=== PATIENT | male | born 1985 | race Caucasian/White ===

== ENCOUNTER 2016-05-27 13:12 | Emergency (ER) | payer SELFPAY ==
[2016-05-27] MEDS ORDERED: LORAZEPAM INJ 2 MG/1 ML VIAL ONE (13:20)
--- NOTE | 2016-05-27 13:28 | ER Document Report ---
ED Seizure - General Time seen by provider: 13:20 Mode of Arrival: Medic Information source: Emergency Med Personnel, [facility] Records - [facility] Patient complains to provider of: History of seizures <MATIGILBERTO STRONG - Last Filed: 05/27/16 13:37> <CHRISSY RICH - Last Filed: 05/28/16 17:29> - General Stated Complaint: POSSIBLE SEIZURE Notes: Patient is a 30 year old male presenting to the emergency department for seizures. Patient had a seizure at home so EMS was summoned. Patient told EMS that he quit drinking EtOH 4 days ago. Patient has a history of alcoholic hepatitis. Patient was alert on scene with EMS and then patient started seizing during registration while at the ED. Patient was seizing and placed in the left lateral decubitus position. Patient has a history of heavy EtOH use and prescription drug abuse. Patient states after his seizure in the ED that he is trying to be a recovering addict so he stopped drinking. (GILBERTO EDGAR) This 30-year-old male patient comes emergency room for alcohol withdrawal. He reports having a seizure this morning. He stopped drinking 3-4 days ago. He has been alcoholic for quite some time. Shortly after he arrived and while he was still on the EMS gurney, the patient began having a generalized seizure. He was given IM Ativan, as his IV had been pulled out during the seizure. He later woke up and was completely alert and oriented, states he stopped drinking 3-4 days ago because he is a "recovering alcoholic". He is complaining of abdominal pain, he has had pancreatitis in the past. His lipase is normal today, he does take sucralfate as well as medications. His abdomen has active bowel sounds, he does guard somewhat. His white blood cell count is unremarkable, particularly since it was drawn after a generalized seizure. (CHRISSY RICH) - Related Data Allergies/Adverse Reactions: No Known Allergies Allergy (Verified 09/03/14 01:38) Past Medical History - General Information source: Patient - Social History Smoking Status: Current Every Day Smoker Frequency of alcohol use: Heavy Drug Abuse: Prescription drugs Family History: CAD, COPD - Past Medical History Cardiac Medical History: Reports: Hx Hypertension Neurological Medical History: Reports: Hx Seizures - first one at 14 years of age, no medications GI Medical History: Reports: Hx Gastroesophageal Reflux Disease Psychiatric Medical History: Reports: Hx Depression Infectious Medical History: Reports: Hx Hepatitis - alcoholic hepatitis Past Surgical History: Reports: Hx Genitourinary Surgery - vasectomy, Hx Nose Surgery - bilateral: maxillary antrostomy, sphenoidotomy, ethmoidectomy - Immunizations Hx Diphtheria, Pertussis, Tetanus Vaccination: Yes <GILBERTO EDGAR - Last Filed: 05/27/16 13:37> Review of Systems - Review of Systems Constitutional: No symptoms reported EENT: No symptoms reported Cardiovascular: No symptoms reported Respiratory: No symptoms reported Gastrointestinal: No symptoms reported Genitourinary: No symptoms reported Male Genitourinary: No symptoms reported Musculoskeletal: No symptoms reported Skin: No symptoms reported Hematologic/Lymphatic: No symptoms reported Neurological/Psychological: See HPI, Seizure -: Yes All other systems reviewed and negative <GILBERTO EDGAR - Last Filed: 05/27/16 13:37> Physical Exam - Vital signs Interpretation: Tachycardic - during seizure - General In distress: Mild - HEENT Head: Normocephalic, Atraumatic Eyes: Normal Pupils: PERRL Mucous membranes: Moist - Respiratory Respiratory status: No respiratory distress Chest status: Nontender Breath sounds: Rhonchi Chest palpation: Normal - Cardiovascular Rhythm: Regular, Tachycardia - only during the seizure Heart sounds: Normal auscultation Murmur: No - Abdominal Inspection: Normal Distension: No distension Bowel sounds: Normal Tenderness: Nontender Organomegaly: No organomegaly - Back Back: Normal, Nontender - Extremities General upper extremity: Normal inspection, Normal ROM, Normal strength General lower extremity: Normal inspection, Normal ROM, Normal strength - Neurological Neuro grossly intact: Yes Cognition: Normal Orientation: AAOx4 Elva Coma Scale Eye Opening: Spontaneous [place]va Coma Scale Verbal: Oriented [place] Coma Scale Motor: Obeys Commands [place] Coma Scale Total: 15 Speech: Normal - Psychological Associated symptoms: Normal affect, Normal mood - Skin Skin Temperature: Warm Skin Moisture: Dry <GILBERTO EDGAR - Last Filed: 05/27/16 13:37> <CHRISSY RICH - Last Filed: 05/28/16 17:29> - Vital signs Vitals: Temp Pulse BP Pulse Ox 99.7 F 135 H 153/87 H 98 05/27/16 13:30 05/27/16 13:30 05/27/16 13:30 05/27/16 13:30 - General Notes: Patient was seizing with EMS at bedside, patient was in the left lateral decubitus position, his teeth were clenching, he was snoring, and salivating, and convulsing. After getting ativan, patient was alert and oriented and able to give information. (GILBERTO EDGAR) Course <GILBERTO EDGAR - Last Filed: 05/27/16 13:37> - Laboratory Result Diagrams: 05/27/16 13:48 05/27/16 13:48 <CHRISSY RICH - Last Filed: 05/28/16 17:29> - Re-evaluation Re-evalutation: 05/27/16 17:50 The patient does give a history of seizures when he was 14 years old. It is unclear if he perhaps has a seizure disorder in addition to his alcohol withdrawal seizures. We will cover him with Dilantin just in case, in addition to benzodiazepines. 05/27/16 18:40 At this time the patient is resting comfortably after the additional half milligram of Ativan. Abdomen has very active bowel sounds. Is soft. It is resonant to percuss. The patient does state that he has been having diarrhea recently. The abdomen remains a little tender, but he seems much more comfortable on exam now than earlier. His pulse is now down to 110, he has had about 2 L of IV fluids. I reviewed the discharge instructions and plans with the patient and a family member. (CHRISSY RICH) - Vital Signs Vital signs: Temp Pulse Resp BP Pulse Ox 99.7 F 114 H 14 135/88 H 96 05/27/16 13:30 05/27/16 16:22 05/27/16 19:18 05/27/16 19:18 05/27/16 19:18 - Laboratory Laboratory results interpreted by me: 05/27/16 05/27/16 13:48 13:48 RBC 3.54 L Hgb 10.4 L Hct 31.3 L RDW 27.3 H Seg Neutrophils % 84.8 H Lymphocytes % 10.4 L Absolute Neutrophils 8.8 H Sodium 134.0 L Potassium 3.2 L Chloride 92 L Carbon Dioxide 12 L Anion Gap 30 H BUN 5 L Glucose 133 H Magnesium 1.0 L* AST 195 H ALT 85 H Alkaline Phosphatase 135 H Creatine Kinase 186 H Critical Care Note - Critical Care Note Total time excluding time spent on procedures (mins): 40 <CHRISSY RICH - Last Filed: 05/28/16 17:29> Discharge <GILBERTO EDGAR - Last Filed: 05/27/16 13:37> <CHRISSY RICH - Last Filed: 05/28/16 17:29> - Discharge Clinical Impression: Hypomagnesemia, Hypokalemia, Alcoholism /alcohol abuse Seizure due to alcohol withdrawal Qualifiers: Complication of substance-induced condition: uncomplicated Qualified Code(s): F10.230 - Alcohol dependence with withdrawal, uncomplicated Condition: Stable Disposition: HOME, SELF-CARE Additional Instructions: Alcohol Withdrawal: Your symptoms are caused by alcohol withdrawal. After a period of frequent drinking, the brain and body are changed by the alcohol. When you quit or reduce your drinking, the nervous system becomes unstable. Withdrawal symptoms can start a few hours after your last drink, but sometimes don't begin until a couple of days later. Symptoms can include shakiness, sweating, insomnia, nausea , vomiting, fearfulness, hallucinations, and seizures. In addition to the acute effects of alcohol withdrawal, we often have to deal with the medical effects of alcoholism. These problems often include dehydration, stomach irritation, intestinal bleeding, low blood sugar, liver disease, and pancreas inflammation. Treatment for alcohol withdrawal includes mild sedatives, vitamins, and fluids. You need to be with someone who can help if symptoms become severe. Many patients can withdraw at home. Admission to the hospital or a detox facility may be necessary if withdrawal symptoms are severe and uncontrollable. Abstaining from alcohol is the only effective long-term treatment. If you start drinking again, you will not be able to control yourself after the first drink. Treatment programs are available. In addition, many alcoholics benefit from Alcoholics Anonymous or other support groups available through your counselor or mandaen senior business process analyst. AL-ANON and ALA-TEEN are support groups for friends and family members of an alcoholic. Go to the emergency room if you develop persistent vomiting, severe abdominal pain, fever, shortness of breath, hallucinations, uncontrollable tremors, or seizures. TAKE THE MEDICATION PRESCRIBED. INCREASE POTASSIUM IN YOUR DIET. EAT WELL BALANCED MEALS. DRINK PLENTY OF FLUIDS. DO NOT DRINK ALCOHOL. FOLLOW UP WITH A [facility] TOMORROW. RETURN TO THE EMERGENCY ROOM IF ANY NEW OR WORSENING SYMPTOMS. Prescriptions: Phenytoin Sodium Extended [Dilantin 100 mg Capsule.er] 300 mg PO QHS #100 capsule Chlordiazepoxide HCl [Librium 25 mg Capsule] 1 cap PO QID PRN #30 capsule PRN Reason: Magnesium Oxide [Mag-Ox 400 mg Tablet] 400 mg PO DAILY #10 tablet Referrals: [facility] [Provider Group] - Follow up tomorrow [facility] [Provider Group] - Follow up tomorrow Scribe Attestation: 05/27/16 17:59 I personally performed the services described in the documentation, reviewed and edited the documentation which was dictated to the scribe in my presence, and it accurately records my words and actions. (CHRISSY RICH) Scribe Documentation - Scribe Written by Marin:: Gilberto Edgar 05/27/16 13:42 acting as scribe for :: Ramon <GILBERTO EDGAR - Last Filed: 05/27/16 13:37>
[2016-05-27] MEDS ORDERED: PHENYTOIN SODIUM INJ/PF 250 MG/5 ML SDV IV ONE (13:34)
[2016-05-27] MEDS ORDERED: LORAZEPAM INJ 2 MG/1 ML VIAL IM ONE (14:04)
[2016-05-27 14:06] LABS: ABSOLUTE LYMPHOCYTES (AUTO) 1.1 10^3/uL (0.5-4.7); ABSOLUTE MONOCYTES (AUTO) 0.5 10^3/uL (0.1-1.4); ABSOLUTE NEUT (AUTO) 8.8 10^3/uL (1.7-8.2); BASOPHILS % (AUTO) 0.5 % (0-2); HEMATOCRIT 31.3 % (37.9-51.0); HEMOGLOBIN 10.4 g/dL (13.5-17.0); HGB HCT DIFFERENCE -0.1; LYMPHOCYTES % (AUTO) 10.4 % (13-45); MEAN CORPUSCULAR HEMOGLOBIN 29.3 pg (27.0-33.4); MEAN CORPUSCULAR HGB CONC 33.2 g/dL (32.0-36.0); MEAN CORPUSCULAR VOLUME 88 fl (80-97); MONOCYTES % (AUTO) 4.3 % (3-13); RED BLOOD COUNT 3.54 10^6/uL (4.35-5.55); RED CELL DISTRIBUTION WIDTH 27.3 % (11.5-14.0); SEGMENTED NEUTROPHILS % (AUTO) 84.8 % (42-78); WHITE BLOOD COUNT 10.4 10^3/uL (4.0-10.5)
[2016-05-27 14:24] LABS: ALANINE AMINOTRANSFERASE 85 U/L (21-72); ALBUMIN 4.2 g/dL (3.5-5.0); ALKALINE PHOSPHATASE 135 U/L (38-126); BILIRUBIN,TOTAL 0.9 mg/dL (0.2-1.3); BLOOD UREA NITROGEN 5 mg/dL (7-20); CALCIUM 8.6 mg/dL (8.4-10.2); CARBON DIOXIDE 12 mmol/L (22-30); CHLORIDE 92 mmol/L (98-107); CREATINE KINASE 186 U/L (55-170); CREATININE RESULT 0.75 mg/dL (0.52-1.25); GLUCOSE 133 mg/dL (75-110); POTASSIUM 3.2 mmol/L (3.6-5.0); TOTAL PROTEIN 6.5 g/dL (6.3-8.2)
[2016-05-27 14:27] LABS: ANISOCYTOSIS 3+; HYPOCHROMASIA 1+
[2016-05-27 14:29] LABS: ASPARTATE AMINO TRANSFERASE 195 U/L (17-59)
[2016-05-27 14:33] LABS: ALCOHOL < 10 mg/dL (NONE DETECTED)
[2016-05-27 14:35] LABS: CREATINE KINASE MB 0.78 ng/mL (<4.55)
[2016-05-27 14:36] LABS: TROPONIN I < 0.012 ng/mL
[2016-05-27 14:43] LABS: ANION GAP 30 (5-19)
[2016-05-27] MEDS ORDERED: NORMAL SALINE 1000 ML 1,000 ML IV ONE (15:11)
[2016-05-27] MEDS ORDERED: POTASSIUM CHLORIDE 10 MEQ TABLET.SA PO ONE (15:11)
[2016-05-27] MEDS ORDERED: MAGNESIUM SULFATE INJ 8 MEQ/2 ML IV ONE (15:11)
[2016-05-27] MEDS ORDERED: THIAMINE HCL INJ 200 MG/2 ML VIAL IV ONE (15:32)
[2016-05-27] MEDS ORDERED: RINGERS SOLUTION,LACTATED 1,000 ML IV ONE (15:32)
[2016-05-27] MEDS ORDERED: LORAZEPAM INJ 2 MG/1 ML VIAL IV ONE ×2 (16:14→17:57)
[2016-05-27 16:37] LABS: APPEARANCE,URINE CLEAR; BILIRUBIN,URINE NEGATIVE (NEGATIVE); GLUCOSE, URINE NEGATIVE (NEGATIVE); KETONES,URINE NEGATIVE (NEGATIVE); LEUKOCYTE ESTERASE,URINE NEGATIVE (NEGATIVE); NITRITE,URINE NEGATIVE (NEGATIVE); PROTEIN,URINE NEGATIVE (NEGATIVE); URINE SPECIFIC GRAVITY 1.003; UROBILINOGEN,URINE NEGATIVE mg/dL (<2.0)
[2016-05-27 16:54] LABS: URINE BARBITURATES SCREEN NEGATIVE; URINE METHADONE SCREEN NEGATIVE; URINE OPIATES LOW NEGATIVE; URINE PHENCYCLIDINE SCREEN NEGATIVE
[2016-05-27] MEDS ORDERED: MAGNESIUM SULFATE/D5W 100 ML IV ONE (17:21)
[2016-05-28 04:28] VITALS: BP 135/88
== END 2016-05-27 19:20 | disposition home or self-care (01) ==
LOC: ER 13:12
DX: F10.230 Alcohol dependence with withdrawal, uncomplicated (principal); E83.42 Hypomagnesemia; E87.6 Hypokalemia; R00.0 Tachycardia, unspecified; R10.9 Unspecified abdominal pain; R19.7 Diarrhea, unspecified; I10 Essential (primary) hypertension; F17.200 Nicotine dependence, unspecified, uncomplicated; Z87.19 Personal history of other diseases of the digestive system; Z79.899 Other long term (current) drug therapy
CPT/HCPCS: 96376; 99285; 96375; 96361; 96365; 96367; 36415; 82553; 80307 ×2; 82550; 83690; 83735; 85025; 80053; 81001; 84484; 71010; J2060; J1165; J3475; J3411; J7030; J7120

== ENCOUNTER 2016-06-19 04:26 | Emergency (ER) | payer SELFPAY ==
[2016-06-19] MEDS ORDERED: DIAZEPAM INJ 10 MG/2 ML DISP.SYRIN ONE ×2 (04:31→04:34)
[2016-06-19] MEDS ORDERED: LORAZEPAM INJ 2 MG/1 ML VIAL ONE ×2 (04:40→04:50)
[2016-06-19] MEDS ORDERED: ETOMIDATE INJ/PF 20 MG/10 ML SDV IV ONE (05:02)
[2016-06-19] MEDS ORDERED: PROPOFOL 100 ML IV ONE (05:04)
[2016-06-19] MEDS ORDERED: FOLIC ACID INJ 5 MG/1 ML 10 ML VIAL IV ONE (05:31)
[2016-06-19] MEDS ORDERED: NORMAL SALINE 1000 ML 1,000 ML with POTASSIUM CHLORIDE 20 MEQ, MAGNESIUM SULFATE 8 MEQ,... IV PRN ×5 (05:32)
[2016-06-19] MEDS ORDERED: LEVETIRACETAM 1000 MG/NACL-ISO 100 ML IV ONE (05:34)
[2016-06-19] MEDS ORDERED: PROPOFOL INJ 200 MG/20 ML VIAL IV ONE ×2 (05:34→05:35)
[2016-06-19] MEDS ORDERED: SUCCINYLCHOLINE CHLORIDE INJ 200 MG/10 ML VIAL IV ONE (05:35)
--- NOTE | 2016-06-19 05:36 | ER Document Report ---
ED General - General TRAVEL OUTSIDE OF THE [place] IN LAST 30 DAYS: No <RO MCCORD - Last Filed: 06/19/16 08:53> <CHRISSY RICH - Last Filed: 06/19/16 09:36> - General Chief Complaint: Seizure Stated Complaint: SEIZURE Notes: Patient is 31 old male who presents actively having a seizure. Has history of chronic alcoholism and also has a history of seizure disorder. His mother is at bedside and says that the patient stopped drinking alcohol approximately day and half ago. He had to receive seizures at home. Upon pulling into the ER parking lot he started having a seizure and has not stopped since. He is on phenytoin Mother says he's been taking it appropriately. Mother says due to the alcohol he does fall frequently. She is unsure if he's had any recent head injuries. (RO MCCORD) - Related Data Allergies/Adverse Reactions: No Known Allergies Allergy (Verified 09/03/14 01:38) Past Medical History - Social History Smoking Status: Unknown if Ever Smoked Frequency of alcohol use: Heavy Drug Abuse: Other - unknown Family History: CAD, COPD - Past Medical History Cardiac Medical History: Reports: Hx Hypertension Denies: Hx Heart Attack Pulmonary Medical History: Denies: Hx Asthma, Hx Tuberculosis Neurological Medical History: Reports: Hx Seizures - hx of 2/ last seizure was at least 10 yrs ago/no meds. Denies: Hx Cerebrovascular Accident Renal/ Medical History: Denies: Hx Peritoneal Dialysis GI Medical History: Reports: Hx Gastroesophageal Reflux Disease, Hx Hepatitis - alcoholic hepatitis. Denies: Hx Hiatal Hernia, Hx Ulcer Psychiatric Medical History: Reports: Hx Depression Infectious Medical History: Reports: Hx Hepatitis - alcoholic hepatitis Past Surgical History: Reports: Hx Genitourinary Surgery - vasectomy, Hx Nose Surgery - bilateral: maxillary antrostomy, sphenoidotomy, ethmoidectomy. Denies : Hx Open Heart Surgery, Hx Pacemaker - Immunizations Hx Diphtheria, Pertussis, Tetanus Vaccination: Yes <RO MCCORD - Last Filed: 06/19/16 08:53> Review of Systems - Review of Systems -: Yes ROS unobtainable due to patient's medical condition - Patient is actively seizing. <RO MCCORD - Last Filed: 06/19/16 08:53> Physical Exam <RO MCCORD - Last Filed: 06/19/16 08:53> <CHRISSY RICH - Last Filed: 06/19/16 09:36> - Vital signs Vitals: Resp BP Pulse Ox 38 H 146/127 H 94 06/19/16 04:30 06/19/16 04:30 06/19/16 04:30 - Notes Notes: General Appearance: Well nourished, actively seizing Vitals: reviewed, See vital signs table. Head: no swelling or tenderness to the head Eyes: PERRL, EOMI, Conjuctiva clear Mouth: No decreasd moisture Throat: No tonsillar inflammation, No airway obstruction, No lymphadenopathy Neck: Supple, no neck tenderness, No thyromegaly Lungs: No wheezing, No rales, No rhonci, No accessory muscle use, good air exchange bilaterally. Heart: Tachycardic rate, Regular rythm, No murmur, no rub Abdomen: Normal BS, soft, No rigidity, No abdominal tenderness, No guarding, no rebound, no abdominal masses, no organomegaly Extremities: strength 5/5 in all extremities, good pulses in all extremities, no swelling or tenderness in the extremities, no edema. Skin: warm, dry, appropriate color, no rash Neuro: Patient is actively seizing. He is having some tonic-clonic movements of the upper extremities. He has continuous facial twitching. (RO MCCORD) Course - Laboratory Result Diagrams: 06/19/16 07:47 06/19/16 07:47 <RO MCCORD - Last Filed: 06/19/16 08:53> - Laboratory Result Diagrams: 06/19/16 07:47 06/19/16 07:47 <CHRISSY RICH - Last Filed: 06/19/16 09:36> - Re-evaluation Re-evalutation: 06/19/16 06:25 Patient's seizure initially stopped with propofol. After parallax wore off patient started having facial twitching again. This was not as severe as it was before the propofol; however, appears is having recurrent seizure activity. I've given Keppra. Patient's facial twitching is now very mild and intermittent and not constant. We will increase propofol as well as see if this helps fully prevent any further seizure activity. 06/19/16 07:45 Patient unfortunately does not appear to be have any further facial twitching or seizure-like activity at this time. He is sedated on the ventilator. He is on propofol. He has received the Keppra. His initial blood draw was hemolyzed. They did redraw the blood. His results are very off. Some of these may be true but to have concerns that is possible some of them may not be correct. I immediately have performed a some steak and obtained repeat blood draw. I have called the lab and they're in a running immediately to make sure these results are indeed correct. 06/19/16 08:33 (RO MCCORD) - Vital Signs Vital signs: Temp Pulse Resp BP Pulse Ox 14 107/60 100 06/19/16 05:21 06/19/16 05:21 06/19/16 05:25 - Laboratory Laboratory results interpreted by me: 06/19/16 06/19/16 06/19/16 06:32 06:32 06:32 WBC 12.3 H RBC 2.57 L Hgb 7.3 L Hct 21.6 L RDW 28.8 H Plt Count 125 L Seg Neuts % (Manual) 86 H Band Neutrophils % 2 L Lymphocytes % (Manual) 2 L Abs Neuts (Manual) 10.8 H Abs Lymphs (Manual) 0.2 L Abs Monocytes (Manual) Carbonic Acid ABG pH ABG pCO2 ABG HCO3 ABG Total CO2 Sodium 119.3 L* Potassium 2.2 L* Chloride 59 L Carbon Dioxide 41 H* BUN 24 H Glucose 112 H Calcium 4.7 L* Magnesium 1.0 L* Phenytoin < 3.0 L Crossmatch 06/19/16 06/19/16 06/19/16 06:35 07:47 07:47 WBC 12.6 H RBC 2.56 L Hgb 7.3 L Hct 21.7 L RDW 28.9 H Plt Count 122 L Seg Neuts % (Manual) Band Neutrophils % 2 L Lymphocytes % (Manual) 9 L Abs Neuts (Manual) 10.0 H Abs Lymphs (Manual) Abs Monocytes (Manual) 1.5 H Carbonic Acid 1.48 H ABG pH 7.58 H ABG pCO2 49.2 H ABG HCO3 44.8 H ABG Total CO2 46.3 H Sodium 118.9 L* Potassium 2.2 L* Chloride 59 L Carbon Dioxide 45 H* BUN 24 H Glucose 114 H Calcium 4.8 L* Magnesium 0.9 L* Phenytoin Crossmatch 06/19/16 07:47 WBC RBC Hgb Hct RDW Plt Count Seg Neuts % (Manual) Band Neutrophils % Lymphocytes % (Manual) Abs Neuts (Manual) Abs Lymphs (Manual) Abs Monocytes (Manual) Carbonic Acid ABG pH ABG pCO2 ABG HCO3 ABG Total CO2 Sodium Potassium Chloride Carbon Dioxide BUN Glucose Calcium Magnesium Phenytoin Crossmatch See Detail - EKG Interpretation by Me Additional EKG results interpreted by me: 06/19/16 08:35 EKG is reviewed and interpreted by me. EKG shows sinus tachycardia with rate [address] segment elevation or depression. No ischemic T wave inversions. WV interval, QRS duration, QTC intervals are within normal range. Old EKG for comparison is from 01/20/2016. (RO MCCORD) - Transfer of Care Notes: 06/19/16 08:20 I do not have continues EEG capability at this facility and therefore I cannot determine whether or not the patient has subclinical status while on the ventilator. I have called spent with Dr. Betancourt, driver wheelchair at [facility], who agrees to accept the patient but says that they currently do not have a bed and may not have a bed for 24 hours. They have placed him on a waiting list. I did call speak with Dr. Andersen, driver wheelchair at [facility], who agrees to accept the patient. They're currently looking to see if they have a bed available for him. His repeat CBC did come back with hemoglobin 7.3. I will transfuse him blood. Exact source of his anemia is unclear at this time. I have started replacing magnesium as well as potassium as well as calcium. 06/19/16 08:33 06/19/16 08:53 Patient's mother is Lyndon Contreras and her phone is [phone]. (RO MCCORD) Procedures - Intubation Orotracheal Airway evaluation: Normal anatomy Mallampati Classification: Class 2 Intubation method: Orotracheal Blade type: Quinten Blade size: 4 Equipment used: Glidescope ETT size: 7.5 ETT secured at: Teeth ETT secured at (cm): 24 Breath Sounds after Intubation: Equal End tidal CO2 confirmed: Yes Intubation Complications: No complications <RO MCCORD - Last Filed: 06/19/16 08:53> <CHRISSY RICH - Last Filed: 06/19/16 09:36> - Intubation Orotracheal Notes: 06/19/16 06:00 I initially attempted the first look without paralyzing the patient. Propofol did stop seizure upon station. Patient did have a gag reflex upon inserting the laryngoscope. I therefore removed the laryngoscope immediately. There was no vomiting or aspiration. Patient was then given succinylcholine. Upon second look after succinylcholine patient had no gag reflex and was easily intubated without complication. (RO MCCORD) Critical Care Note - Critical Care Note Total time excluding time spent on procedures (mins): 65 <RO MCCORD - Last Filed: 06/19/16 08:53> <CHRISSY RICH - Last Filed: 06/19/16 09:36> - Critical Care Note Comments: Total critical care time spent on this patient's proximately 65 minutes due to frequent evaluations to look for further signs recurrent seizure activity and management patient's airway and sedation. This time this not including time spent on procedures. (RO MCCORD) Discharge <RO MCCORD - Last Filed: 06/19/16 08:53> <CHRISSY RICH - Last Filed: 06/19/16 09:36> - Discharge Clinical Impression: Alcohol abuse, Seizures, Hypomagnesemia, Hypokalemia, Hypocalcemia Anemia Qualifiers: Anemia type: unspecified type Qualified Code(s): D64.9 - Anemia, unspecified Alcohol withdrawal Qualifiers: Complication of substance-induced condition: with delirium Qualified Code(s): F10.231 - Alcohol dependence with withdrawal delirium Gastrointestinal hemorrhage Qualifiers: GI bleed type/associated pathology: unspecified gastrointestinal hemorrhage type Qualified Code(s): K92.2 - Gastrointestinal hemorrhage, unspecified Condition: Stable Disposition: [facility]
[2016-06-19] MEDS ORDERED: POTASSI CL 20 MEQ/50 ML RIDER 40 MEQ/100 ML RTUPB IV ONE (05:38)
[2016-06-19] MEDS ORDERED: FOLIC ACID 1 MG in NORMAL SALINE 50 ML IV ONE (05:45)
[2016-06-19] MEDS: PROPOFOL 100 ML IV PRN ×2 (05:49→08:34)
[2016-06-19 06:49] LABS: ARTERIAL BLOOD BASE EXCESS 20.5 mmol/L; ARTERIAL BLOOD O2 SATURATION 97.3 % (94-98)
[2016-06-19 06:50] LABS: HEMATOCRIT 21.6 % (37.9-51.0); HGB HCT DIFFERENCE 0.3; MEAN CORPUSCULAR HEMOGLOBIN 28.5 pg (27.0-33.4); MEAN CORPUSCULAR HGB CONC 33.9 g/dL (32.0-36.0); RED BLOOD COUNT 2.57 10^6/uL (4.35-5.55); RED CELL DISTRIBUTION WIDTH 28.8 % (11.5-14.0); WHITE BLOOD COUNT 12.3 10^3/uL (4.0-10.5)
[2016-06-19 07:04] LABS: BLOOD UREA NITROGEN 24 mg/dL (7-20); CHLORIDE 59 mmol/L (98-107); GLUCOSE 112 mg/dL (75-110)
[2016-06-19 07:05] LABS: ALCOHOL < 10 mg/dL (NONE DETECTED)
[2016-06-19 07:20] LABS: ANION GAP 19 (5-19)
[2016-06-19 07:24] LABS: CALCIUM 4.7 mg/dL (8.4-10.2); CARBON DIOXIDE 41 mmol/L (22-30); POTASSIUM 2.2 mmol/L (3.6-5.0); SODIUM 119.3 mmol/L (137-145)
[2016-06-19 07:26] LABS: HEMOGLOBIN 7.3 g/dL (13.5-17.0)
[2016-06-19 07:28] LABS: MEAN CORPUSCULAR VOLUME 84 fl (80-97)
[2016-06-19] MEDS ORDERED: ACETAMINOPHEN 325 MG TABLET PO ONE (07:33)
[2016-06-19 07:46] LABS: BAND NEUTROPHILS % (MANUAL) 2 % (3-5); BASOPHILS % (MANUAL) 0 % (0-2); EOSINOPHILS % (MANUAL) 0 % (0-6); LYMPHOCYTES % (MANUAL) 2 % (13-45); NUCLEATED RED BLOOD CELLS 2 /100 WBC (0); TOTAL CELLS COUNTED 100
[2016-06-19 07:47] LABS: ANISOCYTOSIS 3+; HYPOCHROMASIA 2+; POLYCHROMASIA 1+; STOMATOCYTES 2+; TOXIC GRANULATION SLIGHT
[2016-06-19] MEDS: MAGNESIUM SULFATE/D5W 100 ML IV SCH ×2 (07:54→09:07)
[2016-06-19 07:55] LABS: HEMATOCRIT 21.7 % (37.9-51.0); HGB HCT DIFFERENCE 0.2; MEAN CORPUSCULAR HEMOGLOBIN 28.6 pg (27.0-33.4); MEAN CORPUSCULAR HGB CONC 33.7 g/dL (32.0-36.0); MEAN CORPUSCULAR VOLUME 85 fl (80-97); RED BLOOD COUNT 2.56 10^6/uL (4.35-5.55); RED CELL DISTRIBUTION WIDTH 28.9 % (11.5-14.0); WHITE BLOOD COUNT 12.6 10^3/uL (4.0-10.5)
[2016-06-19 08:02] LABS: HEMOGLOBIN 7.3 g/dL (13.5-17.0)
[2016-06-19 08:04] LABS: PROTHROMBIN TIME 13.1 SEC (11.4-15.4)
[2016-06-19] MEDS ORDERED: CALCIUM GLUCONATE 1000 MG/10 ML INJ IV ONE (08:04)
[2016-06-19 08:06] LABS: BLOOD UREA NITROGEN 24 mg/dL (7-20); CHLORIDE 59 mmol/L (98-107); GLUCOSE 114 mg/dL (75-110)
[2016-06-19 08:15] LABS: ANISOCYTOSIS 3+; BAND NEUTROPHILS % (MANUAL) 2 % (3-5); BASOPHILS % (MANUAL) 0 % (0-2); EOSINOPHILS % (MANUAL) 0 % (0-6); HYPOCHROMASIA 2+; LYMPHOCYTES % (MANUAL) 9 % (13-45); PLATELET CLUMPS PRESENT; TOTAL CELLS COUNTED 100; TOXIC GRANULATION SLIGHT
[2016-06-19 08:16] LABS: POLYCHROMASIA SLIGHT; STOMATOCYTES 1+
[2016-06-19] MEDS ORDERED: NORMAL SALINE 250 ML IV PRN (08:19)
[2016-06-19 08:22] LABS: ANION GAP 15 (5-19)
[2016-06-19 08:25] LABS: CALCIUM 4.8 mg/dL (8.4-10.2); CARBON DIOXIDE 45 mmol/L (22-30); MAGNESIUM 0.9 mg/dL (1.6-2.3); POTASSIUM 2.2 mmol/L (3.6-5.0); SODIUM 118.9 mmol/L (137-145)
[2016-06-19] MEDS ORDERED: POTASSI CL 20 MEQ/50 ML RIDER 50 ML IV SCH (08:30)
--- NOTE | 2016-06-19 09:39 | ER Document Report ---
Doctor's Note Notes: 06/19/16 09:38 The patient remains on a ventilator, vital signs are stable. Paramedical will be landing in the next few minutes. Blood should be arriving from the lab to start transfusing prior to the patient departing.
[2016-06-19 12:05] VITALS: BP 131/65
--- NOTE | 2016-06-19 13:18 | EKG REPORT ---
SEVERITY:- ABNORMAL ECG - SINUS TACHYCARDIA ABNORMAL T, CONSIDER ISCHEMIA, DIFFUSE LEADS : Confirmed by: Blake Faulkner MD 19-Jun-2016 13:17:59
[2016-06-19] MEDS ORDERED: SUCCINYLCHOLINE CHLORIDE INJ 200 MG/10 ML VIAL ONE (14:42)
== END 2016-06-19 09:57 | disposition short-term general hospital (02) ==
LOC: ER 04:26
PROC: 0BH17EZ Insertion of Endotracheal Airway into Trachea, Via Natural or Artificial Opening (ICD-10-PCS; principal; 2016-06-19)
DX: G40.909 Epilepsy, unspecified, not intractable, without status epilepticus (principal); D64.9 Anemia, unspecified; F10.231 Alcohol dependence with withdrawal delirium; K92.2 Gastrointestinal hemorrhage, unspecified; R00.0 Tachycardia, unspecified; E83.42 Hypomagnesemia; E87.6 Hypokalemia; E83.51 Hypocalcemia; I10 Essential (primary) hypertension; R29.6 Repeated falls
CPT/HCPCS: 93005; 99291; 96375; 96365; 96366; 96368; 86900; 86901; 36415; 36430; 86850; 80307; 82803; 83735; 80185; 85025; 85610; 82272; 80048; 86920; 71010; 70450; 72125; 93010; 31500; L0120; P9016; J0610; J3360; J3490 ×2; J2704 ×2; J3475 ×2; J2060; J3480 ×2; J0330; J3411; J7030; J1953

== ENCOUNTER 2016-08-31 13:03 | Emergency (ER) | payer SELFPAY ==
[2016-08-31] MEDS ORDERED: LORAZEPAM INJ 2 MG/1 ML VIAL IV ONE (13:26)
[2016-08-31] MEDS ORDERED: NORMAL SALINE 1000 ML 1,000 ML IV ONE (13:26)
[2016-08-31] MEDS ORDERED: THIAMINE HCL 100 MG, FOLIC ACID 1 MG in NORMAL SALINE 50 ML IV ONE (13:26)
--- NOTE | 2016-08-31 13:29 | ER Document Report ---
ED Medical Screen (RME) - General Chief Complaint: Alcohol Withdrawl Stated Complaint: POSSIBLE SEIZURE Time Seen by Provider: 08/31/16 13:21 Mode of Arrival: Wheelchair Information source: Patient TRAVEL OUTSIDE OF THE [place] IN LAST 30 DAYS: No - HPI Patient complains to provider of: seizure Onset: This morning - pt states has been drinking alcohol up until 3 days ago and his "left side seized up on me." States had similar episode several months ago - Related Data Allergies/Adverse Reactions: No Known Allergies Allergy (Verified 08/31/16 13:13) Past Medical History - Social History Chew tobacco use (# tins/day): No Drug Abuse: None - Past Medical History Cardiac Medical History: Reports: Hx Hypertension Denies: Hx Heart Attack Pulmonary Medical History: Denies: Hx Asthma, Hx Tuberculosis Neurological Medical History: Reports: Hx Seizures - hx of 2/ last seizure was at least 10 yrs ago/no meds. Denies: Hx Cerebrovascular Accident Renal/ Medical History: Denies: Hx Peritoneal Dialysis GI Medical History: Reports: Hx Gastroesophageal Reflux Disease, Hx Hepatitis - alcoholic hepatitis. Denies: Hx Hiatal Hernia, Hx Ulcer Psychiatric Medical History: Reports: Hx Depression Infectious Medical History: Reports: Hx Hepatitis - alcoholic hepatitis Past Surgical History: Reports: Hx Genitourinary Surgery - vasectomy, Hx Nose Surgery - bilateral: maxillary antrostomy, sphenoidotomy, ethmoidectomy. Denies : Hx Open Heart Surgery, Hx Pacemaker - Immunizations Hx Diphtheria, Pertussis, Tetanus Vaccination: Yes Physical Exam - Vital signs Vitals: Temp Pulse Resp BP Pulse Ox 99.5 F 104 H 20 160/119 H 100 08/31/16 13:13 08/31/16 13:13 08/31/16 13:13 08/31/16 13:13 08/31/16 13:13 Course - Vital Signs Vital signs: Temp Pulse Resp BP Pulse Ox 99.5 F 104 H 20 160/119 H 100 08/31/16 13:13 08/31/16 13:13 08/31/16 13:13 08/31/16 13:13 08/31/16 13:13
[2016-08-31 14:39] LABS: ABSOLUTE BASOPHILS # (AUTO) 0.1 10^3/uL (0.0-0.2); ABSOLUTE EOSINOPHILS # (AUTO) 0.1 10^3/uL (0.0-0.6); ABSOLUTE LYMPHOCYTES (AUTO) 1.5 10^3/uL (0.5-4.7); ABSOLUTE MONOCYTES (AUTO) 0.5 10^3/uL (0.1-1.4); ABSOLUTE NEUT (AUTO) 3.1 10^3/uL (1.7-8.2); BASOPHILS % (AUTO) 1.3 % (0-2); EOSINOPHILS % (AUTO) 1.2 % (0-6); HEMATOCRIT 32.6 % (37.9-51.0); HEMOGLOBIN 10.3 g/dL (13.5-17.0); HGB HCT DIFFERENCE -1.7; LYMPHOCYTES % (AUTO) 27.7 % (13-45); MEAN CORPUSCULAR HEMOGLOBIN 24.3 pg (27.0-33.4); MEAN CORPUSCULAR HGB CONC 31.6 g/dL (32.0-36.0); MEAN CORPUSCULAR VOLUME 77 fl (80-97); MONOCYTES % (AUTO) 10.4 % (3-13); RED BLOOD COUNT 4.25 10^6/uL (4.35-5.55); RED CELL DISTRIBUTION WIDTH 22.6 % (11.5-14.0); SEGMENTED NEUTROPHILS % (AUTO) 59.4 % (42-78); WHITE BLOOD COUNT 5.3 10^3/uL (4.0-10.5)
[2016-08-31 14:59] LABS: ALANINE AMINOTRANSFERASE 97 U/L (21-72); ALBUMIN 4.2 g/dL (3.5-5.0); ALCOHOL < 10 mg/dL (NONE DETECTED); ALKALINE PHOSPHATASE 105 U/L (38-126); ANION GAP 14 (5-19); ASPARTATE AMINO TRANSFERASE 273 U/L (17-59); BILIRUBIN,DIRECT 0.4 mg/dL (0.0-0.4); BILIRUBIN,TOTAL 1.1 mg/dL (0.2-1.3); BLOOD UREA NITROGEN 7 mg/dL (7-20); CARBON DIOXIDE 25 mmol/L (22-30); CHLORIDE 97 mmol/L (98-107); CREATININE RESULT 0.57 mg/dL (0.52-1.25); GLUCOSE 99 mg/dL (75-110); POTASSIUM 3.6 mmol/L (3.6-5.0); SODIUM 135.5 mmol/L (137-145); TOTAL PROTEIN 7.1 g/dL (6.3-8.2)
--- NOTE | 2016-08-31 15:42 | RADIOLOGY REPORT (SQ) ---
EXAM DESCRIPTION: CT HEAD WITHOUT COMPLETED DATE/TIME: 08/31/2016 3:29 pm REASON FOR STUDY: seizure COMPARISON: 06/19/2016. TECHNIQUE: Axial images acquired through the brain without intravenous contrast. Images reviewed wi th bone, brain and subdural windows. Images stored on PACS. All CT scanners at this facility use dose modulation, iterative reconstruction, and/or weight based d osing when appropriate to reduce radiation dose to as low as reasonably achievable (ALARA). [facility]: Dose Right [facility]: CareDose [facility]: Dose Right [facility]: Teradose 4D [facility]: Enforcer eCoaching RADIATION DOSE: 64.61 mGy. LIMITATIONS: None. FINDINGS: VENTRICLES: Normal size and contour. CEREBRUM: No masses. No hemorrhage. No midline shift. Normal wilkinson/white matter differentiation. N o evidence for acute infarction. CEREBELLUM: No masses. No hemorrhage. No alteration of density. No evidence for acute infarction. EXTRAAXIAL SPACES: No fluid collections. No masses. ORBITS AND GLOBE: No intra- or extraconal masses. Normal contour of globe without masses. CALVARIUM: No fracture. PARANASAL SINUSES: No fluid levels. Mild mucosal thickening in the maxillary sinuses. SOFT TISSUES: No mass or hematoma. OTHER: No other significant finding. IMPRESSION: NORMAL BRAIN CT WITHOUT CONTRAST. TECHNICAL DOCUMENTATION: JOB ID: [id number] Quality ID # [id number]: Final reports with documentation of one or more dose reduction techniques (e.g., Au tomated exposure control, adjustment of the mA and/or kV according to patient size, use of iterative reconstruction technique) 2010 [employer]- All Rights Reserved
[2016-08-31 16:11] LABS: APPEARANCE,URINE SLIGHTLY-CLOUDY; BILIRUBIN,URINE SMALL (NEGATIVE); GLUCOSE, URINE NEGATIVE (NEGATIVE); KETONES,URINE 20 mg/dL (NEGATIVE); LEUKOCYTE ESTERASE,URINE NEGATIVE (NEGATIVE); NITRITE,URINE NEGATIVE (NEGATIVE); PROTEIN,URINE 100 mg/dL (NEGATIVE); URINE SPECIFIC GRAVITY 1.023
--- NOTE | 2016-08-31 16:16 | ER Document Report ---
ED General - General Chief Complaint: Alcohol Withdrawl Stated Complaint: POSSIBLE SEIZURE Time Seen by Provider: 08/31/16 13:21 Mode of Arrival: Wheelchair Information source: Patient Notes: 31-year-old chronic alcoholic presents with complaints of jitteriness. Patient denies any seizure activity Patient notes he has tried to quit multiple times in the past. Patient denies any nausea vomiting notes tingling sensations in his extremities TRAVEL OUTSIDE OF THE [place] IN LAST 30 DAYS: No - HPI Onset: This morning Onset/Duration: Sudden Quality of pain: No pain Severity: Mild Pain Level: Denies Associated symptoms: Other Exacerbated by: Denies Relieved by: Denies Similar symptoms previously: Yes Recently seen / treated by doctor: Yes - Related Data Allergies/Adverse Reactions: No Known Allergies Allergy (Verified 08/31/16 13:13) Past Medical History - General Information source: Patient - Social History Smoking Status: Current Every Day Smoker Cigarette use (# per day): Yes Chew tobacco use (# tins/day): No Smoking Education Provided: No Frequency of alcohol use: Heavy Drug Abuse: None Family History: CAD, COPD Patient has suicidal ideation: No Patient has homicidal ideation: No - Past Medical History Cardiac Medical History: Reports: Hx Hypertension Denies: Hx Heart Attack Pulmonary Medical History: Denies: Hx Asthma, Hx Tuberculosis Neurological Medical History: Reports: Hx Seizures - hx of 4/ last seizure was at least 10 yrs ago/no meds. Denies: Hx Cerebrovascular Accident Renal/ Medical History: Denies: Hx Peritoneal Dialysis GI Medical History: Reports: Hx Gastroesophageal Reflux Disease, Hx Hepatitis - alcoholic hepatitis. Denies: Hx Hiatal Hernia, Hx Ulcer Psychiatric Medical History: Reports: Hx Depression Infectious Medical History: Reports: Hx Hepatitis - alcoholic hepatitis Past Surgical History: Reports: Hx Genitourinary Surgery - vasectomy, Hx Nose Surgery - bilateral: maxillary antrostomy, sphenoidotomy, ethmoidectomy. Denies : Hx Open Heart Surgery, Hx Pacemaker - Immunizations Hx Diphtheria, Pertussis, Tetanus Vaccination: Yes Review of Systems - Review of Systems Notes: REVIEW OF SYSTEMS: CONSTITUTIONAL : Denies fever, chills, or sweats. Denies recent illness. EENT: Denies eye, ear, throat, or mouth pain or symptoms. Denies nasal or sinus congestion or discharge. Denies throat, tongue, or mouth swelling or difficulty swallowing. CARDIOVASCULAR: Denies chest pain. Denies palpitations or racing or irregular heart beat. Denies ankle edema. RESPIRATORY: Denies cough, cold, or chest congestion. Denies shortness of breath, difficulty breathing, or wheezing. GASTROINTESTINAL: Denies abdominal pain or distention. Denies nausea, vomiting , or diarrhea. Denies blood in vomitus, stools, or per rectum. Denies black, tarry stools. Denies constipation. GENITOURINARY: Denies difficulty urinating, painful urination, burning, frequency, blood in urine, or discharge. MUSCULOSKELETAL: Denies back or neck pain or stiffness. Denies joint pain or swelling. SKIN: Denies rash, lesions or sores. HEMATOLOGIC : Denies easy bruising or bleeding. LYMPHATIC: Denies swollen, enlarged glands. NEUROLOGICAL: Admits to dizziness and jitteriness and tingling sensations in the extremities PSYCHIATRIC: Denies anxiety or stress. Denies depression, suicidal ideation, or homicidal ideation. ALL OTHER SYSTEMS REVIEWED AND NEGATIVE. Dictation was performed using [employer] voice recognition software PHYSICAL EXAMINATION: GENERAL: Well-appearing, well-nourished and in no acute distress. HEAD: Atraumatic, normocephalic. EYES: Pupils equal round and reactive to light, extraocular movements intact, sclera anicteric, conjunctiva are normal. ENT: Nares patent, oropharynx clear without exudates. Moist mucous membranes. NECK: Normal range of motion, supple without lymphadenopathy LUNGS: Breath sounds clear to auscultation bilaterally and equal. No wheezes rales or rhonchi. HEART: Regular rate and rhythm without murmurs patient intermittently is tachycardic however at rest his heart rate is 90 ABDOMEN: Soft, nontender, nondistended abdomen. No guarding, no rebound. No masses appreciated. Musculoskeletal: Normal range of motion, no pitting or edema. No cyanosis. NEUROLOGICAL: Cranial nerves grossly intact. Normal speech, normal gait. Normal sensory, motor exams PSYCH: Normal mood, normal affect. SKIN: Warm, Dry, normal turgor, no rashes or lesions noted. Physical Exam - Vital signs Vitals: Temp Pulse Resp BP Pulse Ox 99.5 F 104 H 20 160/119 H 100 08/31/16 13:13 08/31/16 13:13 08/31/16 13:13 08/31/16 13:13 08/31/16 13:13 Course - Re-evaluation Re-evalutation: 08/31/16 18:44 he wishes to be discharged home, I will discharge with mom's reassurance that she will watch him, he is to see [facility] in the morning 09/01/16 00:24 31-year-old male alcoholic who has stopped drinking over the past 3 days presents with jitteriness shaking sensation. Patient has had seizures in the past, my concern was for seizure but he has not seized tonight. Patient was given Ativan and notes symptoms improved significantly. I watched the patient in the emergency department for approximately 5 and half hours and he did quite well, given that he has no other concerns at his request at the discharge patient home with understand that they must take the benzo and he must be watched overnight very closely as this can be life-threatening After performing a Medical Screening Examination, I estimate there is LOW risk for ACUTE CORONARY SYNDROME, RESPIRATORY FAILURE, SEPSIS OR MENINGITIS, thus I consider the discharge disposition reasonable. I have reevaluated this patient multiple times and no significant life threatening changes are noted. The patient and I have discussed the diagnosis and risks, and we agree with discharging home with close follow-up. We also discussed returning to the Emergency Department immediately if new or worsening symptoms occur. We have discussed the symptoms which are most concerning (e.g., changing or worsening pain, trouble swallowing or breathing, neck stiffness, fever) that necessitate immediate return. 09/01/16 00:27 - Vital Signs Vital signs: Temp Pulse Resp BP Pulse Ox 99.5 F 104 H 15 152/103 H 99 08/31/16 13:13 08/31/16 13:13 08/31/16 18:57 08/31/16 18:57 08/31/16 18:57 - Laboratory Result Diagrams: 08/31/16 14:26 08/31/16 14:26 Laboratory results interpreted by me: 08/31/16 08/31/16 08/31/16 14:26 14:26 15:45 RBC 4.25 L Hgb 10.3 L Hct 32.6 L MCV 77 L MCH 24.3 L MCHC 31.6 L RDW 22.6 H Sodium 135.5 L Chloride 97 L AST 273 H ALT 97 H Urine Protein 100 H Urine Ketones 20 H Urine Bilirubin SMALL H Urine Urobilinogen 2.0 H Discharge - Discharge Clinical Impression: Anxiety Alcohol withdrawal Qualifiers: Complication of substance-induced condition: uncomplicated Qualified Code(s): F10.230 - Alcohol dependence with withdrawal, uncomplicated Condition: Stable Disposition: HOME, SELF-CARE Instructions: Alcohol Withdrawl ([facility]) Additional Instructions: You must return immediately if there is any other concerns You must see [facility] per your previous appt tomorrow Prescriptions: Lisinopril 5 mg PO DAILY #14 tablet Lorazepam [Ativan 1 mg Tablet] 1 mg PO Q4 PRN #14 tab PRN Reason:
[2016-08-31 16:25] LABS: URINE BARBITURATES SCREEN NEGATIVE; URINE METHADONE SCREEN NEGATIVE; URINE OPIATES LOW NEGATIVE; URINE PHENCYCLIDINE SCREEN NEGATIVE
[2016-08-31] MEDS ORDERED: KETOROLAC TROMETHAMINE INJ/PF 30 MG/1 ML SDV IV ONE (17:10)
[2016-08-31 19:07] VITALS: BP 152/103
== END 2016-08-31 19:07 | disposition home or self-care (01) ==
LOC: ER 13:03
DX: F41.9 Anxiety disorder, unspecified (principal); F10.230 Alcohol dependence with withdrawal, uncomplicated; F17.210 Nicotine dependence, cigarettes, uncomplicated; I10 Essential (primary) hypertension; K21.9 Gastro-esophageal reflux disease without esophagitis; Z98.52 Vasectomy status
CPT/HCPCS: 99285; 96361; 96374; 96375; 36415; 80307 ×2; 85025; 80053; 81001; 70450; J3490; J1885; J2060; J3411; J7030

== ENCOUNTER 2016-10-12 14:23 | Emergency (ER) | payer SELFPAY ==
[2016-10-12] MEDS ORDERED: ASPIRIN 81 MG TABLET, CHEWABLE PO ONE (14:44)
--- NOTE | 2016-10-12 14:48 | ER Document Report ---
ED Medical Screen (RME) - General Chief Complaint: Chest Pain Stated Complaint: CHEST PAIN,DIZZY,WEAK Time Seen by Provider: 10/12/16 14:37 Mode of Arrival: Ambulatory Information source: Patient TRAVEL OUTSIDE OF THE [place] IN LAST 30 DAYS: No - HPI Onset: Other - SEVERAL DAYS Onset/Duration: Waxing and waning Quality of pain: Sharp Severity: Moderate Associated Symptoms: Chest pain, Hurts to breath Exacerbated by: Other - MOWING GRASS @ WORK Relieved by: Denies Similar symptoms previously: No Recently seen / treated by doctor: No - Related Data Smoking: Greater than 1 pack/day Frequency of alcohol use: None Drug Abuse: None Allergies/Adverse Reactions: No Known Allergies Allergy (Verified 10/12/16 14:36) Past Medical History - Social History Cigarette use (# per day): Yes - QUIT x 2 d Chew tobacco use (# tins/day): No Frequency of alcohol use: None Drug Abuse: None Lives with: Family - Past Medical History Cardiac Medical History: Reports: Hx Hypertension Denies: Hx Heart Attack Pulmonary Medical History: Denies: Hx Asthma, Hx Tuberculosis Neurological Medical History: Reports: Hx Seizures - 6-7 weeks ago. Denies: Hx Cerebrovascular Accident Renal/ Medical History: Denies: Hx Peritoneal Dialysis GI Medical History: Reports: Hx Gastroesophageal Reflux Disease, Hx Hepatitis - alcoholic hepatitis. Denies: Hx Hiatal Hernia, Hx Ulcer Psychiatric Medical History: Reports: Hx Depression Infectious Medical History: Reports: Hx Hepatitis - alcoholic hepatitis Past Surgical History: Reports: Hx Genitourinary Surgery - vasectomy, Hx Nose Surgery - bilateral: maxillary antrostomy, sphenoidotomy, ethmoidectomy. Denies : Hx Open Heart Surgery, Hx Pacemaker - Immunizations Hx Diphtheria, Pertussis, Tetanus Vaccination: Yes Review of Systems - Review of Systems Constitutional: No symptoms reported EENT: No symptoms reported Cardiovascular: See HPI Respiratory: See HPI Gastrointestinal: See HPI Physical Exam - Vital signs Vitals: Temp Pulse Resp BP Pulse Ox 98.2 F 133 H 20 149/93 H 95 10/12/16 14:36 10/12/16 14:36 10/12/16 14:36 10/12/16 14:36 10/12/16 14:36 Interpretation: Hypertensive, Tachycardic. No: Hypoxic, Tachypneic - General General appearance: Alert, Anxious In distress: None Course - Vital Signs Vital signs: Temp Pulse Resp BP Pulse Ox 98.2 F 133 H 20 149/93 H 95 10/12/16 14:36 10/12/16 14:36 10/12/16 14:36 10/12/16 14:36 10/12/16 14:36 - EKG Interpretation by Me EKG shows normal: Sinus rhythm, [place], Intervals, QRS Complexes, ST-T Waves Rate: Tachycardia P Waves: Other - NO DC DEPRESSION
--- NOTE | 2016-10-12 14:58 | ER Document Report ---
ED Cardiac - General Chief Complaint: Chest Pain Stated Complaint: CHEST PAIN,DIZZY,WEAK Time Seen by Provider: 10/12/16 14:37 Mode of Arrival: Ambulatory Information source: Patient Notes: 31 yo ex etoh, smoker, no drugs, male c/o retrosternal midline intermittent chest pain for 3 days that radiates to the left chest, constant for 1 day, associated with shortness of breath, nausea. Both hands are tingling with slight headache. hx seizures- divalproex, recovering etoh (none in few months), pancreatitis, vasectomy. TRAVEL OUTSIDE OF THE [place] IN LAST 30 DAYS: No - Related Data Allergies/Adverse Reactions: No Known Allergies Allergy (Verified 10/12/16 14:36) Past Medical History - General Information source: Patient - Social History Smoking Status: Current Every Day Smoker Cigarette use (# per day): Yes - QUIT x 2 d Chew tobacco use (# tins/day): No Frequency of alcohol use: None - for several months Drug Abuse: None Lives with: Family Family History: CAD, COPD - Past Medical History Cardiac Medical History: Reports: Hx Hypertension Neurological Medical History: Reports: Hx Seizures - 6-7 weeks ago Renal/ Medical History: Denies: Hx Peritoneal Dialysis GI Medical History: Reports: Hx Gastroesophageal Reflux Disease, Hx Hepatitis - alcoholic hepatitis, Other - pancreatitis Psychiatric Medical History: Reports: Hx Depression Infectious Medical History: Reports: Hx Hepatitis - alcoholic hepatitis Past Surgical History: Reports: Hx Genitourinary Surgery - vasectomy, Hx Nose Surgery - bilateral: maxillary antrostomy, sphenoidotomy, ethmoidectomy - Immunizations Hx Diphtheria, Pertussis, Tetanus Vaccination: Yes Review of Systems - Review of Systems Constitutional: No symptoms reported EENT: No symptoms reported Cardiovascular: See HPI Respiratory: No symptoms reported Gastrointestinal: See HPI Genitourinary: No symptoms reported Male Genitourinary: No symptoms reported Musculoskeletal: No symptoms reported Skin: No symptoms reported Hematologic/Lymphatic: No symptoms reported Neurological/Psychological: No symptoms reported Physical Exam - Vital signs Vitals: Temp Pulse Resp BP Pulse Ox 98.2 F 133 H 20 149/93 H 95 10/12/16 14:36 10/12/16 14:36 10/12/16 14:36 10/12/16 14:36 10/12/16 14:36 Interpretation: Tachycardic - General General appearance: Appears well, Alert, Anxious In distress: None - HEENT Head: Normocephalic, Atraumatic Eyes: Normal Conjunctiva: Normal Pupils: PERRL Mouth/Lips: Normal Mucous membranes: Dry Neck: Supple. No: Lymphadenopathy, Thyromegally - Respiratory Respiratory status: No respiratory distress Chest status: Nontender Breath sounds: Normal Chest palpation: Normal - Cardiovascular Rhythm: Regular Heart sounds: Normal auscultation Murmur: No - Abdominal Inspection: Normal Distension: No distension Bowel sounds: Normal Tenderness: Tender - epigastrum causes the chest pain to be worse Organomegaly: No organomegaly. No: Hepatomegaly, Splenomegaly - Back Back: Normal, Nontender. No: CVA tenderness - Extremities General upper extremity: Normal inspection, Nontender, Normal color, Normal ROM , Normal temperature General lower extremity: Normal inspection, Nontender, Normal color, Normal ROM , Normal temperature, Normal weight bearing. No: Maia's sign - Neurological Neuro grossly intact: Yes Cognition: Normal Orientation: AAOx4 Elva Coma Scale Eye Opening: Spontaneous Elva Coma Scale Verbal: Oriented Elva Coma Scale Motor: Obeys Commands Joy Coma Scale Total: 15 Speech: Normal Motor strength normal: LUE, RUE, LLE, RLE Sensory: Normal - Psychological Associated symptoms: Normal affect, Normal mood - Skin Skin Temperature: Warm Skin Moisture: Dry Skin Color: Normal Skin irregularity: negative: Rash Course - Re-evaluation Re-evalutation: 10/12/16 15:49 EtOH is 257. Lipase 276. CO2 17, 2nd liter NS ordered. 10/12/16 16:00 pt now states that he last drank alcohol 4 days ago. 10/12/16 16:44 GI cocktail resolved the midline pain, but then recurred milder. pulse 96. feels better, chest xray negative. 1st set of cardiac enzymes negative, TSH normal, esr 8, valproic level less than 10. 10/12/16 17:50 Positive opiates on drug screen because of the morphine I gave him 10/12/16 17:56 pt states chest pain is returning (never completely went away). ekg and troponin ordered, hr 107, then up to 120's when discussing the pain. tender epigastrum again. 10/12/16 18:[address] Cain he agrees to give another GI cocktail to see if that helps again, get the second troponin and EKG if they are negative he can be disposed home with a responsible adult because he will still be intoxicated. 10/12/16 18:21 female sober adult will take him home and stay with him, he lives with her. She was aware of his drinking since September 30. Dr. hernandez rec. magnesium sulfate 400m po and rx, and to restart the depakote (he has more at home) 1 gram po now, and librium 50mg every 6 hours as rx. 10/12/16 18:23 GI cocktail reduced the epigastric pain to 4/5, moreso when he stands, but pulse goes up to 140 when standing. Discussed this again with dr. hernandez who rec another liter of NS, ativan 0.5mg IV, add d dimer. 10/12/16 18:[address], no change from 1st one today 10/12/16 19:13 d dimer is elevated, CTA ordered. Care transferred to Rosa Isela YATES, at the bedside. pt burping. pulse was 96 when we walked into the room. 2nd troponin is negative. 10/12/16 19:14 10/12/16 19:14 - Vital Signs Vital signs: Temp Pulse Resp BP Pulse Ox 98.2 F 133 H 10 L 152/96 H 100 10/12/16 14:36 10/12/16 14:36 10/12/16 18:01 10/12/16 18:01 10/12/16 18:01 - Laboratory Result Diagrams: 10/12/16 14:50 10/12/16 14:50 Laboratory results interpreted by me: 10/12/16 10/12/16 10/12/16 14:50 14:50 14:50 WBC 11.7 H Hgb 12.0 L MCV 74 L MCH 23.3 L MCHC 31.4 L RDW 21.2 H Sodium 135.1 L Chloride 96 L Carbon Dioxide 17 L Anion Gap 22 H Glucose 124 H Creatine Kinase 45 L Urine Protein Urine Glucose (UA) Urine Ketones Valproic Acid < 10.0 L 10/12/16 17:00 WBC Hgb MCV MCH MCHC RDW Sodium Chloride Carbon Dioxide Anion Gap Glucose Creatine Kinase Urine Protein 30 H Urine Glucose (UA) 50 H Urine Ketones 20 H Valproic Acid - EKG Interpretation by Me EKG shows normal: Sinus rhythm Rate: Tachycardia - 116 Rhythm: NSR When compared to previous EKG there are: Previous EKG unavailable Discharge - Discharge Clinical Impression: Epigastric abdominal pain, Chronic alcoholism Chest pain Qualifiers: Chest pain type: unspecified Qualified Code(s): R07.9 - Chest pain, unspecified Alcohol intoxication Qualifiers: Complication of substance-induced condition: uncomplicated Qualified Code(s): F10.920 - Alcohol use, unspecified with intoxication, uncomplicated Condition: Stable Disposition: HOME, SELF-CARE Instructions: Antacid Therapy ([facility]), Prilosec (Acid Pump Inhibitor) ([facility]), Evaluation of Upper Abdominal Pain ([facility]), Chest Pain of Unclear Cause ([facility]), Acute Alcohol Intoxication ([facility]), Chronic Alcoholism ([facility]), Gastritis ([facility]) Additional Instructions: nexium daily magnesium daily no etoh librium every 6 hours for a few days take your depakote to prevent seizures to er if worse referral to detox [facility] for rehab Prescriptions: Chlordiazepoxide HCl [Librium 25 mg Capsule] 1 - 2 cap PO Q6HP PRN #30 capsule PRN Reason: Esomeprazole Mag Trihydrate [Nexium] 40 mg PO DAILY #30 capsule. Magnesium Oxide [Mag-Ox 400 mg Tablet] 400 mg PO DAILY #10 tablet
[2016-10-12 15:09] LABS: ABSOLUTE BASOPHILS # (AUTO) 0.1 10^3/uL (0.0-0.2); ABSOLUTE LYMPHOCYTES (AUTO) 3.8 10^3/uL (0.5-4.7); ABSOLUTE MONOCYTES (AUTO) 0.5 10^3/uL (0.1-1.4); ABSOLUTE NEUT (AUTO) 7.4 10^3/uL (1.7-8.2); BASOPHILS % (AUTO) 0.5 % (0-2); EOSINOPHILS % (AUTO) 0.2 % (0-6); HEMATOCRIT 38.2 % (37.9-51.0); HGB HCT DIFFERENCE -2.2; LYMPHOCYTES % (AUTO) 32.3 % (13-45); MEAN CORPUSCULAR HEMOGLOBIN 23.3 pg (27.0-33.4); MEAN CORPUSCULAR HGB CONC 31.4 g/dL (32.0-36.0); MEAN CORPUSCULAR VOLUME 74 fl (80-97); MONOCYTES % (AUTO) 3.9 % (3-13); RED BLOOD COUNT 5.15 10^6/uL (4.35-5.55); RED CELL DISTRIBUTION WIDTH 21.2 % (11.5-14.0); SEGMENTED NEUTROPHILS % (AUTO) 63.1 % (42-78); WHITE BLOOD COUNT 11.7 10^3/uL (4.0-10.5)
[2016-10-12] MEDS ORDERED: NORMAL SALINE 1000 ML 1,000 ML IV ONE ×3 (15:21→18:39)
[2016-10-12] MEDS ORDERED: MORPHINE SULFATE 10 MG/ML INJ IV ONE ×2 (15:21→18:01)
[2016-10-12] MEDS ORDERED: ONDANSETRON HCL INJ/PF 4 MG/2 ML SDV IV ONE (15:21)
--- NOTE | 2016-10-12 15:21 | RADIOLOGY REPORT (SQ) ---
EXAM DESCRIPTION: CHEST SINGLE VIEW COMPLETED DATE/TIME: 10/12/2016 3:12 pm REASON FOR STUDY: CHEST PAIN COMPARISON: 01/21/2016. EXAM PARAMETERS: NUMBER OF VIEWS: One view. TECHNIQUE: Single frontal radiographic view of the chest acquired. RADIATION DOSE: NA LIMITATIONS: None. FINDINGS: LUNGS AND PLEURA: No opacities, masses or pneumothorax. No pleural effusion. MEDIASTINUM AND HILAR STRUCTURES: No masses. Contour normal. HEART AND VASCULAR STRUCTURES: Heart normal in size. Normal vasculature. BONES: No acute findings. HARDWARE: None in the chest. OTHER: No other significant finding. IMPRESSION: NO ACUTE RADIOGRAPHIC FINDING IN THE CHEST. TECHNICAL DOCUMENTATION: JOB ID: [id number]
[2016-10-12 15:31] LABS: ALANINE AMINOTRANSFERASE 31 U/L (21-72); ALBUMIN 4.3 g/dL (3.5-5.0); ALKALINE PHOSPHATASE 91 U/L (38-126); ASPARTATE AMINO TRANSFERASE 39 U/L (17-59); BILIRUBIN,DIRECT 0.3 mg/dL (0.0-0.4); BILIRUBIN,TOTAL 0.7 mg/dL (0.2-1.3); BLOOD UREA NITROGEN 18 mg/dL (7-20); CALCIUM 8.7 mg/dL (8.4-10.2); CREATINE KINASE 45 U/L (55-170); CREATININE RESULT 0.75 mg/dL (0.52-1.25); GLUCOSE 124 mg/dL (75-110); POTASSIUM 4.3 mmol/L (3.6-5.0); TOTAL PROTEIN 7.5 g/dL (6.3-8.2)
[2016-10-12 15:40] LABS: CARBON DIOXIDE 17 mmol/L (22-30); CHLORIDE 96 mmol/L (98-107); SODIUM 135.1 mmol/L (137-145)
[2016-10-12 15:43] LABS: ANION GAP 22 (5-19); CREATINE KINASE MB 0.26 ng/mL (<4.55)
[2016-10-12 15:44] LABS: TROPONIN I < 0.012 ng/mL
[2016-10-12 15:45] LABS: ERYTHROCYTE SEDIMENTATION RATE 8 mm/hr (0-15)
[2016-10-12] MEDS ORDERED: LIDOCAINE 2% VISCOUS SOLN 20 ML UDCUP PO ONE ×2 (15:55→18:04)
[2016-10-12] MEDS ORDERED: LANSOPRAZOLE 30 MG TAB.RAP.DR PO ONE (15:55)
[2016-10-12] MEDS ORDERED: FAMOTIDINE INJ/PF 20 MG/2 ML SDV IV ONE (15:55)
[2016-10-12] MEDS ORDERED: MAG HYDROX/AL HYDROX/SIMETH SUSP 30 ML UDCUP PO ONE ×2 (15:55→18:04)
[2016-10-12 17:20] LABS: APPEARANCE,URINE CLEAR; BILIRUBIN,URINE NEGATIVE (NEGATIVE); GLUCOSE, URINE 50 mg/dL (NEGATIVE); KETONES,URINE 20 mg/dL (NEGATIVE); LEUKOCYTE ESTERASE,URINE NEGATIVE (NEGATIVE); NITRITE,URINE NEGATIVE (NEGATIVE); PROTEIN,URINE 30 mg/dL (NEGATIVE); URINE SPECIFIC GRAVITY 1.028; UROBILINOGEN,URINE NEGATIVE mg/dL (<2.0)
[2016-10-12 17:31] LABS: URINE BARBITURATES SCREEN NEGATIVE; URINE METHADONE SCREEN NEGATIVE; URINE OPIATES LOW UNCONFIRMED POSITIVE; URINE PHENCYCLIDINE SCREEN NEGATIVE
[2016-10-12] MEDS ORDERED: MAGNESIUM OXIDE 400 MG TABLET PO ONE (18:19)
[2016-10-12] MEDS ORDERED: DIVALPROEX SODIUM 500 MG TAB.SR.24H PO ONE (18:20)
[2016-10-12] MEDS ORDERED: LORAZEPAM INJ 2 MG/1 ML VIAL IV ONE (18:42)
--- NOTE | 2016-10-12 20:27 | RADIOLOGY REPORT (SQ) ---
EXAM DESCRIPTION: CTA CHEST COMPLETED DATE/TIME: 10/12/2016 8:11 pm REASON FOR STUDY: chest pain, elevated D dimer COMPARISON: Recent radiographs. TECHNIQUE: CT scan of the chest performed using helical scanning technique with dynamic intravenous contrast injection. Images reviewed with lung, soft tissue and bone windows. Reconstructed coronal and sagittal MPR images reviewed. Additional 3 dimensional post-processing performed to develop Maximal Intensity Projection images (IA P). All images stored on PACS. All CT scanners at this facility use dose modulation, iterative reconstruction, and/or weight based d osing when appropriate to reduce radiation dose to as low as reasonably achievable (ALARA). [facility]: Dose Right [facility]: CareDose [facility]: Dose Right [facility]: Teradose 4D [facility]: YeHive CONTRAST TYPE AND DOSE: contrast/concentration: Isovue 370.00 mg/ml; Total Contrast Delivered: 73.0 ml; Total Saline Delivered: 110.1 ml 73 cc Isovue 370- low osmolar. RENAL FUNCTION: None required. The patient is less than 50 years old. RADIATION DOSE: Up-to-date CT equipment and radiation dose reduction techniques were employed. CTDIv ol: 13.2 - 15.8 mGy. DLP: 579 mGy-cm. . LIMITATIONS: None. FINDINGS: LUNGS AND PLEURA: No masses, infiltrates, pneumothorax. No pleural effusions, calcificati ons. AORTA AND GREAT VESSELS: No aneurysm or dissection. HEART: No pericardial effusion. PULMONARY ARTERIES: No emboli visualized in the main pulmonary arteries or the segmental branches. HILAR AND MEDIASTINAL STRUCTURES: No enlarged nodes. No mass. Slightly thick-walled appearance of t he distal esophagus. HARDWARE: None in the chest. UPPER ABDOMEN: No significant findings. Limited exam. THYROID AND OTHER SOFT TISSUES: No masses. No adenopathy. BONES: No acute or significant finding. 3D MIPS: Confirm above findings. OTHER: No other significant finding. IMPRESSION: 1. No pulmonary embolus or aortic disease. Lungs clear. 2. Slight wall thickening thr ough the distal esophagus, nonspecific. Potentially related to esophagitis. TECHNICAL DOCUMENTATION: JOB ID: [id number] Quality ID # [id number]: Final reports with documentation of one or more dose reduction techniques (e.g., Au tomated exposure control, adjustment of the mA and/or kV according to patient size, use of iterative reconstruction technique) 2010 [employer]- All Rights Reserved
[2016-10-12] MEDS ORDERED: SUCRALFATE 1 GM TABLET PO ONE (20:49)
--- NOTE | 2016-10-12 22:03 | EKG REPORT ---
SEVERITY:- ABNORMAL ECG - SINUS TACHYCARDIA NONSPECIFIC ST-T CHANGES- INFERIOR LEADS : Confirmed by: Blake Faulkner MD 12-Oct-2016 22:02:36
--- NOTE | 2016-10-12 22:03 | EKG REPORT ---
SEVERITY:- BORDERLINE ECG - SINUS TACHYCARDIA BORDERLINE T WAVE ABNORMALITIES : Confirmed by: Blake Faulkner MD 12-Oct-2016 22:01:35
[2016-10-12 22:31] VITALS: BP 153/94
== END 2016-10-12 22:35 | disposition home or self-care (01) ==
LOC: ER 14:23
DX: R07.9 Chest pain, unspecified (principal); R10.13 Epigastric pain; F10.20 Alcohol dependence, uncomplicated; F10.920 Alcohol use, unspecified with intoxication, uncomplicated; R42 Dizziness and giddiness; R53.1 Weakness; F17.210 Nicotine dependence, cigarettes, uncomplicated
CPT/HCPCS: 93005; 99285; 96374; 96375; 36415; 82553; 80307 ×2; 82550; 83690; 84443; 85025; 85652; 80053; 81001; 84484; 80164; 85379; 71010; 71275; 93010; J3490; J2270; J2060; J2405; J7030; S0028

== ENCOUNTER 2016-10-17 17:06 | Emergency (ER) | payer SELFPAY ==
--- NOTE | 2016-10-17 17:41 | ER Document Report ---
ED Medical Screen (RME) - General Chief Complaint: Psych Problem Stated Complaint: IVC Time Seen by Provider: 10/17/16 17:31 TRAVEL OUTSIDE OF THE [place] IN LAST 30 DAYS: No - Related Data Allergies/Adverse Reactions: No Known Allergies Allergy (Verified 10/17/16 17:11) Past Medical History - Past Medical History Cardiac Medical History: Reports: Hx Hypertension Denies: Hx Heart Attack Pulmonary Medical History: Denies: Hx Asthma, Hx Tuberculosis Neurological Medical History: Reports: Hx Seizures - 6-7 weeks ago. Denies: Hx Cerebrovascular Accident Renal/ Medical History: Denies: Hx Peritoneal Dialysis GI Medical History: Reports: Hx Gastroesophageal Reflux Disease, Hx Hepatitis - alcoholic hepatitis. Denies: Hx Hiatal Hernia, Hx Ulcer Psychiatric Medical History: Reports: Hx Depression Infectious Medical History: Reports: Hx Hepatitis - alcoholic hepatitis Past Surgical History: Reports: Hx Genitourinary Surgery - vasectomy, Hx Nose Surgery - bilateral: maxillary antrostomy, sphenoidotomy, ethmoidectomy. Denies : Hx Open Heart Surgery, Hx Pacemaker - Immunizations Hx Diphtheria, Pertussis, Tetanus Vaccination: Yes Physical Exam - Vital signs Vitals: Temp Pulse Resp BP Pulse Ox 98.1 F 122 H 16 148/97 H 96 10/17/16 17:10 10/17/16 17:10 10/17/16 17:10 10/17/16 17:10 10/17/16 17:10 Course - Vital Signs Vital signs: Temp Pulse Resp BP Pulse Ox 98.1 F 122 H 16 148/97 H 96 10/17/16 17:10 10/17/16 17:10 10/17/16 17:10 10/17/16 17:10 10/17/16 17:10
--- NOTE | 2016-10-17 17:41 | ER Document Report ---
ED Psych Disorder / Suicide - General Mode of Arrival: Ambulatory - with deputy county clerk Information source: Patient, Law Enforcement - deputy county clerk TRAVEL OUTSIDE OF THE [place] IN LAST 30 DAYS: No - HPI Onset: Other - Refer to HPI notes <GILBERTO EDGAR - Last Filed: 10/17/16 18:14> <VERENA CUELLAR - Last Filed: 10/17/16 21:02> - General Chief Complaint: Psych Problem Stated Complaint: IVC Time Seen by Provider: 10/17/16 17:31 Notes: Patient is a 31 year old male presenting to the emergency department with IVC paperwork for EtOH abuse. Patient's mother filled the IVC paperwork and states the patient is a danger to himself and he has been drinking lots of EtOH lately and has not been taking his medications. Patient states he is taking his depakote for seizures and his lisinopril for his hypertension. Patient also complains of some chest pains that have been waxing and waning for the last week. Patient denies any history of pancreatitis or kidney disease. The deputy county clerk states he talked to the mother who fears that the patient is going to hurt himself and has been drinking too much EtOH. certified detention deputy states he and another deputy got called to the patient's house and there was no answer at the door. Patient was found in the back bedroom "passed out" and there were 2 large empty bottles of vodka and some pill bottles as well in the room. (GILBERTO EDGAR) - Related Data Allergies/Adverse Reactions: No Known Allergies Allergy (Verified 10/17/16 17:11) Past Medical History - General Information source: Patient - Social History Smoking Status: Current Every Day Smoker Chew tobacco use (# tins/day): No Frequency of alcohol use: Heavy Family History: CAD, COPD Patient has suicidal ideation: No Patient has homicidal ideation: No - Past Medical History Cardiac Medical History: Reports: Hx Hypertension Neurological Medical History: Reports: Hx Seizures - 6-7 weeks ago GI Medical History: Reports: Hx Gastroesophageal Reflux Disease, Hx Hepatitis - alcoholic hepatitis Psychiatric Medical History: Reports: Hx Depression Infectious Medical History: Reports: Hx Hepatitis - alcoholic hepatitis Past Surgical History: Reports: Hx Genitourinary Surgery - vasectomy, Hx Nose Surgery - bilateral: maxillary antrostomy, sphenoidotomy, ethmoidectomy - Immunizations Hx Diphtheria, Pertussis, Tetanus Vaccination: Yes <GILBERTO EDGAR - Last Filed: 10/17/16 18:14> Review of Systems - Review of Systems Constitutional: No symptoms reported EENT: No symptoms reported Cardiovascular: See HPI, Chest pain Respiratory: No symptoms reported Gastrointestinal: No symptoms reported Genitourinary: No symptoms reported Male Genitourinary: No symptoms reported Musculoskeletal: No symptoms reported Skin: No symptoms reported Hematologic/Lymphatic: No symptoms reported Neurological/Psychological: See HPI -: Yes All other systems reviewed and negative <GILBERTO EDGAR - Last Filed: 10/17/16 18:14> Physical Exam <GILBERTO EDGAR - Last Filed: 10/17/16 18:14> <VERENA CUELLAR - Last Filed: 10/17/16 21:02> - Vital signs Vitals: Temp Pulse Resp BP Pulse Ox 98.1 F 122 H 16 148/97 H 96 10/17/16 17:10 10/17/16 17:10 10/17/16 17:10 10/17/16 17:10 10/17/16 17:10 - Notes Notes: GENERAL: Alert, interacts well, patient is unsteady in chair. No acute distress. HEAD: Normocephalic, atraumatic. EYES: Pupils equal, round, and reactive to light. Extraocular movements intact. ENT: Oral mucosa moist, tongue midline. NECK: Full range of motion. Supple. Trachea midline. LUNGS: Clear to auscultation bilaterally, no wheezes, rales, or rhonchi. No respiratory distress. HEART: Mild tachycardia. Regular rhythm. No murmurs, gallops, or rubs. ABDOMEN: Soft, non-tender. Non-distended. Bowel sounds present in all 4 quadrants. EXTREMITIES: Moves all 4 extremities spontaneously. No edema. No cyanosis. NEUROLOGICAL: Alert and oriented x3. Normal speech. PSYCH: Normal affect, normal mood. SKIN: Warm, dry, normal turgor. No rashes or lesions noted. (GILBERTO EDGAR) Course - Laboratory Result Diagrams: 10/17/16 18:00 10/17/16 18:00 <GILBERTO EDGAR - Last Filed: 10/17/16 18:14> - Laboratory Result Diagrams: 10/17/16 18:00 10/17/16 18:00 <VERENA CUELLAR - Last Filed: 10/17/16 21:02> - Re-evaluation Re-evalutation: 10/17/16 20:59 CBC shows anemia with hemoglobin 9.4, CMP grossly unremarkable, cardiac enzymes negative, lipase normal, urinalysis unremarkable, drug screen negative, salicylates and acetaminophen undetectable, serum alcohol is 405. Depakote level is pending. Patient cannot be medically cleared until his alcohol level is significantly lower. Patient has had Ativan 1 mg every 2 hours as needed ordered in case he begins to show signs of withdrawal. Patient is involuntarily committed, mental health that has been consulted to see him in the morning when he is more sober. 10/17/16 21:01 Suspect the chest pain is coming from alcoholic gastritis and esophagitis. ( VERENA CUELLAR) - Vital Signs Vital signs: Temp Pulse Resp BP Pulse Ox 98.1 F 122 H 16 148/97 H 96 10/17/16 17:10 10/17/16 17:10 10/17/16 17:10 10/17/16 17:10 10/17/16 17:10 - Laboratory Laboratory results interpreted by me: 10/17/16 10/17/16 18:00 18:00 RBC 3.83 L Hgb 9.4 L Hct 29.1 L MCV 76 L MCH 24.7 L RDW 21.6 H Seg Neutrophils % 37.0 L Lymphocytes % 51.6 H Sodium 145.8 H Calcium 8.2 L AST 79 H Creatine Kinase 49 L Salicylates < 1.0 L Acetaminophen < 10 L Serum Alcohol 405 H* - EKG Interpretation by Me Additional EKG results interpreted by me: 10/17/16 21:01 EKG shows sinus rhythm rate 99, normal axis, Prolonged QT interval, no ST segment elevations or depressions, no T-wave inversions per my interpretation. (VERENA CUELLAR) Discharge <GILBERTO EDGAR - Last Filed: 10/17/16 18:14> <VERENA CUELLAR - Last Filed: 10/17/16 21:02> - Discharge Clinical Impression: Noncompliance with medication regimen, Suicidal ideation Alcohol intoxication Qualifiers: Complication of substance-induced condition: uncomplicated Qualified Code(s): F10.920 - Alcohol use, unspecified with intoxication, uncomplicated Chest pain Qualifiers: Chest pain type: unspecified Qualified Code(s): R07.9 - Chest pain, unspecified Condition: Stable Disposition: PSYCH HOSP/UNIT Scribe Documentation - Scribe Written by Scribe:: Marin Aguirre 10/17/16 18:37 acting as scribe for :: Serena <GILBERTO EDGAR - Last Filed: 10/17/16 18:14>
[2016-10-17 18:20] LABS: ABSOLUTE BASOPHILS # (AUTO) 0.1 10^3/uL (0.0-0.2); ABSOLUTE EOSINOPHILS # (AUTO) 0.3 10^3/uL (0.0-0.6); ABSOLUTE LYMPHOCYTES (AUTO) 2.4 10^3/uL (0.5-4.7); ABSOLUTE MONOCYTES (AUTO) 0.2 10^3/uL (0.1-1.4); ABSOLUTE NEUT (AUTO) 1.7 10^3/uL (1.7-8.2); BASOPHILS % (AUTO) 1.4 % (0-2); EOSINOPHILS % (AUTO) 5.7 % (0-6); HEMATOCRIT 29.1 % (37.9-51.0); HEMOGLOBIN 9.4 g/dL (13.5-17.0); HGB HCT DIFFERENCE -0.9; LYMPHOCYTES % (AUTO) 51.6 % (13-45); MEAN CORPUSCULAR HEMOGLOBIN 24.7 pg (27.0-33.4); MEAN CORPUSCULAR HGB CONC 32.4 g/dL (32.0-36.0); MEAN CORPUSCULAR VOLUME 76 fl (80-97); MONOCYTES % (AUTO) 4.3 % (3-13); RED BLOOD COUNT 3.83 10^6/uL (4.35-5.55); RED CELL DISTRIBUTION WIDTH 21.6 % (11.5-14.0); WHITE BLOOD COUNT 4.7 10^3/uL (4.0-10.5)
[2016-10-17 18:30] LABS: ALANINE AMINOTRANSFERASE 57 U/L (21-72); ALBUMIN 3.8 g/dL (3.5-5.0); ALKALINE PHOSPHATASE 93 U/L (38-126); ANION GAP 15 (5-19); ASPARTATE AMINO TRANSFERASE 79 U/L (17-59); BILIRUBIN,DIRECT 0.2 mg/dL (0.0-0.4); BILIRUBIN,TOTAL 0.2 mg/dL (0.2-1.3); BLOOD UREA NITROGEN 11 mg/dL (7-20); CALCIUM 8.2 mg/dL (8.4-10.2); CARBON DIOXIDE 26 mmol/L (22-30); CHLORIDE 105 mmol/L (98-107); CREATINE KINASE 49 U/L (55-170); CREATININE RESULT 0.67 mg/dL (0.52-1.25); GLUCOSE 99 mg/dL (75-110); LIPASE 205.7 U/L (23-300); POTASSIUM 4.5 mmol/L (3.6-5.0); SODIUM 145.8 mmol/L (137-145); TOTAL PROTEIN 6.7 g/dL (6.3-8.2)
[2016-10-17 18:40] LABS: ALCOHOL 405 mg/dL (NONE DETECTED)
[2016-10-17 18:44] LABS: CREATINE KINASE MB < 0.22 ng/mL (<4.55); TROPONIN I < 0.012 ng/mL
[2016-10-17 20:12] LABS: APPEARANCE,URINE CLEAR; BILIRUBIN,URINE NEGATIVE (NEGATIVE); GLUCOSE, URINE NEGATIVE (NEGATIVE); KETONES,URINE NEGATIVE (NEGATIVE); LEUKOCYTE ESTERASE,URINE NEGATIVE (NEGATIVE); NITRITE,URINE NEGATIVE (NEGATIVE); PROTEIN,URINE NEGATIVE (NEGATIVE); URINE SPECIFIC GRAVITY 1.013; UROBILINOGEN,URINE NEGATIVE mg/dL (<2.0)
[2016-10-17 20:32] LABS: URINE BARBITURATES SCREEN NEGATIVE; URINE METHADONE SCREEN NEGATIVE; URINE OPIATES LOW NEGATIVE; URINE PHENCYCLIDINE SCREEN NEGATIVE
[2016-10-17] MEDS ORDERED: MAG HYDROX/AL HYDROX/SIMETH SUSP 30 ML UDCUP PO ONE (20:43)
[2016-10-17] MEDS ORDERED: METOCLOPRAMIDE HCL ORAL SOLN 10 MG/10 ML UDCUP PO ONE (20:43)
[2016-10-17] MEDS ORDERED: LIDOCAINE 2% VISCOUS SOLN 20 ML UDCUP PO ONE (20:43)
[2016-10-17] MEDS ORDERED: LORAZEPAM 1 MG TABLET PO PRN (20:43)
[2016-10-17] MEDS ORDERED: DIVALPROEX SODIUM 500 MG TAB.SR.24H PO ONE (20:58)
[2016-10-18] MEDS ORDERED: MAG HYDROX/AL HYDROX/SIMETH SUSP 30 ML UDCUP PO ONE ×2 (03:02→07:48)
[2016-10-18] MEDS ORDERED: LIDOCAINE 2% VISCOUS SOLN 20 ML UDCUP PO ONE ×2 (03:02→07:48)
[2016-10-18] MEDS ORDERED: METOCLOPRAMIDE HCL ORAL SOLN 10 MG/10 ML UDCUP PO ONE (07:48)
[2016-10-18] MEDS ORDERED: DIAZEPAM 5 MG TABLET PO ONE (10:45)
--- NOTE | 2016-10-18 10:52 | ER Document Report ---
Doctor's Note Notes: 10/18/16 10:46 Medical rounds: Chart reviewed and patient interviewed at length. Vital signs are satisfactory and remain stable. Laboratory values are significant for a moderate microcytic anemia, which is probably due to poor nutrition. Patient complains of chest discomfort which seems to resolve and recur unpredictably. Initial EKG showed atrial abnormality and prolonged QT. No ischemic changes were noted. We will repeat EKG. Patient also complains of tremor. He says the lorazepam given earlier has helped, but he is still symptomatic. We will begin him on diazepam 2 mg 3 times daily. Patient was counseled at length regarding the dangers of continued alcohol abuse. He states he is motivated to enter a detox program and follow through with treatment. If his withdrawal tremors can be controlled, he is stable for discharge with follow-up tomorrow as outpatient.
[2016-10-18 12:50] VITALS: BP 143/87
--- NOTE | 2016-10-19 13:51 | EKG REPORT ---
SEVERITY:- BORDERLINE ECG - SINUS TACHYCARDIA BORDERLINE PROLONGED QT INTERVAL : Confirmed by: Zuly Salazar MD 19-Oct-2016 13:51:00
--- NOTE | 2016-10-19 13:51 | EKG REPORT ---
SEVERITY:- BORDERLINE ECG - SINUS RHYTHM PROBABLE LEFT ATRIAL ABNORMALITY BORDERLINE PROLONGED QT INTERVAL : Confirmed by: Zuly Salazar MD 19-Oct-2016 13:51:06
== END 2016-10-18 12:50 | disposition home or self-care (01) ==
LOC: ER 17:06
DX: R07.9 Chest pain, unspecified (principal); R45.851 Suicidal ideations; F10.920 Alcohol use, unspecified with intoxication, uncomplicated; Z91.14 Patient's other noncompliance with medication regimen; Y90.9 Presence of alcohol in blood, level not specified; F17.200 Nicotine dependence, unspecified, uncomplicated; I10 Essential (primary) hypertension; R56.9 Unspecified convulsions
CPT/HCPCS: 93005 ×2; 99284; 36415; 82553; 80307 ×4; 82550; 83690; 85025; 80053; 81001; 84484; 80164; 93010 ×2; J3490 ×2

== ENCOUNTER → 2016-11-06 | Outpatient (CLI) | payer SELFPAY ==
[2016-11-06 16:28] LABS: ABSOLUTE BASOPHILS # (AUTO) 0.1 10^3/uL (0.0-0.2); ABSOLUTE EOSINOPHILS # (AUTO) 0.2 10^3/uL (0.0-0.6); ABSOLUTE LYMPHOCYTES (AUTO) 1.5 10^3/uL (0.5-4.7); ABSOLUTE MONOCYTES (AUTO) 0.4 10^3/uL (0.1-1.4); ABSOLUTE NEUT (AUTO) 5.1 10^3/uL (1.7-8.2); BASOPHILS % (AUTO) 0.9 % (0-2); EOSINOPHILS % (AUTO) 2.6 % (0-6); LYMPHOCYTES % (AUTO) 20.5 % (13-45); MEAN CORPUSCULAR HEMOGLOBIN 26.6 pg (27.0-33.4); MONOCYTES % (AUTO) 6.2 % (3-13); RED CELL DISTRIBUTION WIDTH 26.8 % (11.5-14.0); SEGMENTED NEUTROPHILS % (AUTO) 69.8 % (42-78); WHITE BLOOD COUNT 7.2 10^3/uL (4.0-10.5)
[2016-11-06 16:28] LABS: APPEARANCE,URINE CLEAR; BILIRUBIN,URINE NEGATIVE (NEGATIVE); GLUCOSE, URINE NEGATIVE (NEGATIVE); KETONES,URINE NEGATIVE (NEGATIVE); LEUKOCYTE ESTERASE,URINE NEGATIVE (NEGATIVE); NITRITE,URINE NEGATIVE (NEGATIVE); PROTEIN,URINE NEGATIVE (NEGATIVE); URINE SPECIFIC GRAVITY 1.004; UROBILINOGEN,URINE NEGATIVE mg/dL (<2.0)
[2016-11-06 16:43] LABS: MEAN CORPUSCULAR VOLUME 83 fl (80-97)
[2016-11-06 16:44] LABS: POLYCHROMASIA SLIGHT
[2016-11-06 16:45] LABS: ANISOCYTOSIS 3+; HYPOCHROMASIA 1+; OVALOCYTES SLIGHT; POIKILOCYTOSIS SLIGHT; STOMATOCYTES SLIGHT; TARGET CELLS SLIGHT
[2016-11-06 18:58] LABS: ALANINE AMINOTRANSFERASE 34 U/L (21-72); ALBUMIN 4.3 g/dL (3.5-5.0); ALKALINE PHOSPHATASE 91 U/L (38-126); ANION GAP 17 (5-19); ASPARTATE AMINO TRANSFERASE 80 U/L (17-59); BILIRUBIN,DIRECT 0.4 mg/dL (0.0-0.4); BILIRUBIN,TOTAL 0.7 mg/dL (0.2-1.3); BLOOD UREA NITROGEN 6 mg/dL (7-20); CALCIUM 9.1 mg/dL (8.4-10.2); CARBON DIOXIDE 26 mmol/L (22-30); CHLORIDE 93 mmol/L (98-107); CHOLESTEROL 179.22 mg/dL (0-200); CREATININE RESULT 0.66 mg/dL (0.52-1.25); Direct HDL 97 mg/dL (>40); GLUCOSE 100 mg/dL (75-110); POTASSIUM 3.4 mmol/L (3.6-5.0); SODIUM 136.1 mmol/L (137-145); TOTAL PROTEIN 7.4 g/dL (6.3-8.2); TRIGLYCERIDES 122 mg/dL (<150)
[2016-11-06 19:08] LABS: DIRECT LDL 49 mg/dL (<100)
[2016-11-06 19:38] LABS: ADD HIVPANEL? NO; HIV (1 AND 2) ANTIBODY NEGATIVE (NEGATIVE)
[2016-11-08 11:38] LABS: HEPATITIS C VIRUS AB <0.1 s/co ratio (0.0-0.9)
== END ==
LOC: OD 14:20
PROVIDERS: ATTEND Emergency Medicine
DX: I10 Essential (primary) hypertension (principal); E16.2 Hypoglycemia, unspecified; F10.20 Alcohol dependence, uncomplicated; N30.90 Cystitis, unspecified without hematuria; Z79.899 Other long term (current) drug therapy; Z20.6 Contact with and (suspected) exposure to human immunodeficiency virus [HIV]
CPT/HCPCS: 36415; 80053; 80061; 81001; 83036; 85025; 86701; 86803; 86804; 87340

== ENCOUNTER 2016-12-28 23:35 | Inpatient (IN) | payer SELFPAY ==
[2016-12-28] MEDS ORDERED: ASPIRIN 81 MG TABLET, CHEWABLE PO ONE (23:37)
--- NOTE | 2016-12-28 23:59 | EKG REPORT ---
SEVERITY:- ABNORMAL ECG - SINUS TACHYCARDIA PROBABLE LEFT ATRIAL ABNORMALITY PROLONGED QT INTERVAL : Confirmed by: Lawson Finley 28-Dec-2016 23:58:34
[2016-12-29] MEDS ORDERED: ONDANSETRON HCL INJ/PF 4 MG/2 ML SDV ONE
--- NOTE | 2016-12-29 00:03 | ER Document Report ---
ED General - General Chief Complaint: Chest Pain > 30 Stated Complaint: CHEST PAIN,SHORTNESS OF BREATH Time Seen by Provider: 12/29/16 00:01 Notes: Patient is a 31-year-old male who presents with complaints of upper abdominal pain. He said it raise from the lower chest upper abdomen down to lower abdomen. A lot of vomiting. Some diarrhea. No blood in the stool or emesis. He does admit to drinking alcohol. He says he drinks some alcohol. He says some he does not drink quite every day but does drink frequently. He denies having withdrawal whenever he goes away from drinking alcohol. He denies any fevers or infections. He does have history of pancreatitis in 2013. He says this pain feels somewhat similar but is not the same. TRAVEL OUTSIDE OF THE [place] IN LAST 30 DAYS: No - Related Data Allergies/Adverse Reactions: No Known Allergies Allergy (Verified 12/28/16 23:38) Home Medications: Current Home Medications Divalproex Sodium [Divalproex Sodium ER] 500 mg PO QPM 12/29/16 [History] Past Medical History - Social History Smoking Status: Unknown if Ever Smoked Frequency of alcohol use: Heavy Drug Abuse: None Family History: CAD, COPD Patient has suicidal ideation: No Patient has homicidal ideation: No - Past Medical History Cardiac Medical History: Reports: Hx Hypertension Denies: Hx Heart Attack Pulmonary Medical History: Denies: Hx Asthma, Hx Tuberculosis Neurological Medical History: Reports: Hx Seizures - 6-7 weeks ago. Denies: Hx Cerebrovascular Accident Renal/ Medical History: Denies: Hx Peritoneal Dialysis GI Medical History: Reports: Hx Gastroesophageal Reflux Disease, Hx Hepatitis - alcoholic hepatitis. Denies: Hx Hiatal Hernia, Hx Ulcer Psychiatric Medical History: Reports: Hx Depression Infectious Medical History: Reports: Hx Hepatitis - alcoholic hepatitis Past Surgical History: Reports: Hx Genitourinary Surgery - vasectomy, Hx Nose Surgery - bilateral: maxillary antrostomy, sphenoidotomy, ethmoidectomy. Denies : Hx Open Heart Surgery, Hx Pacemaker - Immunizations Hx Diphtheria, Pertussis, Tetanus Vaccination: Yes Review of Systems - Review of Systems Notes: My Normal Review Basic REVIEW OF SYSTEMS: CONSTITUTIONAL : Denies fever, chills, or sweats. Denies recent illness. EENT: Denies eye, ear, throat, or mouth pain or symptoms. Denies nasal or sinus congestion. CARDIOVASCULAR: Lower chest pain RESPIRATORY: Denies cough, cold, or chest congestion. Denies shortness of breath, difficulty breathing, or wheezing. GASTROINTESTINAL: Upper abdominal pain. Vomiting MUSCULOSKELETAL: Denies neck or back pain or joint pain or swelling. SKIN: Denies rash or skin lesions. NEUROLOGICAL: Denies altered mental status or loss of consciousness. Denies headache. Denies weakness or paralysis or loss of use of either side. Denies problems with gait or speech. Denies sensory or motor loss. ALL OTHER SYSTEMS REVIEWED AND NEGATIVE. Physical Exam - Vital signs Vitals: Temp Pulse Resp BP Pulse Ox 97.4 F 125 H 22 H 81/60 L 100 12/28/16 23:38 12/28/16 23:38 12/28/16 23:38 12/28/16 23:38 12/28/16 23:38 - Notes Notes: General Appearance: Well nourished, alert, cooperative, no acute distress, moderate obvious discomfort. Vitals: reviewed, See vital signs table. Head: no swelling or tenderness to the head Eyes: PERRL, EOMI, Conjuctiva clear Mouth: No decreasd moisture Lungs: No wheezing, No rales, No rhonci, No accessory muscle use, good air exchange bilaterally. Heart: Normal rate, Regular rythm, No murmur, no rub Abdomen: Normal BS, soft, No rigidity, moderate epigastric abdominal tenderness to palpation. Mild lower abdominal tenderness to palpation., No guarding, no rebound, Extremities: strength 5/5 in all extremities, good pulses in all extremities, no swelling or tenderness in the extremities, no edema. Skin: warm, dry, appropriate color, no rash Neuro: speech clear, oriented x 3, normal affect, responds appropriately to questions. Course - Re-evaluation Re-evalutation: 12/29/16 05:37 Patient has what appears to be alcoholic pancreatitis. He did start to complain there is having a little bit of withdrawal type symptoms. I have given Ativan twice. His vomiting has been difficult to control. It he will respond to medication for a brief period time but then eventually started vomiting again usually an hour or 2 after receiving denies medication. I did obtain a CT scan to have a leukocytosis of 22,000. CT scan does show acute pancreatitis. Also shows air-fluid level in the stomach which she said could represent gastric outlet obstruction. I think this is again related to all his vomiting. No evidence of necrotic pseudocyst on CT scan. I did discuss the case with the hospitalist, Dr. Johnson, who agrees to admit the patient. Dictation of this chart was performed using voice recognition software; therefore, there may be some unintended grammatical errors. - Vital Signs Vital signs: Temp Pulse Resp BP Pulse Ox 97.9 F 128 H 20 147/99 H 97 12/29/16 00:15 12/29/16 03:34 12/29/16 04:00 12/29/16 03:34 12/29/16 03:34 - Laboratory Result Diagrams: 12/28/16 23:59 12/28/16 23:59 Laboratory results interpreted by me: 12/28/16 12/28/16 12/28/16 23:59 23:59 23:59 WBC 22.4 H Hgb 11.7 L Hct 37.6 L MCV 69 L MCH 21.4 L MCHC 31.1 L RDW 21.2 H Seg Neuts % (Manual) 87 H Band Neutrophils % 1 L Lymphocytes % (Manual) 8 L Monocytes % (Manual) 2 L Abs Neuts (Manual) 19.7 H Abs Basophils (Manual) 0.4 H Chloride 91 L Carbon Dioxide 14 L Anion Gap 40 H Creatinine 1.75 H Est GFR ( Amer) 55 L Est GFR (Non-Af Amer) 45 L Glucose 120 H Calcium 10.5 H Direct Bilirubin 0.5 H Total Protein 9.2 H Albumin 5.8 H Lipase 2248.0 H Urine Protein Urine Ketones Urine Blood 12/29/16 01:43 WBC Hgb Hct MCV MCH MCHC RDW Seg Neuts % (Manual) Band Neutrophils % Lymphocytes % (Manual) Monocytes % (Manual) Abs Neuts (Manual) Abs Basophils (Manual) Chloride Carbon Dioxide Anion Gap Creatinine Est GFR ( Amer) Est GFR (Non-Af Amer) Glucose Calcium Direct Bilirubin Total Protein Albumin Lipase Urine Protein >=500 H Urine Ketones 20 H Urine Blood SMALL H - EKG Interpretation by Me Additional EKG results interpreted by me: 12/29/16 00:03 EKG is reviewed and interpreted by me. EKG shows sinus tachycardia with a rate of [address] segment elevation or depression. No ischemic T-wave inversions. NM interval, QRS duration are within normal range. QTc interval is prolonged. Old EKG for comparison is from October 18, 2016. Discharge - Discharge Clinical Impression: Pancreatitis Qualifiers: Chronicity: acute Pancreatitis type: alcohol induced Acute pancreatitis complication: unspecified Qualified Code(s): K85.20 - Alcohol induced acute pancreatitis without necrosis or infection Condition: Stable Disposition: ADMITTED INPATIENT Admitting Provider: Hospitalist Unit Admitted: [facility]
[2016-12-29] MEDS ORDERED: NORMAL SALINE 1000 ML 1,000 ML IV PRN ×2 (00:07→21:31)
[2016-12-29] MEDS ORDERED: ONDANSETRON HCL INJ/PF 4 MG/2 ML SDV IV ONE ×2 (00:07→02:36)
[2016-12-29 00:10] LABS: HEMATOCRIT 37.6 % (37.9-51.0); HEMOGLOBIN 11.7 g/dL (13.5-17.0); HGB HCT DIFFERENCE -2.5; MEAN CORPUSCULAR HEMOGLOBIN 21.4 pg (27.0-33.4); MEAN CORPUSCULAR HGB CONC 31.1 g/dL (32.0-36.0); MEAN CORPUSCULAR VOLUME 69 fl (80-97); RED BLOOD COUNT 5.45 10^6/uL (4.35-5.55); RED CELL DISTRIBUTION WIDTH 21.2 % (11.5-14.0); WHITE BLOOD COUNT 22.4 10^3/uL (4.0-10.5)
[2016-12-29 00:27] LABS: ANISOCYTOSIS 3+; BAND NEUTROPHILS % (MANUAL) 1 % (3-5); BASOPHILS % (MANUAL) 2 % (0-2); EOSINOPHILS % (MANUAL) 0 % (0-6); LYMPHOCYTES % (MANUAL) 8 % (13-45); MICROCYTOSIS 2+; TOTAL CELLS COUNTED 100
[2016-12-29 00:29] LABS: OVALOCYTES SLIGHT; PLATELET CLUMPS PRESENT; POIKILOCYTOSIS SLIGHT; TARGET CELLS SLIGHT
[2016-12-29 00:30] LABS: TEAR DROP CELLS SLIGHT
[2016-12-29 00:31] LABS: HYPOCHROMASIA 1+; STOMATOCYTES SLIGHT
[2016-12-29 00:36] LABS: ALANINE AMINOTRANSFERASE 35 U/L (21-72); ALBUMIN 5.8 g/dL (3.5-5.0); ALKALINE PHOSPHATASE 107 U/L (38-126); ASPARTATE AMINO TRANSFERASE 41 U/L (17-59); BILIRUBIN,DIRECT 0.5 mg/dL (0.0-0.4); BILIRUBIN,TOTAL 0.9 mg/dL (0.2-1.3); BLOOD UREA NITROGEN 20 mg/dL (7-20); CALCIUM 10.5 mg/dL (8.4-10.2); CHLORIDE 91 mmol/L (98-107); CREATINE KINASE 97 U/L (55-170); CREATININE RESULT 1.75 mg/dL (0.52-1.25); GLUCOSE 120 mg/dL (75-110); POTASSIUM 4.2 mmol/L (3.6-5.0); SODIUM 144.5 mmol/L (137-145); TOTAL PROTEIN 9.2 g/dL (6.3-8.2)
[2016-12-29 00:44] LABS: CARBON DIOXIDE 14 mmol/L (22-30)
[2016-12-29 00:46] LABS: CREATINE KINASE MB 0.99 ng/mL (<4.55)
[2016-12-29 00:48] LABS: ANION GAP 40 (5-19); TROPONIN I < 0.012 ng/mL
[2016-12-29] MEDS ORDERED: PROMETHAZINE HCL INJ 25 MG/1 ML VIAL IM ONE (01:32)
[2016-12-29] MEDS ORDERED: HYDROMORPHONE HCL INJ/PF 2 MG/ML AMPULE IV ONE ×2 (01:46→03:46)
--- NOTE | 2016-12-29 01:57 | RADIOLOGY REPORT (SQ) ---
EXAM DESCRIPTION: CHEST SINGLE VIEW COMPLETED DATE/TIME: 12/29/2016 1:48 am REASON FOR STUDY: CP COMPARISON: Chest x-ray and CT angiogram chest 10/12/2016. EXAM PARAMETERS: NUMBER OF VIEWS: One view. TECHNIQUE: Single frontal radiographic view of the chest acquired. RADIATION DOSE: NA LIMITATIONS: None. FINDINGS: LUNGS AND PLEURA: No consolidation, pneumothorax or pleural effusion. MEDIASTINUM AND HILAR STRUCTURES: No masses. Contour normal. HEART AND VASCULAR STRUCTURES: Heart normal in size. Normal vasculature. BONES: No acute findings. HARDWARE: None in the chest. IMPRESSION: No acute radiographic finding in the chest. TECHNICAL DOCUMENTATION: JOB ID: [id number]
[2016-12-29] MEDS ORDERED: METOCLOPRAMIDE HCL INJ/PF 10 MG/2 ML SDV IV ONE (02:36)
[2016-12-29 03:17] LABS: APPEARANCE,URINE SLIGHTLY-CLOUDY; BILIRUBIN,URINE NEGATIVE (NEGATIVE); GLUCOSE, URINE NEGATIVE (NEGATIVE); KETONES,URINE 20 mg/dL (NEGATIVE); LEUKOCYTE ESTERASE,URINE NEGATIVE (NEGATIVE); NITRITE,URINE NEGATIVE (NEGATIVE); PROTEIN,URINE >=500 mg/dL (NEGATIVE); URINE SPECIFIC GRAVITY 1.024; UROBILINOGEN,URINE NEGATIVE mg/dL (<2.0)
[2016-12-29] MEDS ORDERED: LORAZEPAM INJ 2 MG/1 ML VIAL IV ONE ×3 (03:29→05:37)
--- NOTE | 2016-12-29 03:37 | RADIOLOGY REPORT (SQ) ---
EXAM DESCRIPTION: CT ABD/PELVIS NO ORAL OR IV COMPLETED DATE/TIME: 12/29/2016 3:20 am REASON FOR STUDY: pancreatitis, leukocytosis COMPARISON: CT abdomen and pelvis 10/05/2013, 01/21/2016. TECHNIQUE: CT scan of the abdomen and pelvis performed without intravenous or oral contrast. Images reviewed with lung, soft tissue, and bone windows. Reconstructed coronal and sagittal MPR images revi ewed. All images stored on PACS. All CT scanners at this facility use dose modulation, iterative reconstruction, and/or weight based d osing when appropriate to reduce radiation dose to as low as reasonably achievable (ALARA). [facility]: Dose Right [facility]: CareDose [facility]: Dose Right [facility]: Teradose 4D [facility]: [employer] RADIATION DOSE: Up-to-date CT equipment and radiation dose reduction techniques were employed. CTDIv ol: 8.3 mGy. DLP: 470 mGy-cm.mGy. LIMITATIONS: None. FINDINGS: LOWER CHEST: No consolidation or pleural effusion. Small hiatal hernia with fluid at the distal esophagus. NON-CONTRASTED LIVER, SPLEEN, ADRENALS: Evaluation limited by lack of IV contrast. No identified sign ificant masses. PANCREAS: Diffuse peripancreatic inflammatory changes, peripancreatic edema and small amount of free fluid, most consistent with acute pancreatitis. GALLBLADDER: Present. RIGHT KIDNEY AND URETER: Assessment for masses limited by lack of IV contrast. No significant calci fications. No hydronephrosis or hydroureter. LEFT KIDNEY AND URETER: Assessment for masses limited by lack of IV contrast. No significant calcif ications. No hydronephrosis or hydroureter. AORTA AND RETROPERITONEUM: No abdominal aortic aneurysm. No retroperitoneal masses or adenopathy. BOWEL AND PERITONEAL CAVITY: Distended stomach with an air-fluid level. No dilated bowel loops or i nflammatory changes. No free air. APPENDIX: Normal. PELVIS, BLADDER, AND ABDOMINAL WALL:The urinary bladder is distended. No pelvic mass or free fluid. Small fat containing paraumbilical hernia. BONES: No acute findings. IMPRESSION: Acute pancreatitis. Distended stomach with an air-fluid level, please correlate for gastric outlet obstruction. Small hiatal hernia with fluid at the distal esophagus, suggestive of gastroesophageal reflux. COMMENT: Quality ID # [id number]: Final reports with documentation of one or more dose reduction techniques (e.g., Automated exposure control, adjustment of the mA and/or kV according to patient size, use of iterative reconstruction technique) TECHNICAL DOCUMENTATION: JOB ID: [id number] 2010 [employer]- All Rights Reserved
[2016-12-29 03:38] LABS: BACTERIA,URINE 1+ /HPF
[2016-12-29] MEDS ORDERED: MAGNESIUM HYDROXIDE SUSP 30 ML UDCUP PO PRN (05:37)
[2016-12-29] MEDS ORDERED: LORAZEPAM INJ 2 MG/1 ML VIAL ONE (05:49)
[2016-12-29] MEDS: HEPARIN SOD (PORCINE) 5,000 UNIT/ML 1 ML SYRINGE SUBCUT SCH ×3 (06:00→21:38)
[2016-12-29] MEDS ORDERED: FOLIC ACID INJ 5 MG/1 ML 10 ML VIAL ONE (06:01)
[2016-12-29] MEDS ORDERED: THIAMINE HCL INJ 200 MG/2 ML VIAL ONE (06:01)
--- NOTE | 2016-12-29 06:32 | PDOC H&P ---
History of Present Illness Admission Date/PCP: 12/29/16 05:37 Patient complains of: Epigastric pain with nausea and vomiting History of Present Illness: JAIME NUNEZ is a 31 year old male with a past medical history of alcohol dependence, alcoholic pancreatitis, alcohol withdrawal DTs, seizure and tobacco dependence. Patient been in his usual state of health until approximately 12 hours prior to presentation patient admittedly binging on alcohol subsequently developing epigastric pain nausea and vomiting. He recognized the symptoms from previous episode prompting evaluation emergency room where he was found to have biochemical and radiological evidence of pancreatitis. He receives symptomatic management, IV fluids and referred to the hospitalist for admission. Past Medical History Cardiac Medical History: Reports: Hypertension Denies: Myocardial Infarction Pulmonary Medical History: Denies: Asthma, Tuberculosis Neurological Medical History: Reports: Seizures - 6-7 weeks ago GI Medical History: Reports: Gastroesophageal Reflux Disease, Hepatitis - alcoholic hepatitis Denies: Hiatal Hernia Psychiatric Medical History: Reports: Alcohol Dependency, Depression, Tobacco Dependency Hematology: Denies: Anemia, Sickle Cell Disease Past Surgical History Past Surgical History: Denies: Pacemaker Social History Information Source: Patient, [facility] Records Smoking Status: Current Every Day Smoker Hx Recreational Drug Use: No Hx Prescription Drug Abuse: No - Advance Directive Resuscitation Status: Full Code Family History Family History: CAD, COPD Parental Family History Reviewed: Yes Children Family History Reviewed: Yes Sibling(s) Family History Reviewed.: Yes Medication/Allergy Home Medications: Divalproex Sodium [Divalproex Sodium ER] 500 mg PO QPM 12/29/16 Allergies/Adverse Reactions: No Known Allergies Allergy (Verified 12/28/16 23:38) Review of Systems Constitutional: ABSENT: chills, fever(s), headache(s), weight gain, weight loss Eyes: ABSENT: visual disturbances Ears: ABSENT: hearing changes Cardiovascular: ABSENT: chest pain, dyspnea on exertion, edema, orthropnea, palpitations Respiratory: ABSENT: cough, hemoptysis Gastrointestinal: ABSENT: abdominal pain, constipation, diarrhea, hematemesis, hematochezia, nausea, vomiting Genitourinary: ABSENT: dysuria, hematuria Musculoskeletal: ABSENT: joint swelling Integumentary: ABSENT: rash, wounds Neurological: ABSENT: abnormal gait, abnormal speech, confusion, dizziness, focal weakness, syncope Psychiatric: ABSENT: anxiety, depression, homidical ideation, suicidal ideation Endocrine: ABSENT: cold intolerance, heat intolerance, polydipsia, polyuria Hematologic/Lymphatic: ABSENT: easy bleeding, easy bruising Physical Exam Vital Signs: Temp Pulse Resp BP Pulse Ox 97.9 F 128 H 20 147/99 H 97 12/29/16 00:15 12/29/16 03:34 12/29/16 04:00 12/29/16 03:34 12/29/16 03:34 General appearance: PRESENT: cooperative, mild distress Head exam: PRESENT: atraumatic Eye exam: PRESENT: conjunctiva pink, EOMI, PERRLA. ABSENT: scleral icterus Ear exam: PRESENT: normal external ear exam Mouth exam: PRESENT: moist, tongue midline Neck exam: ABSENT: carotid bruit, JVD, lymphadenopathy, thyromegaly Respiratory exam: PRESENT: clear to auscultation hannah, tachypnea. ABSENT: rales , rhonchi, wheezes Cardiovascular exam: PRESENT: RRR, +S1, +S2, tachycardia Pulses: PRESENT: normal dorsalis pedis pul Vascular exam: PRESENT: normal capillary refill GI/Abdominal exam: PRESENT: hyperactive bowel sounds, soft, tenderness. ABSENT : ascites, distended, firm, guarding, rebound, rigid Rectal exam: PRESENT: deferred Extremities exam: PRESENT: full ROM. ABSENT: calf tenderness, clubbing, pedal edema Neurological exam: PRESENT: alert, awake, oriented to person, oriented to place , oriented to time, oriented to situation, CN II-XII grossly intact. ABSENT: motor sensory deficit Psychiatric exam: PRESENT: agitated. ABSENT: homicidal ideation, suicidal ideation Skin exam: PRESENT: dry, intact, warm. ABSENT: cyanosis, rash Results Impressions: Chest X-Ray 12/28/16 23:37 IMPRESSION: No acute radiographic finding in the chest. Abdomen/Pelvis CT 12/29/16 01:32 IMPRESSION: Acute pancreatitis. Distended stomach with an air-fluid level, please correlate for gastric outlet obstruction. Small hiatal hernia with fluid at the distal esophagus, suggestive of gastroesophageal reflux. Assessment & Plan - Diagnosis (1) Acute alcoholic pancreatitis Is this a current diagnosis for this admission?: Yes Plan: Telemetry floor admission, bowel rest, IV fluids and symptomatic management and avoidance of alcohol. (2) Alcohol withdrawal delirium Is this a current diagnosis for this admission?: Yes Plan: Thiamine and folate, IV Ativan scheduled and as needed as he has received 6 mg of Ativan within the last hour yet hypomanic with delirium. (3) Tobacco dependency Is this a current diagnosis for this admission?: Yes Plan: Consider nicotine patch replacement (4) Abdominal pain Is this a current diagnosis for this admission?: Yes Plan: Symptomatic management, avoidance of alcohol. - Time Time Spent: 30 to 50 Minutes - Inpatient Certification Medical Necessity: Need Close Monitoring Due to Risk of Patient Decompensation
[2016-12-29] MEDS: NORMAL SALINE 1000 ML 1,000 ML IV SCH ×3 (06:58→14:04)
[2016-12-29 07:45] LABS: URINE BARBITURATES SCREEN NEGATIVE; URINE METHADONE SCREEN NEGATIVE; URINE OPIATES LOW NEGATIVE; URINE PHENCYCLIDINE SCREEN NEGATIVE
[2016-12-29] MEDS: HYDROMORPHONE HCL INJ/PF 2 MG/ML AMPULE IV PRN ×3 (09:47→20:04)
[2016-12-29] MEDS: THIAMINE HCL 100 MG, FOLIC ACID 1 MG in NORMAL SALINE 250 ML IV SCH (09:47)
--- NOTE | 2016-12-29 15:19 | PDOC PROGRESS REPORT ---
Subjective Progress Note for:: 12/29/16 Subjective:: Complains of upper abdominal pain. Physical Exam Vital Signs: Temp Pulse Resp BP Pulse Ox 97.5 F 103 H 14 162/100 H 100 12/29/16 12:00 12/29/16 08:44 12/29/16 11:56 12/29/16 11:56 12/29/16 12:00 Intake & Output 12/28/16 12/29/16 12/30/16 06:59 06:59 06:59 Output Total 350 Balance -350 Weight 81.3 kg General appearance: PRESENT: no acute distress Eye exam: PRESENT: conjunctiva pink. ABSENT: scleral icterus Ear exam: PRESENT: normal external ear exam Mouth exam: PRESENT: moist, tongue midline Neck exam: ABSENT: JVD Respiratory exam: PRESENT: clear to auscultation hannah. ABSENT: rales, rhonchi, wheezes Cardiovascular exam: PRESENT: RRR. ABSENT: diastolic murmur, rubs, systolic murmur GI/Abdominal exam: PRESENT: normal bowel sounds, soft, tenderness - Epigastric tenderness.. ABSENT: distended, guarding, mass, organolmegaly, rebound Rectal exam: PRESENT: deferred Extremities exam: ABSENT: calf tenderness, clubbing, pedal edema Neurological exam: PRESENT: alert, awake, oriented to person, oriented to place , oriented to time, oriented to situation, CN II-XII grossly intact. ABSENT: motor sensory deficit Psychiatric exam: PRESENT: appropriate affect Skin exam: PRESENT: dry, intact, warm. ABSENT: cyanosis, rash Results Impressions: Chest X-Ray 12/28/16 23:37 IMPRESSION: No acute radiographic finding in the chest. Abdomen/Pelvis CT 12/29/16 01:32 IMPRESSION: Acute pancreatitis. Distended stomach with an air-fluid level, please correlate for gastric outlet obstruction. Small hiatal hernia with fluid at the distal esophagus, suggestive of gastroesophageal reflux. Assessment & Plan - Diagnosis (1) Acute alcoholic pancreatitis Is this a current diagnosis for this admission?: Yes Plan: The patient is made n.p.o. We will continue with IV fluids and IV Dilaudid. He has been counseled to quit drinking alcohol. (2) Alcohol withdrawal delirium Is this a current diagnosis for this admission?: Yes Plan: Patient is getting Ativan as needed. He currently is alert and oriented 3. (3) Tobacco dependency Is this a current diagnosis for this admission?: Yes Plan: He is encouraged to quit - Time Time Spent with patient: 25-34 minutes - Inpatient Certification Medical Necessity: Need For IV Fluids, Need for Pain Control
[2016-12-29] MEDS: LORAZEPAM INJ 2 MG/1 ML VIAL IV PRN (16:43)
[2016-12-29] MEDS: DIVALPROEX SODIUM 500 MG TAB.SR.24H PO SCH (17:23)
[2016-12-29] MEDS ORDERED: METOPROLOL TARTRATE PF/INJ 5 MG/5 ML SDV IV ONE (21:45)
[2016-12-30] MEDS: HYDROMORPHONE HCL INJ/PF 2 MG/ML AMPULE IV PRN ×5 (00:14→22:45)
[2016-12-30] MEDS: LORAZEPAM INJ 2 MG/1 ML VIAL IV PRN ×2 (01:00→20:29)
[2016-12-30] MEDS ORDERED: METOPROLOL TARTRATE PF/INJ 5 MG/5 ML SDV IV ONE (03:30)
[2016-12-30 04:30] LABS: ABSOLUTE LYMPHOCYTES (AUTO) 1.4 10^3/uL (0.5-4.7); ABSOLUTE MONOCYTES (AUTO) 0.6 10^3/uL (0.1-1.4); ABSOLUTE NEUT (AUTO) 15.3 10^3/uL (1.7-8.2); BASOPHILS % (AUTO) 0.2 % (0-2); EOSINOPHILS % (AUTO) 0.1 % (0-6); HEMOGLOBIN 9.7 g/dL (13.5-17.0); HGB HCT DIFFERENCE -1.9; LYMPHOCYTES % (AUTO) 7.9 % (13-45); MEAN CORPUSCULAR HEMOGLOBIN 21.1 pg (27.0-33.4); MEAN CORPUSCULAR HGB CONC 31.2 g/dL (32.0-36.0); MEAN CORPUSCULAR VOLUME 68 fl (80-97); MONOCYTES % (AUTO) 3.6 % (3-13); RED BLOOD COUNT 4.57 10^6/uL (4.35-5.55); RED CELL DISTRIBUTION WIDTH 20.3 % (11.5-14.0); SEGMENTED NEUTROPHILS % (AUTO) 88.2 % (42-78); WHITE BLOOD COUNT 17.4 10^3/uL (4.0-10.5)
[2016-12-30 04:45] LABS: ALANINE AMINOTRANSFERASE 25 U/L (21-72); ALBUMIN 3.6 g/dL (3.5-5.0); ALKALINE PHOSPHATASE 72 U/L (38-126); ANION GAP 8 (5-19); ASPARTATE AMINO TRANSFERASE 43 U/L (17-59); BILIRUBIN,DIRECT 0.3 mg/dL (0.0-0.4); BILIRUBIN,TOTAL 0.7 mg/dL (0.2-1.3); BLOOD UREA NITROGEN 14 mg/dL (7-20); CALCIUM 8.6 mg/dL (8.4-10.2); CARBON DIOXIDE 29 mmol/L (22-30); CHLORIDE 97 mmol/L (98-107); CREATININE RESULT 0.66 mg/dL (0.52-1.25); GLUCOSE 111 mg/dL (75-110); MAGNESIUM 2.2 mg/dL (1.6-2.3); POTASSIUM 3.9 mmol/L (3.6-5.0); SODIUM 133.7 mmol/L (137-145); TOTAL PROTEIN 6.1 g/dL (6.3-8.2)
[2016-12-30] MEDS: HEPARIN SOD (PORCINE) 5,000 UNIT/ML 1 ML SYRINGE SUBCUT SCH ×3 (05:17→22:40)
[2016-12-30] MEDS: NORMAL SALINE 1000 ML 1,000 ML IV PRN ×3 (09:00→20:29)
[2016-12-30] MEDS: IPRATROPIUM/ALBUTEROL 0.5-2.5 MG/3 ML AMPUL NEB PRN (09:14)
[2016-12-30] MEDS: THIAMINE HCL 100 MG, FOLIC ACID 1 MG in NORMAL SALINE 250 ML IV SCH (09:39)
[2016-12-30] MEDS: METOPROLOL SUCCINATE 50 MG TAB.SR.24H PO SCH (09:39)
--- NOTE | 2016-12-30 11:53 | PDOC PROGRESS REPORT ---
Subjective Progress Note for:: 12/30/16 Subjective:: Complains of upper abdominal pain. Physical Exam Vital Signs: Temp Pulse Resp BP Pulse Ox 98.9 F 114 H 8 L 150/105 H 96 12/30/16 07:59 12/30/16 09:17 12/30/16 09:17 12/30/16 05:13 12/30/16 09:17 Intake & Output 12/29/16 12/30/16 12/31/16 06:59 06:59 06:59 Intake Total 3573 Output Total 800 Balance 2773 Weight 83.9 kg General appearance: PRESENT: no acute distress Eye exam: PRESENT: conjunctiva pink. ABSENT: scleral icterus Ear exam: PRESENT: normal external ear exam Mouth exam: PRESENT: moist, tongue midline Neck exam: ABSENT: JVD Respiratory exam: PRESENT: clear to auscultation hannah. ABSENT: rales, rhonchi, wheezes Cardiovascular exam: PRESENT: RRR. ABSENT: diastolic murmur, rubs, systolic murmur GI/Abdominal exam: PRESENT: normal bowel sounds, soft, tenderness - Left upper quadrant tenderness. ABSENT: distended, guarding, mass, organolmegaly, rebound Rectal exam: PRESENT: deferred Extremities exam: ABSENT: calf tenderness, clubbing, pedal edema Neurological exam: PRESENT: alert, awake, oriented to person, oriented to place , oriented to time, oriented to situation, CN II-XII grossly intact. ABSENT: motor sensory deficit Psychiatric exam: PRESENT: appropriate affect Skin exam: PRESENT: dry, intact, warm. ABSENT: cyanosis, rash Results Laboratory Results: 12/30/16 04:06 12/30/16 04:06 12/30/16 12/30/16 04:06 04:06 WBC 17.4 H RBC 4.57 Hgb 9.7 L Hct 31.0 L MCV 68 L MCH 21.1 L MCHC 31.2 L RDW 20.3 H Plt Count 232 Seg Neutrophils % 88.2 H Lymphocytes % 7.9 L Monocytes % 3.6 Eosinophils % 0.1 Basophils % 0.2 Absolute Neutrophils 15.3 H Absolute Lymphocytes 1.4 Absolute Monocytes 0.6 Absolute Eosinophils 0.0 Absolute Basophils 0.0 Sodium 133.7 L Potassium 3.9 Chloride 97 L Carbon Dioxide 29 Anion Gap 8 BUN 14 Creatinine 0.66 Est GFR ( Amer) > 60 Est GFR (Non-Af Amer) > 60 Glucose 111 H Calcium 8.6 Magnesium 2.2 Total Bilirubin 0.7 AST 43 ALT 25 Alkaline Phosphatase 72 Total Protein 6.1 L Albumin 3.6 Impressions: Chest X-Ray 12/28/16 23:37 IMPRESSION: No acute radiographic finding in the chest. Abdomen/Pelvis CT 12/29/16 01:32 IMPRESSION: Acute pancreatitis. Distended stomach with an air-fluid level, please correlate for gastric outlet obstruction. Small hiatal hernia with fluid at the distal esophagus, suggestive of gastroesophageal reflux. Assessment & Plan - Diagnosis (1) Acute alcoholic pancreatitis Is this a current diagnosis for this admission?: Yes Plan: We will continue with IV fluids and IV Dilaudid. He has been counseled to quit drinking alcohol. (2) Alcohol withdrawal delirium Is this a current diagnosis for this admission?: Yes Plan: Patient is getting Ativan as needed. He currently is alert and oriented 3. (3) Tobacco dependency Is this a current diagnosis for this admission?: Yes Plan: He is encouraged to quit (4) Tachycardia Is this a current diagnosis for this admission?: Yes Plan: will start toprol - Time Time Spent with patient: 25-34 minutes - Inpatient Certification Medical Necessity: Need For IV Fluids, Need for Pain Control
[2016-12-30] MEDS: DIVALPROEX SODIUM 500 MG TAB.SR.24H PO SCH (17:25)
[2016-12-31] MEDS: HYDROMORPHONE HCL INJ/PF 2 MG/ML AMPULE IV PRN ×5 (02:48→21:52)
[2016-12-31] MEDS: NORMAL SALINE 1000 ML 1,000 ML IV PRN ×3 (02:49→18:54)
[2016-12-31 04:23] LABS: ABSOLUTE EOSINOPHILS # (AUTO) 0.1 10^3/uL (0.0-0.6); ABSOLUTE LYMPHOCYTES (AUTO) 1.5 10^3/uL (0.5-4.7); ABSOLUTE MONOCYTES (AUTO) 0.7 10^3/uL (0.1-1.4); ABSOLUTE NEUT (AUTO) 7.7 10^3/uL (1.7-8.2); BASOPHILS % (AUTO) 0.4 % (0-2); EOSINOPHILS % (AUTO) 0.9 % (0-6); HEMATOCRIT 24.2 % (37.9-51.0); HGB HCT DIFFERENCE -0.5; LYMPHOCYTES % (AUTO) 15.2 % (13-45); MEAN CORPUSCULAR HEMOGLOBIN 22.1 pg (27.0-33.4); MEAN CORPUSCULAR HGB CONC 32.4 g/dL (32.0-36.0); MEAN CORPUSCULAR VOLUME 68 fl (80-97); MONOCYTES % (AUTO) 7.2 % (3-13); RED BLOOD COUNT 3.55 10^6/uL (4.35-5.55); RED CELL DISTRIBUTION WIDTH 21.3 % (11.5-14.0); SEGMENTED NEUTROPHILS % (AUTO) 76.3 % (42-78); WHITE BLOOD COUNT 10.1 10^3/uL (4.0-10.5)
[2016-12-31 04:28] LABS: ANION GAP 9 (5-19); BLOOD UREA NITROGEN 8 mg/dL (7-20); CALCIUM 8.3 mg/dL (8.4-10.2); CARBON DIOXIDE 26 mmol/L (22-30); CHLORIDE 103 mmol/L (98-107); CREATININE RESULT 0.55 mg/dL (0.52-1.25); GLUCOSE 90 mg/dL (75-110); HEMOGLOBIN 7.9 g/dL (13.5-17.0); LIPASE 1601.9 U/L (23-300); POTASSIUM 3.6 mmol/L (3.6-5.0); SODIUM 137.5 mmol/L (137-145)
[2016-12-31] MEDS: HEPARIN SOD (PORCINE) 5,000 UNIT/ML 1 ML SYRINGE SUBCUT SCH ×3 (06:03→21:47)
[2016-12-31] MEDS: IPRATROPIUM/ALBUTEROL 0.5-2.5 MG/3 ML AMPUL NEB PRN (09:04)
[2016-12-31] MEDS: METOPROLOL SUCCINATE 50 MG TAB.SR.24H PO SCH (09:18)
[2016-12-31] MEDS: THIAMINE HCL 100 MG, FOLIC ACID 1 MG in NORMAL SALINE 250 ML IV SCH (09:20)
--- NOTE | 2016-12-31 10:54 | PDOC PROGRESS REPORT ---
Subjective Progress Note for:: 12/31/16 Subjective:: Complains of upper abdominal pain. Physical Exam Vital Signs: Temp Pulse Resp BP Pulse Ox 98.8 F 97 11 L 129/90 H 100 12/30/16 23:23 12/31/16 09:04 12/31/16 09:04 12/31/16 05:13 12/31/16 09:04 Intake & Output 12/30/16 12/31/16 01/01/17 06:59 06:59 06:59 Intake Total 3573 3188 Output Total 800 1700 Balance 2773 1488 Weight 83.9 kg 86.1 kg General appearance: PRESENT: no acute distress Eye exam: PRESENT: conjunctiva pink. ABSENT: scleral icterus Ear exam: PRESENT: normal external ear exam Mouth exam: PRESENT: moist, tongue midline Neck exam: ABSENT: JVD Respiratory exam: PRESENT: clear to auscultation hannah. ABSENT: rales, rhonchi, wheezes Cardiovascular exam: PRESENT: RRR. ABSENT: diastolic murmur, rubs, systolic murmur GI/Abdominal exam: PRESENT: normal bowel sounds, soft, tenderness - Left upper quadrant abdominal pain.. ABSENT: distended, guarding, mass, organolmegaly, rebound Extremities exam: ABSENT: calf tenderness, clubbing, pedal edema Neurological exam: PRESENT: alert, awake, oriented to person, oriented to place , oriented to time, oriented to situation, CN II-XII grossly intact. ABSENT: motor sensory deficit Psychiatric exam: ABSENT: appropriate affect Skin exam: PRESENT: dry, intact, warm. ABSENT: cyanosis, rash Results Laboratory Results: 12/31/16 04:04 12/31/16 04:04 12/31/16 12/31/16 12/31/16 04:04 04:04 05:13 WBC 10.1 RBC 3.55 L Hgb 7.9 L Hct 24.2 L MCV 68 L MCH 22.1 L MCHC 32.4 RDW 21.3 H Plt Count 157 Seg Neutrophils % 76.3 Lymphocytes % 15.2 Monocytes % 7.2 Eosinophils % 0.9 Basophils % 0.4 Absolute Neutrophils 7.7 Absolute Lymphocytes 1.5 Absolute Monocytes 0.7 Absolute Eosinophils 0.1 Absolute Basophils 0.0 Sodium 137.5 Potassium 3.6 Chloride 103 Carbon Dioxide 26 Anion Gap 9 BUN 8 Creatinine 0.55 Est GFR ( Amer) > 60 Est GFR (Non-Af Amer) > 60 Glucose 90 Calcium 8.3 L Magnesium 2.0 Lipase 1601.9 H Blood Type O POSITIVE Antibody Screen NEGATIVE Impressions: Chest X-Ray 12/28/16 23:37 IMPRESSION: No acute radiographic finding in the chest. Abdomen/Pelvis CT 12/29/16 01:32 IMPRESSION: Acute pancreatitis. Distended stomach with an air-fluid level, please correlate for gastric outlet obstruction. Small hiatal hernia with fluid at the distal esophagus, suggestive of gastroesophageal reflux. Assessment & Plan - Diagnosis (1) Acute alcoholic pancreatitis Is this a current diagnosis for this admission?: Yes Plan: We will continue with IV fluids and IV Dilaudid. He has been counseled to quit drinking alcohol. (2) Alcohol withdrawal delirium Is this a current diagnosis for this admission?: Yes Plan: Patient is getting Ativan as needed. He currently is alert and oriented 3. (3) Tobacco dependency Is this a current diagnosis for this admission?: Yes Plan: He is encouraged to quit (4) Tachycardia Is this a current diagnosis for this admission?: Yes Plan: will continue Toprol - Time Time Spent with patient: 25-34 minutes - Inpatient Certification Medical Necessity: Need For IV Fluids, Need for Pain Control
[2016-12-31] MEDS: DIVALPROEX SODIUM 500 MG TAB.SR.24H PO SCH (17:55)
[2017-01-01] MEDS: NORMAL SALINE 1000 ML 1,000 ML IV PRN (01:53)
[2017-01-01] MEDS: HYDROMORPHONE HCL INJ/PF 2 MG/ML AMPULE IV PRN ×5 (01:56→23:08)
[2017-01-01 04:10] LABS: ANION GAP 7 (5-19); BLOOD UREA NITROGEN 3 mg/dL (7-20); CALCIUM 8.5 mg/dL (8.4-10.2); CARBON DIOXIDE 29 mmol/L (22-30); CHLORIDE 103 mmol/L (98-107); CREATININE RESULT 0.51 mg/dL (0.52-1.25); GLUCOSE 105 mg/dL (75-110); LIPASE 1372.4 U/L (23-300); MAGNESIUM 1.8 mg/dL (1.6-2.3); POTASSIUM 3.4 mmol/L (3.6-5.0); SODIUM 138.7 mmol/L (137-145)
[2017-01-01 04:11] LABS: ABSOLUTE EOSINOPHILS # (AUTO) 0.3 10^3/uL (0.0-0.6); ABSOLUTE LYMPHOCYTES (AUTO) 1.2 10^3/uL (0.5-4.7); ABSOLUTE MONOCYTES (AUTO) 0.6 10^3/uL (0.1-1.4); BASOPHILS % (AUTO) 0.3 % (0-2); EOSINOPHILS % (AUTO) 3.4 % (0-6); HEMATOCRIT 22.5 % (37.9-51.0); HGB HCT DIFFERENCE -0.6; LYMPHOCYTES % (AUTO) 12.9 % (13-45); MEAN CORPUSCULAR HEMOGLOBIN 22.3 pg (27.0-33.4); MEAN CORPUSCULAR HGB CONC 32.5 g/dL (32.0-36.0); MEAN CORPUSCULAR VOLUME 69 fl (80-97); MONOCYTES % (AUTO) 6.4 % (3-13); RED BLOOD COUNT 3.28 10^6/uL (4.35-5.55); RED CELL DISTRIBUTION WIDTH 21.1 % (11.5-14.0); WHITE BLOOD COUNT 9.1 10^3/uL (4.0-10.5)
[2017-01-01 04:14] LABS: HEMOGLOBIN 7.3 g/dL (13.5-17.0)
[2017-01-01] MEDS: POTASSI CL 20 MEQ/50 ML RIDER 20 MEQ/50 ML RTUPB IV SCH ×5 (04:44→15:00)
[2017-01-01] MEDS: HEPARIN SOD (PORCINE) 5,000 UNIT/ML 1 ML SYRINGE SUBCUT SCH ×3 (06:01→21:41)
[2017-01-01] MEDS ORDERED: FUROSEMIDE INJ/PF 20 MG/2 ML SDV IV PRN (08:15)
[2017-01-01] MEDS ORDERED: NORMAL SALINE 250 ML IV PRN (08:15)
[2017-01-01] MEDS: IPRATROPIUM/ALBUTEROL 0.5-2.5 MG/3 ML AMPUL NEB PRN (09:06)
[2017-01-01] MEDS: PANTOPRAZOLE SODIUM 40 MG VIAL IV SCH (11:14)
[2017-01-01] MEDS: MAGNESIUM SULFATE/D5W 1 GM/100 ML RTUPB IV SCH ×2 (11:15→15:32)
[2017-01-01] MEDS: THIAMINE HCL 100 MG, FOLIC ACID 1 MG in NORMAL SALINE 250 ML IV SCH (11:15)
[2017-01-01] MEDS: METOPROLOL SUCCINATE 50 MG TAB.SR.24H PO SCH (13:09)
[2017-01-01] MEDS: LORAZEPAM INJ 2 MG/1 ML VIAL IV SCH ×2 (13:42→21:43)
[2017-01-01] MEDS: IPRATROPIUM/ALBUTEROL 0.5-2.5 MG/3 ML AMPUL NEB SCH ×2 (14:13→20:10)
[2017-01-01] MEDS ORDERED: MAGNESIUM SULFATE/D5W 1 GM/100 ML RTUPB IV ONE (15:34)
--- NOTE | 2017-01-01 17:53 | PDOC PROGRESS REPORT ---
Subjective Progress Note for:: 01/01/17 Subjective:: Patient continues to have abdominal pain. His hemoglobin has trended down. Patient denies chest pain, shortness of breath, nausea, vomiting, fevers, chills , diarrhea, constipation, headache, new onset weakness. Physical Exam Vital Signs: Temp Pulse Resp BP Pulse Ox 36.9 F L 82 16 153/96 H 100 01/01/17 17:05 01/01/17 17:05 01/01/17 17:05 01/01/17 17:05 01/01/17 17:05 Intake & Output 12/31/16 01/01/17 01/02/17 06:59 06:59 06:59 Intake Total 3188 4064 300 Output Total 1700 4660 2900 Balance 1488 596 -2600 Weight 86.1 kg 86.3 kg Exam: General: Awake alert and oriented x3, no acute respiratory distress HEENT: AT/NC, PERRL, mydriasis, EOMI, oropharynx is moist, pink, no scleral icterus, no conjunctival injection Neck: No JVD, trachea midline Chest: Bilateral end expiratory wheezing CV: Regular rate and rhythm, normal S1 and S2, no murmur, rub, or gallop Abdomen: Soft, tender to palpation midepigastric, nondistended, active bowel sounds; no rebound, rigidity, or guarding Extremities: No cyanosis, clubbing or edema Neuro: Cranial nerves II through XII are grossly intact without focal deficits; awake alert and oriented x3, mildly tremulous Psych: Normal mood and affect Results Laboratory Results: 01/01/17 03:46 01/01/17 03:46 12/31/16 01/01/17 01/01/17 05:13 03:46 03:46 WBC 9.1 RBC 3.28 L Hgb 7.3 L Hct 22.5 L MCV 69 L MCH 22.3 L MCHC 32.5 RDW 21.1 H Plt Count 149 L Seg Neutrophils % 77.0 Lymphocytes % 12.9 L Monocytes % 6.4 Eosinophils % 3.4 Basophils % 0.3 Absolute Neutrophils 7.0 Absolute Lymphocytes 1.2 Absolute Monocytes 0.6 Absolute Eosinophils 0.3 Absolute Basophils 0.0 Sodium 138.7 Potassium 3.4 L Chloride 103 Carbon Dioxide 29 Anion Gap 7 BUN 3 L Creatinine 0.51 L Est GFR ( Amer) > 60 Est GFR (Non-Af Amer) > 60 Glucose 105 Calcium 8.5 Magnesium 1.8 Lipase 1372.4 H Blood Type O POSITIVE Antibody Screen NEGATIVE Impressions: Chest X-Ray 12/28/16 23:37 IMPRESSION: No acute radiographic finding in the chest. Abdomen/Pelvis CT 12/29/16 01:32 IMPRESSION: Acute pancreatitis. Distended stomach with an air-fluid level, please correlate for gastric outlet obstruction. Small hiatal hernia with fluid at the distal esophagus, suggestive of gastroesophageal reflux. Assessment & Plan - Diagnosis (1) Acute alcoholic pancreatitis Qualifiers: Acute pancreatitis complication: unspecified Qualified Code(s): K85.20 - Alcohol induced acute pancreatitis without necrosis or infection Is this a current diagnosis for this admission?: Yes Plan: Patient with severe pancreatitis N.p.o., IV fluids, pain management Secondary to alcohol abuse (2) Anemia Qualifiers: Anemia type: unspecified type Qualified Code(s): D64.9 - Anemia, unspecified Is this a current diagnosis for this admission?: Yes Plan: Check iron studies and occult blood, check LDH, PT/inr, PTT, fibrinogen Transfuse 2 units packed red blood cells Continue to monitor and transfuse if hemoglobin block drops below 8 Likely dilutional, but concerns for acute blood loss. (3) Alcohol withdrawal delirium Is this a current diagnosis for this admission?: Yes Plan: Scheduled Ativan and as needed Ativan Thiamine, folic acid, multivitamin (4) Tobacco dependency Is this a current diagnosis for this admission?: Yes Plan: Nicotine patch as needed (5) Seizure disorder Is this a current diagnosis for this admission?: Yes Plan: Patient reports seizure disorder as a teenager and subsequently after stopping drinking for several months. Suspect underlying seizure disorder continue Depakote. - Time Time Spent with patient: 35 or more minutes Medications reviewed and adjusted accordingly: Yes
[2017-01-01] MEDS: DIVALPROEX SODIUM 500 MG TAB.SR.24H PO SCH (17:56)
[2017-01-01 21:10] LABS: ABSOLUTE EOSINOPHILS # (AUTO) 0.2 10^3/uL (0.0-0.6); ABSOLUTE LYMPHOCYTES (AUTO) 1.4 10^3/uL (0.5-4.7); ABSOLUTE MONOCYTES (AUTO) 0.7 10^3/uL (0.1-1.4); ABSOLUTE NEUT (AUTO) 6.4 10^3/uL (1.7-8.2); BASOPHILS % (AUTO) 0.4 % (0-2); EOSINOPHILS % (AUTO) 2.1 % (0-6); HEMOGLOBIN 9.3 g/dL (13.5-17.0); HGB HCT DIFFERENCE -0.1; LYMPHOCYTES % (AUTO) 15.7 % (13-45); MEAN CORPUSCULAR HEMOGLOBIN 23.4 pg (27.0-33.4); MEAN CORPUSCULAR HGB CONC 33.1 g/dL (32.0-36.0); MEAN CORPUSCULAR VOLUME 71 fl (80-97); MONOCYTES % (AUTO) 8.2 % (3-13); RED BLOOD COUNT 3.97 10^6/uL (4.35-5.55); RED CELL DISTRIBUTION WIDTH 24.8 % (11.5-14.0); SEGMENTED NEUTROPHILS % (AUTO) 73.6 % (42-78); WHITE BLOOD COUNT 8.7 10^3/uL (4.0-10.5)
[2017-01-01 21:37] LABS: ANISOCYTOSIS 3+; MICROCYTOSIS 2+
[2017-01-01 21:40] LABS: TARGET CELLS SLIGHT; TEAR DROP CELLS SLIGHT
[2017-01-01 21:41] LABS: OVALOCYTES SLIGHT; POIKILOCYTOSIS 1+; POLYCHROMASIA SLIGHT
[2017-01-02] MEDS: HYDROMORPHONE HCL INJ/PF 2 MG/ML AMPULE IV PRN ×5 (02:53→22:41)
[2017-01-02 05:20] LABS: FIBRINOGEN 629 mg/dL (209-497); PROTHROMBIN TIME 13.6 SEC (11.4-15.4)
[2017-01-02 05:21] LABS: PARTIAL THROMBOPLASTIN TIME 34.4 SEC (23.5-35.8)
[2017-01-02 05:25] LABS: ABSOLUTE BASOPHILS # (AUTO) 0.1 10^3/uL (0.0-0.2); ABSOLUTE EOSINOPHILS # (AUTO) 0.2 10^3/uL (0.0-0.6); ABSOLUTE LYMPHOCYTES (AUTO) 1.1 10^3/uL (0.5-4.7); ABSOLUTE MONOCYTES (AUTO) 0.8 10^3/uL (0.1-1.4); ABSOLUTE NEUT (AUTO) 6.6 10^3/uL (1.7-8.2); BASOPHILS % (AUTO) 0.6 % (0-2); EOSINOPHILS % (AUTO) 2.6 % (0-6); HEMATOCRIT 28.5 % (37.9-51.0); HEMOGLOBIN 9.3 g/dL (13.5-17.0); HGB HCT DIFFERENCE -0.6; LYMPHOCYTES % (AUTO) 12.6 % (13-45); MEAN CORPUSCULAR HEMOGLOBIN 23.2 pg (27.0-33.4); MEAN CORPUSCULAR HGB CONC 32.7 g/dL (32.0-36.0); MEAN CORPUSCULAR VOLUME 71 fl (80-97); RED BLOOD COUNT 4.02 10^6/uL (4.35-5.55); RED CELL DISTRIBUTION WIDTH 25.2 % (11.5-14.0); SEGMENTED NEUTROPHILS % (AUTO) 75.2 % (42-78); WHITE BLOOD COUNT 8.8 10^3/uL (4.0-10.5)
[2017-01-02 05:41] LABS: ALANINE AMINOTRANSFERASE 27 U/L (21-72); ALBUMIN 3.3 g/dL (3.5-5.0); ALKALINE PHOSPHATASE 62 U/L (38-126); ANION GAP 13 (5-19); ASPARTATE AMINO TRANSFERASE 21 U/L (17-59); BILIRUBIN,DIRECT 0.3 mg/dL (0.0-0.4); BILIRUBIN,TOTAL 0.5 mg/dL (0.2-1.3); BLOOD UREA NITROGEN 6 mg/dL (7-20); CALCIUM 9.2 mg/dL (8.4-10.2); CARBON DIOXIDE 25 mmol/L (22-30); CHLORIDE 101 mmol/L (98-107); CREATININE RESULT 0.52 mg/dL (0.52-1.25); GLUCOSE 90 mg/dL (75-110); LDH 438 U/L (313-618); LIPASE 1579.6 U/L (23-300); MAGNESIUM 1.9 mg/dL (1.6-2.3); POTASSIUM 3.6 mmol/L (3.6-5.0); SODIUM 139.2 mmol/L (137-145); TOTAL PROTEIN 5.9 g/dL (6.3-8.2)
[2017-01-02 05:56] LABS: ANISOCYTOSIS 3+; POLYCHROMASIA SLIGHT
[2017-01-02 05:57] LABS: OVALOCYTES SLIGHT; POIKILOCYTOSIS SLIGHT; TARGET CELLS SLIGHT
[2017-01-02] MEDS: LORAZEPAM INJ 2 MG/1 ML VIAL IV SCH ×3 (06:30→22:40)
[2017-01-02] MEDS: HEPARIN SOD (PORCINE) 5,000 UNIT/ML 1 ML SYRINGE SUBCUT SCH ×3 (06:30→22:40)
[2017-01-02] MEDS: IPRATROPIUM/ALBUTEROL 0.5-2.5 MG/3 ML AMPUL NEB SCH ×3 (08:19→20:18)
[2017-01-02] MEDS: METOPROLOL SUCCINATE 50 MG TAB.SR.24H PO SCH (09:21)
[2017-01-02] MEDS: PANTOPRAZOLE SODIUM 40 MG VIAL IV SCH (09:27)
[2017-01-02] MEDS: THIAMINE HCL 100 MG, FOLIC ACID 1 MG in NORMAL SALINE 250 ML IV SCH (09:27)
[2017-01-02] MEDS ORDERED: ENALAPRILAT DIHYDRATE INJ/PF 1.25 MG/1 ML SDV IV ONE (13:00)
[2017-01-02] MEDS ORDERED: MAGNESIUM SULFATE/D5W 1 GM/100 ML RTUPB IV ONE (13:00)
[2017-01-02] MEDS: NORMAL SALINE 1000 ML 1,000 ML IV PRN ×2 (13:19→22:41)
[2017-01-02] MEDS: POTASSI CL 20 MEQ/50 ML RIDER 20 MEQ/50 ML RTUPB IV SCH ×2 (14:48→16:39)
--- NOTE | 2017-01-02 15:53 | PDOC PROGRESS REPORT ---
Subjective Progress Note for:: 01/02/17 Subjective:: Patient complains of a right breast swelling. He reports this is been going on for several months. Patient reports that his abdominal pain and nausea are well controlled. He reported he had a bowel movement yesterday. Patient denies chest pain, shortness of breath, vomiting, fevers, chills, diarrhea, constipation, headache, new onset weakness. Physical Exam Vital Signs: Temp Pulse Resp BP Pulse Ox 98.6 F 87 19 156/99 H 97 01/02/17 01:27 01/02/17 03:15 01/02/17 01:49 01/02/17 01:49 01/02/17 01:49 Intake & Output 01/01/17 01/02/17 01/03/17 06:59 06:59 06:59 Intake Total 4063 2927 Output Total 4660 7696 Balance -596 -1788 Weight 86.3 kg Exam: General: Awake alert and oriented x3, no acute respiratory distress HEENT: AT/NC, PERRL, mydriasis, EOMI, oropharynx is moist, pink, no scleral icterus, no conjunctival injection Neck: No JVD, trachea midline Chest: Mild right breast swelling, nontender Pulmonary: CTAB CV: Regular rate and rhythm, normal S1 and S2, no murmur, rub, or gallop Abdomen: Soft, tender to palpation midepigastric, nondistended, active bowel sounds; no rebound, rigidity, or guarding Extremities: No cyanosis, clubbing or edema Neuro: Cranial nerves II through XII are grossly intact without focal deficits; awake alert and oriented x3, mildly tremulous Psych: Normal mood and affect Results Laboratory Results: 01/02/17 04:40 01/02/17 04:40 12/31/16 01/01/17 01/02/17 05:13 20:49 04:40 WBC 8.7 8.8 RBC 3.97 L 4.02 L Hgb 9.3 L 9.3 L Hct 28.0 L 28.5 L MCV 71 L 71 L MCH 23.4 L 23.2 L MCHC 33.1 32.7 RDW 24.8 H 25.2 H Plt Count 161 158 Seg Neutrophils % 73.6 75.2 Lymphocytes % 15.7 12.6 L Monocytes % 8.2 9.0 Eosinophils % 2.1 2.6 Basophils % 0.4 0.6 Absolute Neutrophils 6.4 6.6 Absolute Lymphocytes 1.4 1.1 Absolute Monocytes 0.7 0.8 Absolute Eosinophils 0.2 0.2 Absolute Basophils 0.0 0.1 Sodium Potassium Chloride Carbon Dioxide Anion Gap BUN Creatinine Est GFR ( Amer) Est GFR (Non-Af Amer) Glucose Calcium Magnesium Total Bilirubin AST ALT Alkaline Phosphatase Total Protein Albumin Lipase Blood Type O POSITIVE Antibody Screen NEGATIVE 01/02/17 04:40 WBC RBC Hgb Hct MCV MCH MCHC RDW Plt Count Seg Neutrophils % Lymphocytes % Monocytes % Eosinophils % Basophils % Absolute Neutrophils Absolute Lymphocytes Absolute Monocytes Absolute Eosinophils Absolute Basophils Sodium 139.2 Potassium 3.6 Chloride 101 Carbon Dioxide 25 Anion Gap 13 BUN 6 L Creatinine 0.52 Est GFR ( Amer) > 60 Est GFR (Non-Af Amer) > 60 Glucose 90 Calcium 9.2 Magnesium 1.9 Total Bilirubin 0.5 AST 21 ALT 27 Alkaline Phosphatase 62 Total Protein 5.9 L Albumin 3.3 L Lipase 1579.6 H Blood Type Antibody Screen Impressions: Chest X-Ray 12/28/16 23:37 IMPRESSION: No acute radiographic finding in the chest. Abdomen/Pelvis CT 12/29/16 01:32 IMPRESSION: Acute pancreatitis. Distended stomach with an air-fluid level, please correlate for gastric outlet obstruction. Small hiatal hernia with fluid at the distal esophagus, suggestive of gastroesophageal reflux. Assessment & Plan - Diagnosis (1) Acute alcoholic pancreatitis Qualifiers: Acute pancreatitis complication: unspecified Qualified Code(s): K85.20 - Alcohol induced acute pancreatitis without necrosis or infection Is this a current diagnosis for this admission?: Yes Plan: Patient with severe pancreatitis N.p.o., IV fluids, pain management Secondary to alcohol abuse 01/21/2016 ultrasound reveals no gallstones 11/06/16 14:39 Triglycerides 122 (2) Anemia Qualifiers: Anemia type: unspecified type Qualified Code(s): D64.9 - Anemia, unspecified Is this a current diagnosis for this admission?: Yes Plan: Transfuse 2 units packed red blood cells on 01/01/2017 Continue to monitor and transfuse if hemoglobin block drops below 8 Likely dilutional (3) Alcohol withdrawal delirium Is this a current diagnosis for this admission?: Yes Plan: Scheduled Ativan and as needed Ativan Thiamine, folic acid, multivitamin (4) Tobacco dependency Is this a current diagnosis for this admission?: Yes Plan: Nicotine patch as needed (5) Seizure disorder Is this a current diagnosis for this admission?: Yes Plan: Patient reports seizure disorder as a teenager and subsequently after stopping drinking for several months. Suspect underlying seizure disorder continue Depakote. (6) Hypertension Qualifiers: Hypertension type: essential hypertension Qualified Code(s): I10 - Essential (primary) hypertension Is this a current diagnosis for this admission?: Yes Plan: Patient reports having previously been on lisinopril. Patient on scheduled enalapril. - Time Time Spent with patient: 25-34 minutes Medications reviewed and adjusted accordingly: Yes Anticipated discharge: Home
[2017-01-02] MEDS: LORAZEPAM INJ 2 MG/1 ML VIAL IV PRN (16:45)
[2017-01-02] MEDS: DIVALPROEX SODIUM 500 MG TAB.SR.24H PO SCH (17:26)
[2017-01-02] MEDS: ENALAPRILAT DIHYDRATE INJ/PF 1.25 MG/1 ML SDV IV SCH (17:26)
[2017-01-03] MEDS: LORAZEPAM INJ 2 MG/1 ML VIAL IV PRN ×2 (02:55→13:38)
[2017-01-03] MEDS: ENALAPRILAT DIHYDRATE INJ/PF 1.25 MG/1 ML SDV IV SCH ×2 (02:55→05:56)
[2017-01-03] MEDS: HYDROMORPHONE HCL INJ/PF 2 MG/ML AMPULE IV PRN ×2 (02:56→10:05)
[2017-01-03] MEDS: LORAZEPAM INJ 2 MG/1 ML VIAL IV SCH (05:56)
[2017-01-03] MEDS: HEPARIN SOD (PORCINE) 5,000 UNIT/ML 1 ML SYRINGE SUBCUT SCH ×3 (05:56→21:41)
[2017-01-03] MEDS: IPRATROPIUM/ALBUTEROL 0.5-2.5 MG/3 ML AMPUL NEB SCH ×3 (07:41→19:59)
[2017-01-03 08:54] LABS: ANION GAP 17 (5-19); BLOOD UREA NITROGEN 7 mg/dL (7-20); CALCIUM 9.3 mg/dL (8.4-10.2); CARBON DIOXIDE 23 mmol/L (22-30); CHLORIDE 103 mmol/L (98-107); CREATININE RESULT 0.53 mg/dL (0.52-1.25); GLUCOSE 89 mg/dL (75-110); POTASSIUM 3.6 mmol/L (3.6-5.0); SODIUM 142.5 mmol/L (137-145)
[2017-01-03] MEDS: PANTOPRAZOLE SODIUM 40 MG VIAL IV SCH (10:02)
[2017-01-03] MEDS: METOPROLOL SUCCINATE 50 MG TAB.SR.24H PO SCH (10:02)
[2017-01-03] MEDS: THIAMINE HCL 100 MG, FOLIC ACID 1 MG in NORMAL SALINE 250 ML IV SCH (10:04)
[2017-01-03] MEDS ORDERED: OXYCODONE-ACETAMINOPHEN 5-325 MG TABLET PO PRN (11:24)
[2017-01-03] MEDS ORDERED: NORMAL SALINE 1000 ML 1,000 ML IV PRN (11:24)
[2017-01-03] MEDS ORDERED: LISINOPRIL 10 MG TABLET PO SCH (12:00)
--- NOTE | 2017-01-03 16:49 | PDOC PROGRESS REPORT ---
Subjective Progress Note for:: 01/03/17 Subjective:: Reports he is feeling better. States he is hungry and thirsty. Patient denies chest pain, shortness of breath, abdominal pain, nausea, vomiting , fevers, chills, diarrhea, constipation, headache, new onset weakness. Physical Exam Vital Signs: Temp Pulse Resp BP Pulse Ox 98.4 F 83 18 151/88 H 98 01/03/17 05:42 01/03/17 05:42 01/03/17 05:42 01/03/17 05:42 01/03/17 05:42 Intake & Output 01/02/17 01/03/17 01/04/17 06:59 06:59 06:59 Intake Total 3504 1556 Output Total 4595 Balance -1091 1556 Weight 83.5 kg Exam: General: Awake alert and oriented x3, no acute respiratory distress HEENT: AT/NC, PERRL, mydriasis, EOMI, oropharynx is moist, pink, no scleral icterus, no conjunctival injection Neck: No JVD, trachea midline Chest: Mild right breast swelling, nontender Pulmonary: CTAB CV: Regular rate and rhythm, normal S1 and S2, no murmur, rub, or gallop Abdomen: Soft, NTTP, nondistended, active bowel sounds; no rebound, rigidity, or guarding Extremities: No cyanosis, clubbing or edema Neuro: Cranial nerves II through XII are grossly intact without focal deficits; awake alert and oriented x3, mildly tremulous Psych: Normal mood and affect Results Laboratory Results: 01/02/17 04:40 01/02/17 04:40 Impressions: Chest X-Ray 12/28/16 23:37 IMPRESSION: No acute radiographic finding in the chest. Abdomen/Pelvis CT 12/29/16 01:32 IMPRESSION: Acute pancreatitis. Distended stomach with an air-fluid level, please correlate for gastric outlet obstruction. Small hiatal hernia with fluid at the distal esophagus, suggestive of gastroesophageal reflux. Assessment & Plan - Diagnosis (1) Acute alcoholic pancreatitis Qualifiers: Acute pancreatitis complication: unspecified Qualified Code(s): K85.20 - Alcohol induced acute pancreatitis without necrosis or infection Is this a current diagnosis for this admission?: Yes Plan: Patient with severe pancreatitis, improving Secondary to alcohol abuse 01/21/2016 ultrasound reveals no gallstones 11/06/16 14:39 Triglycerides 122 Will attempt clear liquids and if this improves will advance as tolerated and stop IV pain medication and decrease IV fluids. If patient tolerates all of this well we will likely be able to discharge him within the next 24-48 hours (2) Anemia Qualifiers: Anemia type: unspecified type Qualified Code(s): D64.9 - Anemia, unspecified Is this a current diagnosis for this admission?: Yes (3) Alcohol withdrawal delirium Is this a current diagnosis for this admission?: Yes Plan: Decrease scheduled Ativan and continue as needed Ativan Thiamine, folic acid, multivitamin Patient reports his last drink was on Thursday of last week anticipate will be able to stop benzodiazepines tomorrow. (4) Tobacco dependency Is this a current diagnosis for this admission?: Yes Plan: Nicotine patch as needed (5) Seizure disorder Is this a current diagnosis for this admission?: Yes Plan: Patient reports seizure disorder as a teenager and subsequently after stopping drinking for several months. Suspect underlying seizure disorder continue Depakote. (6) Hypertension Qualifiers: Hypertension type: essential hypertension Qualified Code(s): I10 - Essential (primary) hypertension Is this a current diagnosis for this admission?: Yes Plan: Patient reports having previously been on lisinopril. Resume this - Time Time Spent with patient: 25-34 minutes Medications reviewed and adjusted accordingly: Yes Anticipated discharge: Home Within: within 24 hours, within 48 hours
[2017-01-03] MEDS: DIVALPROEX SODIUM 500 MG TAB.SR.24H PO SCH (18:12)
[2017-01-03] MEDS: LISINOPRIL 10 MG TABLET PO SCH (21:41)
[2017-01-03] MEDS ORDERED: LORAZEPAM INJ 2 MG/1 ML VIAL IV SCH (22:00)
[2017-01-04] MEDS: LORAZEPAM INJ 2 MG/1 ML VIAL IV PRN (03:30)
[2017-01-04] MEDS: HEPARIN SOD (PORCINE) 5,000 UNIT/ML 1 ML SYRINGE SUBCUT SCH (05:53)
[2017-01-04] MEDS ORDERED: LANSOPRAZOLE 30 MG TAB.RAP.DR PO SCH (06:00)
[2017-01-04] MEDS: IPRATROPIUM/ALBUTEROL 0.5-2.5 MG/3 ML AMPUL NEB SCH (07:54)
[2017-01-04] MEDS ORDERED: DIAZEPAM 5 MG TABLET PO ONE (09:30)
[2017-01-04] MEDS ORDERED: OXYCODONE-ACETAMINOPHEN 5-325 MG TABLET PO ONE (09:30)
[2017-01-04] MEDS: LISINOPRIL 10 MG TABLET PO SCH (09:32)
[2017-01-04] MEDS: METOPROLOL SUCCINATE 50 MG TAB.SR.24H PO SCH (09:33)
[2017-01-04] MEDS ORDERED: THIAMINE HCL 100 MG TABLET PO SCH (10:00)
[2017-01-04 10:51] VITALS: BP 162/80
--- NOTE | 2017-01-04 19:40 | PDOC DISCHARGE SUMMARY ---
General - Admit/Disc Date/PCP Admission Date/Primary Care Provider: 12/29/16 05:37 Discharge Date: 01/04/17 - Discharge Diagnosis (1) Acute alcoholic pancreatitis Is this a current diagnosis for this admission?: Yes (2) Anemia Is this a current diagnosis for this admission?: Yes (3) Alcohol withdrawal delirium Is this a current diagnosis for this admission?: Yes (4) Tobacco dependency Is this a current diagnosis for this admission?: Yes (5) Seizure disorder Is this a current diagnosis for this admission?: Yes (6) Hypertension Is this a current diagnosis for this admission?: Yes - Additional Information Resuscitation Status: Full Code Discharge Diet: Cardiac Discharge Activity: Activity As Tolerated Home Medications: Doxepin HCl 50 mg PO HSP PRN 12/29/16 Naltrexone HCl [Revia] 50 mg PO DAILY 12/29/16 Divalproex Sodium [Divalproex Sodium ER] 500 mg PO QHS #30 tab.er.24h 01/04/17 Lisinopril [Prinivil 40 mg Tablet] 40 mg PO DAILY #30 tablet 01/04/17 Metoprolol Succinate [Toprol Xl 50 mg Tab.sr] 50 mg PO DAILY #30 tab.sr.24h 11/13 Oxycodone HCl/Acetaminophen [Percocet 5-325 mg Tablet] 1 tab PO Q6HP PRN #10 tablet 01/04/17 Thiamine HCl [Thiamine 100 mg Tablet] 100 mg PO DAILY #90 tablet 01/04/17 History of Present Illness History of Present Illness: JAIME NUNEZ is a 31 year old male with a past medical history of alcohol dependence, alcoholic pancreatitis, alcohol withdrawal DTs, seizure and tobacco dependence. Patient been in his usual state of health until approximately 12 hours prior to presentation patient admittedly binging on alcohol subsequently developing epigastric pain nausea and vomiting. He recognized the symptoms from previous episode prompting evaluation emergency room where he was found to have biochemical and radiological evidence of pancreatitis. He receives symptomatic management, IV fluids and referred to the hospitalist for admission. Hospital Course Hospital Course: Patient was placed on Ativan, Dilaudid, and IV fluids. He was kept n.p.o. Patient's Ativan was slowly tapered over the next week and patient was transitioned to being able to eat by mouth. He was doing quite well with this and still continued to have bowel movements. His pain improved and he was discharged home in stable condition. Patient however has been treated in the past for hypertension and did suffer from a recurrence of this and was restarted on antihypertensives. He did well with this. Patient reports a prior seizure disorder and he was continued on Depakote. He is strongly encouraged to follow-up with his outpatient provider. He is strongly advised to avoid smoking and drinking alcohol. Patient has had several admissions for alcoholic pancreatitis. He has had normal triglycerides in the past and right upper quadrant ultrasound which did not reveal any gallstones. Patient did note some right breast swelling while he was here. He reports that this had been going on for several months. He does report a family history of breast cancer. Patient is advised to follow-up with his outpatient provider for ultrasound/mammography of this. Although likely this simply represents gynecomastia due to his underlying liver disease. Physical Exam Vital Signs: Temp Pulse Resp BP Pulse Ox 99.6 F 86 18 162/80 H 98 01/04/17 10:50 01/04/17 10:50 01/04/17 10:50 01/04/17 10:50 01/04/17 10:50 Intake & Output 01/03/17 01/04/17 01/05/17 06:59 06:59 06:59 Intake Total 3311 4470 Output Total 950 Balance 3311 3520 Weight 82.5 kg 83.2 kg Exam: General: Awake alert and oriented x3, no acute respiratory distress HEENT: AT/NC, PERRL, mydriasis, EOMI, oropharynx is moist, pink, no scleral icterus, no conjunctival injection Neck: No JVD, trachea midline Chest: Mild right breast swelling, nontender Pulmonary: CTAB CV: Regular rate and rhythm, normal S1 and S2, no murmur, rub, or gallop Abdomen: Soft, NTTP, nondistended, active bowel sounds; no rebound, rigidity, or guarding Extremities: No cyanosis, clubbing or edema Neuro: Cranial nerves II through XII are grossly intact without focal deficits; awake alert and oriented x3 Psych: Normal mood and affect Results Laboratory Results: 01/02/17 04:40 01/03/17 08:23 Impressions: Chest X-Ray 12/28/16 23:37 IMPRESSION: No acute radiographic finding in the chest. Abdomen/Pelvis CT 12/29/16 01:32 IMPRESSION: Acute pancreatitis. Distended stomach with an air-fluid level, please correlate for gastric outlet obstruction. Small hiatal hernia with fluid at the distal esophagus, suggestive of gastroesophageal reflux. Qualifiers PATEINT BEING DISCHARGED WITH ANY OF THE FOLLOWING DIAGNOSIS?: No Plan Time Spent: Less than 30 Minutes
== END 2017-01-04 11:02 | disposition home or self-care (01) | DRG 439 ==
LOC: ER 23:35 → EH 12-29 05:37 → UNDOADMIN 12-29 05:47 → ICU 12-29 08:43 → 3S 01-02 02:38
PROVIDERS: ADMIT Internal Medicine; ATTEND Internal Medicine
PROC: 30233N1 Transfusion of Nonautologous Red Blood Cells into Peripheral Vein, Percutaneous Approach (ICD-10-PCS; principal; 2017-01-01)
DX: K85.20 Alcohol induced acute pancreatitis without necrosis or infection (principal); F10.231 Alcohol dependence with withdrawal delirium; I10 Essential (primary) hypertension; D64.9 Anemia, unspecified; K21.9 Gastro-esophageal reflux disease without esophagitis; K70.10 Alcoholic hepatitis without ascites; F32.9 Major depressive disorder, single episode, unspecified; F17.200 Nicotine dependence, unspecified, uncomplicated; G40.909 Epilepsy, unspecified, not intractable, without status epilepticus; N62 Hypertrophy of breast; Z82.49 Family history of ischemic heart disease and other diseases of the circulatory system
CPT/HCPCS: 36415; 36430; 71010; 74176; 80048; 80053; 80307; 81001; 82550; 82553; 83615; 83690; 83735; 84484; 85025; 85384; 85610; 85730; 86850; 86900; 86901; 86920; 93005; 93010; 96361; 96372; 96374; 96375; 96376; 99291; J1170; J1644; J1940; J2060; J2405; J2550; J2765; J3411; J3475; J3480; J3490; J7030; J7050; J7620; P9016; S0164

== ENCOUNTER 2017-01-17 09:29 | Inpatient (IN) | payer SELFPAY ==
[2017-01-17 10:05] LABS: HEMATOCRIT 38.1 % (37.9-51.0); HEMOGLOBIN 12.2 g/dL (13.5-17.0); HGB HCT DIFFERENCE -1.5; MEAN CORPUSCULAR HEMOGLOBIN 22.3 pg (27.0-33.4); MEAN CORPUSCULAR VOLUME 70 fl (80-97); RED BLOOD COUNT 5.47 10^6/uL (4.35-5.55); RED CELL DISTRIBUTION WIDTH 27.4 % (11.5-14.0); WHITE BLOOD COUNT 21.1 10^3/uL (4.0-10.5)
[2017-01-17] MEDS ORDERED: MORPHINE SULFATE 10 MG/ML INJ IV ONE (10:12)
[2017-01-17] MEDS ORDERED: DIAZEPAM INJ 10 MG/2 ML DISP.SYRIN IV ONE (10:12)
[2017-01-17] MEDS ORDERED: ONDANSETRON HCL INJ/PF 4 MG/2 ML SDV IV ONE ×2 (10:12→12:28)
[2017-01-17] MEDS ORDERED: NORMAL SALINE 1000 ML 1,000 ML IV ONE (10:12)
[2017-01-17 10:25] LABS: BAND NEUTROPHILS % (MANUAL) 5 % (3-5); BASOPHILS % (MANUAL) 0 % (0-2); EOSINOPHILS % (MANUAL) 0 % (0-6); LYMPHOCYTES % (MANUAL) 9 % (13-45); TOTAL CELLS COUNTED 100
[2017-01-17 10:27] LABS: ANISOCYTOSIS 2+; HYPOCHROMASIA 1+; MICROCYTOSIS 2+; OVALOCYTES SLIGHT; POIKILOCYTOSIS SLIGHT; TARGET CELLS SLIGHT
[2017-01-17 10:31] LABS: ALANINE AMINOTRANSFERASE 26 U/L (21-72); ALBUMIN 5.3 g/dL (3.5-5.0); ALKALINE PHOSPHATASE 114 U/L (38-126); ASPARTATE AMINO TRANSFERASE 45 U/L (17-59); BILIRUBIN,DIRECT 0.8 mg/dL (0.0-0.4); BILIRUBIN,TOTAL 1.9 mg/dL (0.2-1.3); BLOOD UREA NITROGEN 34 mg/dL (7-20); CALCIUM 9.1 mg/dL (8.4-10.2); CHLORIDE 67 mmol/L (98-107); CREATINE KINASE 386 U/L (55-170); CREATININE RESULT 3.63 mg/dL (0.52-1.25); GLUCOSE 114 mg/dL (75-110); POTASSIUM 3.6 mmol/L (3.6-5.0); TOTAL PROTEIN 8.5 g/dL (6.3-8.2)
[2017-01-17 10:37] LABS: ALCOHOL < 10 mg/dL (NONE DETECTED)
[2017-01-17 10:42] LABS: CREATINE KINASE MB 1.65 ng/mL (<4.55); TROPONIN I 0.022 ng/mL
[2017-01-17 10:44] LABS: CARBON DIOXIDE 35 mmol/L (22-30); SODIUM 134.5 mmol/L (137-145)
[2017-01-17 10:50] LABS: ANION GAP 33 (5-19)
[2017-01-17] MEDS ORDERED: NORMAL SALINE 1000 ML 1,000 ML IV PRN ×2 (10:56→13:19)
--- NOTE | 2017-01-17 10:58 | ER Document Report ---
ED General - General Chief Complaint: ETOH Abuse Stated Complaint: POSSIBLE SEIZURES Time Seen by Provider: 01/17/17 09:39 Mode of Arrival: Ambulatory Information source: Patient Notes: 31-year-old male chronic alcoholic presents with complaints of abdominal pain. Patient has a history of pancreatitis. Patient denies any fevers or chills admits to vomiting and not feeling well. Patient notes his whole body has been cramping and he thought he was having a seizure TRAVEL OUTSIDE OF THE [place] IN LAST 30 DAYS: No - HPI Onset: Last week Onset/Duration: Persistent Quality of pain: Cramping Severity: Moderate Pain Level: 3 Associated symptoms: Nausea, Vomiting, Other Exacerbated by: Denies Relieved by: Denies Similar symptoms previously: Yes Recently seen / treated by doctor: Yes - Related Data Allergies/Adverse Reactions: No Known Allergies Allergy (Verified 12/28/16 23:38) Past Medical History - Social History Smoking Status: Never Smoker Cigarette use (# per day): No Chew tobacco use (# tins/day): No Smoking Education Provided: No Frequency of alcohol use: Heavy Family History: CAD, COPD - Past Medical History Cardiac Medical History: Reports: Hx Hypertension Denies: Hx Heart Attack Pulmonary Medical History: Denies: Hx Asthma, Hx Tuberculosis Neurological Medical History: Reports: Hx Seizures - 6-7 weeks ago. Denies: Hx Cerebrovascular Accident Renal/ Medical History: Denies: Hx Peritoneal Dialysis GI Medical History: Reports: Hx Gastroesophageal Reflux Disease, Hx Hepatitis - alcoholic hepatitis. Denies: Hx Hiatal Hernia, Hx Ulcer Psychiatric Medical History: Reports: Hx Depression Infectious Medical History: Reports: Hx Hepatitis - alcoholic hepatitis Past Surgical History: Reports: Hx Genitourinary Surgery - vasectomy, Hx Nose Surgery - bilateral: maxillary antrostomy, sphenoidotomy, ethmoidectomy. Denies : Hx Open Heart Surgery, Hx Pacemaker - Immunizations Hx Diphtheria, Pertussis, Tetanus Vaccination: Yes Review of Systems - Review of Systems Notes: REVIEW OF SYSTEMS: CONSTITUTIONAL : Denies fever, chills, or sweats. Denies recent illness. EENT: Denies eye, ear, throat, or mouth pain or symptoms. Denies nasal or sinus congestion or discharge. Denies throat, tongue, or mouth swelling or difficulty swallowing. CARDIOVASCULAR: Denies chest pain. Denies palpitations or racing or irregular heart beat. Denies ankle edema. RESPIRATORY: Denies cough, cold, or chest congestion. Denies shortness of breath, difficulty breathing, or wheezing. GASTROINTESTINAL: Admits to nausea vomiting abdominal pain GENITOURINARY: Denies difficulty urinating, painful urination, burning, frequency, blood in urine, or discharge. MUSCULOSKELETAL: Denies back or neck pain or stiffness. Denies joint pain or swelling. SKIN: Denies rash, lesions or sores. HEMATOLOGIC : Denies easy bruising or bleeding. LYMPHATIC: Denies swollen, enlarged glands. NEUROLOGICAL: Possible seizure PSYCHIATRIC: Denies anxiety or stress. Denies depression, suicidal ideation, or homicidal ideation. ALL OTHER SYSTEMS REVIEWED AND NEGATIVE. Dictation was performed using [employer] voice recognition software PHYSICAL EXAMINATION: GENERAL: No-appearing, poorly-nourished and in mild distress. HEAD: Atraumatic, normocephalic. EYES: Pupils equal round and reactive to light, extraocular movements intact, sclera anicteric, conjunctiva are normal. ENT: Nares patent, oropharynx clear without exudates. Moist mucous membranes. NECK: Normal range of motion, supple without lymphadenopathy LUNGS: Breath sounds clear to auscultation bilaterally and equal. No wheezes rales or rhonchi. HEART: Tachycardic ABDOMEN: Soft, nontender, nondistended abdomen. No guarding, no rebound. No masses appreciated. Musculoskeletal: Normal range of motion, no pitting or edema. No cyanosis. NEUROLOGICAL: Cranial nerves grossly intact. Normal speech, normal gait. Normal sensory, motor exams PSYCH: Normal mood, normal affect. SKIN: Warm, Dry, normal turgor, no rashes or lesions noted. Physical Exam - Vital signs Vitals: Pulse Ox 100 01/17/17 09:39 Course - Re-evaluation Re-evalutation: 01/17/17 11:11 Initial concern was for acute pancreatitis secondary to alcohol abuse. His white counts noted to be 21.1. His lipase is significantly elevated. He is noted to be in acute renal failure. Patient will be given IV fluids and admitted to the hospitalist service and does meet some of the Hext criteria concerning for mortality - Vital Signs Vital signs: Temp Pulse Resp BP Pulse Ox 12 124/85 99 01/17/17 11:00 01/17/17 10:01 01/17/17 11:00 - Laboratory Result Diagrams: 01/17/17 09:50 01/17/17 09:50 Laboratory results interpreted by me: 01/17/17 01/17/17 01/17/17 09:50 09:50 09:50 WBC 21.1 H Hgb 12.2 L MCV 70 L MCH 22.3 L RDW 27.4 H Seg Neuts % (Manual) 83 H Lymphocytes % (Manual) 9 L Abs Neuts (Manual) 18.6 H Sodium 134.5 L Chloride 67 L Carbon Dioxide 35 H Anion Gap 33 H BUN 34 H Creatinine 3.63 H Est GFR ( Amer) 24 L Est GFR (Non-Af Amer) 19 L Glucose 114 H Total Bilirubin 1.9 H Direct Bilirubin 0.8 H Creatine Kinase 386 H Total Protein 8.5 H Albumin 5.3 H Lipase 39389.0 H Critical Care Note - Critical Care Note Total time excluding time spent on procedures (mins): 45 Comments: minutes of critical care time spent in direct contact evaluating and reevaluating the patient, treating symptoms, reviewing labs and studies and speaking with family and consultants excluding any procedures Discharge - Discharge Clinical Impression: Pancreatitis Qualifiers: Chronicity: acute Pancreatitis type: unspecified pancreatitis type Acute pancreatitis complication: unspecified Qualified Code(s): K85.90 - Acute pancreatitis without necrosis or infection, unspecified Acute renal failure Qualifiers: Acute renal failure type: unspecified Qualified Code(s): N17.9 - Acute kidney failure, unspecified Condition: Fair Disposition: ADMITTED INPATIENT Admitting Provider: Hospitalist Unit Admitted: [facility]
--- NOTE | 2017-01-17 12:09 | RADIOLOGY REPORT (SQ) ---
EXAM DESCRIPTION: CT CHEST WITHOUT COMPLETED DATE/TIME: 01/17/2017 11:49 am REASON FOR STUDY: acute pancreatitis COMPARISON: CTA of the chest dated 10/12/2016 TECHNIQUE: CT scan performed of the chest without intravenous contrast. Images reviewed with lung, soft tissue and bone windows. Reconstructed coronal and sagittal MPR images reviewed. All images st ored on PACS. All CT scanners at this facility use dose modulation, iterative reconstruction, and/or weight based d osing when appropriate to reduce radiation dose to as low as reasonably achievable (ALARA). [facility]: Dose Right [facility]: CareDose [facility]: Dose Right [facility]: Teradose 4D [facility]: Smart Upshot RADIATION DOSE: mGy. LIMITATIONS: No technical limitations. FINDINGS: LUNGS AND PLEURA: No masses, infiltrates, pneumothorax. No pleural effusions, calcificati ons. HILAR AND MEDIASTINAL STRUCTURES: No identified masses or abnormal nodes. No obvious aneurysm. HEART AND VASCULAR STRUCTURES: No aneurysm. No pericardial effusion. UPPER ABDOMEN: See results under abdominal CT scan THYROID AND OTHER SOFT TISSUES: No masses. No adenopathy. BONES: No significant finding. HARDWARE: None in the chest. OTHER: Again there is some thickening of the taveras of the distal esophagus unchanged from the previou s study. Clinical correlation is recommended IMPRESSION: No significant interval changes compared to the previous study. No acute findings. Oth er findings as noted above TECHNICAL DOCUMENTATION: JOB ID: [id number] Quality ID # [id number]: Final reports with documentation of one or more dose reduction techniques (e.g., Au tomated exposure control, adjustment of the mA and/or kV according to patient size, use of iterative reconstruction technique) 2010 [employer]- All Rights Reserved
--- NOTE | 2017-01-17 12:29 | RADIOLOGY REPORT (SQ) ---
EXAM DESCRIPTION: CT ABD/PELVIS NO ORAL OR IV COMPLETED DATE/TIME: 01/17/2017 11:49 am REASON FOR STUDY: acute pancreatitis COMPARISON: 12/29/2016 TECHNIQUE: CT scan of the abdomen and pelvis performed without intravenous or oral contrast. Images reviewed with lung, soft tissue, and bone windows. Reconstructed coronal and sagittal MPR images revi ewed. All images stored on PACS. All CT scanners at this facility use dose modulation, iterative reconstruction, and/or weight based d osing when appropriate to reduce radiation dose to as low as reasonably achievable (ALARA). [facility]: Dose Right [facility]: CareDose [facility]: Dose Right [facility]: Teradose 4D [facility]: Smart [place] RADIATION DOSE: Up-to-date CT equipment and radiation dose reduction techniques were employed. CTDIv ol: 9.6 mGy. DLP: 719 mGy-cm.mGy. LIMITATIONS: None. FINDINGS: LOWER CHEST: See results under chest CT scan NON-CONTRASTED LIVER, SPLEEN, ADRENALS: Evaluation limited by lack of IV contrast. No identified sign ificant masses. PANCREAS: Again there is prominence of the pancreatic head and body. No discrete masses are identifi ed. There are edematous or inflammatory changes in the adjacent mesenteric fat. No discrete fluid c ollections are identified. The appearance is consistent with acute pancreatitis GALLBLADDER: No identified stones by CT criteria. No inflammatory changes to suggest cholecystitis. RIGHT KIDNEY AND URETER: No suspicious masses. Assessment limited by lack of IV contrast. No signif icant calcifications. No hydronephrosis or hydroureter. LEFT KIDNEY AND URETER: No suspicious masses. Assessment limited by lack of IV contrast. No signifi cant calcifications. No hydronephrosis or hydroureter. AORTA AND RETROPERITONEUM: No aneurysm. No retroperitoneal masses or adenopathy. BOWEL AND PERITONEAL CAVITY: Fluid distended stomach is again identified. APPENDIX: Normal. PELVIS, BLADDER, AND ABDOMINAL WALL:No abnormal masses. No free fluid. Bladder normal. BONES: No significant findings. OTHER: No other significant finding. IMPRESSION: Persistent changes of acute pancreatitis. No significant interval changes compared to t he previous study. Other findings as noted above COMMENT: Quality ID # [id number]: Final reports with documentation of one or more dose reduction techniques (e.g., Automated exposure control, adjustment of the mA and/or kV according to patient size, use of iterative reconstruction technique) TECHNICAL DOCUMENTATION: JOB ID: [id number] [place] [employer]- All Rights Reserved
[2017-01-17] MEDS ORDERED: HYDROMORPHONE HCL INJ/PF 2 MG/ML AMPULE IV ONE (12:36)
[2017-01-17] MEDS ORDERED: DEXTROSE 40% GEL 15 GM TUBE PO PRN ×2 (13:04)
[2017-01-17] MEDS ORDERED: ONDANSETRON 4 MG TAB.RAPDIS PO PRN (13:04)
[2017-01-17] MEDS ORDERED: GLUCAGON,HUMAN RECOMB 1 MG INJ SUBCUT PRN (13:04)
[2017-01-17] MEDS ORDERED: DEXTROSE 50%-WATER 25 GM/50 ML DISP.SYRIN IV PRN ×2 (13:04)
[2017-01-17] MEDS ORDERED: ACETAMINOPHEN 325 MG TABLET PO PRN (13:04)
[2017-01-17] MEDS ORDERED: DEXTROSE 5%-1/2 NORMAL SALINE 1,000 ML IV PRN (13:15)
--- NOTE | 2017-01-17 13:46 | PDOC H&P ---
History of Present Illness Admission Date/PCP: 01/17/17 11:15 Patient complains of: abd pain History of Present Illness: JAIME NUNEZ is a 31 year old male presents to the emergency room with complaint of abdominal pain. Patient states that 2 days ago he drank 1/5 of vodka. Patient states that this morning he thought that he had a seizure because he started feeling shaky and numb in his arms and fingers. Patient states that he has been having severe abdominal pain for the last 2 days. Patient states that he has vomited about 6 or 8 times with no blood seen. Patient denies any fever. Patient reports that he normally drinks a half a pain of vodka a day patient states that he was supposed to go and a detox program today but came to the hospital due to how he was feeling. Patient denies any other street drugs. Patient states that he is trying to stop drinking. Past Medical History Cardiac Medical History: Reports: Hypertension Denies: Myocardial Infarction Pulmonary Medical History: Denies: Asthma, Tuberculosis Neurological Medical History: Reports: Seizures - 6-7 weeks ago GI Medical History: Reports: Gastroesophageal Reflux Disease, Hepatitis - alcoholic hepatitis Denies: Hiatal Hernia Psychiatric Medical History: Reports: Depression Hematology: Denies: Anemia, Sickle Cell Disease Past Surgical History Past Surgical History: Denies: Pacemaker Social History Smoking Status: Never Smoker Frequency of Alcohol Use: Heavy Hx Recreational Drug Use: No Hx Prescription Drug Abuse: No - Advance Directive Resuscitation Status: Full Code Family History Family History: CAD, COPD Parental Family History Reviewed: Yes - Alcoholism in grandfather Children Family History Reviewed: Yes Sibling(s) Family History Reviewed.: Yes Medication/Allergy Home Medications: Chlordiazepoxide HCl [Librium 25 mg Capsule] 3 cap PO DAILY 01/17/17 Divalproex Sodium [Divalproex Sodium ER] 500 mg PO QHS 01/17/17 Doxepin HCl 50 mg PO HSP PRN 01/17/17 Lisinopril [Prinivil 40 mg Tablet] 40 mg PO DAILY 01/17/17 Metoprolol Succinate [Toprol Xl 50 mg Tab.sr] 50 mg PO DAILY 01/17/17 Allergies/Adverse Reactions: No Known Allergies Allergy (Verified 12/28/16 23:38) Review of Systems Constitutional: ABSENT: chills, fever(s), headache(s), weight gain, weight loss Eyes: ABSENT: visual disturbances Ears: ABSENT: hearing changes Nose, Mouth, and Throat: PRESENT: other - Lost voice Cardiovascular: ABSENT: chest pain, dyspnea on exertion, edema, orthropnea, palpitations Respiratory: ABSENT: cough, hemoptysis Gastrointestinal: PRESENT: abdominal pain, bloating, nausea, vomiting Genitourinary: ABSENT: dysuria, hematuria Musculoskeletal: ABSENT: joint swelling Integumentary: ABSENT: rash, wounds Neurological: PRESENT: convulsions. ABSENT: abnormal gait, abnormal speech, confusion, dizziness, focal weakness, syncope Psychiatric: ABSENT: anxiety, depression, homidical ideation, suicidal ideation Endocrine: ABSENT: cold intolerance, heat intolerance, polydipsia, polyuria Hematologic/Lymphatic: ABSENT: easy bleeding, easy bruising Physical Exam Vital Signs: Temp Pulse Resp BP Pulse Ox 12 124/85 99 01/17/17 11:00 01/17/17 10:01 01/17/17 11:00 General appearance: PRESENT: mild distress, well-developed, well-nourished Head exam: PRESENT: atraumatic, normocephalic Eye exam: PRESENT: conjunctiva pink, EOMI. ABSENT: scleral icterus Ear exam: PRESENT: normal external ear exam Mouth exam: PRESENT: moist, tongue midline Neck exam: ABSENT: carotid bruit, JVD, lymphadenopathy, thyromegaly Respiratory exam: PRESENT: clear to auscultation hannah. ABSENT: rales, rhonchi, wheezes Cardiovascular exam: PRESENT: RRR. ABSENT: diastolic murmur, rubs, systolic murmur Pulses: PRESENT: normal dorsalis pedis pul Vascular exam: PRESENT: normal capillary refill GI/Abdominal exam: PRESENT: other - Diffuse tenderness in all quadrants, positive for bowel sounds, positive for distention Rectal exam: PRESENT: deferred Extremities exam: PRESENT: full ROM. ABSENT: calf tenderness, clubbing, pedal edema Neurological exam: PRESENT: alert, awake, oriented to person, oriented to place , oriented to time, oriented to situation, CN II-XII grossly intact. ABSENT: motor sensory deficit Psychiatric exam: PRESENT: appropriate affect, normal mood. ABSENT: homicidal ideation, suicidal ideation Skin exam: PRESENT: dry, intact, warm. ABSENT: cyanosis, rash Results Impressions: Chest CT 01/17/17 11:17 IMPRESSION: No significant interval changes compared to the previous study. No acute findings. Other findings as noted above Abdomen/Pelvis CT 01/17/17 11:18 IMPRESSION: Persistent changes of acute pancreatitis. No significant interval changes compared to the previous study. Other findings as noted above Assessment & Plan - Diagnosis (1) Acute alcoholic pancreatitis Qualifiers: Is this a current diagnosis for this admission?: Yes Plan: Will make pt NPO. Will give IVFs. (2) Acute renal failure Qualifiers: Acute renal failure type: unspecified Qualified Code(s): N17.9 - Acute kidney failure, unspecified Is this a current diagnosis for this admission?: Yes Plan: Secondary Dehydration and Medication: Will check renal ultrasound. Will continue IVFs. (3) ETOH abuse Is this a current diagnosis for this admission?: Yes Plan: Pt currently on Librium as outpatient. Will place ETOH withdrawal protocol orders. Will give vit replacement. Tobin bag has potassium in it - will hold for now until renal function improves. (4) Dehydration Is this a current diagnosis for this admission?: Yes Plan: Secondary to ETOH Abuse: Will give IVFs for volume expansion. (5) Leukocytosis Is this a current diagnosis for this admission?: Yes Plan: Secondary to Acute ETOH Pancreatitis: No ABX required at this time. Will order for blood culture and urine culture. (6) Anemia Is this a current diagnosis for this admission?: Yes Plan: Most likely secondary to ETOH abuse and Esophageal Varices: Will check anemia work up. (7) Hyponatremia Is this a current diagnosis for this admission?: Yes Plan: Secondary to Dehydration: Will give IVFs. (8) Hyperbilirubinemia Is this a current diagnosis for this admission?: Yes Plan: Secondary ETOH Hepatitis: Will monitor. (9) Hypertension Qualifiers: Is this a current diagnosis for this admission?: Yes Plan: Will monitor. (10) Tobacco dependency Is this a current diagnosis for this admission?: Yes Plan: Supportive care. (11) Esophageal varices in alcoholic cirrhosis Is this a current diagnosis for this admission?: Yes Plan: Hx of Esophageal Varices: No evidence of Bleeding. Will place on Nadolol. (12) DVT prophylaxis Is this a current diagnosis for this admission?: Yes Plan: SCDs - Time Time Spent: 30 to 50 Minutes
[2017-01-17 14:45] LABS: AMORPHOUS SEDIMENT,URINE TRACE /HPF; APPEARANCE,URINE TURBID; BILIRUBIN,URINE SMALL (NEGATIVE); GLUCOSE, URINE NEGATIVE (NEGATIVE); KETONES,URINE TRACE mg/dL (NEGATIVE); LEUKOCYTE ESTERASE,URINE TRACE (NEGATIVE); NITRITE,URINE NEGATIVE (NEGATIVE); PROTEIN,URINE >=500 mg/dL (NEGATIVE); URINE SPECIFIC GRAVITY 1.025
[2017-01-17] MEDS: MORPHINE SULFATE 10 MG/ML INJ IV PRN ×3 (14:55→22:55)
[2017-01-17 14:58] LABS: URINE BARBITURATES SCREEN NEGATIVE; URINE METHADONE SCREEN NEGATIVE; URINE OPIATES LOW UNCONFIRMED POSITIVE; URINE PHENCYCLIDINE SCREEN NEGATIVE
[2017-01-17] MEDS: LORAZEPAM INJ 2 MG/1 ML VIAL IV PRN ×2 (15:49→19:46)
[2017-01-17] MEDS: CLONAZEPAM 1 MG TABLET PO SCH ×2 (16:22→22:53)
[2017-01-17] MEDS: NORMAL SALINE 1000 ML 1,000 ML IV PRN (16:28)
[2017-01-17] MEDS: NADOLOL 40 MG TABLET PO SCH (17:14)
[2017-01-17] MEDS: DIVALPROEX SODIUM 500 MG TAB.SR.24H PO SCH (22:54)
[2017-01-17] MEDS: PANTOPRAZOLE SODIUM 40 MG VIAL IV SCH (22:54)
[2017-01-18] MEDS: NORMAL SALINE 1000 ML 1,000 ML IV PRN ×2 (00:31→14:42)
[2017-01-18] MEDS: LORAZEPAM INJ 2 MG/1 ML VIAL IV PRN ×7 (02:21→23:58)
[2017-01-18] MEDS: MORPHINE SULFATE 10 MG/ML INJ IV PRN ×8 (02:56→23:59)
[2017-01-18 06:05] LABS: ABSOLUTE LYMPHOCYTES (AUTO) 1.2 10^3/uL (0.5-4.7); ABSOLUTE MONOCYTES (AUTO) 0.9 10^3/uL (0.1-1.4); ABSOLUTE NEUT (AUTO) 14.2 10^3/uL (1.7-8.2); BASOPHILS % (AUTO) 0.1 % (0-2); EOSINOPHILS % (AUTO) 0.2 % (0-6); HEMATOCRIT 30.3 % (37.9-51.0); HGB HCT DIFFERENCE -0.3; LYMPHOCYTES % (AUTO) 7.1 % (13-45); MEAN CORPUSCULAR HEMOGLOBIN 22.9 pg (27.0-33.4); MEAN CORPUSCULAR HGB CONC 33.1 g/dL (32.0-36.0); MEAN CORPUSCULAR VOLUME 69 fl (80-97); MONOCYTES % (AUTO) 5.8 % (3-13); RED BLOOD COUNT 4.37 10^6/uL (4.35-5.55); RED CELL DISTRIBUTION WIDTH 27.3 % (11.5-14.0); SEGMENTED NEUTROPHILS % (AUTO) 86.8 % (42-78); WHITE BLOOD COUNT 16.3 10^3/uL (4.0-10.5)
[2017-01-18 06:09] LABS: ALANINE AMINOTRANSFERASE 28 U/L (21-72); ALBUMIN 3.6 g/dL (3.5-5.0); ALKALINE PHOSPHATASE 75 U/L (38-126); AMYLASE 527 U/L (30-110); ANION GAP 16 (5-19); ASPARTATE AMINO TRANSFERASE 31 U/L (17-59); BILIRUBIN,DIRECT 0.5 mg/dL (0.0-0.4); BILIRUBIN,TOTAL 0.9 mg/dL (0.2-1.3); BLOOD UREA NITROGEN 40 mg/dL (7-20); CARBON DIOXIDE 35 mmol/L (22-30); CHLORIDE 84 mmol/L (98-107); CREATININE RESULT 2.93 mg/dL (0.52-1.25); GLUCOSE 82 mg/dL (75-110); POTASSIUM 3.2 mmol/L (3.6-5.0); SODIUM 135.1 mmol/L (137-145)
[2017-01-18 06:20] LABS: LIPASE 2622.1 U/L (23-300)
[2017-01-18] MEDS: CLONAZEPAM 1 MG TABLET PO SCH ×3 (06:47→21:58)
[2017-01-18 06:59] LABS: ANISOCYTOSIS 3+
[2017-01-18 07:01] LABS: HYPOCHROMASIA 1+; MICROCYTOSIS 2+; POIKILOCYTOSIS SLIGHT; TARGET CELLS SLIGHT
[2017-01-18 07:02] LABS: STOMATOCYTES SLIGHT
[2017-01-18] MEDS: NADOLOL 40 MG TABLET PO SCH ×2 (09:15→17:00)
[2017-01-18] MEDS ORDERED: POTASSIUM CHLORIDE 20 MEQ/15 ML UDCUP PO ONE (09:22)
[2017-01-18] MEDS ORDERED: CALCIUM GLUCONATE 1000 MG/10 ML INJ IV ONE (09:23)
[2017-01-18] MEDS ORDERED: NORMAL SALINE 1000 ML 1,000 ML IV ONE (09:28)
[2017-01-18] MEDS: THIAMINE HCL 100 MG, FOLIC ACID 1 MG in NORMAL SALINE 250 ML IV SCH (09:40)
[2017-01-18] MEDS: PANTOPRAZOLE SODIUM 40 MG VIAL IV SCH ×2 (09:40→21:58)
--- NOTE | 2017-01-18 09:48 | PDOC PROGRESS REPORT ---
Subjective Progress Note for:: 01/18/17 Subjective:: Pt states that he is having abd pain 4/5. Nursing states that pt's pain medication most likely needs to be adjusted. Physical Exam Vital Signs: Temp Pulse Resp BP Pulse Ox 99.5 F 103 H 10 L 110/69 100 01/18/17 08:00 01/18/17 08:00 01/18/17 07:00 01/18/17 06:30 01/18/17 07:00 Intake & Output 01/17/17 01/18/17 01/19/17 06:59 06:59 06:59 Intake Total 2386 Output Total 0 300 Balance 2386 -300 Weight 76.8 kg 80.2 kg General appearance: PRESENT: mild distress, well-developed, well-nourished Head exam: PRESENT: atraumatic, normocephalic Eye exam: PRESENT: conjunctiva pink, EOMI. ABSENT: scleral icterus Ear exam: PRESENT: normal external ear exam Mouth exam: PRESENT: moist, tongue midline Neck exam: ABSENT: carotid bruit, JVD, lymphadenopathy, thyromegaly Respiratory exam: PRESENT: clear to auscultation hannah. ABSENT: rales, rhonchi, wheezes Cardiovascular exam: PRESENT: RRR, tachycardia. ABSENT: diastolic murmur, rubs , systolic murmur Pulses: PRESENT: normal dorsalis pedis pul Vascular exam: PRESENT: normal capillary refill GI/Abdominal exam: PRESENT: tenderness - Diffuse abdominal tenderness in all quadrants with most of tenderness located midepigastric Rectal exam: PRESENT: deferred Extremities exam: PRESENT: full ROM. ABSENT: calf tenderness, clubbing, pedal edema Neurological exam: PRESENT: alert, awake, oriented to person, oriented to place , oriented to time, oriented to situation, CN II-XII grossly intact Psychiatric exam: PRESENT: appropriate affect, normal mood Skin exam: PRESENT: dry, intact, warm. ABSENT: cyanosis, rash Results Laboratory Results: 01/18/17 05:48 01/18/17 05:48 01/17/17 01/17/17 01/18/17 14:20 15:10 05:48 WBC 16.3 H RBC 4.37 Hgb 10.0 L D Hct 30.3 L MCV 69 L MCH 22.9 L MCHC 33.1 RDW 27.3 H Plt Count 207 Seg Neutrophils % 86.8 H Lymphocytes % 7.1 L Monocytes % 5.8 Eosinophils % 0.2 Basophils % 0.1 Absolute Neutrophils 14.2 H Absolute Lymphocytes 1.2 Absolute Monocytes 0.9 Absolute Eosinophils 0.0 Absolute Basophils 0.0 Retic Count (auto) 0.72 Absolute Retic 0.031 Sodium Potassium Chloride Carbon Dioxide Anion Gap BUN Creatinine Est GFR ( Amer) Est GFR (Non-Af Amer) Glucose Calcium Magnesium Iron TIBC % Saturation Ferritin Total Bilirubin AST ALT Alkaline Phosphatase Total Protein Albumin Amylase Lipase Vitamin B12 Folate Urine Color PENNY Urine Appearance TURBID Urine pH 5.0 Ur Specific [place] 1.025 Urine Protein >=500 H Urine Glucose (UA) NEGATIVE Urine Ketones TRACE H Urine Blood MODERATE H Urine Nitrite NEGATIVE Ur Leukocyte Esterase TRACE H Urine WBC (Auto) 10 Urine RBC (Auto) 4 Blood Type O POSITIVE Antibody Screen NEGATIVE 01/18/17 01/18/17 05:48 05:48 WBC RBC Hgb Hct MCV MCH MCHC RDW Plt Count Seg Neutrophils % Lymphocytes % Monocytes % Eosinophils % Basophils % Absolute Neutrophils Absolute Lymphocytes Absolute Monocytes Absolute Eosinophils Absolute Basophils Retic Count (auto) Absolute Retic Sodium 135.1 L Potassium 3.2 L Chloride 84 L Carbon Dioxide 35 H Anion Gap 16 BUN 40 H Creatinine 2.93 H Est GFR ( Amer) 30 L Est GFR (Non-Af Amer) 25 L Glucose 82 Calcium 7.0 L* Magnesium 1.3 L Iron 14.2 L TIBC 366 % Saturation 4 Ferritin 191.00 Total Bilirubin 0.9 AST 31 ALT 28 Alkaline Phosphatase 75 Total Protein 6.0 L Albumin 3.6 Amylase 527 H Lipase 2622.1 H Vitamin B12 471.0 Folate 10.60 Urine Color Urine Appearance Urine pH Ur Specific [place] Urine Protein Urine Glucose (UA) Urine Ketones Urine Blood Urine Nitrite Ur Leukocyte Esterase Urine WBC (Auto) Urine RBC (Auto) Blood Type Antibody Screen 01/17/17 15:10 Troponin I 0.012 Impressions: Chest CT 01/17/17 11:17 IMPRESSION: No significant interval changes compared to the previous study. No acute findings. Other findings as noted above Abdomen/Pelvis CT 01/17/17 11:18 IMPRESSION: Persistent changes of acute pancreatitis. No significant interval changes compared to the previous study. Other findings as noted above Assessment & Plan - Diagnosis (1) Acute alcoholic pancreatitis Qualifiers: Is this a current diagnosis for this admission?: Yes Plan: Will make pt NPO. Will give IVFs. Patient's calcium is low will repeat CT of abdomen most likely on Thursday to evaluate for necrotizing pancreatitis if renal function has improved more.. (2) Acute renal failure Qualifiers: Acute renal failure type: unspecified Qualified Code(s): N17.9 - Acute kidney failure, unspecified Is this a current diagnosis for this admission?: Yes Plan: Secondary Dehydration and Medication: Renal function improving. Will give additional liter bolus of IV fluids and continue maintenance fluid. Will check renal ultrasound. Will continue IVFs. (3) Hypocalcemia Is this a current diagnosis for this admission?: Yes Plan: We will give calcium replacement. (4) Hypomagnesemia Is this a current diagnosis for this admission?: Yes Plan: We will give magnesium replacement. And check mag in a.m. (5) Hypokalemia Is this a current diagnosis for this admission?: Yes Plan: We will give potassium replacement and check magnesium in a.m. (6) ETOH abuse Is this a current diagnosis for this admission?: Yes Plan: Pt currently on Librium as outpatient. ETOH withdrawal protocol orders. Will give vit replacement. Patient written for Klonopin and Ativan. (7) Dehydration Is this a current diagnosis for this admission?: Yes Plan: Secondary to ETOH Abuse: Will give IVFs for volume expansion. (8) Leukocytosis Is this a current diagnosis for this admission?: Yes Plan: Secondary to Acute ETOH Pancreatitis: No ABX required at this time. Blood and urine cultures pending. Patient's white count has trended down to 16,000. Will continue to monitor.. (9) Anemia Is this a current diagnosis for this admission?: Yes Plan: Most likely secondary to ETOH abuse and Esophageal Varices: Patient will need iron replacement once able to tolerate p.o. Patient will also need to be seen by GI at some point. Patient is not demonstrating evidence of acute GI bleed.. (10) Hyponatremia Is this a current diagnosis for this admission?: Yes Plan: Secondary to dehydration: We will continue with IV fluids. (11) Hyperbilirubinemia Is this a current diagnosis for this admission?: Yes Plan: Secondary ETOH Hepatitis: Total bili has returned to normal. Will continue to monitor. (12) Hypertension Qualifiers: Is this a current diagnosis for this admission?: Yes Plan: Will monitor. (13) Tobacco dependency Is this a current diagnosis for this admission?: Yes Plan: Supportive care. (14) Esophageal varices in alcoholic cirrhosis Is this a current diagnosis for this admission?: Yes Plan: Hx of Esophageal Varices: No evidence of Bleeding. Nadolol. Patient is demonstrating evidence consistent with iron deficiency anemia most likely from chronic bleeding. There is no evidence of acute GI bleed at this time. Patient will need to be seen by GI at some point for further evaluation. (15) DVT prophylaxis Is this a current diagnosis for this admission?: Yes Plan: SCDs - Time Time Spent with patient: 25-34 minutes
[2017-01-18] MEDS: MAGNESIUM SULFATE/D5W 1 GM/100 ML RTUPB IV SCH ×2 (09:53→10:37)
[2017-01-18] MEDS ORDERED: CHLORDIAZEPOXIDE HCL PO SCH (10:00)
[2017-01-18 12:40] LABS: ANION GAP 13 (5-19); BLOOD UREA NITROGEN 36 mg/dL (7-20); CALCIUM 7.1 mg/dL (8.4-10.2); CARBON DIOXIDE 32 mmol/L (22-30); CHLORIDE 91 mmol/L (98-107); CREATININE RESULT 2.09 mg/dL (0.52-1.25); GLUCOSE 88 mg/dL (75-110); POTASSIUM 3.9 mmol/L (3.6-5.0); SODIUM 136.4 mmol/L (137-145)
[2017-01-18] MEDS: DIVALPROEX SODIUM 500 MG TAB.SR.24H PO SCH (21:58)
--- NOTE | 2017-01-18 22:48 | RADIOLOGY REPORT (SQ) ---
EXAM DESCRIPTION: U/S RETROPERITON (RENAL/AORTA) COMPLETED DATE/TIME: 01/18/2017 10:33 pm REASON FOR STUDY: ARF COMPARISON: Abdominal CT scan dated 01/17/2017 TECHNIQUE: Dynamic and static grayscale images acquired of the kidneys and bladder and recorded on P ACS. Additional selected color Doppler and spectral images recorded. LIMITATIONS: None. FINDINGS: RIGHT KIDNEY: 11.1 cm in length. Normal echogenicity. No solid or suspicious masses. No hydronephrosis. No calcifications. LEFT KIDNEY: 12.5 cm in length. Normal echogenicity. No solid or suspicious masses. No hydrone phrosis. No calcifications. BLADDER: No masses. OTHER FINDINGS: No other significant finding. IMPRESSION: No significant renal abnormalities were identified. Findings as noted above. TECHNICAL DOCUMENTATION: JOB ID: [id number] [employer]- All Rights Reserved
[2017-01-19] MEDS: MORPHINE SULFATE 10 MG/ML INJ IV PRN ×8 (02:14→23:25)
[2017-01-19] MEDS: LORAZEPAM INJ 2 MG/1 ML VIAL IV PRN ×8 (02:14→23:25)
[2017-01-19] MEDS: CLONAZEPAM 1 MG TABLET PO SCH ×3 (05:01→21:09)
[2017-01-19] MEDS: NORMAL SALINE 1000 ML 1,000 ML IV PRN ×3 (06:39→20:33)
[2017-01-19 08:40] LABS: ABSOLUTE EOSINOPHILS # (AUTO) 0.1 10^3/uL (0.0-0.6); ABSOLUTE LYMPHOCYTES (AUTO) 0.9 10^3/uL (0.5-4.7); ABSOLUTE MONOCYTES (AUTO) 0.6 10^3/uL (0.1-1.4); ABSOLUTE NEUT (AUTO) 9.1 10^3/uL (1.7-8.2); BASOPHILS % (AUTO) 0.4 % (0-2); EOSINOPHILS % (AUTO) 1.2 % (0-6); HEMOGLOBIN 9.3 g/dL (13.5-17.0); HGB HCT DIFFERENCE -1.1; LYMPHOCYTES % (AUTO) 8.4 % (13-45); MEAN CORPUSCULAR HEMOGLOBIN 22.9 pg (27.0-33.4); MEAN CORPUSCULAR HGB CONC 32.1 g/dL (32.0-36.0); MEAN CORPUSCULAR VOLUME 71 fl (80-97); MONOCYTES % (AUTO) 5.9 % (3-13); RED BLOOD COUNT 4.07 10^6/uL (4.35-5.55); RED CELL DISTRIBUTION WIDTH 27.1 % (11.5-14.0); SEGMENTED NEUTROPHILS % (AUTO) 84.1 % (42-78); WHITE BLOOD COUNT 10.8 10^3/uL (4.0-10.5)
[2017-01-19 08:58] LABS: ALANINE AMINOTRANSFERASE 26 U/L (21-72); ALBUMIN 3.2 g/dL (3.5-5.0); ALKALINE PHOSPHATASE 134 U/L (38-126); ANION GAP 15 (5-19); ASPARTATE AMINO TRANSFERASE 57 U/L (17-59); BILIRUBIN,DIRECT 0.5 mg/dL (0.0-0.4); BILIRUBIN,TOTAL 0.9 mg/dL (0.2-1.3); BLOOD UREA NITROGEN 18 mg/dL (7-20); CALCIUM 7.8 mg/dL (8.4-10.2); CARBON DIOXIDE 29 mmol/L (22-30); CHLORIDE 96 mmol/L (98-107); CREATININE RESULT 0.91 mg/dL (0.52-1.25); GLUCOSE 76 mg/dL (75-110); POTASSIUM 3.6 mmol/L (3.6-5.0); SODIUM 139.8 mmol/L (137-145); TOTAL PROTEIN 6.2 g/dL (6.3-8.2)
[2017-01-19 09:11] LABS: POLYCHROMASIA SLIGHT
[2017-01-19 09:13] LABS: MICROCYTOSIS 1+
[2017-01-19 09:14] LABS: HYPOCHROMASIA 3+
[2017-01-19 09:15] LABS: ANISOCYTOSIS 2+
[2017-01-19] MEDS: THIAMINE HCL 100 MG, FOLIC ACID 1 MG in NORMAL SALINE 250 ML IV SCH (09:54)
[2017-01-19] MEDS: NADOLOL 40 MG TABLET PO SCH ×3 (09:55→21:09)
[2017-01-19] MEDS: PANTOPRAZOLE SODIUM 40 MG VIAL IV SCH ×2 (09:55→21:10)
--- NOTE | 2017-01-19 12:07 | PDOC PROGRESS REPORT ---
Subjective Progress Note for:: 01/19/17 Subjective:: Patient states that he is still having abdominal pain. She states that he would like to eat if possible. Nursing states that patient has done well. Physical Exam Vital Signs: Temp Pulse Resp BP Pulse Ox 98.3 F 91 17 139/75 H 100 01/19/17 08:00 01/19/17 08:00 01/19/17 11:00 01/19/17 10:05 01/19/17 11:00 Intake & Output 01/18/17 01/19/17 01/20/17 06:59 06:59 06:59 Intake Total 2386 2845 Output Total 0 2080 275 Balance 2386 765 -275 Weight 76.8 kg 80.2 kg 82.5 kg General appearance: PRESENT: no acute distress, well-developed, well-nourished Head exam: PRESENT: atraumatic, normocephalic Eye exam: PRESENT: conjunctiva pink, EOMI. ABSENT: scleral icterus Ear exam: PRESENT: normal external ear exam Mouth exam: PRESENT: moist, tongue midline Neck exam: ABSENT: carotid bruit, JVD, lymphadenopathy, thyromegaly Respiratory exam: PRESENT: clear to auscultation hannah. ABSENT: rales, rhonchi, wheezes Cardiovascular exam: PRESENT: RRR. ABSENT: diastolic murmur, rubs, systolic murmur Pulses: PRESENT: normal dorsalis pedis pul Vascular exam: PRESENT: normal capillary refill GI/Abdominal exam: PRESENT: tenderness - Positive for midepigastric tenderness. Positive for bowel sounds Rectal exam: PRESENT: deferred Extremities exam: PRESENT: full ROM. ABSENT: calf tenderness, clubbing, pedal edema Neurological exam: PRESENT: alert, awake, oriented to person, oriented to place , oriented to time, oriented to situation, CN II-XII grossly intact. ABSENT: motor sensory deficit Psychiatric exam: PRESENT: appropriate affect, normal mood. ABSENT: homicidal ideation, suicidal ideation Skin exam: PRESENT: dry, intact, warm. ABSENT: cyanosis, rash Results Laboratory Results: 01/19/17 08:22 01/19/17 08:22 01/18/17 01/19/17 01/19/17 12:00 08:22 08:22 WBC 10.8 H RBC 4.07 L Hgb 9.3 L Hct 29.0 L MCV 71 L MCH 22.9 L MCHC 32.1 RDW 27.1 H Plt Count 177 Seg Neutrophils % 84.1 H Lymphocytes % 8.4 L Monocytes % 5.9 Eosinophils % 1.2 Basophils % 0.4 Absolute Neutrophils 9.1 H Absolute Lymphocytes 0.9 Absolute Monocytes 0.6 Absolute Eosinophils 0.1 Absolute Basophils 0.0 Sodium 136.4 L 139.8 Potassium 3.9 3.6 Chloride 91 L 96 L Carbon Dioxide 32 H 29 Anion Gap 13 15 BUN 36 H 18 Creatinine 2.09 H 0.91 Est GFR ( Amer) 44 L > 60 Est GFR (Non-Af Amer) 37 L > 60 Glucose 88 76 Calcium 7.1 L 7.8 L Magnesium 2.0 Total Bilirubin 0.9 AST 57 ALT 26 Alkaline Phosphatase 134 H Total Protein 6.2 L Albumin 3.2 L 01/17/17 15:10 Troponin I 0.012 Impressions: Chest CT 01/17/17 11:17 IMPRESSION: No significant interval changes compared to the previous study. No acute findings. Other findings as noted above Abdomen/Pelvis CT 01/17/17 11:18 IMPRESSION: Persistent changes of acute pancreatitis. No significant interval changes compared to the previous study. Other findings as noted above Renal Ultrasound 01/18/17 00:00 IMPRESSION: No significant renal abnormalities were identified. Findings as noted above. Assessment & Plan - Diagnosis (1) Acute alcoholic pancreatitis Qualifiers: Is this a current diagnosis for this admission?: Yes Plan: We will continue n.p.o. status due to patient's ongoing abdominal pain. Patient also receiving pain medication as well. We will continue IV fluids. If patient's abdominal pain does not improve over the next few days would recommend reimaging patient's progress. (2) Acute renal failure Qualifiers: Acute renal failure type: unspecified Qualified Code(s): N17.9 - Acute kidney failure, unspecified Is this a current diagnosis for this admission?: Yes Plan: Secondary to dehydration: Resolved (3) Hypocalcemia Is this a current diagnosis for this admission?: Yes Plan: Resolved. Corrected calcium of 8.4 (4) Hypomagnesemia Is this a current diagnosis for this admission?: Yes Plan: Resolved. (5) Hypokalemia Is this a current diagnosis for this admission?: Yes Plan: Resolved. (6) ETOH abuse Is this a current diagnosis for this admission?: Yes Plan: Patient written for Klonopin and Ativan. Will order banana bag (7) Dehydration Is this a current diagnosis for this admission?: Yes Plan: Secondary to ETOH Abuse: Resolved. (8) Leukocytosis Is this a current diagnosis for this admission?: Yes Plan: Secondary to Acute ETOH Pancreatitis: No ABX required at this time. (9) Anemia Is this a current diagnosis for this admission?: Yes Plan: Most likely secondary to ETOH abuse and Esophageal Varices: Patient will need iron replacement once able to tolerate p.o. Patient will also need to be seen by GI at some point. Patient is not demonstrating evidence of acute GI bleed.. (10) Hyponatremia Is this a current diagnosis for this admission?: Yes Plan: Secondary to dehydration: Resolved (11) Hyperbilirubinemia Is this a current diagnosis for this admission?: Yes Plan: Secondary ETOH Hepatitis: Resolved (12) Hypertension Qualifiers: Is this a current diagnosis for this admission?: Yes Plan: Will monitor. (13) Tobacco dependency Is this a current diagnosis for this admission?: Yes Plan: Supportive care. (14) Esophageal varices in alcoholic cirrhosis Is this a current diagnosis for this admission?: Yes Plan: Hx of Esophageal Varices: No evidence of Bleeding. Nadolol will increase to TID. Patient is demonstrating evidence consistent with iron deficiency anemia most likely from chronic bleeding. There is no evidence of acute GI bleed at this time. Patient will need to be seen by GI at some point for further evaluation. (15) DVT prophylaxis Is this a current diagnosis for this admission?: Yes Plan: SCDs - Time Time Spent with patient: 25-34 minutes - Will transfer to [facility]
[2017-01-19] MEDS ORDERED: NADOLOL 40 MG TABLET PO SCH (14:00)
[2017-01-19] MEDS ORDERED: ACETAMINOPHEN 325 MG TABLET PO PRN (14:30)
[2017-01-19] MEDS ORDERED: ONDANSETRON 4 MG TAB.RAPDIS PO PRN (14:30)
[2017-01-19] MEDS: DIVALPROEX SODIUM 500 MG TAB.SR.24H PO SCH (21:09)
[2017-01-20] MEDS: LORAZEPAM INJ 2 MG/1 ML VIAL IV PRN ×8 (01:33→22:12)
[2017-01-20] MEDS: MORPHINE SULFATE 10 MG/ML INJ IV PRN ×8 (01:33→22:12)
[2017-01-20 04:22] LABS: LIPASE 1060.6 U/L (23-300)
[2017-01-20 04:54] LABS: ALANINE AMINOTRANSFERASE 25 U/L (21-72); ALKALINE PHOSPHATASE 134 U/L (38-126); ANION GAP 16 (5-19); ASPARTATE AMINO TRANSFERASE 41 U/L (17-59); BILIRUBIN,DIRECT 0.4 mg/dL (0.0-0.4); BILIRUBIN,TOTAL 0.7 mg/dL (0.2-1.3); BLOOD UREA NITROGEN 10 mg/dL (7-20); CALCIUM 8.4 mg/dL (8.4-10.2); CARBON DIOXIDE 24 mmol/L (22-30); CHLORIDE 103 mmol/L (98-107); CREATININE RESULT 0.66 mg/dL (0.52-1.25); GLUCOSE 77 mg/dL (75-110); POTASSIUM 3.6 mmol/L (3.6-5.0); TOTAL PROTEIN 5.5 g/dL (6.3-8.2)
[2017-01-20] MEDS: CLONAZEPAM 1 MG TABLET PO SCH ×3 (05:05→21:14)
[2017-01-20] MEDS: NADOLOL 40 MG TABLET PO SCH ×3 (05:05→21:14)
[2017-01-20 07:03] LABS: ABSOLUTE BASOPHILS # (AUTO) 0.1 10^3/uL (0.0-0.2); ABSOLUTE EOSINOPHILS # (AUTO) 0.2 10^3/uL (0.0-0.6); ABSOLUTE LYMPHOCYTES (AUTO) 1.3 10^3/uL (0.5-4.7); ABSOLUTE MONOCYTES (AUTO) 0.9 10^3/uL (0.1-1.4); ABSOLUTE NEUT (AUTO) 8.7 10^3/uL (1.7-8.2); BASOPHILS % (AUTO) 0.8 % (0-2); EOSINOPHILS % (AUTO) 1.5 % (0-6); HEMATOCRIT 27.2 % (37.9-51.0); HEMOGLOBIN 8.6 g/dL (13.5-17.0); HGB HCT DIFFERENCE -1.4; LYMPHOCYTES % (AUTO) 11.8 % (13-45); MEAN CORPUSCULAR HEMOGLOBIN 22.7 pg (27.0-33.4); MEAN CORPUSCULAR HGB CONC 31.7 g/dL (32.0-36.0); MEAN CORPUSCULAR VOLUME 72 fl (80-97); MONOCYTES % (AUTO) 8.2 % (3-13); RED CELL DISTRIBUTION WIDTH 27.4 % (11.5-14.0); SEGMENTED NEUTROPHILS % (AUTO) 77.7 % (42-78); WHITE BLOOD COUNT 11.1 10^3/uL (4.0-10.5)
[2017-01-20 07:42] LABS: ANISOCYTOSIS 2+; HYPOCHROMASIA 2+; MICROCYTOSIS 1+; POLYCHROMASIA SLIGHT
[2017-01-20] MEDS: PANTOPRAZOLE SODIUM 40 MG VIAL IV SCH (09:54)
[2017-01-20] MEDS: THIAMINE HCL 100 MG, FOLIC ACID 1 MG in NORMAL SALINE 250 ML IV SCH (09:54)
[2017-01-20] MEDS: NORMAL SALINE 1000 ML 1,000 ML IV PRN ×2 (13:11→20:13)
--- NOTE | 2017-01-20 13:27 | PDOC PROGRESS REPORT ---
Subjective Progress Note for:: 01/20/17 Subjective:: Patient still complains of upper abdominal pain. Physical Exam Vital Signs: Temp Pulse Resp BP Pulse Ox 99.2 F 83 14 162/98 H 96 01/20/17 12:00 01/20/17 12:00 01/20/17 12:05 01/20/17 12:05 01/20/17 12:05 Intake & Output 01/19/17 01/20/17 01/21/17 06:59 06:59 06:59 Intake Total 2845 3242 Output Total 2080 1600 600 Balance 765 1642 -600 Weight 80.2 kg 84.4 kg General appearance: PRESENT: no acute distress Eye exam: PRESENT: conjunctiva pink. ABSENT: scleral icterus Mouth exam: PRESENT: moist, tongue midline Neck exam: ABSENT: JVD Respiratory exam: PRESENT: clear to auscultation hannah. ABSENT: rales, rhonchi, wheezes Cardiovascular exam: PRESENT: RRR. ABSENT: diastolic murmur, rubs, systolic murmur GI/Abdominal exam: PRESENT: normal bowel sounds, soft, tenderness - Left upper quadrant tenderness. ABSENT: distended, guarding, mass, organolmegaly, rebound Extremities exam: ABSENT: calf tenderness, clubbing, pedal edema Neurological exam: PRESENT: alert, awake, oriented to person, oriented to place , oriented to time, oriented to situation, CN II-XII grossly intact. ABSENT: motor sensory deficit Psychiatric exam: PRESENT: appropriate affect Skin exam: PRESENT: dry, intact, warm. ABSENT: cyanosis, rash Results Laboratory Results: 01/20/17 03:55 01/20/17 03:55 01/20/17 01/20/17 01/20/17 03:55 03:55 03:55 WBC 11.1 H RBC 3.80 L Hgb 8.6 L Hct 27.2 L MCV 72 L MCH 22.7 L MCHC 31.7 L RDW 27.4 H Plt Count 178 Seg Neutrophils % 77.7 Lymphocytes % 11.8 L Monocytes % 8.2 Eosinophils % 1.5 Basophils % 0.8 Absolute Neutrophils 8.7 H Absolute Lymphocytes 1.3 Absolute Monocytes 0.9 Absolute Eosinophils 0.2 Absolute Basophils 0.1 Sodium 143.0 Potassium 3.6 Chloride 103 Carbon Dioxide 24 Anion Gap 16 BUN 10 Creatinine 0.66 Est GFR ( Amer) > 60 Est GFR (Non-Af Amer) > 60 Glucose 77 Calcium 8.4 Total Bilirubin 0.7 AST 41 ALT 25 Alkaline Phosphatase 134 H Total Protein 5.5 L Albumin 3.0 L Amylase 207 H Lipase 1060.6 H 01/17/17 14:20 Clean Catch Midstream Urine Culture - Final NO GROWTH 2 DAYS 01/17/17 15:10 Troponin I 0.012 Impressions: Chest CT 01/17/17 11:17 IMPRESSION: No significant interval changes compared to the previous study. No acute findings. Other findings as noted above Abdomen/Pelvis CT 01/17/17 11:18 IMPRESSION: Persistent changes of acute pancreatitis. No significant interval changes compared to the previous study. Other findings as noted above Renal Ultrasound 01/18/17 00:00 IMPRESSION: No significant renal abnormalities were identified. Findings as noted above. Assessment & Plan - Diagnosis (1) Acute alcoholic pancreatitis Qualifiers: Is this a current diagnosis for this admission?: Yes Plan: Patient still having significant amount of pain requiring IV narcotics. Will continue with n.p.o. and IV fluids. (2) Acute renal failure Qualifiers: Acute renal failure type: unspecified Qualified Code(s): N17.9 - Acute kidney failure, unspecified Is this a current diagnosis for this admission?: Yes Plan: Resolved with IV fluids. (3) Anemia Is this a current diagnosis for this admission?: Yes Plan: Patient's hemoglobin continues to slowly drift down. No evidence for active blood loss at this time. (4) Hypocalcemia Is this a current diagnosis for this admission?: Yes Plan: Secondary to pancreatitis. (5) Hypokalemia Is this a current diagnosis for this admission?: Yes Plan: Resolved. (6) Hypomagnesemia Is this a current diagnosis for this admission?: Yes Plan: Resolved. (7) Hyponatremia Is this a current diagnosis for this admission?: Yes Plan: Resolved. (8) Hypertension Qualifiers: Is this a current diagnosis for this admission?: Yes Plan: Blood pressures have been borderline high. - Time Time Spent with patient: 25-34 minutes - Inpatient Certification Medical Necessity: Need For IV Fluids, Need for Pain Control
[2017-01-20] MEDS: DIVALPROEX SODIUM 500 MG TAB.SR.24H PO SCH (21:14)
[2017-01-21] MEDS: MORPHINE SULFATE 10 MG/ML INJ IV PRN ×2 (01:39→05:29)
[2017-01-21] MEDS: LORAZEPAM INJ 2 MG/1 ML VIAL IV PRN ×3 (01:39→23:20)
[2017-01-21] MEDS: NORMAL SALINE 1000 ML 1,000 ML IV PRN (01:42)
[2017-01-21 04:04] LABS: ABSOLUTE EOSINOPHILS # (AUTO) 0.2 10^3/uL (0.0-0.6); ABSOLUTE LYMPHOCYTES (AUTO) 1.2 10^3/uL (0.5-4.7); ABSOLUTE MONOCYTES (AUTO) 1.3 10^3/uL (0.1-1.4); ABSOLUTE NEUT (AUTO) 7.6 10^3/uL (1.7-8.2); BASOPHILS % (AUTO) 0.4 % (0-2); EOSINOPHILS % (AUTO) 1.6 % (0-6); HEMATOCRIT 24.4 % (37.9-51.0); HGB HCT DIFFERENCE -0.4; MEAN CORPUSCULAR HEMOGLOBIN 23.3 pg (27.0-33.4); MEAN CORPUSCULAR HGB CONC 32.8 g/dL (32.0-36.0); MEAN CORPUSCULAR VOLUME 71 fl (80-97); MONOCYTES % (AUTO) 12.1 % (3-13); RED BLOOD COUNT 3.43 10^6/uL (4.35-5.55); RED CELL DISTRIBUTION WIDTH 27.5 % (11.5-14.0); SEGMENTED NEUTROPHILS % (AUTO) 73.9 % (42-78); WHITE BLOOD COUNT 10.3 10^3/uL (4.0-10.5)
[2017-01-21 04:12] LABS: AMYLASE 158 U/L (30-110); ANION GAP 13 (5-19); BLOOD UREA NITROGEN 4 mg/dL (7-20); CALCIUM 8.1 mg/dL (8.4-10.2); CARBON DIOXIDE 26 mmol/L (22-30); CHLORIDE 103 mmol/L (98-107); CREATININE RESULT 0.58 mg/dL (0.52-1.25); GLUCOSE 74 mg/dL (75-110); LIPASE 852.4 U/L (23-300); POTASSIUM 3.5 mmol/L (3.6-5.0); SODIUM 141.9 mmol/L (137-145)
[2017-01-21 04:41] LABS: ANISOCYTOSIS 3+; HYPOCHROMASIA 1+; MAGNESIUM 1.3 mg/dL (1.6-2.3); MICROCYTOSIS 1+; OVALOCYTES SLIGHT; POIKILOCYTOSIS SLIGHT; POLYCHROMASIA SLIGHT
[2017-01-21] MEDS: NADOLOL 40 MG TABLET PO SCH ×3 (05:28→21:18)
[2017-01-21] MEDS: CLONAZEPAM 1 MG TABLET PO SCH ×3 (05:28→21:18)
[2017-01-21] MEDS ORDERED: MAGNESIUM SULFATE 1 GM/D5W 100 ML IV SCH (06:30)
[2017-01-21] MEDS ORDERED: HYDRALAZINE HCL INJ/PF 20 MG/1 ML SDV IV PRN (10:20)
[2017-01-21] MEDS: POTASSIUM CHLORIDE 10 MEQ TABLET.SA PO SCH ×2 (11:08→21:18)
[2017-01-21] MEDS: THIAMINE HCL 100 MG, FOLIC ACID 1 MG in NORMAL SALINE 250 ML IV SCH (11:47)
[2017-01-21] MEDS: OXYCODONE HCL IR 5 MG TABLET PO PRN ×2 (11:48→23:20)
--- NOTE | 2017-01-21 11:48 | PDOC PROGRESS REPORT ---
Subjective Progress Note for:: 01/21/17 Subjective:: Patient still complains of upper abdominal pain. Physical Exam Vital Signs: Temp Pulse Resp BP Pulse Ox 98.6 F 67 16 171/96 H 100 01/21/17 03:50 01/21/17 10:54 01/21/17 10:54 01/21/17 10:54 01/21/17 10:54 Intake & Output 01/20/17 01/21/17 01/22/17 06:59 06:59 06:59 Intake Total 3242 3383 Output Total 1600 2620 Balance 1642 763 Weight 84.4 kg 84.4 kg General appearance: PRESENT: no acute distress Eye exam: PRESENT: conjunctiva pink. ABSENT: scleral icterus Mouth exam: PRESENT: moist, tongue midline Neck exam: ABSENT: JVD Respiratory exam: PRESENT: clear to auscultation hannah. ABSENT: rales, rhonchi, wheezes Cardiovascular exam: PRESENT: RRR. ABSENT: diastolic murmur, rubs, systolic murmur GI/Abdominal exam: PRESENT: normal bowel sounds, soft, tenderness - Mild left upper quadrant tenderness.. ABSENT: distended, guarding, mass, organolmegaly, rebound Extremities exam: ABSENT: calf tenderness, clubbing, pedal edema Neurological exam: PRESENT: alert, awake, oriented to person, oriented to place , oriented to time, oriented to situation, CN II-XII grossly intact. ABSENT: motor sensory deficit Psychiatric exam: PRESENT: appropriate affect Skin exam: PRESENT: dry, intact, warm. ABSENT: cyanosis, rash Results Laboratory Results: 01/21/17 03:31 01/21/17 03:31 01/18/17 01/21/17 01/21/17 05:48 03:31 03:31 WBC 10.3 RBC 3.43 L Hgb 8.0 L Hct 24.4 L MCV 71 L MCH 23.3 L MCHC 32.8 RDW 27.5 H Plt Count 178 Seg Neutrophils % 73.9 Lymphocytes % 12.0 L Monocytes % 12.1 Eosinophils % 1.6 Basophils % 0.4 Absolute Neutrophils 7.6 Absolute Lymphocytes 1.2 Absolute Monocytes 1.3 Absolute Eosinophils 0.2 Absolute Basophils 0.0 Sodium 141.9 Potassium 3.5 L Chloride 103 Carbon Dioxide 26 Anion Gap 13 BUN 4 L Creatinine 0.58 Est GFR ( Amer) > 60 Est GFR (Non-Af Amer) > 60 Glucose 74 L Calcium 8.1 L Magnesium 1.3 L Transferrin 257 Amylase 158 H Lipase 852.4 H 01/17/17 15:10 Troponin I 0.012 Impressions: Chest CT 01/17/17 11:17 IMPRESSION: No significant interval changes compared to the previous study. No acute findings. Other findings as noted above Abdomen/Pelvis CT 01/17/17 11:18 IMPRESSION: Persistent changes of acute pancreatitis. No significant interval changes compared to the previous study. Other findings as noted above Renal Ultrasound 01/18/17 00:00 IMPRESSION: No significant renal abnormalities were identified. Findings as noted above. Assessment & Plan - Diagnosis (1) Acute alcoholic pancreatitis Qualifiers: Is this a current diagnosis for this admission?: Yes Plan: Patient is improving. Will start on a full liquid diet and change from IV to p.o. narcotics. (2) Acute renal failure Qualifiers: Acute renal failure type: unspecified Qualified Code(s): N17.9 - Acute kidney failure, unspecified Is this a current diagnosis for this admission?: Yes Plan: Resolved with IV fluids. (3) Anemia Is this a current diagnosis for this admission?: Yes Plan: Patient's hemoglobin continues to slowly drift down. No evidence for active blood loss at this time. (4) Hypocalcemia Is this a current diagnosis for this admission?: Yes Plan: Secondary to pancreatitis. (5) Hypokalemia Is this a current diagnosis for this admission?: Yes Plan: Continue to replace and monitor. (6) Hypomagnesemia Is this a current diagnosis for this admission?: Yes Plan: Resolved. (7) Hyponatremia Is this a current diagnosis for this admission?: Yes Plan: Resolved. (8) Hypertension Qualifiers: Is this a current diagnosis for this admission?: Yes Plan: Blood pressures have been borderline high. - Time Time Spent with patient: 25-34 minutes - Inpatient Certification Medical Necessity: Need Close Monitoring Due to Risk of Patient Decompensation, Need for Pain Control - Plan Summary Plan Summary: We will try to advance his diet. If he continues to improve we can hopefully discharge home tomorrow.
[2017-01-21] MEDS ORDERED: THIAMINE HCL 100 MG, FOLIC ACID 1 MG in NORMAL SALINE 250 ML IV ONE (12:00)
[2017-01-21] MEDS ORDERED: MAGNESIUM SULFATE/D5W 1 GM/100 ML RTUPB IV ONE (12:00)
[2017-01-21] MEDS: DIVALPROEX SODIUM 500 MG TAB.SR.24H PO SCH (21:18)
[2017-01-22] MEDS: CLONAZEPAM 1 MG TABLET PO SCH (07:00)
[2017-01-22] MEDS: NADOLOL 40 MG TABLET PO SCH (07:01)
[2017-01-22 08:05] VITALS: BP 157/87
[2017-01-22] MEDS: OXYCODONE HCL IR 5 MG TABLET PO PRN (09:36)
--- NOTE | 2017-01-22 17:18 | PDOC DISCHARGE SUMMARY ---
General - Admit/Disc Date/PCP Admission Date/Primary Care Provider: 01/17/17 13:04 Discharge Date: 01/22/17 - Discharge Diagnosis (1) Acute alcoholic pancreatitis Is this a current diagnosis for this admission?: Yes (2) Acute renal failure Is this a current diagnosis for this admission?: Yes (3) Anemia Is this a current diagnosis for this admission?: Yes (4) Hypocalcemia Is this a current diagnosis for this admission?: Yes (5) Hypokalemia Is this a current diagnosis for this admission?: Yes (6) Hypomagnesemia Is this a current diagnosis for this admission?: Yes (7) Hyponatremia Is this a current diagnosis for this admission?: Yes (8) Hypertension Is this a current diagnosis for this admission?: Yes - Additional Information Resuscitation Status: Full Code Discharge Diet: Regular Discharge Activity: Activity As Tolerated Home Medications: Chlordiazepoxide HCl [Librium 25 mg Capsule] 3 cap PO DAILY 01/17/17 Divalproex Sodium [Divalproex Sodium ER] 500 mg PO QHS 01/17/17 Doxepin HCl 50 mg PO HSP PRN 01/17/17 Lisinopril [Prinivil 40 mg Tablet] 40 mg PO DAILY 01/17/17 Metoprolol Succinate [Toprol Xl 50 mg Tab.sr] 50 mg PO DAILY 01/17/17 Clonazepam [Klonopin 1 mg Tablet] 2 mg PO Q8 PRN #10 tablet 01/22/17 Oxycodone HCl [Oxy-Ir 5 mg Tablet] 10 mg PO Q4HP PRN #20 tablet 01/22/17 History of Present Illness History of Present Illness: JAIME NUNEZ is a 31 year old male with a history of alcohol abuse and pancreatitis who presents with a 2 day history of abdominal pain. The patient drinks 1/5 of vodka daily. The patient also had vomiting along with a severe abdominal pain. Patient had some complaints of feeling shaky and numb and thought he might of had a seizure although he did not lose any consciousness. Patient was admitted for treatment of pancreatitis. Hospital Course Hospital Course: 31-year-old male who presented with alcoholic pancreatitis. Patient also was noted to be in acute renal failure secondary to dehydration when he presented. Patient was given IV fluids and had a resolution of his acute renal failure. Renal ultrasound was done and showed no evidence for hydronephrosis. The patient's pancreatitis was treated in the usual manner and he was made n.p.o. and given IV fluids and narcotics. Patient had complete resolution of his pain and he was started on diet and this was advanced. He still had some pain but it was tolerable with oxycodone. The patient has a long history of alcohol abuse but did not have any delirium tremens. The patient reports that he will be leaving the hospital and going to an inpatient detox program soon. Physical Exam Vital Signs: Temp Pulse Resp BP Pulse Ox 98.3 F 73 20 157/87 H 100 01/22/17 09:17 01/22/17 09:17 01/22/17 09:17 01/22/17 09:17 01/22/17 09:17 Intake & Output 01/21/17 01/22/17 01/23/17 06:59 06:59 06:59 Intake Total 3383 2200 Output Total 2620 1000 Balance 763 1200 Weight 84.4 kg 84.4 kg General appearance: PRESENT: no acute distress Eye exam: PRESENT: conjunctiva pink. ABSENT: scleral icterus Mouth exam: PRESENT: moist, tongue midline Neck exam: ABSENT: JVD Respiratory exam: PRESENT: clear to auscultation hannah. ABSENT: rales, rhonchi, wheezes Cardiovascular exam: PRESENT: RRR. ABSENT: diastolic murmur, rubs, systolic murmur GI/Abdominal exam: PRESENT: normal bowel sounds, soft. ABSENT: distended, guarding, mass, organolmegaly, rebound, tenderness Extremities exam: ABSENT: calf tenderness, clubbing, pedal edema Neurological exam: PRESENT: alert, awake, oriented to person, oriented to place , oriented to time, oriented to situation, CN II-XII grossly intact. ABSENT: motor sensory deficit Psychiatric exam: PRESENT: appropriate affect Skin exam: PRESENT: dry, intact, warm. ABSENT: cyanosis, rash Results Laboratory Results: 01/21/17 03:31 01/21/17 03:31 01/17/17 15:10 Blood Blood Culture - Final NO GROWTH IN 5 DAYS 01/17/17 15:10 Troponin I 0.012 Impressions: Chest CT 01/17/17 11:17 IMPRESSION: No significant interval changes compared to the previous study. No acute findings. Other findings as noted above Abdomen/Pelvis CT 01/17/17 11:18 IMPRESSION: Persistent changes of acute pancreatitis. No significant interval changes compared to the previous study. Other findings as noted above Renal Ultrasound 01/18/17 00:00 IMPRESSION: No significant renal abnormalities were identified. Findings as noted above. Qualifiers PATEINT BEING DISCHARGED WITH ANY OF THE FOLLOWING DIAGNOSIS?: No Plan Discharge Plan: Patient is discharged home in stable condition. Follow with primary care doctor in 2 weeks. Time Spent: Less than 30 Minutes
== END 2017-01-22 10:15 | disposition home or self-care (01) | DRG 439 ==
LOC: ER 09:29 → UNDOADMIN 11:15 → EH 11:15 → ICU 15:30 → EH 15:30 → 5 01-21 11:12
DX: K85.20 Alcohol induced acute pancreatitis without necrosis or infection (principal); N17.9 Acute kidney failure, unspecified; E87.1 Hypo-osmolality and hyponatremia; I85.10 Secondary esophageal varices without bleeding; K70.10 Alcoholic hepatitis without ascites; K70.30 Alcoholic cirrhosis of liver without ascites; E86.0 Dehydration; F10.20 Alcohol dependence, uncomplicated; E83.51 Hypocalcemia; E83.42 Hypomagnesemia; E87.6 Hypokalemia; I10 Essential (primary) hypertension; D64.9 Anemia, unspecified; K21.9 Gastro-esophageal reflux disease without esophagitis; F32.9 Major depressive disorder, single episode, unspecified; F17.200 Nicotine dependence, unspecified, uncomplicated; Z82.49 Family history of ischemic heart disease and other diseases of the circulatory system
CPT/HCPCS: 36415; 71250; 74176; 76770; 80048; 80053; 80307; 81001; 82150; 82550; 82553; 82607; 82728; 82746; 82962; 83540; 83550; 83690; 83735; 84466; 84484; 85025; 85045; 86850; 86900; 86901; 87040; 87086; 96374; 99291; J0610; J1170; J2060; J2270; J2405; J3360; J3411; J3475; J3490; J7030; J7050; S0119; S0164

== ENCOUNTER 2017-05-29 11:59 | Emergency (ER) | payer SELFPAY ==
[2017-05-29] MEDS ORDERED: LORAZEPAM 1 MG TABLET PO ONE ×2 (13:08→20:31)
[2017-05-29] MEDS ORDERED: ONDANSETRON 4 MG TAB.RAPDIS PO ONE (13:08)
--- NOTE | 2017-05-29 13:10 | ER Document Report ---
ED Medical Screen (RME) - General Mode of Arrival: Ambulatory Information source: Patient TRAVEL OUTSIDE OF THE [place] IN LAST 30 DAYS: No <ZIYADLIANA - Last Filed: 05/29/17 13:11> - General Information source: Patient <ATUL POWER E - Last Filed: 05/29/17 14:54> - General Chief Complaint: Chest Pain Stated Complaint: CHEST PAIN Time Seen by Provider: 05/29/17 13:07 Notes: This is a 31-year-old man with a history of alcohol abuse and pancreatitis who presents to the emergency room with upper abdominal pain. Patient does admit to drinking a pint of alcohol last night. (LIANA LACKEY) - Related Data Allergies/Adverse Reactions: No Known Allergies Allergy (Verified 05/29/17 13:00) Past Medical History - Social History Chew tobacco use (# tins/day): No Frequency of alcohol use: Social Drug Abuse: None - Past Medical History Cardiac Medical History: Reports: Hx Hypertension Denies: Hx Heart Attack Pulmonary Medical History: Denies: Hx Asthma, Hx Tuberculosis Neurological Medical History: Reports: Hx Seizures - 6-7 weeks ago. Denies: Hx Cerebrovascular Accident Renal/ Medical History: Denies: Hx Peritoneal Dialysis GI Medical History: Reports: Hx Gastroesophageal Reflux Disease, Hx Hepatitis - alcoholic hepatitis. Denies: Hx Hiatal Hernia, Hx Ulcer Psychiatric Medical History: Reports: Hx Depression Infectious Medical History: Reports: Hx Hepatitis - alcoholic hepatitis Past Surgical History: Reports: Hx Genitourinary Surgery - vasectomy, Hx Nose Surgery - bilateral: maxillary antrostomy, sphenoidotomy, ethmoidectomy. Denies : Hx Open Heart Surgery, Hx Pacemaker - Immunizations Hx Diphtheria, Pertussis, Tetanus Vaccination: Yes History of Influenza Vaccine for 12/2016 - 05/2017 Season: Refused <ZIYADLIANA - Last Filed: 05/29/17 13:11> - Vital signs Vitals: Temp Pulse Resp BP Pulse Ox 98.5 F 120 H 16 142/96 H 99 05/29/17 12:11 05/29/17 12:11 05/29/17 12:11 05/29/17 12:11 05/29/17 12:11 Course - Laboratory Result Diagrams: 05/29/17 14:05 05/29/17 14:05 <ATUL POWER - Last Filed: 05/29/17 14:54> - Vital Signs Vital signs: Temp Pulse Resp BP Pulse Ox 98.5 F 120 H 16 142/96 H 99 05/29/17 12:11 05/29/17 12:11 05/29/17 12:11 05/29/17 12:11 05/29/17 12:11 - Laboratory Laboratory results interpreted by me: 05/29/17 14:05 WBC 25.2 H RBC 6.30 H MCV 78 L MCH 25.7 L RDW 19.6 H Seg Neuts % (Manual) 91 H Band Neutrophils % 1 L Lymphocytes % (Manual) 5 L Monocytes % (Manual) 2 L Abs Neuts (Manual) 23.2 H
[2017-05-29 14:22] LABS: HEMATOCRIT 49.2 % (37.9-51.0); HEMOGLOBIN 16.2 g/dL (13.5-17.0); MEAN CORPUSCULAR HEMOGLOBIN 25.7 pg (27.0-33.4); MEAN CORPUSCULAR HGB CONC 32.9 g/dL (32.0-36.0); MEAN CORPUSCULAR VOLUME 78 fl (80-97); PLATELET COUNT 306 10^3/uL (150-450); RED CELL DISTRIBUTION WIDTH 19.6 % (11.5-14.0); WHITE BLOOD COUNT 25.2 10^3/uL (4.0-10.5)
[2017-05-29] MEDS: NORMAL SALINE 1000 ML 1,000 ML IV PRN ×2 (14:35→19:46)
[2017-05-29] MEDS ORDERED: FAMOTIDINE INJ/PF 20 MG/2 ML SDV IV ONE (14:45)
--- NOTE | 2017-05-29 14:45 | EKG REPORT ---
SEVERITY:- BORDERLINE ECG - SINUS TACHYCARDIA BORDERLINE T WAVE ABNORMALITIES : Confirmed by: Blake Faulkner MD 29-May-2017 14:44:20
[2017-05-29 14:47] LABS: ALANINE AMINOTRANSFERASE 96 U/L (21-72); ALBUMIN 4.9 g/dL (3.5-5.0); ALCOHOL 255 mg/dL (NONE DETECTED); ALKALINE PHOSPHATASE 97 U/L (38-126); ASPARTATE AMINO TRANSFERASE 107 U/L (17-59); BILIRUBIN,DIRECT 0.5 mg/dL (0.0-0.4); BILIRUBIN,TOTAL 0.5 mg/dL (0.2-1.3); BLOOD UREA NITROGEN 14 mg/dL (7-20); CARBON DIOXIDE 23 mmol/L (22-30); CHLORIDE 100 mmol/L (98-107); GLUCOSE 146 mg/dL (75-110); LIPASE 120.7 U/L (23-300); POTASSIUM 4.2 mmol/L (3.6-5.0); SODIUM 145.9 mmol/L (137-145); TOTAL PROTEIN 8.7 g/dL (6.3-8.2)
[2017-05-29 14:48] LABS: ABSOLUTE LYMPHOCYTES# (MANUAL) 1.5 10^3/uL (0.5-4.7); ABSOLUTE MONOCYTES # (MANUAL) 0.5 10^3/uL (0.1-1.4); ABSOLUTE NEUTROPHILS# (MANUAL) 23.2 10^3/uL (1.7-8.2); ANISOCYTOSIS 2+; BAND NEUTROPHILS % (MANUAL) 1 % (3-5); BASOPHILS % (MANUAL) 0 % (0-2); EOSINOPHILS % (MANUAL) 0 % (0-6); LYMPHOCYTES % (MANUAL) 5 % (13-45); MONOCYTES % (MANUAL) 2 % (3-13); SEGMENTED NEUTROPHILS % (MAN) 91 % (42-78); TOTAL CELLS COUNTED 100; TOXIC GRANULATION SLIGHT; TOXIC VACUOLATION PRESENT
[2017-05-29 14:49] LABS: HYPOCHROMASIA SLIGHT; PLATELET COMMENT ADEQUATE
[2017-05-29 14:59] LABS: PROTHROMBIN TIME 12.8 SEC (11.4-15.4)
--- NOTE | 2017-05-29 15:05 | ER Document Report ---
ED General - General Chief Complaint: Chest Pain Stated Complaint: CHEST PAIN Time Seen by Provider: 05/29/17 13:07 Mode of Arrival: Ambulatory Information source: Patient Notes: 31-year-old male with a history of alcohol abuse, Pancreatitis, gastric ulcers requiring banding presents with complaint of chest pain and hemoptysis.Patient states that he awoke this morning with chest pain that he describes as pressure- like, located in the right side of his chest and constant.Patient also states that he has had 2 episodes of vomiting that had specks of blood. He denies any gross blood with emesis.He does admit to recent alcohol use with his last drink 12 hours prior to arrival.Patient has previous history of alcohol withdrawal.He denies any fever or chills.He does have associated epigastric and right upper quadrant pain. He denies any black or bloody stools. TRAVEL OUTSIDE OF THE [place] IN LAST 30 DAYS: No - HPI Onset: This morning Onset/Duration: Sudden Quality of pain: Pressure, Sharp, Stabbing Pain Level: 2 Associated symptoms: Nausea, Vomiting. denies: Diarrhea, Fever, Hoarseness Exacerbated by: Movement, Deep breathing Relieved by: Remaining still Similar symptoms previously: Yes Recently seen / treated by doctor: No - Related Data Allergies/Adverse Reactions: No Known Allergies Allergy (Verified 05/29/17 13:00) Past Medical History - General Information source: Patient - Social History Smoking Status: Current Every Day Smoker Chew tobacco use (# tins/day): No Frequency of alcohol use: Heavy Drug Abuse: None Lives with: Family Family History: CAD, COPD Patient has suicidal ideation: No Patient has homicidal ideation: No - Past Medical History Cardiac Medical History: Reports: Hx Hypertension, Other - Alcohol abuse, pancreatitis, gastric ulcers, Denies: Hx Heart Attack Pulmonary Medical History: Denies: Hx Asthma, Hx Tuberculosis Neurological Medical History: Reports: Hx Seizures - 6-7 weeks ago. Denies: Hx Cerebrovascular Accident Renal/ Medical History: Denies: Hx Peritoneal Dialysis GI Medical History: Reports: Hx Gastroesophageal Reflux Disease, Hx Hepatitis - alcoholic hepatitis. Denies: Hx Hiatal Hernia, Hx Ulcer Psychiatric Medical History: Reports: Hx Depression Infectious Medical History: Reports: Hx Hepatitis - alcoholic hepatitis Past Surgical History: Reports: Hx Genitourinary Surgery - vasectomy, Hx Nose Surgery - bilateral: maxillary antrostomy, sphenoidotomy, ethmoidectomy. Denies : Hx Open Heart Surgery, Hx Pacemaker - Immunizations Hx Diphtheria, Pertussis, Tetanus Vaccination: Yes Review of Systems - Review of Systems Constitutional: denies: Diaphoresis, Fever EENT: No symptoms reported Cardiovascular: Chest pain, Dyspnea. denies: Palpitations, Syncope Respiratory: Short of breath Gastrointestinal: Abdominal pain, Nausea, Vomiting, Blood in vomit - Blood- tinged emesis. denies: Blood streaked bowels, Black stools, Rectal bleeding Genitourinary: No symptoms reported Neurological/Psychological: denies: Confusion, Anxiety, Suicidal ideation Physical Exam - Vital signs Vitals: Temp Pulse Resp BP Pulse Ox 98.5 F 120 H 16 142/96 H 99 05/29/17 12:11 05/29/17 12:11 05/29/17 12:11 05/29/17 12:11 05/29/17 12:11 - General General appearance: Appears well, Alert - Respiratory Respiratory status: No respiratory distress Chest status: Nontender Breath sounds: Normal Chest palpation: Normal - Rectal Stool: See lab result Hemorrhoids: None - Psychological Associated symptoms: Normal affect, Normal mood. No: Aggressive, Anxious, Auditory hallucinations, Combative, Confused, Depressed, Restlessness, Tactile hallucinations, Uncooperative, Visual hallucinations Course - Re-evaluation Re-evalutation: 05/29/17 21:06 31-year-old male with history of alcoholism presents with complaint of chest pain, nausea, vomiting and blood-tinged emesis. Patient admits to drinking a pint of vodka per day. He states that his last drink was 12 hours prior to arrival. He does have a history of previous alcohol withdrawal and gastric ulcers. On arrival EKG was obtained and showed the patient to be in sinus tachycardia without any ST elevation. Vital signs reviewed. Patient is tachycardic but afebrile and not hypoxic. He does not appear toxic or dehydrated. He is in no acute distress. No blood was found in the oropharynx. Chest was negative for crepitus. During his ED course patient was administered IV fluids, thiamine, folic acid, Ativan, Zofran and Pepcid, Dilaudid. CBC was within normal limits. Stool was negative for blood. He is alert and oriented 3 throughout his ED course. There are no signs of alcohol withdrawal. ETOH level was 255. Social work was consulted and will follow with the patient who states that he has rehab set up already at [facility] in [place]. Patient remained stable throughout his ED course. On reevaluation he is still complaining of pain and repeat EKG was obtained which did not show any ST elevation. Patient was able to ambulate and tolerate p.o. prior to discharge. Patient was picked up from the hospital by his mother. Laboratory 05/29/17 05/29/17 05/29/17 14:05 14:05 14:05 WBC 25.2 H RBC 6.30 H Hgb 16.2 Hct 49.2 MCV 78 L MCH 25.7 L MCHC 32.9 RDW 19.6 H Plt Count 306 Total Counted 100 Seg Neutrophils % Not Reportable Seg Neuts % (Manual) 91 H Band Neutrophils % 1 L Lymphocytes % Not Reportable Lymphocytes % (Manual) 5 L Atypical Lymphs % 1 Monocytes % Not Reportable Monocytes % (Manual) 2 L Eosinophils % Not Reportable Eosinophils % (Manual) 0 Basophils % Not Reportable Basophils % (Manual) 0 Absolute Neutrophils Not Reportable Abs Neuts (Manual) 23.2 H Absolute Lymphocytes Not Reportable Abs Lymphs (Manual) 1.5 Absolute Monocytes Not Reportable Abs Monocytes (Manual) 0.5 Absolute Eosinophils Not Reportable Absolute Eos (Manual) 0.0 Absolute Basophils Not Reportable Abs Basophils (Manual) 0.0 Toxic Granulation SLIGHT Toxic Vacuolation PRESENT Platelet Comment ADEQUATE Hypochromasia SLIGHT Anisocytosis 2+ Microcytosis SLIGHT PT INR Sodium 145.9 H Potassium 4.2 Chloride 100 Carbon Dioxide 23 Anion Gap 23 H BUN 14 Creatinine 0.92 Est GFR ( Amer) > 60 Est GFR (Non-Af Amer) > 60 Glucose 146 H Calcium 9.0 Magnesium 2.0 Total Bilirubin 0.5 Direct Bilirubin 0.5 H Neonat Total Bilirubin Not Reportable Neonat Direct Bilirubin Not Reportable Neonat Indirect Bili Not Reportable AST 107 H ALT 96 H Alkaline Phosphatase 97 Total Protein 8.7 H Albumin 4.9 Lipase 120.7 Stool Occult Blood Serum Alcohol 255 05/29/17 05/29/17 14:05 14:45 WBC RBC Hgb Hct MCV MCH MCHC RDW Plt Count Total Counted Seg Neutrophils % Seg Neuts % (Manual) Band Neutrophils % Lymphocytes % Lymphocytes % (Manual) Atypical Lymphs % Monocytes % Monocytes % (Manual) Eosinophils % Eosinophils % (Manual) Basophils % Basophils % (Manual) Absolute Neutrophils Abs Neuts (Manual) Absolute Lymphocytes Abs Lymphs (Manual) Absolute Monocytes Abs Monocytes (Manual) Absolute Eosinophils Absolute Eos (Manual) Absolute Basophils Abs Basophils (Manual) Toxic Granulation Toxic Vacuolation Platelet Comment Hypochromasia Anisocytosis Microcytosis PT 12.8 INR 0.90 Sodium Potassium Chloride Carbon Dioxide Anion Gap BUN Creatinine Est GFR ( Amer) Est GFR (Non-Af Amer) Glucose Calcium Magnesium Total Bilirubin Direct Bilirubin Neonat Total Bilirubin Neonat Direct Bilirubin Neonat Indirect Bili AST ALT Alkaline Phosphatase Total Protein Albumin Lipase Stool Occult Blood NEGATIVE Serum Alcohol Chest X-Ray 05/29/17 15:58 IMPRESSION: NO SIGNIFICANT RADIOGRAPHIC FINDING IN THE CHEST. Alergies No Known Allergies Allergy (Verified 05/29/17 13:00) Patient Prescrptions Chlordiazepoxide HCl [Librium 25 mg Capsule] 3 cap PO DAILY 01/17/17 Divalproex Sodium [Divalproex Sodium ER] 500 mg PO QHS 01/17/17 Doxepin HCl 50 mg PO HSP PRN 01/17/17 Lisinopril [Prinivil 40 mg Tablet] 40 mg PO DAILY 01/17/17 Metoprolol Succinate [Toprol Xl 50 mg Tab.sr] 50 mg PO DAILY 01/17/17 Clonazepam [Klonopin 1 mg Tablet] 2 mg PO Q8 PRN #10 tablet 01/22/17 Oxycodone HCl [Oxy-Ir 5 mg Tablet] 10 mg PO Q4HP PRN #20 tablet 01/22/17 Omeprazole Magnesium [Prilosec Otc] 40 mg PO DAILY #60 tablet. 05/29/17 Ondansetron [Zofran Odt 4 mg Tablet] 1 - 2 tab PO Q4H PRN #15 tab.rapdis Isolation Standard Height 5 ft 11 in Weight 85.3 kg IV? Yes : No Discharge Information ED Provider: ATUL REDMOND Status: Discharge Time Seen by Provider: 05/29/17 13:07 Condition: Good Triaged At: 05/29/17 12:00 Emergency Discharge Date/Time: 05/29/17 20:55 Emergency Discharge Disposition: HOME, SELF-CARE Clinical Impression Alcoholic intoxication Alcohol abuse Emergency Discharge Comment: Discharge Intervention Last Done Vital Signs (ED) Discharge Documentation Left Without Being Seen (LWBS) Left Against Medical Advice (AMA)/Eloped Instructions: Chest Wall Pain ([facility]) Chronic Alcoholism ([facility]) Prilosec (Acid Pump Inhibitor) ([facility]) Reflux Disease (GERD) ([facility]) Stand-Alone Forms: Prescriptions: Omeprazole Magnesium [Prilosec Otc] ATUL REDMOND Ondansetron [Zofran Odt 4 mg Tablet] ATUL REDMOND Visit Report - Forms: - Referrals: Intake and Output 05/28/17 05/29/17 05/30/17 06:59 06:59 06:59 Weight 85.3 kg Radiology Reports Chest X-Ray 05/29/17 15:58 IMPRESSION: NO SIGNIFICANT RADIOGRAPHIC FINDING IN THE CHEST. Medications Discontinued Medications Generic Name Dose Route Start Last Admin Trade Name Freq PRN Reason Stop Dose Admin Famotidine 20 mg 05/29/17 14:45 05/29/17 14:54 Pepcid Inj/Pf 20 Mg/2 Ml Sdv IV 05/29/17 14:46 20 mg NOW ONE Administration Hydromorphone HCl 0.5 mg 05/29/17 16:58 05/29/17 17:07 Dilaudid Inj/Pf 2 Mg/Ml Ampule IV 05/29/17 16:59 0.5 mg NOW ONE Administration Hydromorphone HCl 1 mg 05/29/17 19:20 05/29/17 19:45 Dilaudid Inj/Pf 2 Mg/Ml Ampule IV 05/29/17 19:21 1 mg NOW ONE Administration Sodium Chloride 1,000 mls @ 0 mls/hr 05/29/17 13:09 05/29/17 19:46 Nacl 0.9% 1000 Ml Iv Soln IV 06/28/17 13:08 1,000 ml .CONTINUOUS PRN Administration Wide Open Thiamine HCl 100 mg/ Folic 251.2 mls @ 502.4 mls/hr 05/29/17 16:00 05/29/17 17:07 Acid 1 mg/ Sodium Chloride IV 05/29/17 16:29 100 mg NOW ONE Administration Lorazepam 1 mg 05/29/17 13:08 05/29/17 13:40 Ativan 1 Mg Tablet PO 05/29/17 13:09 1 mg NOW ONE Administration Lorazepam 1 mg 05/29/17 20:31 05/29/17 20:45 Ativan 1 Mg Tablet PO 05/29/17 20:32 1 mg NOW ONE Administration Ondansetron HCl 4 mg 05/29/17 13:08 05/29/17 13:40 Zofran Odt 4 Mg Tablet PO 05/29/17 13:09 4 mg NOW ONE Administration Ondansetron HCl 8 mg 05/29/17 20:38 05/29/17 20:44 Zofran Inj/Pf 4 Mg/2 Ml Sdv IV 05/29/17 20:39 8 mg NOW ONE Administration Nursing Notes 05/29/17 15:40 marketing systems analyst Note by MAURICIO CASSIDY THIS RN REFERRED TO PATIENT PER DR. REDMOND DUE TO PATIENT'S REQUEST OF WANTING TREATMENT. AT TIME OF ASSESSMENT, PATIENT LYING IN BED WITH FLUIDS RUNNING. PATIENT REPORTED TO THIS RN THAT HE HAS ARRANGEMENTS MADE TO ENTER A [facility]ED TREATMENT PROGRAM CALLED [facility] IN [place]. PATIENT ASSURES THIS RN THAT HE HAS EVERYTHING ARRANGED INCLUDING TRANSPORT. THIS RN PROVIDED PATIENT WITH CONTACT INFORMATION SHOULD HE REQUIRE ANY FURTHER ASSISTANCE. PATIENT VERBALIZED APPRECIATION. DR. REDMOND MADE AWARE. Initialized on 05/29/17 15:40 - END OF NOTE 05/29/17 13:01 ED Nursing Note by AGATHA FLEMING pt presents to ed with complaints of chest pain and vomiting up blood. pt states that the pain has started this morning. pt states that he has a hx of stomach ulcers. pt states that he has a hx of seizures. pt states that the chest pain is in the center of his chest. pt is a/o. pt noted to be vomiting. pt states that he has abd pain. Initialized on 05/29/17 13:01 - END OF NOTE 05/29/17 12:00 ED Nursing Note by DARVIN DOMINGUEZ Pt c/o chest pain that started this am, also started vomiting blood this am. Pt states hx of vomiting blood due to drinking alcohol Initialized on 05/29/17 12:00 - END OF NOTE Orders 05/29/17 EKG ER ONLY [ER] Stat EKG ER ONLY [ER] Stat 05/29/17 12:03 EKG Documentation STAT 05/29/17 13:08 Lorazepam [Ativan 1 mg Tablet] 1 mg PO NOW ONE Ondansetron [Zofran Odt 4 mg Tablet] 4 mg PO NOW ONE 05/29/17 13:09 Normal Saline 1000 ml [NaCl 0.9% 1000 ml IV Soln] 1,000 ml IV .CONTINUOUS 05/29/17 14:05 ALCOHOL [CHEM] Stat CBC WITH DIFF [HEME] Stat COMPREHENSIVE METABOLIC PANEL [CHEM] Stat LIPASE [CHEM] Stat MAGNESIUM [CHEM] Stat MANUAL DIFFERENTIAL [HEME] Stat PROTHROMBIN TIME/INR [COAG] Stat 05/29/17 14:45 OCCULT BLOOD,STOOL [MO] Stat Famotidine/Pf [Pepcid Inj/Pf 20 mg/2 ml Sdv] 20 mg IV NOW ONE 05/29/17 15:09 Consult [Social Service/Discharge Plan Consult] [CONS] Routine 05/29/17 15:58 CHEST PA/LAT [RAD] Stat 05/29/17 16:00 Thiamine HCl [Thiamine HCl Inj 200 mg/2 ml Vial] 100 mg Folic Acid [Folvite Inj 5 mg/1 ml 10 ml Vial] 1 mg Normal Saline [NaCl 0.9% 250 ml IV Soln] 250 ml IV NOW 05/29/17 16:58 Hydromorphone HCl/Pf [Dilaudid Inj/Pf 2 mg/ml Ampule] 0.5 mg IV NOW ONE 05/29/17 19:20 EKG Documentation STAT Hydromorphone HCl/Pf [Dilaudid Inj/Pf 2 mg/ml Ampule] 1 mg IV NOW ONE 05/29/17 20:31 Lorazepam [Ativan 1 mg Tablet] 1 mg PO NOW ONE 05/29/17 20:38 Ondansetron HCl/Pf [Zofran Inj/Pf 4 mg/2 ml Sdv] 8 mg IV NOW ONE Vital Signs Temp Pulse Pulse Resp BP BP Pulse Ox 05/29/17 20:45 98.7 F 120 H 20 155/100 H 100 05/29/17 12:11 98.5 F 120 H 16 142/96 H 99 Lab Result Diagrams 05/29/17 14:05 05/29/17 14:05 Assessments/Treatments Blood Drawn Start: 05/29/17 12:03 Freq: Status: Active Activity Type Activity Date Activity User E-Sign Co-Sign Detail Recorded Client Recorded Date Recorded By Document 05/29/17 14:07 KGO [id number] 05/29/17 14:07 KGO 05/29/17 14:07 Blood Drawn Blood Draw Blood drawn/ sent to lab Procedure name Venipuncture Patient tolerated procedure Good Procedure site Bandaid Notes Successful venipuncture to the right Ac. Collect Specimen: OCCULT BLOOD,STOOL Start: 05/29/17 14:45 Freq: ONCE Status: Complete Activity Type Activity Date Activity User E-Sign Co-Sign Detail Recorded Client Recorded Date Recorded By Document 05/29/17 14:45 [facility] [id number] 05/29/17 14:47 [facility] Discharge Documentation Start: 05/29/17 11:59 Freq: Status: Active Activity Type Activity Date Activity User E-Sign Co-Sign Detail Recorded Client Recorded Date Recorded By Document 05/29/17 20:55 [facility] [id number] 05/29/17 21:09 [facility] 05/29/17 20:55 Discharge Documentation Condition at discharge Improved IV removed Yes Catheter clear to visual inspection Yes Pain Level 2 Vital signs performed within 30 minutes Yes of discharge? DC Transport Method Personal Vehicle Patient Discharged Via Ambulated Good number for pt to be reached at [phone] Best time of day to call anytime Discharge instructions given to patient Verbalized understanding of discharge Yes instructions Notes escorted from ED. mom here for ride home ED Nursing Assessment Start: 05/29/17 12:03 Freq: NOW, Q12H Status: Active Activity Type Activity Date Activity User E-Sign Co-Sign Detail Recorded Client Recorded Date Recorded By Document 05/29/17 13:13 [facility] [id number] 05/29/17 13:15 RJA 05/29/17 13:13 Neurological Assessment Level of Consciousness Awake Alert Appropriate Arousable To Name Orientation Oriented to Person Oriented to Place Oriented to Time Eye Opening Spontaneous Verbal Response Oriented Motor Response Obeys Commands GCS Total Score (15 points) 15 Pupil [place] PERRLA Psychological Assessment Crisis consulted No Mood Description Calm Relaxed Speech Pattern Clear Appropriate Rational Thinking Intact Anxiety Level None, At Ease Suicidal Ideation Description None Feelings of Hopelessness No Cardiovascular Assessment Heart Tones/Sounds S1 & S2 Regular Capillary Refill Less than 3 Seconds JVD present No Telemetry No Respiratory Assessment Respiratory Pattern Normal Respiratory Effort Normal Non-Labored Respiratory Depth Normal Chest Expansion Symmetrical Oxygen Delivery Method Room Air Chest Tube Present No Tracheostomy Present No Skin Assessment Skin Color Normal Farley Skin Temperature Warm Skin Moisture Dry Skin Texture Smooth Gastrointestinal Assessment Abdomen Description Flat Soft Non-Tender Ostomy present No Hernia Present No Medical/Surgical History Hx Asthma No Hx Depression Yes Hx Gastroesophageal Reflux Disease Yes Hx Heart Attack No Hx Hiatal Hernia No Hx Hypertension Yes Hx Seizures Yes: 6-7 weeks ago Hx Tuberculosis No Hx Ulcer No Hx Genitourinary Surgery Yes: vasectomy Hx Nose Surgery Yes: bilateral: maxillary antrostomy, sphenoidotomy, ethmoidectomy Hx Open Heart Surgery No EKG Documentation Start: 05/29/17 12:03 Freq: STAT Status: Complete Activity Type Activity Date Activity User E-Sign Co-Sign Detail Recorded Client Recorded Date Recorded By Document 05/29/17 12:06 KGO [id number] 05/29/17 13:58 KGO 05/29/17 12:06 EKG EKG EKG performed MD notified EKG given to MD Shown to Provider Isatu Patient Care Start: 05/29/17 12:03 Freq: .PRN Status: Active Activity Type Activity Date Activity User E-Sign Co-Sign Detail Recorded Client Recorded Date Recorded By Document 05/29/17 19:20 ROLAN [id number] 05/29/17 20:04 ROLAN Document 05/29/17 19:40 ROLAN [id number] 05/29/17 20:03 ROLAN Document 05/29/17 19:55 ROLAN [id number] 05/29/17 20:05 ROLAN Document 05/29/17 20:00 ROLAN [id number] 05/29/17 20:01 ROLAN Edit Result 05/29/17 19:45 ROLAN (1) [id number] 05/29/17 20:02 ROLAN Edit Time 05/29/17 19:45 ROLAN 05/29/17 20:00=>05/29/17 19:45 [id number] 05/29/17 20:02 ROLAN Document 05/29/17 20:36 ROLAN [id number] 05/29/17 20:36 ROLAN Document 05/29/17 20:44 ROLAN [id number] 05/29/17 21:05 ROLAN Document 05/29/17 20:55 ROLAN [id number] 05/29/17 21:05 ROLAN Document 05/29/17 20:58 ROLAN [id number] 05/29/17 21:06 ROLAN Document 05/29/17 20:59 ROLAN [id number] 05/29/17 21:06 ROLAN (1) Notes patient intro to this nurse; patient made aware of ordered EKG; EKG performed. => patient intro to this nurse; patient made aware of repeat/ ordered EKG; EKG performed. EKG signed by TREY Cordova and and given dr. Redmond. 05/29/17 05/29/17 05/29/17 19:20 19:40 19:55 Patient Care Documenation Notes patient care RN [place] at patient asked report taken bedside for med if he got up from [employer]. with his ride Jose HANN home; patient says n0o but she should be calling him any minute now. 05/29/17 05/29/17 05/29/17 19:45 20:36 20:44 Patient Care Documenation Notes patient intro patient patient to this nurse; actively medicated as patient made vomting; will oerdered. aware of repeat make MD aware. patients mother /ordered EKG; here for ride EKG performed. home. EKG signed by TREY Cordova and and given dr. Redmond. 05/29/17 05/29/17 05/29/17 20:55 20:58 20:59 Patient Care Documenation Notes vitals assessed vitals reported patient ; dishcarge to Dr. Redmond; ambulatory from instructions no instruction ED. discussed. received. Pivot Start: 05/29/17 11:59 Freq: NOW Status: Complete Activity Type Activity Date Activity User E-Sign Co-Sign Detail Recorded Client Recorded Date Recorded By Document 05/29/17 12:00 LMI [id number] 05/29/17 12:03 LMI 05/29/17 12:00 Pivot Chief Complaint Chest Pain Priority Level 3H Pain Level 5 Comfort Measures Provided None Is This a Long Bone Pain Patient? No Stroke/TIA Suspected No TRAVEL OUTSIDE OF THE [place] IN LAST 30 No DAYS EKG/Labs/Rads To Be Performed EKG 05/29/17 12:00 ED Nursing Note by DARVIN DOMINGUEZ Pt c/o chest pain that started this am, also started vomiting blood this am. Pt states hx of vomiting blood due to drinking alcohol Initialized on 05/29/17 12:00 - END OF NOTE Procedures Start: 05/29/17 12:03 Freq: Status: Active Activity Type Activity Date Activity User E-Sign Co-Sign Detail Recorded Client Recorded Date Recorded By Document 05/29/17 14:35 [facility] [id number] 05/29/17 14:39 [facility] 05/29/17 14:35 Procedures Right Antecubital -Was IV started prior to arrival No -IV Catheter Type Saline Lock -IV Catheter Gauge (gauge) 20 -IV started using aseptic technique Yes -Redness or swelling noted at the site No -IV site patent/flushes without Yes difficulty -Dressing applied and catheter secured Yes -Number of attempts 1 Status Rounds Assessment Start: 05/29/17 12:03 Freq: Q1 Status: Active Activity Type Activity Date Activity User E-Sign Co-Sign Detail Recorded Client Recorded Date Recorded By Document 05/29/17 13:00 [facility] [id number] 05/29/17 17:54 [facility] Document 05/29/17 14:00 [facility] [id number] 05/29/17 17:54 [facility] Document 05/29/17 15:00 [facility] [id number] 05/29/17 17:55 [facility] Document 05/29/17 16:00 [facility] [id number] 05/29/17 17:55 [facility] Document 05/29/17 17:00 [facility] [id number] 05/29/17 17:55 [facility] Document 05/29/17 18:00 [facility] [id number] 05/29/17 18:21 [facility] 05/29/17 05/29/17 05/29/17 13:00 14:00 15:00 ED Status Rounds Hourly Rounding Complete Yes Yes Yes Patient Location Patient in Room Patient in Room Patient in Room Patient Activity Awake Awake Awake Patient Condition No Changes From No Changes From No Changes From Previous Previous Previous Assessment Assessment Assessment Patient Firesetter Present Yes Yes Yes 05/29/17 05/29/17 05/29/17 16:00 17:00 18:00 ED Status Rounds Hourly Rounding Complete Yes Yes Yes Patient Location Patient in Room Patient in Room Patient in Room Patient Activity Awake Awake Resting Peacefully Patient Condition No Changes From No Changes From No Changes From Previous Previous Previous Assessment Assessment Assessment Patient Firesetter Present Yes Yes No Triage- Chest Pain & Treatment Start: 05/29/17 12:03 Freq: NOW Status: Complete Activity Type Activity Date Activity User E-Sign Co-Sign Detail Recorded Client Recorded Date Recorded By Document 05/29/17 12:59 RJA [id number] 05/29/17 13:06 RJA 05/29/17 12:59 HPI- Chest Pain and Treatment Is the pain a New problem Pain level 4 Infection Control Screen CRE Precaution Screen Negative History Isolation Precautions Standard Triage Nursing Assessment Allergies Verified Yes Seeking Treatment Today For No Mental Health Issues [place] or Cultural beliefs that would No interfere with care High Risk Screen None High Risk Safety Intervention Stretcher Wheels Locked Family Members at Bedside Development Age appropriate Thoughts of by Suicide in the Last No 30 Days Homicidial Thoughts in the Last 30 Days No Smoking Status Current Every Day Smoker Chew tobacco use (# tins/day) No Drug Abuse None Frequency of alcohol use Social Peritoneal Dialysis Patient No 05/29/17 13:01 ED Nursing Note by AGATHA FLEMING pt presents to ed with complaints of chest pain and vomiting up blood. pt states that the pain has started this morning. pt states that he has a hx of stomach ulcers. pt states that he has a hx of seizures. pt states that the chest pain is in the center of his chest. pt is a/o. pt noted to be vomiting. pt states that he has abd pain. Initialized on 05/29/17 13:01 - END OF NOTE Vital Signs (ED) Start: 05/29/17 11:59 Freq: Q4H Status: Active Activity Type Activity Date Activity User E-Sign Co-Sign Detail Recorded Client Recorded Date Recorded By Document 05/29/17 20:45 ROLAN [id number] 05/29/17 21:08 ROLAN 05/29/17 20:45 Vital Signs Temperature (97.0 F-100.4 F) 98.7 F Temperature Source Oral Left Brachial -Pulse Rate (60-100) 120 -Method Automatic Cuff Respiratory Rate (12-20) 20 Pulse Oximetry (92-100) 100 Oxygen Delivery Method (includes room Room Air air) Left Upper Arm -Blood Pressure (100/60-125/85) 155/100 -Blood Pressure Mean (mm Hg) 118 -Position Sitting Vital Signs CAPTURE Start: 05/29/17 12:03 Freq: Status: Active Activity Type Activity Date Activity User E-Sign Co-Sign Detail Recorded Client Recorded Date Recorded By Document 05/29/17 12:11 ACO [email or web address] 05/29/17 12:17 ACO 05/29/17 12:11 VS4 Data Capture Temperature (97.0 F-100.4 F) 98.5 F Pulse Rate (60-100) 120 Respiratory Rate (12-20) 16 Pulse Oximetry (92-100) 99 Blood Pressure (100/60-125/85) 142/96 Blood Pressure Mean (mm Hg) 111 Height 5 ft 11 in Weight (1 kg-500 kg) 85.3 kg - Vital Signs Vital signs: Temp Pulse Resp BP Pulse Ox 98.5 F 120 H 16 142/96 H 99 05/29/17 12:11 05/29/17 12:11 05/29/17 12:11 05/29/17 12:11 05/29/17 12:11 - Laboratory Result Diagrams: 05/29/17 14:05 05/29/17 14:05 Laboratory results interpreted by me: 05/29/17 05/29/17 14:05 14:05 WBC 25.2 H RBC 6.30 H MCV 78 L MCH 25.7 L RDW 19.6 H Seg Neuts % (Manual) 91 H Band Neutrophils % 1 L Lymphocytes % (Manual) 5 L Monocytes % (Manual) 2 L Abs Neuts (Manual) 23.2 H Sodium 145.9 H Anion Gap 23 H Glucose 146 H Direct Bilirubin 0.5 H AST 107 H ALT 96 H Total Protein 8.7 H - Diagnostic Test Radiology reviewed: Image reviewed, Reports reviewed - EKG Interpretation by Wi EKG shows normal: Sinus rhythm Rate: Tachycardia Discharge - Discharge Clinical Impression: Alcohol intoxication, ETOH abuse Condition: Good Disposition: HOME, SELF-CARE Instructions: Chest Wall Pain ([facility]), Chronic Alcoholism ([facility]), Prilosec (Acid Pump Inhibitor) ([facility]), Reflux Disease (GERD) ([facility]) Prescriptions: Omeprazole Magnesium [Prilosec Otc] 40 mg PO DAILY #60 tablet. Ondansetron [Zofran Odt 4 mg Tablet] 1 - 2 tab PO Q4H PRN #15 tab.rapdis PRN Reason: For Nausea/Vomiting
[2017-05-29 15:08] LABS: ANION GAP 23 (5-19)
[2017-05-29] MEDS ORDERED: THIAMINE HCL 100 MG, FOLIC ACID 1 MG in NORMAL SALINE 250 ML IV ONE (16:00)
--- NOTE | 2017-05-29 16:29 | RADIOLOGY REPORT (SQ) ---
EXAM DESCRIPTION: CHEST PA/LAT COMPLETED DATE/TIME: 05/29/2017 4:21 pm REASON FOR STUDY: chest pain COMPARISON: December 2016 EXAM PARAMETERS: NUMBER OF VIEWS: two views TECHNIQUE: Digital Frontal and Lateral radiographic views of the chest acquired. RADIATION DOSE: NA LIMITATIONS: none FINDINGS: LUNGS AND PLEURA: No opacities, masses or pneumothorax. No pleural effusion. MEDIASTINUM AND HILAR STRUCTURES: No masses or contour abnormalities. HEART AND VASCULAR STRUCTURES: Heart normal size. No evidence for failure. BONES: No acute findings. HARDWARE: None in the chest. OTHER: No other significant finding. IMPRESSION: NO SIGNIFICANT RADIOGRAPHIC FINDING IN THE CHEST. TECHNICAL DOCUMENTATION: JOB ID: [id number] [employer]- All Rights Reserved Reading location - IP/workstation name: [facility]-[email or web address]
[2017-05-29] MEDS ORDERED: HYDROMORPHONE HCL INJ/PF 2 MG/ML AMPULE IV ONE ×2 (16:58→19:20)
[2017-05-29] MEDS ORDERED: ONDANSETRON HCL INJ/PF 4 MG/2 ML SDV IV ONE (20:38)
[2017-05-29 21:08] VITALS: BP 155/100
--- NOTE | 2017-05-29 21:53 | EKG REPORT ---
SEVERITY:- BORDERLINE ECG - SINUS RHYTHM BORDERLINE T ABNORMALITIES, ANTERIOR LEADS : Confirmed by: Blake Faulkner MD 29-May-2017 21:53:23
== END 2017-05-29 20:55 | disposition home or self-care (01) ==
LOC: ER 11:59
DX: F10.129 Alcohol abuse with intoxication, unspecified (principal); R07.9 Chest pain, unspecified; R11.2 Nausea with vomiting, unspecified
CPT/HCPCS: 93005; 96376; 99285; 96361; 96375; 96365; 36415; 80307; 83690; 83735; 85025; 85610; 82272; 80053; 71046; 93010; S0119; J3490; J1170; J3411; J2405; J7030; J7050; S0028

== ENCOUNTER 2017-05-30 05:04 | Inpatient (IN) | payer SELFPAY ==
[2017-05-30] MEDS ORDERED: ONDANSETRON HCL INJ/PF 4 MG/2 ML SDV IV ONE ×2 (06:29→07:28)
--- NOTE | 2017-05-30 06:31 | ER Document Report ---
ED General - General Chief Complaint: Chest Pain Stated Complaint: CHEST PAIN VOMIT BLOOD Time Seen by Provider: 05/30/17 06:06 Mode of Arrival: Ambulatory Information source: Patient Notes: 31-year-old male chronic alcoholic who was alcohol free up until yesterday where he drank a pint presents with complaints of nausea vomiting. Patient notes he was seen here yesterday and was discharged home, he notes he is continued to vomit and noted streaks of blood. Patient denies any black stools admits to epigastric left upper and right upper quadrant abdominal pain TRAVEL OUTSIDE OF THE [place] IN LAST 30 DAYS: No - HPI Onset: Yesterday Onset/Duration: Sudden Quality of pain: Sharp Severity: Mild Pain Level: 1 Associated symptoms: Other Exacerbated by: Denies Relieved by: Denies Similar symptoms previously: Yes Recently seen / treated by doctor: Yes - Related Data Allergies/Adverse Reactions: No Known Allergies Allergy (Verified 05/29/17 13:00) Past Medical History - Social History Smoking Status: Never Smoker Cigarette use (# per day): No Chew tobacco use (# tins/day): No Smoking Education Provided: No Frequency of alcohol use: Heavy Family History: CAD, COPD Patient has suicidal ideation: No Patient has homicidal ideation: No - Past Medical History Cardiac Medical History: Reports: Hx Hypertension Denies: Hx Heart Attack Pulmonary Medical History: Denies: Hx Asthma, Hx Tuberculosis Neurological Medical History: Reports: Hx Seizures - 6-7 weeks ago. Denies: Hx Cerebrovascular Accident Renal/ Medical History: Denies: Hx Peritoneal Dialysis GI Medical History: Reports: Hx Gastroesophageal Reflux Disease, Hx Hepatitis - alcoholic hepatitis. Denies: Hx Hiatal Hernia, Hx Ulcer Psychiatric Medical History: Reports: Hx Depression Infectious Medical History: Reports: Hx Hepatitis - alcoholic hepatitis Past Surgical History: Reports: Hx Genitourinary Surgery - vasectomy, Hx Nose Surgery - bilateral: maxillary antrostomy, sphenoidotomy, ethmoidectomy. Denies : Hx Open Heart Surgery, Hx Pacemaker - Immunizations Hx Diphtheria, Pertussis, Tetanus Vaccination: Yes Review of Systems - Review of Systems Notes: REVIEW OF SYSTEMS: CONSTITUTIONAL : Denies fever, chills, or sweats. Denies recent illness. EENT: Denies eye, ear, throat, or mouth pain or symptoms. Denies nasal or sinus congestion or discharge. Denies throat, tongue, or mouth swelling or difficulty swallowing. CARDIOVASCULAR: Denies chest pain. Denies palpitations or racing or irregular heart beat. Denies ankle edema. RESPIRATORY: Denies cough, cold, or chest congestion. Denies shortness of breath, difficulty breathing, or wheezing. GASTROINTESTINAL: Admits to abdominal pain vomiting GENITOURINARY: Denies difficulty urinating, painful urination, burning, frequency, blood in urine, or discharge. MUSCULOSKELETAL: Denies back or neck pain or stiffness. Denies joint pain or swelling. SKIN: Denies rash, lesions or sores. HEMATOLOGIC : Denies easy bruising or bleeding. LYMPHATIC: Denies swollen, enlarged glands. NEUROLOGICAL: Denies confusion or altered mental status. Denies passing out or loss of consciousness. Denies dizziness or lightheadedness. Denies headache. Denies weakness or paralysis or loss of use of either side. Denies problems with gait or speech. Denies sensory loss, numbness, or tingling. Denies seizures. PSYCHIATRIC: Denies anxiety or stress. Denies depression, suicidal ideation, or homicidal ideation. ALL OTHER SYSTEMS REVIEWED AND NEGATIVE. Dictation was performed using [employer] recognition software PHYSICAL EXAMINATION: GENERAL: Overall well-appearing no acute distress HEAD: Atraumatic, normocephalic. EYES: Pupils equal round and reactive to light, extraocular movements intact, sclera anicteric, conjunctiva are normal. ENT: Nares patent, oropharynx clear without exudates. Moist mucous membranes. NECK: Normal range of motion, supple without lymphadenopathy LUNGS: Breath sounds clear to auscultation bilaterally and equal. No wheezes rales or rhonchi. HEART: Regular rate and rhythm without murmurs ABDOMEN: Soft, mildly tender epigastric region no rebound no guarding Musculoskeletal: Normal range of motion, no pitting or edema. No cyanosis. NEUROLOGICAL: Cranial nerves grossly intact. Normal speech, normal gait. Normal sensory, motor exams PSYCH: Normal mood, normal affect. SKIN: Warm, Dry, normal turgor, no rashes or lesions noted. Physical Exam - Vital signs Vitals: Temp Pulse Resp BP Pulse Ox 98.6 F 96 16 155/87 H 100 05/30/17 05:10 05/30/17 05:10 05/30/17 05:10 05/30/17 05:10 05/30/17 05:10 Course - Re-evaluation Re-evalutation: 05/30/17 07:00 Patient was noted to have a white count 25 upon his presentation yesterday, the patient was evaluated noted to have Hemoccult negative stool, his hemoglobin was stable, patient was treated symptomatically and has follow-up as well, given his history repeat lab work has been ordered we will reevaluate 05/30/17 07:01 05/30/17 07:24 Patient's white count has improved, his hemoglobin has come down 3 units, I believe this is due to dilution with IV fluids, however repeat Hemoccult has been performed 05/30/17 07:28 Patient's lipase is elevated, and this is consistent with acute pancreatitis, his lipase was not elevated yesterday, but his presentation is consistent with pancreatitis given history of alcohol abuse 05/30/17 08:12 Patient's Hemoccult was negative again, patient will be admitted to the hospitalist service for acute pancreatitis - Vital Signs Vital signs: Temp Pulse Resp BP Pulse Ox 98.6 F 96 12 139/90 H 96 05/30/17 05:10 05/30/17 05:10 05/30/17 07:00 05/30/17 06:12 05/30/17 07:00 - Laboratory Result Diagrams: 05/30/17 06:50 05/30/17 06:50 Laboratory results interpreted by me: 05/30/17 05/30/17 06:50 06:50 WBC 17.8 H Hgb 13.1 L D MCV 78 L MCH 25.8 L RDW 19.5 H Seg Neutrophils % 83.5 H Lymphocytes % 9.0 L Absolute Neutrophils 14.8 H Lipase 652.7 H Discharge - Discharge Clinical Impression: Acute alcoholic pancreatitis Qualifiers: Acute pancreatitis complication: unspecified Qualified Code(s): K85.20 - Alcohol induced acute pancreatitis without necrosis or infection Condition: Stable Disposition: ADMITTED INPATIENT Admitting Provider: Hospitalist Unit Admitted: Telemetry
[2017-05-30 07:06] LABS: ABSOLUTE BASOPHILS # (AUTO) 0.1 10^3/uL (0.0-0.2); ABSOLUTE LYMPHOCYTES (AUTO) 1.6 10^3/uL (0.5-4.7); ABSOLUTE MONOCYTES (AUTO) 1.3 10^3/uL (0.1-1.4); ABSOLUTE NEUT (AUTO) 14.8 10^3/uL (1.7-8.2); BASOPHILS % (AUTO) 0.3 % (0-2); EOSINOPHILS % (AUTO) 0.2 % (0-6); HEMATOCRIT 39.6 % (37.9-51.0); MEAN CORPUSCULAR HEMOGLOBIN 25.8 pg (27.0-33.4); MEAN CORPUSCULAR VOLUME 78 fl (80-97); PLATELET COUNT 213 10^3/uL (150-450); RED BLOOD COUNT 5.07 10^6/uL (4.35-5.55); RED CELL DISTRIBUTION WIDTH 19.5 % (11.5-14.0); SEGMENTED NEUTROPHILS % (AUTO) 83.5 % (42-78); TOTAL CELLS COUNTED % (AUTO) 100 %; WHITE BLOOD COUNT 17.8 10^3/uL (4.0-10.5)
--- NOTE | 2017-05-30 07:10 | RADIOLOGY REPORT (SQ) ---
EXAM DESCRIPTION: CHEST PA/LAT CLINICAL HISTORY: 31 years, Male, chest pain COMPARISON: 3.2.18 NUMBER OF VIEWS: 2 FINDINGS: Normal lung volume, clear parenchyma, normal cardiac silhouette, and intact bony thorax. IMPRESSION: No acute cardiopulmonary findings.
[2017-05-30 07:12] LABS: HEMOGLOBIN 13.1 g/dL (13.5-17.0)
[2017-05-30 07:22] LABS: ALANINE AMINOTRANSFERASE 62 U/L (21-72); ALBUMIN 4.3 g/dL (3.5-5.0); ALKALINE PHOSPHATASE 91 U/L (38-126); ANION GAP 11 (5-19); ASPARTATE AMINO TRANSFERASE 52 U/L (17-59); BILIRUBIN,DIRECT 0.2 mg/dL (0.0-0.4); BILIRUBIN,TOTAL 1.2 mg/dL (0.2-1.3); BLOOD UREA NITROGEN 16 mg/dL (7-20); CALCIUM 9.1 mg/dL (8.4-10.2); CARBON DIOXIDE 27 mmol/L (22-30); CHLORIDE 99 mmol/L (98-107); CREATINE KINASE 101 U/L (55-170); GLUCOSE 103 mg/dL (75-110); LIPASE 652.7 U/L (23-300); SODIUM 137.4 mmol/L (137-145); TOTAL PROTEIN 6.7 g/dL (6.3-8.2)
[2017-05-30] MEDS: NORMAL SALINE 1000 ML 1,000 ML IV PRN ×2 (07:28→09:26)
[2017-05-30] MEDS ORDERED: HYDROMORPHONE HCL INJ/PF 2 MG/ML AMPULE IV ONE ×2 (07:28→09:19)
[2017-05-30 07:33] LABS: CREATINE KINASE MB 0.61 ng/mL (<4.55)
[2017-05-30 07:34] LABS: TROPONIN I < 0.012 ng/mL
--- NOTE | 2017-05-30 09:01 | EKG REPORT ---
SEVERITY:- NORMAL ECG - SINUS RHYTHM : Confirmed by: Blake Faulkner MD 30-May-2017 09:00:56
[2017-05-30] MEDS ORDERED: GLUCAGON,HUMAN RECOMB 1 MG INJ SUBCUT PRN (09:33)
[2017-05-30] MEDS ORDERED: IPRATROPIUM/ALBUTEROL 0.5-2.5 MG/3 ML AMPUL NEB PRN (09:33)
[2017-05-30] MEDS ORDERED: DEXTROSE 40% GEL 15 GM TUBE PO PRN ×2 (09:33)
[2017-05-30] MEDS ORDERED: ZOLPIDEM TARTRATE 5 MG TABLET PO PRN (09:33)
[2017-05-30] MEDS ORDERED: ACETAMINOPHEN 325 MG TABLET PO PRN (09:33)
[2017-05-30] MEDS ORDERED: DEXTROSE 50%-WATER 25 GM/50 ML DISP.SYRIN IV PRN ×2 (09:33)
[2017-05-30] MEDS: FAMOTIDINE INJ/PF 20 MG/2 ML SDV IV SCH ×2 (10:08→21:50)
[2017-05-30] MEDS: DEXTROSE 5%-1/2 NORMAL SALINE 1,000 ML IV PRN (10:08)
[2017-05-30] MEDS: ONDANSETRON HCL INJ/PF 4 MG/2 ML SDV IV PRN (10:17)
[2017-05-30] MEDS ORDERED: MORPHINE SULFATE 10 MG/ML INJ IV PRN (13:05)
[2017-05-30] MEDS ORDERED: (PENDING PHARMACY ID) (Doxepin Hcl [Doxepin Hcl] 50 MG) PO PRN (13:06)
[2017-05-30] MEDS ORDERED: DOXEPIN HCL 25 MG CAPSULE PO PRN (13:32)
[2017-05-30] MEDS: HYDROMORPHONE HCL INJ/PF 2 MG/ML AMPULE IV PRN ×3 (15:07→23:25)
[2017-05-30] MEDS: PROMETHAZINE HCL INJ 25 MG/1 ML VIAL IV PRN ×3 (15:07→23:25)
--- NOTE | 2017-05-30 20:18 | PDOC H&P ---
History of Present Illness Admission Date/PCP: 05/30/17 08:21 Patient complains of: He was actually seen in the ER yesterday for same he apparently just returned from a [place] based alcohol withdrawal program. Unfortunately patient just started drinking right after. He went back home yesterday and apparently also vomited some bloody vomitus. He denies any black stools although he did have some epigastric and upper quadrant pain. Patient gives prior history of ulcers although he denies being told that his had varices before. He has been drinking since he was 18 years old and he drinks about 2 pints of vodka daily. Last drink was about 24 hours ago. Today his lipase is noted to be elevated and with discontinuing abdominal pain he has been admitted for further evaluation and management. History of Present Illness: JAIME NUNEZ is a 31 year old male Past Medical History Cardiac Medical History: Reports: Hypertension Denies: Myocardial Infarction Pulmonary Medical History: Denies: Asthma, Tuberculosis Neurological Medical History: Reports: Seizures - 6-7 weeks ago GI Medical History: Reports: Gastroesophageal Reflux Disease, Hepatitis - alcoholic hepatitis Denies: Hiatal Hernia Psychiatric Medical History: Reports: Depression Hematology: Denies: Anemia, Sickle Cell Disease Past Surgical History Past Surgical History: Denies: Pacemaker Social History Smoking Status: Never Smoker Frequency of Alcohol Use: Heavy Hx Recreational Drug Use: No Drugs: None Hx Prescription Drug Abuse: No - Advance Directive Resuscitation Status: Full Code Family History Family History: CAD, COPD Parental Family History Reviewed: No - Denies Children Family History Reviewed: NA Sibling(s) Family History Reviewed.: NA Medication/Allergy Home Medications: Divalproex Sodium [Divalproex Sodium ER] 500 mg PO QHS 05/30/17 Doxepin HCl 50 mg PO HSP PRN 05/30/17 Allergies/Adverse Reactions: No Known Allergies Allergy (Verified 05/29/17 13:00) Physical Exam Vital Signs: Temp Pulse Resp BP Pulse Ox 100.0 F 87 16 149/87 H 98 05/30/17 14:34 05/30/17 14:34 05/30/17 14:34 05/30/17 14:34 05/30/17 14:34 Intake & Output 05/29/17 05/30/17 05/31/17 06:59 06:59 06:59 Weight 87.5 kg Results Laboratory Results: 05/30/17 09:40 Blood Type O POSITIVE Antibody Screen NEGATIVE Impressions: Chest X-Ray 05/30/17 05:44 IMPRESSION: No acute cardiopulmonary findings. Assessment & Plan - Time Time Spent: 30 to 50 Minutes Critical Time spent with patient: Less than 15 minutes Medications reviewed and adjusted accordingly: Yes Anticipated discharge: Home - Inpatient Certification Based on my medical assessment, after consideration of the patient's comorbidities, presenting symptoms, or acuity I expect that the services needed warrant INPATIENT care.: Yes I certify that my determination is in accordance with my understanding of Medicare's requirements for reasonable and necessary INPATIENT services [42 CFR 412.3e].: Yes Medical Necessity: Failure to Improve With Outpatient Therapy, Need For IV Fluids - Plan Summary Plan Summary: Acute pancreatitis secondary to alcohol. Patient has been advised on the need to stop drinking and he says he is committed to doing at this time. #2 Alcoholic abuse- Continue PPI. Will watch out for alcohol withdrawal symptoms 3. Leukocytosis likely inflammatory/SIRS as I see no evidence of any infection. We will continue to monitor. I will hold off on any antibiotics. His white count was actually 25,000 yesterday so it has improved
[2017-05-30] MEDS: DIVALPROEX SODIUM 500 MG TAB.SR.24H PO SCH (21:50)
[2017-05-31] MEDS: HYDROMORPHONE HCL INJ/PF 2 MG/ML AMPULE IV PRN ×5 (03:25→20:06)
[2017-05-31] MEDS: PROMETHAZINE HCL INJ 25 MG/1 ML VIAL IV PRN ×5 (03:25→20:06)
[2017-05-31 07:50] LABS: HEMATOCRIT 36.8 % (37.9-51.0); HEMOGLOBIN 12.1 g/dL (13.5-17.0); MEAN CORPUSCULAR HEMOGLOBIN 25.9 pg (27.0-33.4); MEAN CORPUSCULAR VOLUME 79 fl (80-97); PLATELET COUNT 150 10^3/uL (150-450); RED BLOOD COUNT 4.68 10^6/uL (4.35-5.55); RED CELL DISTRIBUTION WIDTH 18.8 % (11.5-14.0)
[2017-05-31 08:19] LABS: ANION GAP 10 (5-19); BLOOD UREA NITROGEN 4 mg/dL (7-20); CALCIUM 8.8 mg/dL (8.4-10.2); CARBON DIOXIDE 25 mmol/L (22-30); CHLORIDE 101 mmol/L (98-107); GLUCOSE 109 mg/dL (75-110); LIPASE 299.9 U/L (23-300); POTASSIUM 3.7 mmol/L (3.6-5.0); SODIUM 136.4 mmol/L (137-145)
[2017-05-31] MEDS: FAMOTIDINE INJ/PF 20 MG/2 ML SDV IV SCH ×2 (10:04→21:44)
--- NOTE | 2017-05-31 12:40 | PDOC PROGRESS REPORT ---
Subjective Progress Note for:: 05/31/17 Subjective:: Patient complains of abdominal pain and some burning today. He was admitted with acute pancreatitis. Patient denies any vomiting. There is no fever or cough. Patient has been kept n.p.o. and his symptoms have improved. His lipase is down to normal today and patient will be started on some clear liquid diet. Reason For Visit: ACUTE PANCREATITIS Physical Exam Vital Signs: Temp Pulse Resp BP Pulse Ox 99.1 F 80 16 136/98 H 99 05/31/17 11:34 05/31/17 11:34 05/31/17 11:34 05/31/17 11:34 05/31/17 11:34 Intake & Output 05/30/17 05/31/17 06/01/17 06:59 06:59 06:59 Intake Total 1442 Output Total 550 Balance 892 Weight 81.8 kg General appearance: PRESENT: no acute distress, well-developed, well-nourished Head exam: PRESENT: atraumatic, normocephalic Eye exam: PRESENT: conjunctiva pink, EOMI, PERRLA. ABSENT: scleral icterus Ear exam: PRESENT: normal external ear exam Mouth exam: PRESENT: moist, tongue midline Neck exam: ABSENT: carotid bruit, JVD, lymphadenopathy, thyromegaly Respiratory exam: PRESENT: clear to auscultation hannah. ABSENT: rales, rhonchi, wheezes Cardiovascular exam: PRESENT: RRR. ABSENT: diastolic murmur, rubs, systolic murmur Pulses: PRESENT: normal dorsalis pedis pul Vascular exam: PRESENT: normal capillary refill GI/Abdominal exam: PRESENT: normal bowel sounds, soft. ABSENT: distended, guarding, mass, organolmegaly, rebound, tenderness Rectal exam: PRESENT: deferred Extremities exam: PRESENT: full ROM. ABSENT: calf tenderness, clubbing, pedal edema Neurological exam: PRESENT: alert, awake, oriented to person, oriented to place , oriented to time, oriented to situation, CN II-XII grossly intact, other - Mild tremors. ABSENT: motor sensory deficit Psychiatric exam: PRESENT: appropriate affect, normal mood. ABSENT: homicidal ideation, suicidal ideation Skin exam: PRESENT: dry, intact, warm. ABSENT: cyanosis, rash Results Laboratory Results: 05/31/17 07:14 05/31/17 07:14 05/31/17 05/31/17 07:14 07:14 WBC 10.0 RBC 4.68 Hgb 12.1 L Hct 36.8 L MCV 79 L MCH 25.9 L MCHC 33.0 RDW 18.8 H Plt Count 150 Sodium 136.4 L Potassium 3.7 Chloride 101 Carbon Dioxide 25 Anion Gap 10 BUN 4 L Creatinine 0.74 Est GFR ( Amer) > 60 Est GFR (Non-Af Amer) > 60 Glucose 109 Calcium 8.8 Lipase 299.9 Impressions: Chest X-Ray 05/30/17 05:44 IMPRESSION: No acute cardiopulmonary findings. Assessment & Plan - Diagnosis (1) Acute alcoholic pancreatitis Qualifiers: Acute pancreatitis complication: unspecified Qualified Code(s): K85.20 - Alcohol induced acute pancreatitis without necrosis or infection Is this a current diagnosis for this admission?: Yes Plan: This is resolving and patient will be started on a clear liquid diet (2) Abdominal pain Qualifiers: Abdominal location: generalized Qualified Code(s): R10.84 - Generalized abdominal pain Is this a current diagnosis for this admission?: Yes Plan: Secondary to above, resolving. (3) ETOH abuse Is this a current diagnosis for this admission?: Yes Plan: Patient will be monitored for possible withdrawals as today will be 48 hours after his last drink. We will start him on benzodiazepines (4) Leukocytosis Qualifiers: Leukocytosis type: unspecified Qualified Code(s): D72.829 - Elevated white blood cell count, unspecified Is this a current diagnosis for this admission?: Yes Plan: Likely secondary to SIRS. This has resolved (5) Seizure disorder Is this a current diagnosis for this admission?: Yes Plan: Alcohol withdrawal seizures in the past will continue Depakote - Time Time Spent with patient: 15-24 minutes Medications reviewed and adjusted accordingly: Yes Anticipated discharge: Home Within: within 72 hours - Inpatient Certification Based on my medical assessment, after consideration of the patient's comorbidities, presenting symptoms, or acuity I expect that the services needed warrant INPATIENT care.: Yes Medical Necessity: Need For IV Fluids, Need for Pain Control
[2017-05-31] MEDS: LORAZEPAM 1 MG TABLET PO SCH ×2 (14:46→20:47)
[2017-05-31] MEDS: DEXTROSE 5%-1/2 NORMAL SALINE 1,000 ML IV PRN (15:55)
[2017-05-31] MEDS: SUCRALFATE SUSP 1 GM/10 ML UDCUP PO SCH ×2 (15:55→21:44)
[2017-05-31] MEDS: DIVALPROEX SODIUM 500 MG TAB.SR.24H PO SCH (21:44)
[2017-06-01] MEDS: HYDROMORPHONE HCL INJ/PF 2 MG/ML AMPULE IV PRN ×3 (00:06→22:31)
[2017-06-01] MEDS: PROMETHAZINE HCL INJ 25 MG/1 ML VIAL IV PRN ×3 (00:06→19:59)
[2017-06-01] MEDS: LORAZEPAM INJ 2 MG/1 ML VIAL IV PRN (01:07)
[2017-06-01] MEDS ORDERED: LORAZEPAM INJ 2 MG/1 ML VIAL ONE ×2 (01:37→04:03)
[2017-06-01] MEDS ORDERED: LORAZEPAM INJ 2 MG/1 ML VIAL IV ONE (01:45)
[2017-06-01] MEDS: DEXTROSE 5%-1/2 NORMAL SALINE 1,000 ML IV PRN ×3 (01:47→20:02)
[2017-06-01] MEDS: LORAZEPAM 1 MG TABLET PO SCH ×4 (02:30→21:41)
[2017-06-01] MEDS ORDERED: LORAZEPAM INJ 2 MG/1 ML VIAL IV STA (04:03)
[2017-06-01] MEDS: SUCRALFATE SUSP 1 GM/10 ML UDCUP PO SCH ×4 (07:45→21:41)
[2017-06-01] MEDS: LORAZEPAM INJ 2 MG/1 ML VIAL IV SCH ×5 (08:06→23:31)
[2017-06-01] MEDS: FAMOTIDINE INJ/PF 20 MG/2 ML SDV IV SCH ×2 (09:26→21:41)
[2017-06-01] MEDS: OXYCODONE-ACETAMINOPHEN 5-325 MG TABLET PO PRN (19:59)
[2017-06-01] MEDS: DIVALPROEX SODIUM 500 MG TAB.SR.24H PO SCH (21:41)
[2017-06-01] MEDS ORDERED: DOXEPIN HCL 25 MG CAPSULE ONE (23:31)
[2017-06-02] MEDS: PROMETHAZINE HCL INJ 25 MG/1 ML VIAL IV PRN ×3 (00:50→21:20)
[2017-06-02] MEDS: LORAZEPAM INJ 2 MG/1 ML VIAL IV PRN ×2 (00:50→05:47)
[2017-06-02] MEDS: LORAZEPAM 1 MG TABLET PO SCH ×4 (02:19→21:20)
[2017-06-02] MEDS: LORAZEPAM INJ 2 MG/1 ML VIAL IV SCH ×5 (03:01→20:23)
[2017-06-02] MEDS: HYDROMORPHONE HCL INJ/PF 2 MG/ML AMPULE IV PRN (04:30)
[2017-06-02 05:13] LABS: ABSOLUTE EOSINOPHILS # (AUTO) 0.5 10^3/uL (0.0-0.6); ABSOLUTE LYMPHOCYTES (AUTO) 2.3 10^3/uL (0.5-4.7); ABSOLUTE MONOCYTES (AUTO) 0.7 10^3/uL (0.1-1.4); ABSOLUTE NEUT (AUTO) 3.2 10^3/uL (1.7-8.2); BASOPHILS % (AUTO) 0.5 % (0-2); EOSINOPHILS % (AUTO) 7.6 % (0-6); HEMATOCRIT 36.7 % (37.9-51.0); HEMOGLOBIN 12.2 g/dL (13.5-17.0); LYMPHOCYTES % (AUTO) 33.9 % (13-45); MEAN CORPUSCULAR HEMOGLOBIN 26.2 pg (27.0-33.4); MEAN CORPUSCULAR HGB CONC 33.3 g/dL (32.0-36.0); MEAN CORPUSCULAR VOLUME 79 fl (80-97); MONOCYTES % (AUTO) 9.8 % (3-13); PLATELET COUNT 132 10^3/uL (150-450); RED BLOOD COUNT 4.67 10^6/uL (4.35-5.55); RED CELL DISTRIBUTION WIDTH 18.7 % (11.5-14.0); SEGMENTED NEUTROPHILS % (AUTO) 48.2 % (42-78); TOTAL CELLS COUNTED % (AUTO) 100 %; WHITE BLOOD COUNT 6.7 10^3/uL (4.0-10.5)
[2017-06-02 05:31] LABS: ANION GAP 13 (5-19); BLOOD UREA NITROGEN 8 mg/dL (7-20); CALCIUM 9.3 mg/dL (8.4-10.2); CARBON DIOXIDE 25 mmol/L (22-30); CHLORIDE 103 mmol/L (98-107); GLUCOSE 107 mg/dL (75-110); POTASSIUM 3.8 mmol/L (3.6-5.0); SODIUM 140.8 mmol/L (137-145)
[2017-06-02] MEDS: SUCRALFATE SUSP 1 GM/10 ML UDCUP PO SCH ×4 (09:33→21:20)
[2017-06-02] MEDS: FAMOTIDINE INJ/PF 20 MG/2 ML SDV IV SCH ×2 (09:34→21:20)
[2017-06-02] MEDS: THIAMINE HCL 100 MG TABLET PO SCH (09:34)
[2017-06-02] MEDS: FOLIC ACID 1 MG TABLET PO SCH (09:34)
[2017-06-02] MEDS: MULTIVITAMIN TABLET PO SCH (09:35)
[2017-06-02] MEDS: DEXTROSE 5%-1/2 NORMAL SALINE 1,000 ML IV PRN (09:35)
[2017-06-02] MEDS: OXYCODONE-ACETAMINOPHEN 5-325 MG TABLET PO PRN ×2 (12:17→21:20)
--- NOTE | 2017-06-02 15:23 | PDOC PROGRESS REPORT ---
Subjective Progress Note for:: 06/02/17 Subjective:: Patient is a 30-year-old man with history of EtOH abuse admitted on May 30, 2017 with acute pancreatitis. His diet has been advanced as tolerated. He continues to report abdominal pain but with improvement. He seems to be confused during my round as he could not tell me that he was in hospital but he answers questions appropriately. No report of nausea nor vomiting. Reason For Visit: ACUTE PANCREATITIS Physical Exam Vital Signs: Temp Pulse Resp BP Pulse Ox 97.9 F 88 17 140/93 H 99 06/02/17 11:21 06/02/17 11:21 06/02/17 11:21 06/02/17 11:21 06/02/17 11:21 Intake & Output 06/01/17 06/02/17 06/03/17 06:59 06:59 06:59 Intake Total 4018 3415 Output Total 950 1100 Balance 3068 2315 Weight 88 kg 90 kg General appearance: PRESENT: no acute distress Head exam: PRESENT: atraumatic, normocephalic Eye exam: PRESENT: EOMI Mouth exam: PRESENT: moist, neck supple Neck exam: PRESENT: full ROM Respiratory exam: PRESENT: clear to auscultation hannah, unlabored Cardiovascular exam: PRESENT: RRR GI/Abdominal exam: PRESENT: normal bowel sounds, soft, tenderness Rectal exam: PRESENT: deferred Extremities exam: PRESENT: full ROM Musculoskeletal exam: PRESENT: full ROM Neurological exam: PRESENT: alert, awake, oriented to person, oriented to time. ABSENT: oriented to place Psychiatric exam: PRESENT: appropriate affect Skin exam: PRESENT: dry, intact Results Laboratory Results: 06/02/17 04:43 06/02/17 04:43 06/02/17 06/02/17 04:43 04:43 WBC 6.7 RBC 4.67 Hgb 12.2 L Hct 36.7 L MCV 79 L MCH 26.2 L MCHC 33.3 RDW 18.7 H Plt Count 132 L Seg Neutrophils % 48.2 Lymphocytes % 33.9 Monocytes % 9.8 Eosinophils % 7.6 H Basophils % 0.5 Absolute Neutrophils 3.2 Absolute Lymphocytes 2.3 Absolute Monocytes 0.7 Absolute Eosinophils 0.5 Absolute Basophils 0.0 Sodium 140.8 Potassium 3.8 Chloride 103 Carbon Dioxide 25 Anion Gap 13 BUN 8 Creatinine 0.63 Est GFR ( Amer) > 60 Est GFR (Non-Af Amer) > 60 Glucose 107 Calcium 9.3 Impressions: Chest X-Ray 05/30/17 05:44 IMPRESSION: No acute cardiopulmonary findings. Assessment & Plan - Diagnosis (1) Acute alcoholic pancreatitis Qualifiers: Acute pancreatitis complication: unspecified Qualified Code(s): K85.20 - Alcohol induced acute pancreatitis without necrosis or infection Is this a current diagnosis for this admission?: Yes Plan: His diet has been advanced as tolerated. This is likely acute on chronic. Pain management (2) Abdominal pain Qualifiers: Abdominal location: generalized Qualified Code(s): R10.84 - Generalized abdominal pain Is this a current diagnosis for this admission?: Yes Plan: Seems to be improving. (3) ETOH abuse Is this a current diagnosis for this admission?: Yes Plan: On scheduled Ativan and as needed No sign of withdrawal and follow up (4) Leukocytosis Qualifiers: Leukocytosis type: unspecified Qualified Code(s): D72.829 - Elevated white blood cell count, unspecified Is this a current diagnosis for this admission?: Yes Plan: Resolved (5) Seizure disorder Is this a current diagnosis for this admission?: Yes Plan: Continue Depakote (6) DVT prophylaxis Is this a current diagnosis for this admission?: Yes Plan: SCD's
[2017-06-02] MEDS: DIVALPROEX SODIUM 500 MG TAB.SR.24H PO SCH (21:20)
[2017-06-03] MEDS: LORAZEPAM INJ 2 MG/1 ML VIAL IV SCH ×2 (00:11→03:35)
[2017-06-03] MEDS: PROMETHAZINE HCL INJ 25 MG/1 ML VIAL IV PRN (03:51)
[2017-06-03] MEDS: LORAZEPAM 1 MG TABLET PO SCH ×3 (05:26→21:30)
[2017-06-03] MEDS ORDERED: LORAZEPAM INJ 2 MG/1 ML VIAL IV PRN (07:55)
[2017-06-03] MEDS: SUCRALFATE SUSP 1 GM/10 ML UDCUP PO SCH ×4 (08:09→21:30)
[2017-06-03] MEDS: OXYCODONE-ACETAMINOPHEN 5-325 MG TABLET PO PRN ×3 (09:39→22:27)
[2017-06-03] MEDS: FAMOTIDINE INJ/PF 20 MG/2 ML SDV IV SCH ×2 (09:39→21:31)
[2017-06-03] MEDS: ONDANSETRON HCL INJ/PF 4 MG/2 ML SDV IV PRN ×2 (09:39→16:03)
[2017-06-03] MEDS: FOLIC ACID 1 MG TABLET PO SCH (09:40)
[2017-06-03] MEDS: MULTIVITAMIN TABLET PO SCH (09:40)
[2017-06-03] MEDS: THIAMINE HCL 100 MG TABLET PO SCH (09:40)
--- NOTE | 2017-06-03 16:38 | PDOC PROGRESS REPORT ---
Subjective Progress Note for:: 06/03/17 Subjective:: Patient is a 30-year-old man with history of EtOH abuse admitted on May 30, 2017 with acute pancreatitis. He has been on a regular diet. He continues to report abdominal pain this am. He seems to be more appropriate this am, but per nursing reports she was very confused ON. Called his mother early today and it went to voicemail. Reason For Visit: ACUTE PANCREATITIS Physical Exam Vital Signs: Temp Pulse Resp BP Pulse Ox 98.7 F 87 17 144/96 H 98 06/03/17 11:18 06/03/17 11:18 06/03/17 11:18 06/03/17 11:18 06/03/17 11:18 Intake & Output 06/02/17 06/03/17 06/04/17 06:59 06:59 06:59 Intake Total 3415 1305 Output Total 1100 Balance 2315 1305 Weight 90 kg 87.5 kg General appearance: PRESENT: no acute distress, cooperative Head exam: PRESENT: atraumatic, normocephalic Eye exam: PRESENT: EOMI Mouth exam: PRESENT: moist Neck exam: PRESENT: full ROM Respiratory exam: PRESENT: clear to auscultation hannah, unlabored Cardiovascular exam: PRESENT: RRR GI/Abdominal exam: PRESENT: normal bowel sounds, soft Rectal exam: PRESENT: deferred Extremities exam: PRESENT: full ROM Neurological exam: PRESENT: alert, awake, oriented to person, oriented to situation Psychiatric exam: PRESENT: anxious Skin exam: PRESENT: dry, intact Results Laboratory Results: 06/02/17 04:43 06/02/17 04:43 Impressions: Chest X-Ray 05/30/17 05:44 IMPRESSION: No acute cardiopulmonary findings. Assessment & Plan - Diagnosis (1) Acute alcoholic pancreatitis Qualifiers: Acute pancreatitis complication: unspecified Qualified Code(s): K85.20 - Alcohol induced acute pancreatitis without necrosis or infection Is this a current diagnosis for this admission?: Yes Plan: This is likely acute on chronic.Pain management (2) Abdominal pain Qualifiers: Abdominal location: generalized Qualified Code(s): R10.84 - Generalized abdominal pain Is this a current diagnosis for this admission?: Yes Plan: Seems to be improving. (3) ETOH abuse Is this a current diagnosis for this admission?: Yes Plan: On scheduled Ativan and as needed No sign of withdrawal and follow up Periods of confusion at times (4) Leukocytosis Qualifiers: Leukocytosis type: unspecified Qualified Code(s): D72.829 - Elevated white blood cell count, unspecified Is this a current diagnosis for this admission?: Yes Plan: Resolved (5) Seizure disorder Is this a current diagnosis for this admission?: Yes Plan: Continue Depakote (6) DVT prophylaxis Is this a current diagnosis for this admission?: Yes Plan: SCD's - Time Time Spent with patient: 15-24 minutes Within: within 24 hours
[2017-06-03] MEDS: DIVALPROEX SODIUM 500 MG TAB.SR.24H PO SCH (21:30)
[2017-06-04] MEDS: OXYCODONE-ACETAMINOPHEN 5-325 MG TABLET PO PRN (04:23)
[2017-06-04] MEDS: LORAZEPAM 1 MG TABLET PO SCH (05:42)
[2017-06-04] MEDS ORDERED: LORAZEPAM 1 MG TABLET PO PRN (08:13)
[2017-06-04] MEDS ORDERED: ONDANSETRON HCL INJ/PF 4 MG/2 ML SDV IV PRN (09:00)
[2017-06-04] MEDS ORDERED: FAMOTIDINE 20 MG TABLET PO SCH (10:00)
[2017-06-04] MEDS ORDERED: LORAZEPAM 1 MG TABLET PO SCH (10:00)
[2017-06-04] MEDS: SUCRALFATE SUSP 1 GM/10 ML UDCUP PO SCH ×2 (10:15→12:41)
[2017-06-04] MEDS: MULTIVITAMIN TABLET PO SCH (10:15)
[2017-06-04] MEDS: FOLIC ACID 1 MG TABLET PO SCH (10:15)
[2017-06-04] MEDS: THIAMINE HCL 100 MG TABLET PO SCH (10:16)
--- NOTE | 2017-06-04 11:59 | PDOC DISCHARGE SUMMARY ---
General - Admit/Disc Date/PCP Admission Date/Primary Care Provider: 05/30/17 08:21 Discharge Date: 06/04/17 - Discharge Diagnosis (1) Acute alcoholic pancreatitis Is this a current diagnosis for this admission?: Yes (2) Abdominal pain Is this a current diagnosis for this admission?: Yes (3) ETOH abuse Is this a current diagnosis for this admission?: Yes (4) Leukocytosis Is this a current diagnosis for this admission?: Yes (5) Seizure disorder Is this a current diagnosis for this admission?: Yes (6) DVT prophylaxis Is this a current diagnosis for this admission?: Yes - Additional Information Resuscitation Status: Full Code Prescriptions: Famotidine [Pepcid 20 mg Tablet] 20 mg PO Q12 #60 tablet Folic Acid [Folvite 1 mg Tablet] 1 mg PO DAILY #30 tablet Lorazepam [Ativan 1 mg Tablet] 1 mg PO Q6HP PRN 2 Days #8 tablet PRN Reason: Multivitamin [Tab-A-Anthony (Multiple Vitamin) Tablet] 1 tab PO DAILY #30 tablet Ondansetron HCl [Zofran 4 mg Tablet] 1 - 2 tab PO Q4H PRN 30 Days #60 tablet PRN Reason: Oxycodone HCl/Acetaminophen [Percocet 5-325 mg Tablet] 1 tab PO Q6HP PRN 2 Days #8 tablet PRN Reason: Thiamine HCl [Thiamine 100 mg Tablet] 100 mg PO DAILY #30 tablet Home Medications: Divalproex Sodium [Divalproex Sodium ER] 500 mg PO QHS 05/30/17 Doxepin HCl 50 mg PO HSP PRN 05/30/17 Famotidine [Pepcid 20 mg Tablet] 20 mg PO Q12 #60 tablet 06/04/17 Folic Acid [Folvite 1 mg Tablet] 1 mg PO DAILY #30 tablet 06/04/17 Lorazepam [Ativan 1 mg Tablet] 1 mg PO Q6HP PRN 2 Days #8 tablet 06/04/17 Multivitamin [Tab-A-Anthony (Multiple Vitamin) Tablet] 1 tab PO DAILY #30 tablet Ondansetron HCl [Zofran 4 mg Tablet] 1 - 2 tab PO Q4H PRN 30 Days #60 tablet 11/14 Oxycodone HCl/Acetaminophen [Percocet 5-325 mg Tablet] 1 tab PO Q6HP PRN 2 Days #8 tablet 06/04/17 Thiamine HCl [Thiamine 100 mg Tablet] 100 mg PO DAILY #30 tablet 06/04/17 History of Present Illness History of Present Illness: JAIME NUNEZ is a 31 year old male. He was actually seen in the ER yesterday for same he apparently just returned from a [place] [facility] alcohol withdrawal program. Unfortunately patient just started drinking right after. He went back home yesterday and apparently also vomited some bloody vomitus. He denies any black stools although he did have some epigastric and upper quadrant pain. Patient gives prior history of ulcers although he denies being told that his had varices before. He has been drinking since he was 18 years old and he drinks about 2 pints of vodka daily. Last drink was about 24 hours ago. Today his lipase is noted to be elevated and with discontinuing abdominal pain he has been admitted for further evaluation and management. Hospital Course Hospital Course: Patient is a 31-year-old man with history of alcohol dependence presented to the hospital on May 30, 2017 with complaint of abdominal pain. Patient was treated for acute pancreatitis. Initially started on a bowel rest and his diet was advanced as tolerated. He was also placed on Ativan for concern for possible withdrawal. The last 48 hours is much improved but not as confused. Seen and examined this morning and he reports intermittent pain. Being discharged home with his mother. He is also been referred to rehab alcohol withdrawal program. Physical Exam Vital Signs: Temp Pulse Resp BP Pulse Ox 98.7 F 87 16 126/78 H 98 06/04/17 07:43 06/04/17 07:43 06/04/17 07:43 06/04/17 07:43 06/04/17 07:43 Intake & Output 06/03/17 06/04/17 06/05/17 06:59 06:59 06:59 Intake Total 1305 950 Balance 1305 950 Weight 87.5 kg 86.4 kg General appearance: PRESENT: no acute distress, well-nourished Head exam: PRESENT: atraumatic, normocephalic Eye exam: PRESENT: EOMI Mouth exam: PRESENT: moist, neck supple Respiratory exam: PRESENT: chest wall tenderness, unlabored Cardiovascular exam: PRESENT: RRR GI/Abdominal exam: PRESENT: normal bowel sounds, soft Rectal exam: PRESENT: deferred Extremities exam: PRESENT: full ROM Musculoskeletal exam: PRESENT: ambulatory Neurological exam: PRESENT: alert, oriented to person, oriented to time, oriented to situation, reflexes normal Psychiatric exam: PRESENT: appropriate affect Skin exam: PRESENT: dry, warm Results Laboratory Results: 06/02/17 04:43 06/02/17 04:43 Impressions: Chest X-Ray 05/30/17 05:44 IMPRESSION: No acute cardiopulmonary findings. Qualifiers - * PATEINT BEING DISCHARGED WITH ANY OF THE FOLLOWING DIAGNOSIS?: No VTE patient discharged on overlapping Therapy?: Yes Plan Time Spent: Less than 30 Minutes
[2017-06-04 12:47] VITALS: BP 140/95
== END 2017-06-04 13:20 | disposition home or self-care (01) | DRG 439 ==
LOC: ER 05:04 → EH 08:21 → 4N 14:30
PROVIDERS: ADMIT Internal Medicine; ATTEND Internal Medicine
DX: K85.20 Alcohol induced acute pancreatitis without necrosis or infection (principal); F10.288 Alcohol dependence with other alcohol-induced disorder; R65.10 Systemic inflammatory response syndrome (SIRS) of non-infectious origin without acute organ dysfunction; K70.10 Alcoholic hepatitis without ascites; I10 Essential (primary) hypertension; K21.9 Gastro-esophageal reflux disease without esophagitis; G40.909 Epilepsy, unspecified, not intractable, without status epilepticus; Y90.0 Blood alcohol level of less than 20 mg/100 ml
CPT/HCPCS: 36415; 71046; 80048; 80053; 80307; 82272; 82550; 82553; 83690; 84484; 85025; 85027; 86850; 86900; 86901; 93005; 93010; 96361; 96374; 96375; 99285; J1170; J2060; J2405; J2550; J3490; J7030; S0028

== ENCOUNTER 2017-08-16 06:57 | Emergency (ER) | payer SELFPAY ==
[2017-08-16] MEDS ORDERED: ONDANSETRON HCL INJ/PF 4 MG/2 ML SDV IV ONE (07:33)
[2017-08-16] MEDS ORDERED: NORMAL SALINE 1000 ML 1,000 ML IV ONE (07:33)
--- NOTE | 2017-08-16 07:33 | ER Document Report ---
ED GI/ - General Mode of Arrival: Ambulatory Information source: Patient TRAVEL OUTSIDE OF THE [place] IN LAST 30 DAYS: No <CHINO SELBY - Last Filed: 08/16/17 08:30> <CHRISSY RICH - Last Filed: 08/16/17 10:29> - General Chief Complaint: Chest Pain Stated Complaint: CHEST PAIN Time Seen by Provider: 08/16/17 07:26 Notes: Patient is a 32-year-old male with past medical history significant for alcoholic hepatitis and multiple episodes of alcoholic pancreatitis who presents to the emergency department today with complaints of "I think I have pancreatitis again". Patient has been drinking heavily as he does frequently. Patient states his last EtOH consumption was yesterday at around lunchtime. Patient states he has had vomiting with his abdominal pain. (CHINO SELBY) - Related Data Allergies/Adverse Reactions: No Known Allergies Allergy (Verified 08/16/17 08:50) Past Medical History - General Information source: Patient - Social History Smoking Status: Current Every Day Smoker Cigarette use (# per day): Yes Frequency of alcohol use: Heavy Drug Abuse: None Lives with: Family Family History: CAD, COPD - Past Medical History Cardiac Medical History: Reports: Hx Hypertension Neurological Medical History: Reports: Hx Seizures - 6-7 weeks ago GI Medical History: Reports: Hx Gastroesophageal Reflux Disease, Hx Hepatitis - alcoholic hepatitis, Hx Pancreatitis - alcoholic Psychiatric Medical History: Reports: Hx Depression Infectious Medical History: Reports: Hx Hepatitis - alcoholic hepatitis Past Surgical History: Reports: Hx Genitourinary Surgery - vasectomy, Hx Nose Surgery - bilateral: maxillary antrostomy, sphenoidotomy, ethmoidectomy - Immunizations Hx Diphtheria, Pertussis, Tetanus Vaccination: Yes <CHINO SELBY - Last Filed: 08/16/17 08:30> Review of Systems - Review of Systems Constitutional: No symptoms reported EENT: No symptoms reported Cardiovascular: No symptoms reported Respiratory: No symptoms reported Gastrointestinal: See HPI, Abdominal pain, Vomiting Genitourinary: No symptoms reported Male Genitourinary: No symptoms reported Musculoskeletal: No symptoms reported Skin: No symptoms reported Hematologic/Lymphatic: No symptoms reported Neurological/Psychological: No symptoms reported -: Yes All other systems reviewed and negative <CHINO SELBY - Last Filed: 08/16/17 08:30> Physical Exam <CHINO SELBY - Last Filed: 08/16/17 08:30> <CHRISSY RICH - Last Filed: 08/16/17 10:29> - Vital signs Vitals: Temp Pulse Resp BP Pulse Ox 97.6 F 106 H 18 151/91 H 97 08/16/17 07:05 08/16/17 07:05 08/16/17 07:05 08/16/17 07:05 08/16/17 07:05 - Notes Notes: Physical Exam: General: Alert, appears uncomfortable. HEENT: Normocephalic. Atraumatic. PERRL. Extraocular movements intact. Oropharynx clear. Neck: Supple. Non-tender. Respiratory: No respiratory distress. Clear and equal breath sounds bilaterally. Cardiovascular: Regular rate and rhythm. Abdominal: Epigastric tenderness with palpation. No distension. Normal Bowel Sounds. Back: Non-tender. No deformity or step off. Extremities: Moves all four extremities. Upper extremities: Normal inspection. Normal ROM. Lower extremities: Normal inspection. No edema. Normal ROM. Neurological: Normal cognition. AAOx4. Normal speech. Psychological: Appears anxious. Skin: Warm. Dry. Normal color. (CHINO SELBY) Course <SOLA,CHINO - Last Filed: 08/16/17 08:30> - Laboratory Result Diagrams: 08/16/17 08:20 08/16/17 08:20 <CHRISSY RICH - Last Filed: 08/16/17 10:29> - Re-evaluation Re-evalutation: 08/16/17 10:27 I reviewed the laboratory findings with the patient showing a very low lipase today compared to lipases in the thousands on most visits. I informed him that this is more likely alcoholic gastritis today. Also showed that the alcohol level over 100 would suggest that he was not honest about when his last drink was at 1 PM yesterday. Review of records shows he filled a prescription for Percocet 07/31/2017. This was written by a hospitalist that works at several nearby facilities. He was last discharged from this facility on 07/05/2017. (CHRISSY RICH) - Vital Signs Vital signs: Temp Pulse Resp BP Pulse Ox 97.6 F 106 H 18 151/91 H 97 08/16/17 07:05 08/16/17 07:05 08/16/17 07:05 08/16/17 07:05 08/16/17 07:05 - Laboratory Laboratory results interpreted by me: 08/16/17 08/16/17 08/16/17 08:20 08:20 09:40 Hgb 12.3 L Hct 37.4 L RDW 18.0 H Sodium 145.2 H Urine Glucose (UA) 50 H Discharge <CHINO SELBY - Last Filed: 08/16/17 08:30> <CHRISSY RICH - Last Filed: 08/16/17 10:29> - Discharge Clinical Impression: Alcoholic gastritis Qualifiers: Chronicity: acute Gastritis bleeding: without bleeding Qualified Code(s): K29.20 - Alcoholic gastritis without bleeding Alcohol intoxication Qualifiers: Complication of substance-induced condition: with unspecified complication Qualified Code(s): F10.929 - Alcohol use, unspecified with intoxication, unspecified Condition: Stable Disposition: HOME, SELF-CARE Additional Instructions: Gastritis You have an inflammation of the stomach called gastritis. This commonly causes upper abdominal pain, nausea, and vomiting. In severe cases, bleeding of the stomach lining can occur. Gastritis can be caused by bacteria or viruses , alcohol, or stomach-irritating drugs. Begin with sips of clear liquids. Take increasing amounts of fluid over the first 24 hours. Then start small amounts of bland foods (such as dry toast , applesauce, mashed potato). Gradually resume your usual diet. You should take antacids every two hours until the pain has subsided. Acid -suppressing drugs may be prescribed as well. Avoid aspirin, caffeine, tobacco , and alcohol. If the abdominal pain worsens, or there is evidence of major bleeding in the stomach (such as black, tarry stool, bloody or black vomit, or lightheadedness), you should return immediately. Call the doctor if you aren't improved in 24 to 36 hours. You do not have pancreatitis today. Your lipase level was very low today. You most likely have alcoholic gastritis. Take Prilosec OTC once daily. Take antacids between meals and at bedtime. Avoid irritating foods and liquids. Follow-up with a local medical doctor this week if not improving. RETURN TO THE EMERGENCY ROOM IF ANY NEW OR WORSENING SYMPTOMS. Scribe Attestation: 08/16/17 08:44 I personally performed the services described in the documentation, reviewed and edited the documentation which was dictated to the scribe in my presence, and it accurately records my words and actions. (CHRISSY RICH) Scribe Documentation - Scribe Written by Marin:: Marin Arroyo, 08/16/2017 0831 acting as scribe for :: Ramon <CHINO SELBY - Last Filed: 08/16/17 08:30>
[2017-08-16] MEDS ORDERED: HYDROMORPHONE HCL INJ/PF 2 MG/ML AMPULE IV ONE (07:34)
[2017-08-16] MEDS ORDERED: PANTOPRAZOLE SODIUM 40 MG VIAL IV ONE (07:34)
[2017-08-16 08:39] LABS: ABSOLUTE EOSINOPHILS # (AUTO) 0.3 10^3/uL (0.0-0.6); ABSOLUTE LYMPHOCYTES (AUTO) 1.9 10^3/uL (0.5-4.7); ABSOLUTE MONOCYTES (AUTO) 0.3 10^3/uL (0.1-1.4); ABSOLUTE NEUT (AUTO) 3.4 10^3/uL (1.7-8.2); BASOPHILS % (AUTO) 0.6 % (0-2); EOSINOPHILS % (AUTO) 4.4 % (0-6); HEMATOCRIT 37.4 % (37.9-51.0); HEMOGLOBIN 12.3 g/dL (13.5-17.0); LYMPHOCYTES % (AUTO) 31.4 % (13-45); MEAN CORPUSCULAR HEMOGLOBIN 27.3 pg (27.0-33.4); MEAN CORPUSCULAR VOLUME 83 fl (80-97); MONOCYTES % (AUTO) 5.9 % (3-13); PLATELET COUNT 291 10^3/uL (150-450); RED BLOOD COUNT 4.53 10^6/uL (4.35-5.55); SEGMENTED NEUTROPHILS % (AUTO) 57.7 % (42-78); TOTAL CELLS COUNTED % (AUTO) 100 %; WHITE BLOOD COUNT 5.9 10^3/uL (4.0-10.5)
[2017-08-16 08:57] LABS: ALANINE AMINOTRANSFERASE 23 U/L (21-72); ALCOHOL 103 mg/dL (NONE DETECTED); ALKALINE PHOSPHATASE 79 U/L (38-126); ANION GAP 13 (5-19); ASPARTATE AMINO TRANSFERASE 29 U/L (17-59); BILIRUBIN,DIRECT 0.2 mg/dL (0.0-0.4); BILIRUBIN,TOTAL 0.2 mg/dL (0.2-1.3); BLOOD UREA NITROGEN 13 mg/dL (7-20); CALCIUM 9.3 mg/dL (8.4-10.2); CARBON DIOXIDE 25 mmol/L (22-30); CHLORIDE 107 mmol/L (98-107); CREATINE KINASE 71 U/L (55-170); GLUCOSE 94 mg/dL (75-110); LIPASE 88.9 U/L (23-300); POTASSIUM 3.8 mmol/L (3.6-5.0); SODIUM 145.2 mmol/L (137-145); TOTAL PROTEIN 6.9 g/dL (6.3-8.2)
[2017-08-16] MEDS ORDERED: LIDOCAINE 2% VISCOUS SOLN 20 ML UDCUP PO ONE (09:08)
[2017-08-16] MEDS ORDERED: MAG HYDROX/AL HYDROX/SIMETH SUSP 30 ML UDCUP PO ONE (09:08)
[2017-08-16] MEDS ORDERED: MAG HYDROX/AL HYDROX/SIMETH SUSP 30 ML UDCUP ONE (09:59)
[2017-08-16 10:06] LABS: APPEARANCE,URINE CLEAR; BILIRUBIN,URINE NEGATIVE (NEGATIVE); COLOR,URINE YELLOW; GLUCOSE, URINE 50 mg/dL (NEGATIVE); KETONES,URINE NEGATIVE (NEGATIVE); LEUKOCYTE ESTERASE,URINE NEGATIVE (NEGATIVE); NITRITE,URINE NEGATIVE (NEGATIVE); PROTEIN,URINE NEGATIVE (NEGATIVE); URINE SPECIFIC GRAVITY 1.023; UROBILINOGEN,URINE NEGATIVE mg/dL (<2.0)
[2017-08-16] MEDS ORDERED: ONDANSETRON ODT 4 MG TAB (6 TAB/ER DISP) PO PRN (10:17)
[2017-08-16 10:37] VITALS: BP 146/99
--- NOTE | 2017-08-16 16:20 | EKG REPORT ---
SEVERITY:- ABNORMAL ECG - SINUS TACHYCARDIA PROLONGED QT INTERVAL : Confirmed by: Lawson Finley 16-Aug-2017 16:20:11
== END 2017-08-16 10:43 | disposition home or self-care (01) ==
LOC: ER 06:57
DX: K29.20 Alcoholic gastritis without bleeding (principal); R07.9 Chest pain, unspecified; R11.10 Vomiting, unspecified; F10.929 Alcohol use, unspecified with intoxication, unspecified; F17.210 Nicotine dependence, cigarettes, uncomplicated; I10 Essential (primary) hypertension
CPT/HCPCS: 93005; 99284; 96361; 96374; 96375; 36415; 80307; 82550; 83690; 85025; 80053; 81001; 93010; J3490; J1170; S0164; J2405; J7030

== ENCOUNTER 2017-08-22 08:44 | Emergency (ER) | payer SELFPAY ==
[2017-08-22] MEDS ORDERED: PANTOPRAZOLE SODIUM 40 MG VIAL IV ONE (08:57)
[2017-08-22] MEDS ORDERED: NORMAL SALINE 1000 ML 1,000 ML IV ONE ×4 (08:57→10:05)
[2017-08-22] MEDS ORDERED: NORMAL SALINE 500 ML with OCTREOTIDE ACETATE 500 MCG IV PRN ×2 (09:02)
[2017-08-22] MEDS ORDERED: OCTREOTIDE ACETATE INJ/PF 100 MCG/1 ML SDV IV ONE (09:03)
[2017-08-22] MEDS ORDERED: PROMETHAZINE HCL INJ 25 MG/1 ML VIAL IV ONE (09:03)
[2017-08-22] MEDS: PANTOPRAZOLE SODIUM 40 MG VIAL IV PRN ×2 (09:20→11:00)
[2017-08-22 09:22] LABS: ABSOLUTE LYMPHOCYTES (AUTO) 1.2 10^3/uL (0.5-4.7); ABSOLUTE MONOCYTES (AUTO) 0.6 10^3/uL (0.1-1.4); ABSOLUTE NEUT (AUTO) 14.5 10^3/uL (1.7-8.2); BASOPHILS % (AUTO) 0.3 % (0-2); HEMATOCRIT 37.3 % (37.9-51.0); HEMOGLOBIN 12.1 g/dL (13.5-17.0); LYMPHOCYTES % (AUTO) 7.1 % (13-45); MEAN CORPUSCULAR HEMOGLOBIN 27.3 pg (27.0-33.4); MEAN CORPUSCULAR HGB CONC 32.5 g/dL (32.0-36.0); MEAN CORPUSCULAR VOLUME 84 fl (80-97); MONOCYTES % (AUTO) 3.6 % (3-13); PLATELET COUNT 242 10^3/uL (150-450); RED BLOOD COUNT 4.45 10^6/uL (4.35-5.55); RED CELL DISTRIBUTION WIDTH 18.7 % (11.5-14.0); TOTAL CELLS COUNTED % (AUTO) 100 %; WHITE BLOOD COUNT 16.3 10^3/uL (4.0-10.5)
[2017-08-22 09:35] LABS: INTERNATIONAL RATION (INR) 1.06; PARTIAL THROMBOPLASTIN TIME 27.9 SEC (23.5-35.8); PROTHROMBIN TIME 14.3 SEC (11.4-15.4)
[2017-08-22 09:42] LABS: ALANINE AMINOTRANSFERASE 17 U/L (21-72); ALBUMIN 4.6 g/dL (3.5-5.0); ALCOHOL 265 mg/dL (NONE DETECTED); ALKALINE PHOSPHATASE 62 U/L (38-126); ASPARTATE AMINO TRANSFERASE 34 U/L (17-59); BILIRUBIN,DIRECT 0.3 mg/dL (0.0-0.4); BILIRUBIN,TOTAL 0.7 mg/dL (0.2-1.3); BLOOD UREA NITROGEN 33 mg/dL (7-20); CALCIUM 8.3 mg/dL (8.4-10.2); GLUCOSE 237 mg/dL (75-110); LIPASE 286.4 U/L (23-300); POTASSIUM 3.8 mmol/L (3.6-5.0); TOTAL PROTEIN 7.1 g/dL (6.3-8.2)
[2017-08-22 09:46] LABS: CHLORIDE 97 mmol/L (98-107); SODIUM 139.1 mmol/L (137-145)
[2017-08-22 09:51] LABS: ACETAMINOPHEN < 10 ug/mL (10-30); SALICYLATE < 1.0 mg/dL (2.0-20.0)
[2017-08-22 09:52] LABS: ANION GAP 33 (5-19)
[2017-08-22 09:53] LABS: CARBON DIOXIDE 9 mmol/L (22-30)
[2017-08-22] MEDS ORDERED: ERTAPENEM SODIUM INJ 1 GM VIAL IV ONE (10:06)
[2017-08-22] MEDS ORDERED: DIPHENHYDRAMINE HCL 50 MG/ML VIAL IV ONE ×2 (10:13→10:43)
[2017-08-22] MEDS ORDERED: METOCLOPRAMIDE HCL INJ/PF 10 MG/2 ML SDV IV ONE (10:13)
[2017-08-22] MEDS ORDERED: MORPHINE SULFATE 10 MG/ML INJ IV ONE ×2 (10:13→11:55)
[2017-08-22] MEDS ORDERED: HALOPERIDOL LACTATE INJ 5 MG/1 ML VIAL IV ONE (10:43)
--- NOTE | 2017-08-22 10:43 | ER Document Report ---
ED General - General Chief Complaint: Nausea/Vomiting Stated Complaint: VOMITING BLOOD Time Seen by Provider: 08/22/17 08:56 TRAVEL OUTSIDE OF THE [place] IN LAST 30 DAYS: No - HPI Patient complains to provider of: Hematemesis Notes: Patient coming in vomiting blood just prior to evaluation. Patient has a history of chronic alcoholism with history of esophageal varices alcoholic pancreatitis. Patient seen in triage with a basin full of bright red blood. Patient was brought directly back to the main ER. Upon evaluation patient states he has not had anything to drink in the last 6 days patient states he has gone through alcohol withdrawals in the past. Patient denies any anti- inflammatory medication use denies any blood thinning medications. Patient is significantly tachycardic with a heart rate of 140 however blood pressure shows systolic of 120-130. Patient does not initially complain of any pain however as her initial evaluation complaining of epigastric abdominal pain. States that he has been evaluated before for esophageal varices at [facility] - Related Data Allergies/Adverse Reactions: No Known Allergies Allergy (Verified 08/16/17 08:50) Past Medical History - Social History Smoking Status: Unknown if Ever Smoked Family History: CAD, COPD - Past Medical History Cardiac Medical History: Reports: Hx Hypertension Denies: Hx Heart Attack Pulmonary Medical History: Denies: Hx Asthma, Hx Tuberculosis Neurological Medical History: Reports: Hx Seizures - 6-7 weeks ago. Denies: Hx Cerebrovascular Accident Renal/ Medical History: Denies: Hx Peritoneal Dialysis GI Medical History: Reports: Hx Gastroesophageal Reflux Disease, Hx Hepatitis - alcoholic hepatitis, Hx Pancreatitis - alcoholic. Denies: Hx Hiatal Hernia, Hx Ulcer Psychiatric Medical History: Reports: Hx Depression Infectious Medical History: Reports: Hx Hepatitis - alcoholic hepatitis Past Surgical History: Reports: Hx Genitourinary Surgery - vasectomy, Hx Nose Surgery - bilateral: maxillary antrostomy, sphenoidotomy, ethmoidectomy. Denies : Hx Open Heart Surgery, Hx Pacemaker - Immunizations Hx Diphtheria, Pertussis, Tetanus Vaccination: Yes Review of Systems - Review of Systems Constitutional: No symptoms reported EENT: No symptoms reported Cardiovascular: No symptoms reported Respiratory: No symptoms reported Gastrointestinal: Blood in vomit Genitourinary: No symptoms reported Male Genitourinary: No symptoms reported Musculoskeletal: No symptoms reported Skin: No symptoms reported Hematologic/Lymphatic: No symptoms reported Neurological/Psychological: No symptoms reported -: Yes All other systems reviewed and negative Physical Exam - Vital signs Vitals: Resp BP 24 H 141/85 H 08/22/17 08:56 08/22/17 08:56 Interpretation: Normal - General General appearance: Appears well, Alert - HEENT Head: Normocephalic, Atraumatic Eyes: Normal Pupils: PERRL - Respiratory Respiratory status: No respiratory distress Chest status: Nontender Breath sounds: Normal Chest palpation: Normal - Cardiovascular Rhythm: Regular Heart sounds: Normal auscultation Murmur: No - Abdominal Inspection: Normal Distension: No distension Bowel sounds: Normal Tenderness: Tender - Mild tenderness to palpation no guarding or rebound Organomegaly: No organomegaly - Back Back: Normal, Nontender - Extremities General upper extremity: Normal inspection, Nontender, Normal color, Normal ROM , Normal temperature General lower extremity: Normal inspection, Nontender, Normal color, Normal ROM , Normal temperature, Normal weight bearing. No: Maia's sign - Neurological Neuro grossly intact: Yes Cognition: Normal Orientation: AAOx4 [place] Coma Scale Eye Opening: Spontaneous [place] Coma Scale Verbal: Oriented [place] Coma Scale Motor: Obeys Commands Elva Coma Scale Total: 15 Speech: Normal Motor strength normal: LUE, RUE, LLE, RLE Sensory: Normal - Psychological Associated symptoms: Normal affect, Normal mood - Skin Skin Temperature: Warm Skin Moisture: Dry Skin Color: Normal Course - Re-evaluation Re-evalutation: 08/22/17 10:41 Patient coming in for upper GI bleed vomiting blood. Patient also acutely intoxicated with alcohol. Patient has a history of chronic pancreatitis due to alcoholism. Laboratory studies showed right now will listen to be stable hemoglobin for the patient past admission showing hemoglobin 11 today is 12. Patient lipase is otherwise normal however does have a lactic acid of 10. Do believe is more likely due to the patient's alcohol intoxication 08/22/17 12:01 Discussed with Ed Corrigan as well as at the patient in transfer. They will do a rapid transfer is that the right capacity and is I am concerned the patient's condition will continue to worsen as that I have no other means to treat him other than medications octreotide Protonix and continue to the monitoring him. Patient continued to vomit blood and then ended up removing 2 of the 3 IVs placed and therefore because of this a central line was placed. Currently pending chest x-ray however ultrasound at bedside showed placement of the catheter within the IJ. Patient continues to remain tachycardic complaining of abdominal pain of the CT scan does not reveal any significant pathology. Patient will have a repeat CBC drawn at this time. Otherwise blood pressure remained stable. Patient also remains ANO 3 able to carry on conversation at bedside. 08/22/17 12:54 Repeat CBC on shows a 1 g drop on the patient's visit here. Transport is currently at bedside patient sitting up resting comfortably actively patient is stable for transfer at this time to tertiary care facility. - Vital Signs Vital signs: Temp Pulse Resp BP Pulse Ox 147 H 15 128/76 H 98 08/22/17 08:57 08/22/17 13:08 08/22/17 13:08 08/22/17 13:08 - Laboratory Result Diagrams: 08/22/17 11:55 08/22/17 09:00 Laboratory results interpreted by me: 08/22/17 08/22/17 08/22/17 09:00 09:00 09:00 WBC 16.3 H RBC Hgb 12.1 L Hct 37.3 L RDW 18.7 H Seg Neutrophils % 89.0 H Lymphocytes % 7.1 L Absolute Neutrophils 14.5 H Chloride 97 L Carbon Dioxide 9 L* Anion Gap 33 H BUN 33 H Glucose 237 H Lactic Acid 10.3 H Calcium 8.3 L ALT 17 L Urine Protein Urine Glucose (UA) Urine Ketones Urine Blood Salicylates < 1.0 L Acetaminophen < 10 L 08/22/17 08/22/17 08/22/17 11:55 12:43 13:00 WBC 14.0 H RBC 4.03 L Hgb 11.1 L Hct 33.4 L RDW 18.7 H Seg Neutrophils % Lymphocytes % Absolute Neutrophils Chloride Carbon Dioxide Anion Gap BUN Glucose Lactic Acid 4.7 H Calcium ALT Urine Protein 30 H Urine Glucose (UA) 150 H Urine Ketones 80 H Urine Blood SMALL H Salicylates Acetaminophen Critical Care Note - Critical Care Note Total time excluding time spent on procedures (mins): 60 Comments: Multiple evaluations for upper GI bleed more likely variceal bleed Discharge - Discharge Clinical Impression: Lactic acidosis, Esophageal varices in alcoholic cirrhosis, History of pancreatitis, Tachycardia, Upper GI bleed Alcohol intoxication Qualifiers: Complication of substance-induced condition: uncomplicated Qualified Code(s): F10.920 - Alcohol use, unspecified with intoxication, uncomplicated Condition: Fair Disposition: [facility] Referrals: SHALINI SOUTH MD [Primary Care Provider] - Follow up as needed
[2017-08-22 10:56] VITALS: BP 128/76
[2017-08-22] MEDS ORDERED: LORAZEPAM INJ 2 MG/1 ML VIAL IV ONE (10:57)
--- NOTE | 2017-08-22 11:56 | RADIOLOGY REPORT (SQ) ---
EXAM DESCRIPTION: CT ABD/PELVIS WITH IV ONLY COMPLETED DATE/TIME: 08/22/2017 11:16 am REASON FOR STUDY: lactic 10 epigastric pain COMPARISON: 07/03/2017 and 06/28/2017. TECHNIQUE: CT scan of the abdomen and pelvis performed using helical scanning technique with dynamic intravenous contrast injection. No oral contrast. Images reviewed with lung, soft tissue, and bone windows. Reconstructed coronal and sagittal MPR images reviewed. Delayed images for evaluation of the urinary system also acquired. All images stored on PACS. All CT scanners at this facility use dose modulation, iterative reconstruction, and/or weight based d osing when appropriate to reduce radiation dose to as low as reasonably achievable (ALARA). [facility]: Dose Right [facility]: CareDose [facility]: Dose Right [facility]: Teradose 4D [facility]: SERPs CONTRAST TYPE AND DOSE: contrast/concentration: Isovue 370.00 mg/ml; Total Contrast Delivered: 88.0 ml; Total Saline Delivered: 69.0 ml RENAL FUNCTION: BUN 33 creatinine 1.19. RADIATION DOSE: CT Rad equipment meets quality standard of care and radiation dose reduction techniq ues were employed. CTDIvol: 6.3 - 8.7 mGy. DLP: 821 mGy-cm.. LIMITATIONS: None. FINDINGS: LOWER CHEST: No significant findings. No nodules or infiltrates. LIVER: Normal size. Diffuse fatty infiltration. No masses. No dilated ducts. SPLEEN: Normal size. No focal lesions. PANCREAS: No masses. No significant calcifications. No adjacent inflammation or peripancreatic fluid collections. Pancreatic duct not dilated. GALLBLADDER: No identified stones by CT criteria. No inflammatory changes to suggest cholecystitis. ADRENAL GLANDS: No significant masses or asymmetry. RIGHT KIDNEY AND URETER: No solid masses. No significant calcifications. No hydronephrosis or hyd roureter. LEFT KIDNEY AND URETER: No solid masses. No significant calcifications. No hydronephrosis or hydr oureter. AORTA AND VESSELS: No aneurysm. No dissection. Renal arteries, SMA, celiac without stenosis. RETROPERITONEUM: No retroperitoneal adenopathy, hemorrhage or masses. BOWEL AND PERITONEAL CAVITY: No masses or inflammatory changes. No free fluid or peritoneal masses. APPENDIX: Normal. PELVIS: No mass. No free fluid. Normal bladder. ABDOMINAL WALL: No masses. No hernias. BONES: No significant or acute findings. OTHER: No other significant finding. IMPRESSION: FATTY INFILTRATION OF THE LIVER. NO OTHER SIGNIFICANT OR ACUTE FINDING IN THE ABDOMEN O R PELVIS ON CT SCAN WITH IV CONTRAST. TECHNICAL DOCUMENTATION: JOB ID: [id number] Quality ID # [id number]: Final reports with documentation of one or more dose reduction techniques (e.g., Au tomated exposure control, adjustment of the mA and/or kV according to patient size, use of iterative reconstruction technique) 2010 [employer]- All Rights Reserved Reading location - IP/workstation name: [email or web address]
[2017-08-22 12:15] LABS: HEMATOCRIT 33.4 % (37.9-51.0); HEMOGLOBIN 11.1 g/dL (13.5-17.0); MEAN CORPUSCULAR HEMOGLOBIN 27.7 pg (27.0-33.4); MEAN CORPUSCULAR HGB CONC 33.3 g/dL (32.0-36.0); MEAN CORPUSCULAR VOLUME 83 fl (80-97); PLATELET COUNT 197 10^3/uL (150-450); RED BLOOD COUNT 4.03 10^6/uL (4.35-5.55); RED CELL DISTRIBUTION WIDTH 18.7 % (11.5-14.0)
--- NOTE | 2017-08-22 12:19 | RADIOLOGY REPORT (SQ) ---
EXAM DESCRIPTION: CHEST SINGLE VIEW COMPLETED DATE/TIME: 08/22/2017 12:11 pm REASON FOR STUDY: s/p line COMPARISON: 05/30/2017. EXAM PARAMETERS: NUMBER OF VIEWS: One view. TECHNIQUE: Single frontal radiographic view of the chest acquired. RADIATION DOSE: NA LIMITATIONS: None. FINDINGS: LUNGS AND PLEURA: No opacities, masses or pneumothorax. No pleural effusion. MEDIASTINUM AND HILAR STRUCTURES: No masses. Contour normal. HEART AND VASCULAR STRUCTURES: Heart normal in size. Normal vasculature. BONES: No acute findings. HARDWARE: Central venous catheter with the tip at the level of the superior vena cava. OTHER: No other significant finding. IMPRESSION: SATISFACTORY POSITION OF THE CENTRAL VENOUS CATHETER. NO PNEUMOTHORAX. NO ACUTE RADIOG RAPHIC FINDING IN THE CHEST. TECHNICAL DOCUMENTATION: JOB ID: [id number] [employer]- All Rights Reserved Reading location - IP/workstation name: [email or web address]
[2017-08-22 13:27] LABS: APPEARANCE,URINE CLEAR; BILIRUBIN,URINE NEGATIVE (NEGATIVE); COLOR,URINE YELLOW; GLUCOSE, URINE 150 mg/dL (NEGATIVE); KETONES,URINE 80 mg/dL (NEGATIVE); LEUKOCYTE ESTERASE,URINE NEGATIVE (NEGATIVE); NITRITE,URINE NEGATIVE (NEGATIVE); PROTEIN,URINE 30 mg/dL (NEGATIVE); URINE SPECIFIC GRAVITY 1.049; UROBILINOGEN,URINE NEGATIVE mg/dL (<2.0)
[2017-08-22 13:33] LABS: URINE AMPHETAMINES SCREEN NEGATIVE; URINE BARBITURATES SCREEN NEGATIVE; URINE BENZODIAZEPINES SCREEN NEGATIVE; URINE COCAINE SCREEN NEGATIVE; URINE MARIJUANA (THC) SCREEN NEGATIVE; URINE METHADONE SCREEN NEGATIVE; URINE PHENCYCLIDINE SCREEN NEGATIVE
--- NOTE | 2017-08-22 16:39 | EKG REPORT ---
SEVERITY:- BORDERLINE ECG - SINUS TACHYCARDIA BORDERLINE PROLONGED QT INTERVAL DIFFUSE NONSPECIFIC ST-T CHANGES : Confirmed by: Blake Faulkner MD 22-Aug-2017 16:38:13
== END 2017-08-22 13:10 | disposition short-term general hospital (02) ==
LOC: ER 08:44
DX: K92.2 Gastrointestinal hemorrhage, unspecified (principal); K70.30 Alcoholic cirrhosis of liver without ascites; I85.10 Secondary esophageal varices without bleeding; F10.220 Alcohol dependence with intoxication, uncomplicated; E87.2 Acidosis; R00.0 Tachycardia, unspecified; I10 Essential (primary) hypertension; Z87.19 Personal history of other diseases of the digestive system
CPT/HCPCS: 93005; 96376; 99291; 96375; 96365; 96366; 96368; 86900; 86901; 36415; 87040; 86850; 80307 ×4; 83690; 85025; 85027; 85610; 85730; 87077; 80053; 81001; 87186; 83605; 71045; 74177; 93010; 36556; C1751; J1200; J1630; J1335; J2765; J2270; J2060; J2354; S0164; J2550; J7030

== ENCOUNTER 2017-09-19 03:23 | Emergency (ER) | payer SELFPAY ==
[2017-09-19] MEDS ORDERED: MORPHINE SULFATE 10 MG/ML INJ IV ONE (04:26)
[2017-09-19] MEDS ORDERED: METOCLOPRAMIDE HCL INJ/PF 10 MG/2 ML SDV IV ONE ×2 (04:26→07:18)
[2017-09-19] MEDS ORDERED: NORMAL SALINE 1000 ML 1,000 ML IV ONE ×2 (04:26→06:56)
[2017-09-19] MEDS ORDERED: DIPHENHYDRAMINE HCL 50 MG/ML VIAL IV ONE (04:26)
--- NOTE | 2017-09-19 04:28 | ER Document Report ---
ED GI/ - General Chief Complaint: Chest Pain Stated Complaint: CHEST PAIN/ABDOMINAL PAIN Time Seen by Provider: 09/19/17 04:20 Notes: Patient is a 32-year-old male comes emergency department for chief complaint of upper abdominal pain worse in the right upper abdomen and vomiting. He states he vomited 4 times today. He states he is very nauseated. He has a history of chronic alcoholism, peptic ulcers, esophageal varices, and pancreatitis. Patient denies any hematemesis, black or bloody stools, fever, difficulty breathing, pain in the chest. He denies any surgeries, denies any daily medications. Patient states he used to be on seizure medications as prophylaxis but was taken off of this, he also states that he does not get alcohol withdrawals, states he last had a drink of alcohol yesterday afternoon. TRAVEL OUTSIDE OF THE [place] IN LAST 30 DAYS: No - Related Data Allergies/Adverse Reactions: No Known Allergies Allergy (Verified 08/16/17 08:50) Past Medical History - General Information source: Patient - Social History Smoking Status: Former Smoker Frequency of alcohol use: Heavy Drug Abuse: None Lives with: Alone Family History: CAD, COPD Patient has suicidal ideation: No Patient has homicidal ideation: No - Past Medical History Cardiac Medical History: Reports: Hx Hypertension Denies: Hx Heart Attack Pulmonary Medical History: Denies: Hx Asthma, Hx Tuberculosis Neurological Medical History: Reports: Hx Seizures - 6-7 weeks ago. Denies: Hx Cerebrovascular Accident Renal/ Medical History: Denies: Hx Peritoneal Dialysis GI Medical History: Reports: Hx Gastroesophageal Reflux Disease, Hx Hepatitis - alcoholic hepatitis, Hx Pancreatitis - alcoholic. Denies: Hx Hiatal Hernia, Hx Ulcer Psychiatric Medical History: Reports: Hx Depression Infectious Medical History: Reports: Hx Hepatitis - alcoholic hepatitis Past Surgical History: Reports: Hx Genitourinary Surgery - vasectomy, Hx Nose Surgery - bilateral: maxillary antrostomy, sphenoidotomy, ethmoidectomy. Denies : Hx Open Heart Surgery, Hx Pacemaker - Immunizations Hx Diphtheria, Pertussis, Tetanus Vaccination: Yes Review of Systems - Review of Systems Constitutional: No symptoms reported EENT: No symptoms reported Cardiovascular: No symptoms reported Respiratory: No symptoms reported Gastrointestinal: See HPI Genitourinary: No symptoms reported Male Genitourinary: No symptoms reported Musculoskeletal: No symptoms reported Skin: No symptoms reported Hematologic/Lymphatic: No symptoms reported Neurological/Psychological: No symptoms reported Physical Exam - Vital signs Vitals: Temp Pulse Resp BP Pulse Ox 97.6 F 116 H 20 137/90 H 99 09/19/17 03:31 09/19/17 03:09/19/17 03:31 09/19/17 03:09/19/17 03:31 - Notes Notes: GENERAL: Alert, interacts well. Appears mildly uncomfortable HEAD: Normocephalic, atraumatic. EYES: Pupils equal, round, and reactive to light. Extraocular movements intact. ENT: Oral mucosa dry, tongue midline. NECK: Full range of motion. Supple. Trachea midline. LUNGS: Clear to auscultation bilaterally, no wheezes, rales, or rhonchi. No respiratory distress. HEART: Regular rate and rhythm. No murmur ABDOMEN: Mild upper abdominal tenderness (generalized). Non-distended. Bowel sounds present in all 4 quadrants. No guarding EXTREMITIES: Moves all 4 extremities spontaneously. No edema, normal radial and dorsalis pedis pulses bilaterally. No cyanosis. BACK: no cervical, thoracic, lumbar midline tenderness. No saddle anesthesia, normal distal neurovascular exam. NEUROLOGICAL: Alert and oriented x3. Normal speech. [cranial nerves II through XII grossly intact]. PSYCH: Normal affect, normal mood. SKIN: Warm, dry, normal turgor. No rashes or lesions noted. Course - Re-evaluation Re-evalutation: Upper abdominal tenderness, no guarding. Ultrasound showing no acute abnormality. CBC shows mild leukocytosis. Chemistry shows hyperglycemia, patient given dextrose. Patient given IV fluids. Lipase is not elevated, suspect patient has alcoholic gastritis, no evidence of acute abdomen, patient has no hematemesis or hematochezia, he has not vomited Garcia has been here, he is tolerating pills and fluids without difficulty. He still complains of nausea, re-medicating for nausea. Patient tolerated PO still, discussed workup in detail. Discussed alcohol cessation, patient tells me he gets no withdrawal. Discussed return precautions in detail with patient. Patient will be discharged with medications , vital signs have normalized. - Vital Signs Vital signs: Temp Pulse Resp BP Pulse Ox 97.6 F 116 H 15 130/79 H 98 09/19/17 03:31 09/19/17 03:09/19/17 07:01 09/19/17 07:01 09/19/17 07:01 - Laboratory Result Diagrams: 09/19/17 04:42 09/19/17 04:42 Laboratory results interpreted by me: 09/19/17 09/19/17 09/19/17 04:42 04:42 06:30 WBC 11.6 H Hgb 11.7 L Hct 36.5 L MCV 79 L D MCH 25.5 L RDW 19.6 H Seg Neutrophils % 78.8 H Absolute Neutrophils 9.1 H Sodium 148.1 H Carbon Dioxide 21 L Anion Gap 22 H Glucose 67 L Urine Protein 30 H Urine Glucose (UA) 150 H Urine Ketones 20 H Discharge - Discharge Clinical Impression: Upper abdominal pain, Alcohol abuse Vomiting Qualifiers: Vomiting type: unspecified Vomiting Intractability: non-intractable Nausea presence: with nausea Qualified Code(s): R11.2 - Nausea with vomiting, unspecified Condition: Stable Disposition: HOME, SELF-CARE Additional Instructions: Your examination is consistent with gastritis, probably from the alcohol. Start with clear fluids, progress to bland food, avoid alcohol, take Phenergan for nausea, take Pepcid and Carafate to heal the upper abdomen inflammation. Follow-up with primary care. Return if you worsen including uncontrolled vomiting, vomiting blood, black stools, fever, or any other concerning or worsening symptoms. Prescriptions: Famotidine [Pepcid 20 mg Tablet] 20 mg PO BID #20 tablet Promethazine HCl [Phenergan 25 mg Tablet] 1 - 2 tab PO Q6H PRN #20 tablet PRN Reason: Sucralfate [Carafate 1 gm Tablet] 1 gm PO QID #20 tablet Forms: Return to Work Referrals: SHALINI SOUTH MD [Primary Care Provider] - Follow up as needed
[2017-09-19 05:00] LABS: ABSOLUTE BASOPHILS # (AUTO) 0.1 10^3/uL (0.0-0.2); ABSOLUTE MONOCYTES (AUTO) 0.4 10^3/uL (0.1-1.4); MEAN CORPUSCULAR HEMOGLOBIN 25.5 pg (27.0-33.4); MEAN CORPUSCULAR HGB CONC 32.2 g/dL (32.0-36.0); TOTAL CELLS COUNTED % (AUTO) 100 %
[2017-09-19 05:25] LABS: ABSOLUTE EOSINOPHILS # (AUTO) 0.2 10^3/uL (0.0-0.6); ABSOLUTE LYMPHOCYTES (AUTO) 1.8 10^3/uL (0.5-4.7); ABSOLUTE NEUT (AUTO) 9.1 10^3/uL (1.7-8.2); EOSINOPHILS % (AUTO) 1.6 % (0-6); HEMATOCRIT 36.5 % (37.9-51.0); HEMOGLOBIN 11.7 g/dL (13.5-17.0); LYMPHOCYTES % (AUTO) 15.2 % (13-45); MONOCYTES % (AUTO) 3.4 % (3-13); PLATELET COUNT 328 10^3/uL (150-450); RED CELL DISTRIBUTION WIDTH 19.6 % (11.5-14.0); SEGMENTED NEUTROPHILS % (AUTO) 78.8 % (42-78); WHITE BLOOD COUNT 11.6 10^3/uL (4.0-10.5)
[2017-09-19 05:27] LABS: ALANINE AMINOTRANSFERASE 27 U/L (21-72); ALBUMIN 4.8 g/dL (3.5-5.0); ALCOHOL 74 mg/dL (NONE DETECTED); ALKALINE PHOSPHATASE 86 U/L (38-126); ASPARTATE AMINO TRANSFERASE 36 U/L (17-59); BILIRUBIN,DIRECT 0.4 mg/dL (0.0-0.4); BILIRUBIN,TOTAL 0.6 mg/dL (0.2-1.3); BLOOD UREA NITROGEN 20 mg/dL (7-20); CALCIUM 9.1 mg/dL (8.4-10.2); CARBON DIOXIDE 21 mmol/L (22-30); GLUCOSE 67 mg/dL (75-110); POTASSIUM 4.1 mmol/L (3.6-5.0); TOTAL PROTEIN 7.5 g/dL (6.3-8.2)
[2017-09-19 05:32] LABS: CHLORIDE 105 mmol/L (98-107); SODIUM 148.1 mmol/L (137-145)
[2017-09-19 05:33] LABS: ANION GAP 22 (5-19)
[2017-09-19 05:34] LABS: MEAN CORPUSCULAR VOLUME 79 fl (80-97)
--- NOTE | 2017-09-19 05:35 | RADIOLOGY REPORT (SQ) ---
EXAM DESCRIPTION: US ABDOMEN LIMITED COMPLETED DATE/TME: 09/19/2017 04:26 CLINICAL HISTORY: 32 years Male, RUQ pain, vomiting Comparison: None. LIMITATIONS: None. FINDINGS: Gallbladder, negative sonographic Domingo's test, liver, a 0.65-cm diameter common bile duct, no intrahepatic ductal dilation, 10-cm right kidney, pancreas, visualized vasculature/abdominal aorta, and no significant ascites appear otherwise unremarkable. IMPRESSION: No acute findings. Mild nonspecific dilation of the common bile duct measures 0.7 cm diameter. No intrahepatic ductal dilation.
[2017-09-19] MEDS ORDERED: DEXTROSE 50%-WATER 25 GM/50 ML DISP.SYRIN IV ONE (05:55)
[2017-09-19] MEDS ORDERED: SUCRALFATE 1 GM TABLET PO ONE (05:55)
[2017-09-19] MEDS ORDERED: FAMOTIDINE 20 MG TABLET PO ONE (05:55)
[2017-09-19] MEDS ORDERED: PROMETHAZINE HCL INJ 25 MG/1 ML VIAL IM ONE (05:57)
[2017-09-19 06:44] LABS: APPEARANCE,URINE CLEAR; BILIRUBIN,URINE NEGATIVE (NEGATIVE); COLOR,URINE YELLOW; GLUCOSE, URINE 150 mg/dL (NEGATIVE); KETONES,URINE 20 mg/dL (NEGATIVE); LEUKOCYTE ESTERASE,URINE NEGATIVE (NEGATIVE); NITRITE,URINE NEGATIVE (NEGATIVE); PROTEIN,URINE 30 mg/dL (NEGATIVE); URINE SPECIFIC GRAVITY 1.033; UROBILINOGEN,URINE NEGATIVE mg/dL (<2.0)
[2017-09-19] MEDS ORDERED: DIPHENHYDRAMINE HCL 25 MG/10 ML UDC PO ONE (08:21)
[2017-09-19] MEDS ORDERED: LIDOCAINE 2% VISCOUS SOLN 20 ML UDCUP PO ONE (08:21)
[2017-09-19] MEDS ORDERED: MAG HYDROX/AL HYDROX/SIMETH SUSP 30 ML UDCUP PO ONE (08:21)
[2017-09-19 09:16] VITALS: BP 128/84
--- NOTE | 2017-09-19 10:00 | EKG REPORT ---
SEVERITY:- ABNORMAL ECG - SINUS RHYTHM LEFT ATRIAL ABNORMALITY : Confirmed by: Lawson Finley 19-Sep-2017 09:59:44
== END 2017-09-19 09:28 | disposition home or self-care (01) ==
LOC: ER 03:23
DX: R10.10 Upper abdominal pain, unspecified (principal); F10.10 Alcohol abuse, uncomplicated; R07.9 Chest pain, unspecified; R11.2 Nausea with vomiting, unspecified
CPT/HCPCS: 93005; 99284; 96361; 96374; 96375; 36415; 82962; 80307; 83690; 85025; 80053; 81001; 76705; 93010; J3490 ×3; J1200; J2765; J2270; J2550; J7030

== ENCOUNTER 2017-09-26 10:37 | Emergency (ER) | payer SELFPAY ==
--- NOTE | 2017-09-26 10:54 | ER Document Report ---
ED Medical Screen (RME) - General Chief Complaint: Abdominal Pain Stated Complaint: MEDICAL CLEARANCE Time Seen by Provider: 09/26/17 10:47 Notes: 32-year-old male presenting today for "help with detox". Patient states he drinks about a pint of hard liquor a day and his last drink was 6 hours ago. Patient states he "thought he could do it on his own but he can't". Patient takes blood pressure medicine daily but denies any other medications. Patient denies SI. I have greeted and performed a rapid initial assessment of this patient. A comprehensive ED assessment and evaluation of the patient, analysis of test results, and completion of the medical decision making process will be conducted by additional ED providers. Review of systems: Positive for RUQ abdominal pain. Negative for SI. Physical Exam: General: Alert, appears well. HEENT: Normocephalic. Atraumatic. PERRLA. Extraocular movements intact. Oropharynx clear. Neck: Supple. Respiratory: No respiratory distress. Abdominal: Mild RUQ ttp. No distension. Extremities: Moves all four extremities. Neurological: Normal cognition. AAOx4. Normal speech. Psychological: Normal affect. Normal Mood. Skin: Warm. Dry. Normal color. TRAVEL OUTSIDE OF THE [place] IN LAST 30 DAYS: No - Related Data Allergies/Adverse Reactions: No Known Allergies Allergy (Verified 08/16/17 08:50) Past Medical History - Social History Chew tobacco use (# tins/day): No Frequency of alcohol use: 1 pint per day Drug Abuse: None - Past Medical History Cardiac Medical History: Reports: Hx Hypertension Denies: Hx Heart Attack Pulmonary Medical History: Denies: Hx Asthma, Hx Tuberculosis Neurological Medical History: Reports: Hx Seizures - 6-7 weeks ago. Denies: Hx Cerebrovascular Accident Renal/ Medical History: Denies: Hx Peritoneal Dialysis GI Medical History: Reports: Hx Gastroesophageal Reflux Disease, Hx Hepatitis - alcoholic hepatitis, Hx Pancreatitis - alcoholic. Denies: Hx Hiatal Hernia, Hx Ulcer Psychiatric Medical History: Reports: Hx Depression Infectious Medical History: Reports: Hx Hepatitis - alcoholic hepatitis Past Surgical History: Reports: Hx Genitourinary Surgery - vasectomy, Hx Nose Surgery - bilateral: maxillary antrostomy, sphenoidotomy, ethmoidectomy. Denies : Hx Open Heart Surgery, Hx Pacemaker - Immunizations Hx Diphtheria, Pertussis, Tetanus Vaccination: Yes History of Influenza Vaccine for 12/2016 - 05/2017 Season: Refused Physical Exam - Vital signs Vitals: Temp Pulse Resp BP Pulse Ox 97.7 F 99 16 132/99 H 98 09/26/17 10:41 09/26/17 10:41 09/26/17 10:41 09/26/17 10:41 09/26/17 10:41 Course - Vital Signs Vital signs: Temp Pulse Resp BP Pulse Ox 97.7 F 99 16 132/99 H 98 09/26/17 10:41 09/26/17 10:41 09/26/17 10:41 09/26/17 10:41 09/26/17 10:41 Doctor's Discharge - Discharge Referrals: SHALINI SOUTH MD [Primary Care Provider] - Follow up as needed Scribe Documentation - Scribe Written by Marin:: Marin Arroyo, 09/26/2017 1054 acting as scribe for :: Ajay
[2017-09-26 11:14] LABS: ABSOLUTE EOSINOPHILS # (AUTO) 0.1 10^3/uL (0.0-0.6); ABSOLUTE LYMPHOCYTES (AUTO) 2.7 10^3/uL (0.5-4.7); ABSOLUTE MONOCYTES (AUTO) 0.2 10^3/uL (0.1-1.4); BASOPHILS % (AUTO) 0.8 % (0-2); EOSINOPHILS % (AUTO) 2.2 % (0-6); HEMATOCRIT 40.5 % (37.9-51.0); MEAN CORPUSCULAR HEMOGLOBIN 25.3 pg (27.0-33.4); MEAN CORPUSCULAR HGB CONC 32.2 g/dL (32.0-36.0); MEAN CORPUSCULAR VOLUME 79 fl (80-97); MONOCYTES % (AUTO) 3.7 % (3-13); PLATELET COUNT 253 10^3/uL (150-450); RED BLOOD COUNT 5.15 10^6/uL (4.35-5.55); RED CELL DISTRIBUTION WIDTH 21.4 % (11.5-14.0); SEGMENTED NEUTROPHILS % (AUTO) 39.3 % (42-78); TOTAL CELLS COUNTED % (AUTO) 100 %; WHITE BLOOD COUNT 5.1 10^3/uL (4.0-10.5)
[2017-09-26 11:40] LABS: ACETAMINOPHEN 10 ug/mL (10-30); ALANINE AMINOTRANSFERASE 34 U/L (21-72); ALBUMIN 4.7 g/dL (3.5-5.0); ALKALINE PHOSPHATASE 79 U/L (38-126); ASPARTATE AMINO TRANSFERASE 39 U/L (17-59); BILIRUBIN,DIRECT 0.3 mg/dL (0.0-0.4); BILIRUBIN,TOTAL 0.3 mg/dL (0.2-1.3); BLOOD UREA NITROGEN 12 mg/dL (7-20); CALCIUM 8.9 mg/dL (8.4-10.2); GLUCOSE 98 mg/dL (75-110); LIPASE 144.7 U/L (23-300); POTASSIUM 4.6 mmol/L (3.6-5.0); TOTAL PROTEIN 7.6 g/dL (6.3-8.2)
[2017-09-26] MEDS ORDERED: ONDANSETRON 4 MG TAB.RAPDIS PO ONE ×2 (11:40→17:07)
[2017-09-26 11:44] LABS: CARBON DIOXIDE 29 mmol/L (22-30); CHLORIDE 104 mmol/L (98-107); SODIUM 153.9 mmol/L (137-145)
[2017-09-26 11:48] LABS: SALICYLATE < 1.0 mg/dL (2.0-20.0)
--- NOTE | 2017-09-26 11:48 | ER Document Report ---
ED General - General Mode of Arrival: Ambulatory Information source: Patient TRAVEL OUTSIDE OF THE [place] IN LAST 30 DAYS: No <JULEE HAND - Last Filed: 09/26/17 12:03> <CHRISSY RICH - Last Filed: 09/26/17 21:09> - General Chief Complaint: Abdominal Pain Stated Complaint: MEDICAL CLEARANCE Time Seen by Provider: 09/26/17 10:47 Notes: Patient is a 32 year old male with chronic alcoholism, peptic ulcers, alcoholic hepatitis, esophageal varices, alcoholic pancreatitis, HTN presents to the emergency department complaining of abdominal pain and vomiting as well as wanting an alcohol detox. Patient states he initially went to [facility] seeking help and was directed to come to the emergency department. When asked why he wants to stop he only states, "I just need to". Patient states he began to vomit and have epigastirc and right sided abdominal pain last night around 20 :00 with his last episode of vomiting at 0800 this morning. He also states his last drink was approximately 6 hours ago. Patient denies fevers or diarrhea. (JULEE HAND) The patient was here 7 days ago complaining of abdominal pain and had a gallbladder ultrasound done at that time which was remarkable only for a slightly dilated common bile duct at 0.65 cm, and no other abnormality. (CHRISSY RICH) - Related Data Allergies/Adverse Reactions: No Known Allergies Allergy (Verified 09/26/17 10:53) Past Medical History - General Information source: Patient - Social History Smoking Status: Current Every Day Smoker Chew tobacco use (# tins/day): No Frequency of alcohol use: 1 pint per day Drug Abuse: None Family History: CAD, COPD Patient has suicidal ideation: No Patient has homicidal ideation: No - Past Medical History Cardiac Medical History: Reports: Hx Hypertension Neurological Medical History: Reports: Hx Seizures - 6-7 weeks ago GI Medical History: Reports: Hx Gastroesophageal Reflux Disease, Hx Hepatitis - alcoholic hepatitis, Hx Pancreatitis - alcoholic Psychiatric Medical History: Reports: Hx Depression Infectious Medical History: Reports: Hx Hepatitis - alcoholic hepatitis Past Surgical History: Reports: Hx Genitourinary Surgery - vasectomy, Hx Nose Surgery - bilateral: maxillary antrostomy, sphenoidotomy, ethmoidectomy - Immunizations Hx Diphtheria, Pertussis, Tetanus Vaccination: Yes <JULEE HAND - Last Filed: 09/26/17 12:03> Review of Systems - Review of Systems Constitutional: No symptoms reported EENT: No symptoms reported Cardiovascular: No symptoms reported Respiratory: No symptoms reported Gastrointestinal: See HPI, Abdominal pain, Vomiting Genitourinary: No symptoms reported Male Genitourinary: No symptoms reported Musculoskeletal: No symptoms reported Skin: No symptoms reported Hematologic/Lymphatic: No symptoms reported Neurological/Psychological: No symptoms reported -: Yes All other systems reviewed and negative <JULEE HAND Last Filed: 09/26/17 12:03> Physical Exam - General General appearance: Appears well, Alert In distress: None - HEENT Head: Normocephalic, Atraumatic Eyes: Normal Conjunctiva: Normal Extraocular movements intact: Yes Pupils: PERRL Neck: Normal - Respiratory Respiratory status: No respiratory distress Chest status: Nontender Breath sounds: Normal Chest palpation: Normal - Cardiovascular Rhythm: Regular Heart sounds: Normal auscultation Murmur: No Friction rub: No Gallop: None auscultated - Abdominal Inspection: Normal Distension: No distension Bowel sounds: Normal Tenderness: Nontender - Left sided abdomen nontender., Tender - Epigastric, RLQ , and right lateral abdomen tender to palpaiton.. No: Guarding, Rebound - Back Back: Normal - Extremities General upper extremity: Normal ROM General lower extremity: Normal ROM - Neurological Neuro grossly intact: Yes Cognition: Normal Orientation: AAOx4 [place] Coma Scale Eye Opening: Spontaneous [place] Coma Scale Verbal: Oriented [place] Coma Scale Motor: Obeys Commands [place] Coma Scale Total: 15 Speech: Normal - Psychological Associated symptoms: Normal affect, Normal mood - Skin Skin Temperature: Warm Skin Moisture: Dry Skin Color: Normal <JULEE HAND Filed: 09/26/17 12:03> - Vital signs Vitals: Temp Pulse Resp BP Pulse Ox 97.7 F 99 16 132/99 H 98 09/26/17 10:41 09/26/17 10:41 09/26/17 10:41 09/26/17 10:41 09/26/17 10:41 Course - Laboratory Result Diagrams: 09/26/17 11:00 09/26/17 11:00 <JULEE HAND Last Filed: 09/26/17 12:03> - Laboratory Result Diagrams: 09/26/17 11:00 09/26/17 11:00 - EKG Interpretation by Me EKG shows normal: Sinus rhythm, [place], Intervals, QRS Complexes, ST-T Waves Rate: Normal - 73 Rhythm: NSR - Transfer of Care Care transferred to following provider: Dr. Pro <CHRISSY RICH - Last Filed: 09/26/17 21:09> - Re-evaluation Re-evalutation: 09/26/17 12:18 The patient's EtOH level is 430, this means if he did in fact stop drinking 6 hours ago then his level was 550 at that time. 09/26/17 20:21 The nurse just informed me that the patient has been vomiting and has a saline lock in. He will be given a liter of normal saline bolus and IV Reglan for his vomiting. 09/26/17 21:07 After the Ativan and Reglan, the patient is resting comfortably and does not feel bad. He states his mother can come get him to take him home. The patient was already aware that there were no detox facilities available for at least the next week. I advised him that we were not a detox facility and that he would have to go home. We discussed him maintaining an alcohol level 2 help prevent severe withdrawal symptoms along with the clonidine, but that it was critical that he not drink to excess like he did last night. He agrees with that assessment and that recommendation. (CHRISSY RICH) - Vital Signs Vital signs: Temp Pulse Resp BP Pulse Ox 97.7 F 99 15 137/81 H 97 09/26/17 10:41 09/26/17 10:41 09/26/17 21:01 09/26/17 21:00 09/26/17 21:01 - Laboratory Laboratory results interpreted by me: 09/26/17 09/26/17 11:00 11:00 Hgb 13.0 L MCV 79 L MCH 25.3 L RDW 21.4 H Seg Neutrophils % 39.3 L Lymphocytes % 54.0 H Sodium 153.9 H Anion Gap 21 H Salicylates < 1.0 L Serum Alcohol 430 H* - Transfer of Care Notes: 09/26/17 19:40 The patient's discharge instructions and prescription for clonidine and Reglan is printed. The patient would be eligible for discharge when a sober adult could come pick him up, or he shows no further signs of impairment. (CHRISSY RICH) Discharge <JULEE HAND - Last Filed: 09/26/17 12:03> <CHRISSY RICH - Last Filed: 09/26/17 21:09> - Discharge Clinical Impression: Upper abdominal pain Alcohol intoxication Qualifiers: Complication of substance-induced condition: uncomplicated Qualified Code(s): F10.920 - Alcohol use, unspecified with intoxication, uncomplicated Condition: Stable Additional Instructions: Acute Alcohol Intoxication Your evaluation revealed very high levels of alcohol. You can from drinking a large amount of alcohol rapidly! Further, there's the risk of falls , traffic accidents, and fights. A high portion (about 50 percent) of the serious injuries seen in hospital emergency rooms are caused by alcohol. Alcohol overdosage is usually due to an underlying emotional or psychiatric problem. You may benefit from counselling. If "binge" drinking is an ongoing problem for you, or if you drink ANY AMOUNT of alcohol EVERY day, you most likely have a tendency to alcoholism. You should avoid alcohol totally. We can refer you for treatment. Persons with alcohol problems are often also prone to other addictions -- you should discuss any use of medications or drugs with the doctor. You should be watched at home for the next several hours by someone who has not been drinking. Get extra fluids for the next 24 hours. Call the doctor if there is repeated vomiting, increasing headache, decreasing level of alertness, or any other worsening. You will be prescribed clonidine to help manage your withdrawal symptoms until you can go to [facility] on Thursday. Let them know that you and the psychology worker today have been speaking with the staff at the [facility]. You should drink plenty of fluids, and stay well-hydrated. If you have to drink alcohol to suppress your withdrawal symptoms, then at least do not do it excessively like you did last night. RETURN TO THE EMERGENCY ROOM IF ANY NEW OR WORSENING SYMPTOMS. Prescriptions: Clonidine HCl 0.1 mg PO Q8 PRN #6 tablet PRN Reason: Withdrawal Symptoms Metoclopramide HCl [Reglan 10 mg Tablet] 10 mg PO Q4 PRN #10 tablet PRN Reason: For Nausea/Vomiting Referrals: SHALINI SOUTH MD [Primary Care Provider] - Follow up as needed [facility] [Outside] - 09/28/17 Scribe Attestation: 09/26/17 12:34 I personally performed the services described in the documentation, reviewed and edited the documentation which was dictated to the scribe in my presence, and it accurately records my words and actions. (CHRISSY RICH) Scribe Documentation - Scribe Written by Marin:: Marin Kelly, 09/26/2017 12:03 acting as scribe for :: Ramon <JULEE HAND - Last Filed: 09/26/17 12:03>
[2017-09-26 11:49] LABS: ANION GAP 21 (5-19)
[2017-09-26 11:51] LABS: ALCOHOL 430 mg/dL (NONE DETECTED)
--- NOTE | 2017-09-26 12:25 | RADIOLOGY REPORT (SQ) ---
EXAM DESCRIPTION: ACUTE ABDOMEN SERIES COMPLETED DATE/TIME: 09/26/2017 12:12 pm REASON FOR STUDY: N,V, Right side abd pain COMPARISON: None. NUMBER OF VIEWS: Three views. TECHNIQUE: Frontal chest, supine abdomen and upright/decubitus abdomen radiographic images acquired. LIMITATIONS: None. FINDINGS: CHEST: Lungs clear of infiltrates. FREE AIR: None. No abnormal gas collections. BOWEL GAS PATTERN: Nonobstructive pattern. No dilated loops or air fluid levels. CALCIFICATIONS: No suspicious calcifications. HARDWARE: None in the abdomen. SOFT TISSUES: No gross mass or suggestion of organomegaly. BONES: No acute fracture. No worrisome bone lesions. OTHER: No other significant finding. IMPRESSION: NO RADIOGRAPHIC EVIDENCE FOR ACUTE ABDOMINAL DISEASE. TECHNICAL DOCUMENTATION: JOB ID: [id number] [employer]- All Rights Reserved Reading location - IP/workstation name: [email or web address]
[2017-09-26 12:46] LABS: APPEARANCE,URINE CLEAR; BILIRUBIN,URINE NEGATIVE (NEGATIVE); COLOR,URINE YELLOW; GLUCOSE, URINE NEGATIVE (NEGATIVE); KETONES,URINE NEGATIVE (NEGATIVE); LEUKOCYTE ESTERASE,URINE NEGATIVE (NEGATIVE); NITRITE,URINE NEGATIVE (NEGATIVE); PROTEIN,URINE NEGATIVE (NEGATIVE); URINE SPECIFIC GRAVITY 1.013; UROBILINOGEN,URINE NEGATIVE mg/dL (<2.0)
[2017-09-26 13:08] LABS: URINE AMPHETAMINES SCREEN NEGATIVE; URINE BARBITURATES SCREEN NEGATIVE; URINE BENZODIAZEPINES SCREEN NEGATIVE; URINE COCAINE SCREEN NEGATIVE; URINE MARIJUANA (THC) SCREEN NEGATIVE; URINE METHADONE SCREEN NEGATIVE; URINE PHENCYCLIDINE SCREEN NEGATIVE
--- NOTE | 2017-09-26 13:10 | PSYCHOLOGICAL NOTE ---
Psych Note - Psych Note Psych Note: Reason for Consult: Detox Patient is a 32 year old male with chronic alcoholism, peptic ulcers, alcoholic hepatitis, esophageal varices, alcoholic pancreatitis, HTN presents to the emergency department complaining of abdominal pain and vomiting as well as wanting an alcohol detox. Patient states he initially went to [facility] seeking help and was directed to come to the emergency department. Patient disclosed that he has been drinking for over 20 years. He drink of choice is Vodka. He reports that he can go a couple days without drinking however then binges. He is interested in sobriety and originally went to [facility] not knowing that it was not a detox center. Patient declines calling his mother currently (patient lives with her). He reports he has tried stopping before. The last time he went inpatient for substance abuse treatment, he went for a 68 day Religious program. Patient is alert and orientated to person, place, time and circumstances. Mood is euthymic with congruent affect. Patient denies suicidal and homicidal ideation. Clinician notes patient is surprisingly coherent and able to engage with evaluation (blood alcohol level is 430). Delusions are absent and behavior is congruent with an intact reality based presentation (ie organized and linear thought processes). Eye contact was well-maintained. Conversational speech is within normal rate, tone and prosody. Intellectual abilities appear to be within average range. Attention and concentration are fair. Insight, judgment , impulse control are historically poor due to alcohol abuse. Behavior health team contacted [facility]. There are no beds currently available however phone call was transferred to patient so patient can engage in 10 minute phone interview. No medication recommendations at this time Diagnosis 303.90 (F10.20) alcohol use disorder; severe Impression\plan: Patient is cleared from acute psychiatric services. Patient is requesting detox. While patient is highly intoxicated he is presently very coherent and able to engage in evaluation. Currently the [facility] has no beds however patient did engage in a 10 minute interview with [facility] staff. Clinician provided patient with additional resources which include both detox and inpatient long-term substance abuse treatment i.e. [facility], [facility] etc. Dr. Mcduffie was consulted and the care management this patient; attending physician is agreement with recommendations and disposition.
[2017-09-26] MEDS ORDERED: MAG HYDROX/AL HYDROX/SIMETH SUSP 30 ML UDCUP PO ONE (14:24)
[2017-09-26] MEDS ORDERED: LIDOCAINE 2% VISCOUS SOLN 20 ML UDCUP PO ONE (14:24)
[2017-09-26] MEDS ORDERED: NORMAL SALINE 1000 ML 1,000 ML IV ONE (20:20)
[2017-09-26] MEDS ORDERED: METOCLOPRAMIDE HCL INJ/PF 10 MG/2 ML SDV IV ONE (20:20)
[2017-09-26] MEDS ORDERED: LORAZEPAM INJ 2 MG/1 ML VIAL IV ONE (20:22)
[2017-09-26 21:06] VITALS: BP 137/81
[2017-09-26] MEDS ORDERED: CLONIDINE HCL 0.1 MG TABLET PO ONE (21:07)
--- NOTE | 2017-09-26 23:01 | EKG REPORT ---
SEVERITY:- NORMAL ECG - SINUS RHYTHM : Confirmed by: Zuly Salazar MD 26-Sep-2017 22:59:59
== END 2017-09-26 21:38 | disposition home or self-care (01) ==
LOC: ER 10:37
DX: F10.220 Alcohol dependence with intoxication, uncomplicated (principal); Y90.8 Blood alcohol level of 240 mg/100 ml or more; R11.10 Vomiting, unspecified; R10.13 Epigastric pain; R10.816 Epigastric abdominal tenderness; R10.813 Right lower quadrant abdominal tenderness; I10 Essential (primary) hypertension; F17.200 Nicotine dependence, unspecified, uncomplicated; Z87.19 Personal history of other diseases of the digestive system
CPT/HCPCS: 93005; 99284; 96361; 96374; 96375; 36415; 80307 ×4; 83690; 83735; 85025; 80053; 81001; 74022; 93010; S0119; J3490; J2765; J2060; J7030

== ENCOUNTER 2017-10-23 02:13 | Emergency (ER) | payer SELFPAY ==
[2017-10-23] MEDS ORDERED: ONDANSETRON HCL INJ/PF 4 MG/2 ML SDV IV ONE (03:48)
[2017-10-23] MEDS ORDERED: NORMAL SALINE 1000 ML 1,000 ML IV ONE (03:49)
[2017-10-23] MEDS ORDERED: HYDROMORPHONE HCL INJ/PF 2 MG/ML AMPULE IV ONE (03:54)
--- NOTE | 2017-10-23 03:54 | ER Document Report ---
ED General - General Chief Complaint: Abdominal Pain Stated Complaint: ABDOMINAL PAIN Time Seen by Provider: 10/23/17 03:44 Mode of Arrival: Ambulatory Information source: Patient Notes: 32-year-old male with hypertension, GERD, history of alcoholism, pancreatitis presents with complaint of right flank pain that started 2 days prior to arrival. Patient describes the pain as sharp, stabbing and constant with radiation to the right lower quadrant. He denies prior similar symptoms. Patient has had associated nausea, vomiting. Patient denies fever, chills, chest pain, dysuria, hematuria, injury to the right flank. Patient does admit to drinking yesterday but states that "it was not a lot". TRAVEL OUTSIDE OF THE [place] IN LAST 30 DAYS: No - HPI Onset: Other Onset/Duration: Gradual, Persistent, Worse Quality of pain: Stabbing, Throbbing Severity: Moderate Associated symptoms: Nausea, Vomiting Exacerbated by: Denies Relieved by: Denies Similar symptoms previously: No Recently seen / treated by doctor: No - Related Data Allergies/Adverse Reactions: No Known Allergies Allergy (Verified 10/23/17 02:18) Past Medical History - General Information source: Patient - Social History Smoking Status: Current Every Day Smoker Cigarette use (# per day): Yes - 10 Chew tobacco use (# tins/day): No Frequency of alcohol use: Occasional Drug Abuse: None Lives with: Family Family History: CAD, COPD Patient has suicidal ideation: No Patient has homicidal ideation: No - Past Medical History Cardiac Medical History: Reports: Hx Hypertension Denies: Hx Heart Attack Pulmonary Medical History: Denies: Hx Asthma, Hx Tuberculosis Neurological Medical History: Reports: Hx Seizures - 6-7 weeks ago. Denies: Hx Cerebrovascular Accident Renal/ Medical History: Denies: Hx Peritoneal Dialysis GI Medical History: Reports: Hx Gastroesophageal Reflux Disease, Hx Hepatitis - alcoholic hepatitis, Hx Pancreatitis - alcoholic. Denies: Hx Hiatal Hernia, Hx Ulcer Psychiatric Medical History: Reports: Hx Depression Infectious Medical History: Reports: Hx Hepatitis - alcoholic hepatitis Past Surgical History: Reports: Hx Genitourinary Surgery - vasectomy, Hx Nose Surgery - bilateral: maxillary antrostomy, sphenoidotomy, ethmoidectomy. Denies : Hx Open Heart Surgery, Hx Pacemaker - Immunizations Hx Diphtheria, Pertussis, Tetanus Vaccination: Yes Review of Systems - Review of Systems Notes: REVIEW OF SYSTEMS: CONSTITUTIONAL : Denies fever, chills, or sweats. Denies recent illness. Denies weight loss, recent hospitalizations. EENT: Denies visual changes, eye pain. Denies nasal or sinus congestion or discharge. Denies sore throat, oral lesions, difficulty swallowing. CARDIOVASCULAR: Denies chest pain. Denies palpitations. Denies lower extremity edema. RESPIRATORY: Denies cough, cold, or chest congestion. Denies shortness of breath, wheezing. GASTROINTESTINAL: Denies abdominal distention. Denies diarrhea. Denies blood in vomitus, stools, or per rectum. Denies black, tarry stools. Denies constipation. GENITOURINARY: Denies difficulty urinating, painful urination, frequency, blood in urine, or vaginal discharge. MUSCULOSKELETAL: Denies back or neck pain or stiffness. Denies joint pain or swelling. SKIN: Denies rash, lesions or sores. HEMATOLOGIC : Denies easy bruising or bleeding. LYMPHATIC: Denies swollen glands. NEUROLOGICAL: Denies confusion or altered mental status. Denies passing out or loss of consciousness. Denies dizziness or lightheadedness. Denies headache. Denies weakness or paralysis. Denies problems difficulty with ambulation, slurred speech. Denies sensory loss, numbness, or tingling. Denies seizures. PSYCHIATRIC: Denies anxiety or stress. Denies depression, suicidal ideation, or homicidal ideation. Denies visual or auditory hallucinations. Physical Exam - Vital signs Vitals: Temp Pulse Resp BP Pulse Ox 98.0 F 83 16 128/90 H 98 10/23/17 02:19 10/23/17 02:19 10/23/17 02:19 10/23/17 02:19 10/23/17 02:19 - Notes Notes: PHYSICAL EXAMINATION: GENERAL: Well-appearing, well-nourished and in no acute distress. HEAD: Atraumatic, normocephalic. EYES: Pupils equal round and reactive to light, extraocular movements intact, sclera anicteric, conjunctiva are normal. ENT: Nares patent, oropharynx clear without exudates. Moist mucous membranes. NECK: Normal range of motion, supple without lymphadenopathy LUNGS: Breath sounds clear to auscultation bilaterally and equal. No wheezes rales or rhonchi. HEART: Regular rate and rhythm without murmurs ABDOMEN: Soft, nontender, nondistended abdomen. No guarding, no rebound. No masses appreciated. Right CVA tenderness Musculoskeletal: Normal range of motion, no pitting or edema. No cyanosis. NEUROLOGICAL: Cranial nerves grossly intact. Normal speech, normal gait. Normal sensory, motor exams PSYCH: Normal mood, normal affect. SKIN: Warm, Dry, normal turgor, no rashes or lesions noted. Course - Re-evaluation Re-evalutation: Laboratory 10/23/17 10/23/17 10/23/17 04:08 04:08 05:20 WBC 11.3 H RBC 5.14 Hgb 12.4 L Hct 39.6 MCV 77 L MCH 24.2 L MCHC 31.4 L RDW 21.1 H Plt Count 404 Seg Neutrophils % 78.1 H Lymphocytes % 13.5 Monocytes % 5.2 Eosinophils % 2.3 Basophils % 0.9 Absolute Neutrophils 8.8 H Absolute Lymphocytes 1.5 Absolute Monocytes 0.6 Absolute Eosinophils 0.3 Absolute Basophils 0.1 Sodium 149.7 H Potassium 4.1 Chloride 109 H Carbon Dioxide 25 Anion Gap 16 BUN 15 Creatinine 0.82 Est GFR ( Amer) > 60 Est GFR (Non-Af Amer) > 60 Glucose 104 Calcium 8.7 Total Bilirubin 0.5 Direct Bilirubin 0.2 Neonat Total Bilirubin Not Reportable Neonat Direct Bilirubin Not Reportable Neonat Indirect Bili Not Reportable AST 72 H ALT 59 Alkaline Phosphatase 73 Total Protein 7.3 Albumin 4.4 Lipase 51.3 Urine Color YELLOW Urine Appearance CLEAR Urine pH 7.0 Ur Specific [place] 1.029 Urine Protein 30 H Urine Glucose (UA) NEGATIVE Urine Ketones NEGATIVE Urine Blood NEGATIVE Urine Nitrite NEGATIVE Urine Bilirubin NEGATIVE Urine Urobilinogen NEGATIVE Ur Leukocyte Esterase NEGATIVE Urine WBC (Auto) 1 Urine Bacteria (Auto) TRACE Urine Mucus (Auto) MANY Urine Ascorbic Acid NEGATIVE 32-year-old male history of alcoholism chronic abdominal pain presents with complaint of right flank pain that started 2 days prior to arrival. Vital signs reviewed and within normal limits. Patient does not appear toxic or dehydrated. He is in no acute distress. Previous medical records were reviewed and patient has multiple visits for similar symptoms. He also has had over 10 CAT scans for which 7 of them are of his abdomen and pelvis. Patient does admit to drinking "a little bit yesterday". Patient did receive Reglan, Zofran, IV fluids, Dilaudid. Lab work showed mild leukocytosis, hypernatremia. Urinalysis without evidence of infection or hematuria. Lipase is within normal limits 10/23/17 04:28 Bedside ultrasound was performed to assess for hydronephrosis which was absent. Urine jets present bilaterally. I did discuss with the patient the risk for possible cancer from radiation exposure from multiple CAT scans that are performed likely because the patient has been drinking and is experiencing gastritis. Alcohol cessation advised. Patient provided the opportunity to ask questions, and express concerns. Discharge instructions discussed. Patient is agreeable with discharge home. Return indications explained and discussed with the patient who displays understanding. Patient encouraged to return to the emergency department immediately with any concerns. further image10/23/17 13:00 10/23/17 13:01 - Vital Signs Vital signs: Temp Pulse Resp BP Pulse Ox 97.8 F 90 12 119/84 100 10/23/17 06:09 10/23/17 06:09 10/23/17 06:09 10/23/17 06:09 10/23/17 06:09 - Laboratory Result Diagrams: 10/23/17 04:08 10/23/17 04:08 Laboratory results interpreted by me: 10/23/17 10/23/17 10/23/17 04:08 04:08 05:20 WBC 11.3 H Hgb 12.4 L MCV 77 L MCH 24.2 L MCHC 31.4 L RDW 21.1 H Seg Neutrophils % 78.1 H Absolute Neutrophils 8.8 H Sodium 149.7 H Chloride 109 H AST 72 H Urine Protein 30 H Procedures - Ultrasound/Bedside Ultrasound/Bedside Time completed: 04:29 - Bedside ultrasound of the kidneys were performed to assess for hydronephrosis which was absent. Urine jets present bilaterally. Discharge - Discharge Clinical Impression: Flank pain Nausea & vomiting Qualifiers: Vomiting type: unspecified Vomiting Intractability: non-intractable Qualified Code(s): R11.2 - Nausea with vomiting, unspecified Condition: Good Disposition: HOME, SELF-CARE Instructions: Flank Pain ([facility]), Reglan ([facility]), Vomiting ([facility]) Additional Instructions: Follow up with your physician tomorrow for further care or return to the ED IMMEDIATELY if symptoms worsen or new concerns occur. If you cannot afford to follow up with your primary care physician a list of low cost clinics have been provided at the end of your discharge papers as well. Prescriptions: Famotidine [Pepcid 40 mg Tablet] 40 mg PO DAILY #14 tablet Promethazine HCl [Phenergan 25 mg Tablet] 25 mg PO ASDIR PRN #12 tablet PRN Reason: Referrals: SHALINI SOUTH MD [Primary Care Provider] - Follow up in 3-5 days
[2017-10-23 04:49] LABS: ABSOLUTE BASOPHILS # (AUTO) 0.1 10^3/uL (0.0-0.2); ABSOLUTE EOSINOPHILS # (AUTO) 0.3 10^3/uL (0.0-0.6); ABSOLUTE LYMPHOCYTES (AUTO) 1.5 10^3/uL (0.5-4.7); ABSOLUTE MONOCYTES (AUTO) 0.6 10^3/uL (0.1-1.4); ABSOLUTE NEUT (AUTO) 8.8 10^3/uL (1.7-8.2); BASOPHILS % (AUTO) 0.9 % (0-2); EOSINOPHILS % (AUTO) 2.3 % (0-6); HEMATOCRIT 39.6 % (37.9-51.0); HEMOGLOBIN 12.4 g/dL (13.5-17.0); LYMPHOCYTES % (AUTO) 13.5 % (13-45); MEAN CORPUSCULAR HEMOGLOBIN 24.2 pg (27.0-33.4); MEAN CORPUSCULAR HGB CONC 31.4 g/dL (32.0-36.0); MEAN CORPUSCULAR VOLUME 77 fl (80-97); MONOCYTES % (AUTO) 5.2 % (3-13); PLATELET COUNT 404 10^3/uL (150-450); RED BLOOD COUNT 5.14 10^6/uL (4.35-5.55); RED CELL DISTRIBUTION WIDTH 21.1 % (11.5-14.0); SEGMENTED NEUTROPHILS % (AUTO) 78.1 % (42-78); TOTAL CELLS COUNTED % (AUTO) 100 %; WHITE BLOOD COUNT 11.3 10^3/uL (4.0-10.5)
[2017-10-23 05:06] LABS: ALANINE AMINOTRANSFERASE 59 U/L (21-72); ALBUMIN 4.4 g/dL (3.5-5.0); ALKALINE PHOSPHATASE 73 U/L (38-126); ANION GAP 16 (5-19); ASPARTATE AMINO TRANSFERASE 72 U/L (17-59); BILIRUBIN,DIRECT 0.2 mg/dL (0.0-0.4); BILIRUBIN,TOTAL 0.5 mg/dL (0.2-1.3); BLOOD UREA NITROGEN 15 mg/dL (7-20); CALCIUM 8.7 mg/dL (8.4-10.2); CARBON DIOXIDE 25 mmol/L (22-30); CHLORIDE 109 mmol/L (98-107); GLUCOSE 104 mg/dL (75-110); LIPASE 51.3 U/L (23-300); POTASSIUM 4.1 mmol/L (3.6-5.0); SODIUM 149.7 mmol/L (137-145); TOTAL PROTEIN 7.3 g/dL (6.3-8.2)
[2017-10-23] MEDS ORDERED: METOCLOPRAMIDE HCL INJ/PF 10 MG/2 ML SDV IV ONE (05:39)
[2017-10-23] MEDS ORDERED: DIPHENHYDRAMINE HCL 50 MG/ML VIAL IV ONE (05:39)
[2017-10-23] MEDS ORDERED: KETOROLAC TROMETHAMINE INJ/PF 30 MG/1 ML SDV IV ONE (05:39)
[2017-10-23 05:44] LABS: APPEARANCE,URINE CLEAR; BILIRUBIN,URINE NEGATIVE (NEGATIVE); COLOR,URINE YELLOW; GLUCOSE, URINE NEGATIVE (NEGATIVE); KETONES,URINE NEGATIVE (NEGATIVE); LEUKOCYTE ESTERASE,URINE NEGATIVE (NEGATIVE); NITRITE,URINE NEGATIVE (NEGATIVE); PROTEIN,URINE 30 mg/dL (NEGATIVE); URINE SPECIFIC GRAVITY 1.029; UROBILINOGEN,URINE NEGATIVE mg/dL (<2.0)
[2017-10-23 06:13] VITALS: BP 119/84
== END 2017-10-23 06:13 | disposition home or self-care (01) ==
LOC: ER 02:13
DX: R10.9 Unspecified abdominal pain (principal); F10.20 Alcohol dependence, uncomplicated; R11.2 Nausea with vomiting, unspecified; E87.0 Hyperosmolality and hypernatremia; D72.829 Elevated white blood cell count, unspecified; I10 Essential (primary) hypertension; F17.210 Nicotine dependence, cigarettes, uncomplicated; Z87.19 Personal history of other diseases of the digestive system
CPT/HCPCS: 99284; 96361; 96374; 96375; 36415; 83690; 85025; 80053; 81001; J1200; J1885; J2765; J1170; J2405; J7030

== ENCOUNTER 2017-10-24 22:38 | Emergency (ER) | payer SELFPAY ==
[2017-10-25] MEDS ORDERED: ONDANSETRON HCL INJ/PF 4 MG/2 ML SDV IV ONE (01:10)
[2017-10-25] MEDS ORDERED: NORMAL SALINE 1000 ML 1,000 ML IV ONE (01:10)
--- NOTE | 2017-10-25 01:38 | ER Document Report ---
ED GI/ - General Mode of Arrival: Ambulatory Information source: Patient TRAVEL OUTSIDE OF THE [place] IN LAST 30 DAYS: No <CHINO SELBY - Last Filed: 10/25/17 02:28> <CHRISSY RICH - Last Filed: 10/25/17 03:07> - General Chief Complaint: Back Pain Stated Complaint: FLANK PAIN Time Seen by Provider: 10/25/17 01:24 Notes: 32-year-old alcoholic male who presents to the emergency department today with complaints of right-sided flank pain that radiates to the front for the last for 5 days. Patient was seen here already for this pain a few days ago and he states that his pain has increased since being seen. Patient states he has had associated nausea and vomiting. Patient denies any fevers. (CHINO SELBY) - Related Data Allergies/Adverse Reactions: No Known Allergies Allergy (Verified 10/23/17 02:18) Past Medical History - General Information source: Patient - Social History Smoking Status: Current Every Day Smoker Cigarette use (# per day): Yes Frequency of alcohol use: Heavy Drug Abuse: None Lives with: Family Family History: CAD, COPD - Past Medical History Cardiac Medical History: Reports: Hx Hypertension Neurological Medical History: Reports: Hx Seizures - 6-7 weeks ago GI Medical History: Reports: Hx Gastroesophageal Reflux Disease, Hx Hepatitis - alcoholic hepatitis, Hx Pancreatitis - alcoholic Psychiatric Medical History: Reports: Hx Depression Infectious Medical History: Reports: Hx Hepatitis - alcoholic hepatitis Past Surgical History: Reports: Hx Genitourinary Surgery - vasectomy, Hx Nose Surgery - bilateral: maxillary antrostomy, sphenoidotomy, ethmoidectomy - Immunizations Hx Diphtheria, Pertussis, Tetanus Vaccination: Yes <CHINO SELBY - Last Filed: 10/25/17 02:28> Review of Systems - Review of Systems Constitutional: denies: Fever EENT: No symptoms reported Cardiovascular: No symptoms reported Respiratory: No symptoms reported Gastrointestinal: See HPI, Nausea, Vomiting Genitourinary: See HPI, Flank pain - right Male Genitourinary: No symptoms reported Musculoskeletal: No symptoms reported Skin: No symptoms reported Hematologic/Lymphatic: No symptoms reported Neurological/Psychological: No symptoms reported -: Yes All other systems reviewed and negative <CHINO SELBY - Last Filed: 10/25/17 02:28> Physical Exam <CHINO SELBY - Last Filed: 10/25/17 02:28> <CHRISSY RICH - Last Filed: 10/25/17 03:07> - Vital signs Vitals: Temp Pulse Resp BP Pulse Ox 98.9 F 104 H 16 135/94 H 98 10/24/17 22:44 10/24/17 22:44 10/24/17 22:44 10/24/17 22:44 10/24/17 22:44 - Notes Notes: Physical Exam: General: Alert, appears well. HEENT: Normocephalic. Atraumatic. PERRL. Extraocular movements intact. Oropharynx clear. Neck: Supple. Non-tender. Respiratory: No respiratory distress. Clear and equal breath sounds bilaterally. Cardiovascular: Regular rate and rhythm. Abdominal: Epigastric and right upper quadrant tenderness with palpation. No distension. Normal Bowel Sounds. Back: Right sided musculature tenderness over the right lumbar area without rash. No deformity or step off. Extremities: Moves all four extremities. Upper extremities: Normal inspection. Normal ROM. Lower extremities: Normal inspection. No edema. Normal ROM. Neurological: Normal cognition. AAOx4. Normal speech. Psychological: Normal affect. Normal Mood. Skin: Warm. Dry. Normal color. (CHINO SELBY) Course - Laboratory Result Diagrams: 10/25/17 01:02 10/25/17 01:02 <CHINO SELBY - Last Filed: 10/25/17 02:28> - Laboratory Result Diagrams: 10/25/17 01:02 10/25/17 01:02 <CHRISSY RICH - Last Filed: 10/25/17 03:07> - Vital Signs Vital signs: Temp Pulse Resp BP Pulse Ox 98.9 F 104 H 16 135/94 H 98 10/24/17 22:44 10/24/17 22:44 10/24/17 22:44 10/24/17 22:44 10/24/17 22:44 - Laboratory Laboratory results interpreted by me: 10/25/17 10/25/17 10/25/17 01:02 01:02 02:00 Hgb 13.0 L MCV 75 L MCH 24.3 L RDW 21.3 H Sodium 146.4 H Anion Gap 21 H AST 77 H ALT 105 H Urine Protein 100 H Discharge <CHINO SELBY - Last Filed: 10/25/17 02:28> <CHRISSY RICH - Last Filed: 10/25/17 03:07> - Discharge Clinical Impression: Flank pain Abdominal pain Qualifiers: Abdominal location: upper abdomen, unspecified Qualified Code(s): R10.10 - Upper abdominal pain, unspecified Alcohol intoxication Qualifiers: Complication of substance-induced condition: uncomplicated Qualified Code(s): F10.920 - Alcohol use, unspecified with intoxication, uncomplicated Condition: Stable Disposition: HOME, SELF-CARE Additional Instructions: Flank Pain: We weren't able to prove an exact cause for your flank pain. Pain in the flank can be caused by a muscle strain or spasm. Sometimes a kidney stone causes pain, but can't be found on our tests. Infection in the kidney should be evident on a urine test. Early shingles can occasionally cause flank pain, without the rash that proves the diagnosis. On rare occasions, disease of the pancreas, aorta, spleen, or colon can create pain in the flank. At this time, there's no evidence of a dangerous condition, and it seems safe for you to be at home. If the pain goes away and does not come back, no further testing will be needed. If pain persists, or becomes more severe, we may need to repeat some tests or order additional new testing. Blood in the urine, urgency to urinate frequently, and pain that radiates to the groin can indicate a kidney stone. Fever may mean that the pain is due to infection, either of the kidney or the colon (diverticulitis). If your pain is early shingles, you should develop an eruption of blisters in the painful area within a few days. Call the doctor or return if you have pain that is spreading or becoming more severe, pain that does not resolve with time, fever, or any other new symptoms. Your flank pain appears to be related to painful muscles on exam today. Your lab work is unchanged from yesterday. You will probably continue to have problems with gastritis, nausea and vomiting as long as you continue to drink alcohol. The problems you are having 10 to get worse and more frequent as you get older if you continue heavy alcohol consumption. You should consider going on a bland diet, and avoiding all spicy type foods, acidic beverages, and alcohol. Take the medication you were prescribed yesterday and follow-up with your doctor on Thursday. RETURN TO THE EMERGENCY ROOM IF ANY NEW OR WORSENING SYMPTOMS. Referrals: SHALINI SOUTH MD [Primary Care Provider] - Follow up as needed [facility] [Provider Group] - Follow up as needed Scribe Attestation: 10/25/17 01:55 I personally performed the services described in the documentation, reviewed and edited the documentation which was dictated to the scribe in my presence, and it accurately records my words and actions. (CHRISSY RICH) Scribe Documentation - Scribe Written by Marin:: Marin Arroyo, 10/25/2017 0031 acting as scribe for :: Ramon <CHINO ESLBY - Last Filed: 10/25/17 02:28>
[2017-10-25] MEDS ORDERED: MAG HYDROX/AL HYDROX/SIMETH SUSP 30 ML UDCUP PO ONE (01:44)
[2017-10-25] MEDS ORDERED: LIDOCAINE 2% VISCOUS SOLN 20 ML UDCUP PO ONE (01:44)
[2017-10-25 02:06] LABS: ABSOLUTE BASOPHILS # (AUTO) 0.1 10^3/uL (0.0-0.2); ABSOLUTE LYMPHOCYTES (AUTO) 2.3 10^3/uL (0.5-4.7); ABSOLUTE MONOCYTES (AUTO) 0.6 10^3/uL (0.1-1.4); ABSOLUTE NEUT (AUTO) 6.6 10^3/uL (1.7-8.2); BASOPHILS % (AUTO) 1.1 % (0-2); EOSINOPHILS % (AUTO) 0.5 % (0-6); HEMATOCRIT 40.3 % (37.9-51.0); LYMPHOCYTES % (AUTO) 24.2 % (13-45); MEAN CORPUSCULAR HEMOGLOBIN 24.3 pg (27.0-33.4); MEAN CORPUSCULAR HGB CONC 32.3 g/dL (32.0-36.0); MEAN CORPUSCULAR VOLUME 75 fl (80-97); PLATELET COUNT 382 10^3/uL (150-450); RED BLOOD COUNT 5.36 10^6/uL (4.35-5.55); RED CELL DISTRIBUTION WIDTH 21.3 % (11.5-14.0); SEGMENTED NEUTROPHILS % (AUTO) 68.2 % (42-78); TOTAL CELLS COUNTED % (AUTO) 100 %; WHITE BLOOD COUNT 9.7 10^3/uL (4.0-10.5)
[2017-10-25 02:31] LABS: APPEARANCE,URINE CLEAR; BILIRUBIN,URINE NEGATIVE (NEGATIVE); COLOR,URINE YELLOW; GLUCOSE, URINE NEGATIVE (NEGATIVE); KETONES,URINE NEGATIVE (NEGATIVE); LEUKOCYTE ESTERASE,URINE NEGATIVE (NEGATIVE); NITRITE,URINE NEGATIVE (NEGATIVE); PROTEIN,URINE 100 mg/dL (NEGATIVE); URINE SPECIFIC GRAVITY 1.024; UROBILINOGEN,URINE NEGATIVE mg/dL (<2.0)
[2017-10-25 02:42] LABS: ALANINE AMINOTRANSFERASE 105 U/L (21-72); ALBUMIN 4.8 g/dL (3.5-5.0); ALCOHOL 163 mg/dL (NONE DETECTED); ALKALINE PHOSPHATASE 84 U/L (38-126); ASPARTATE AMINO TRANSFERASE 77 U/L (17-59); BILIRUBIN,DIRECT 0.3 mg/dL (0.0-0.4); BILIRUBIN,TOTAL 0.4 mg/dL (0.2-1.3); BLOOD UREA NITROGEN 12 mg/dL (7-20); CALCIUM 9.3 mg/dL (8.4-10.2); CHLORIDE 103 mmol/L (98-107); GLUCOSE 100 mg/dL (75-110); LIPASE 46.3 U/L (23-300); POTASSIUM 4.3 mmol/L (3.6-5.0); TOTAL PROTEIN 7.6 g/dL (6.3-8.2)
[2017-10-25 02:47] LABS: CARBON DIOXIDE 22 mmol/L (22-30); SODIUM 146.4 mmol/L (137-145)
[2017-10-25 02:53] LABS: ANION GAP 21 (5-19)
[2017-10-25] MEDS ORDERED: ONDANSETRON ODT 4 MG TAB (6 TAB/ER DISP) PO PRN (03:07)
[2017-10-25 03:37] VITALS: BP 144/93
== END 2017-10-25 03:35 | disposition home or self-care (01) ==
LOC: ER 22:38
DX: R10.10 Upper abdominal pain, unspecified (principal); F10.120 Alcohol abuse with intoxication, uncomplicated; R10.816 Epigastric abdominal tenderness; R10.811 Right upper quadrant abdominal tenderness; R11.2 Nausea with vomiting, unspecified; F17.210 Nicotine dependence, cigarettes, uncomplicated; I10 Essential (primary) hypertension; Z87.19 Personal history of other diseases of the digestive system
CPT/HCPCS: 99284; 96361; 96374; 36415; 80307; 83690; 85025; 80053; 81001; J3490; J2405; J7030

== ENCOUNTER 2018-01-17 08:53 | Emergency (ER) | payer SELFPAY ==
[2018-01-17] MEDS ORDERED: ONDANSETRON HCL INJ/PF 4 MG/2 ML SDV IV ONE ×2 (09:05→11:50)
[2018-01-17] MEDS ORDERED: RINGERS SOLUTION,LACTATED 1,000 ML IV ONE ×2 (09:05→10:30)
[2018-01-17] MEDS ORDERED: MORPHINE SULFATE 10 MG/ML INJ IV ONE (09:06)
--- NOTE | 2018-01-17 09:08 | ER Document Report ---
ED Medical Screen (RME) - General Chief Complaint: Abdominal Pain Stated Complaint: VOMITING Time Seen by Provider: 01/17/18 09:05 Mode of Arrival: Ambulatory Information source: Patient TRAVEL OUTSIDE OF THE [place] IN LAST 30 DAYS: No - HPI Patient complains to provider of: Abdominal pain Onset: Other - 32-year-old man with a history of alcohol abuse in the past who presents for evaluation of epigastric pain which started 3 days ago with associated vomiting, as well as loose stools. Denies systemic signs of infection. He does have a history of chronic pancreatitis in the past. - Related Data Allergies/Adverse Reactions: No Known Allergies Allergy (Verified 10/23/17 02:18) Past Medical History - Social History Chew tobacco use (# tins/day): No Frequency of alcohol use: Heavy Drug Abuse: None - Past Medical History Cardiac Medical History: Reports: Hx Hypertension Denies: Hx Heart Attack Pulmonary Medical History: Denies: Hx Asthma, Hx Tuberculosis Neurological Medical History: Reports: Hx Seizures - 6-7 weeks ago. Denies: Hx Cerebrovascular Accident Renal/ Medical History: Denies: Hx Peritoneal Dialysis GI Medical History: Reports: Hx Gastroesophageal Reflux Disease, Hx Hepatitis - alcoholic hepatitis, Hx Pancreatitis - alcoholic. Denies: Hx Hiatal Hernia, Hx Ulcer Psychiatric Medical History: Reports: Hx Depression Infectious Medical History: Reports: Hx Hepatitis - alcoholic hepatitis Past Surgical History: Reports: Hx Genitourinary Surgery - vasectomy, Hx Nose Surgery - bilateral: maxillary antrostomy, sphenoidotomy, ethmoidectomy. Denies : Hx Open Heart Surgery, Hx Pacemaker - Immunizations Hx Diphtheria, Pertussis, Tetanus Vaccination: Yes History of Influenza Vaccine for 12/2016 - 05/2017 Season: Refused Physical Exam - Vital signs Vitals: Temp Pulse Resp BP Pulse Ox 97.6 F 103 H 20 134/83 H 99 01/17/18 08:59 01/17/18 08:59 01/17/18 08:59 01/17/18 08:59 01/17/18 08:59 Course - Re-evaluation Re-evalutation: 01/17/18 09:07 Gentleman with a history of chronic pancreatitis in setting of alcohol abuse in the past who presents for epigastric pain vomiting and nausea similar to previous episodes of pancreatitis. We will initiate workup for pancreatitis will defer imaging decisions to next provider. I have seen and evaluated this patient and performed a rapid medical screening examination, he does not appear to have an immediate life threat however will require further investigation and disposition determination by another provider. - Vital Signs Vital signs: Temp Pulse Resp BP Pulse Ox 97.6 F 103 H 20 134/83 H 99 01/17/18 08:59 01/17/18 08:59 01/17/18 08:59 01/17/18 08:59 01/17/18 08:59 Doctor's Discharge - Discharge Referrals: SHALINI SOUTH MD [Primary Care Provider] - Follow up as needed
--- NOTE | 2018-01-17 09:46 | ER Document Report ---
ED General - General Chief Complaint: Abdominal Pain Stated Complaint: VOMITING Time Seen by Provider: 01/17/18 09:05 Mode of Arrival: Ambulatory TRAVEL OUTSIDE OF THE [place] IN LAST 30 DAYS: No - HPI Notes: Pt is a 32yo male with a h/o hypertension, GERD, history of alcoholism, pancreatitis who presents to the ED complaining of epigastric pain, nausea, vomiting, and watery diarrhea over the last 2-3 days. Patient states that his last episode of emesis was this morning. He has not had any hematemesis, melena , or hematochezia. Patient states that he has still been drinking over the last several days, but not as much as his usual because of his epigastric pain. Denies any drug allergies. P.o. intake does make his symptoms worse. Pain does not radiate otherwise. He is urinating normally. Denies any headache, fever, URI, sore throat, chest pain, palpitations, syncope, cough, shortness of breath, wheeze, dyspnea, urinary retention, dysuria, hematuria, back pain, loss of control of bowel or bladder, numbness/tingling, saddle anesthesia, muscle paralysis/weakness, or rash. - Related Data Allergies/Adverse Reactions: No Known Allergies Allergy (Verified 01/17/18 09:07) Past Medical History - General Information source: Patient - Social History Smoking Status: Current Every Day Smoker Chew tobacco use (# tins/day): No Frequency of alcohol use: Heavy Drug Abuse: None Family History: CAD, COPD Patient has suicidal ideation: No Patient has homicidal ideation: No - Past Medical History Cardiac Medical History: Reports: Hx Hypertension Denies: Hx Heart Attack Pulmonary Medical History: Denies: Hx Asthma, Hx Tuberculosis Neurological Medical History: Reports: Hx Seizures - 6-7 weeks ago. Denies: Hx Cerebrovascular Accident Renal/ Medical History: Denies: Hx Peritoneal Dialysis GI Medical History: Reports: Hx Gastroesophageal Reflux Disease, Hx Hepatitis - alcoholic hepatitis, Hx Pancreatitis - alcoholic. Denies: Hx Hiatal Hernia, Hx Ulcer Psychiatric Medical History: Reports: Hx Depression Infectious Medical History: Reports: Hx Hepatitis - alcoholic hepatitis Past Surgical History: Reports: Hx Genitourinary Surgery - vasectomy, Hx Nose Surgery - bilateral: maxillary antrostomy, sphenoidotomy, ethmoidectomy. Denies : Hx Open Heart Surgery, Hx Pacemaker - Immunizations Hx Diphtheria, Pertussis, Tetanus Vaccination: Yes Review of Systems - Review of Systems -: Yes All other systems reviewed and negative Physical Exam - Vital signs Vitals: Temp Pulse Resp BP Pulse Ox 97.6 F 103 H 20 134/83 H 99 01/17/18 08:59 01/17/18 08:59 01/17/18 08:59 01/17/18 08:59 01/17/18 08:59 - Notes Notes: PHYSICAL EXAMINATION: GENERAL: Well-appearing, well-nourished and in no acute distress. HEAD: Atraumatic, normocephalic. EYES: Pupils equal round and reactive to light, extraocular movements intact, sclera anicteric, conjunctiva are normal. ENT: Nares patent and without discharge. oropharynx clear without exudates. No tonsilar hypertrophy or erythema. Moist mucous membranes. NECK: Normal range of motion, supple without lymphadenopathy LUNGS: Breath sounds clear to auscultation bilaterally and equal. No wheezes rales or rhonchi. HEART: Regular rate and rhythm without murmurs, rubs, gallops. ABDOMEN: Soft, nondistended abdomen. No guarding, no rebound. No masses appreciated. Normal bowel sounds present. No CVA tenderness bilaterally. + epigastric tenderness, correlates with pain described. Domingo neg. No tenderness at McBurney point. Musculoskeletal: FROM to passive/active. Strength 5+/5. Extremities: No cyanosis, clubbing, or edema b/l. Peripheral pulses 2+. Capillary refill less than 3 seconds. NEUROLOGICAL: Normal speech, normal gait. PSYCH: Normal mood, normal affect. SKIN: Warm, Dry, normal turgor, no rashes or lesions noted. Course - Re-evaluation Re-evalutation: 01/17/18 11:50 Patient is an afebrile 32-year-old male who presents to the ED with epigastric pain with associated nausea/vomiting which I suspect to be secondary to alcohol consumption and gastritis. There may be a component of a viral gastroenteritis as well as he has watery diarrhea. Vitals are acceptable without any significant tachycardia, tachypnea, or hypoxia. PE is otherwise unremarkable. Patient is able to tolerate p.o. He has not had any episodes of emesis throughout his stay. GI cocktail was given and did provide some relief. He is nontoxic-appearing otherwise. CBC, CMP, lipase, urinalysis was unremarkable. See alcohol lab which showed 3 times over the limit. No further labs or imaging warranted at this time. Patient is able to communicate appropriately and is able to ambulate without any instability with gait. Patient states that he does have a ride coming for him. Patient is not interested in detox. Low suspicion/risk for acute appendicitis, bowel obstruction, acute cholecystitis, perforated diverticulitis, incarcerated hernia, pancreatitis, perforated ulcer, peritonitis, sepsis, testicular torsion, or other systemic emergent condition at this time. Patient is aware that his condition can change from initial presentation and he needs to monitor symptoms closely and seek medical attention if any acute changes. I will send him home with a prescription for Zofran and Imodium. Conservative measures otherwise for symptoms. Recheck with PCM in 2-3 days. Consider consult with a cartridge loader. Return to the ED with any worsening/concerning symptoms otherwise as reviewed in discharge. Patient is in agreement. - Vital Signs Vital signs: Temp Pulse Resp BP Pulse Ox 97.6 F 103 H 20 134/83 H 99 01/17/18 08:59 01/17/18 08:59 01/17/18 08:59 01/17/18 08:59 01/17/18 08:59 - Laboratory Result Diagrams: 01/17/18 09:30 01/17/18 09:30 Laboratory results interpreted by me: 01/17/18 01/17/18 01/17/18 09:30 09:30 09:30 MCV 76 L MCH 24.8 L RDW 22.8 H Seg Neutrophils % 78.7 H Sodium 146.3 H Anion Gap 20 H Glucose 140 H Urine Protein 30 H Urine Urobilinogen 4.0 H Discharge - Discharge Clinical Impression: Epigastric abdominal pain Gastritis Qualifiers: Gastritis type: alcoholic Chronicity: acute Gastritis bleeding: without bleeding Qualified Code(s): K29.20 - Alcoholic gastritis without bleeding Nausea and vomiting Qualifiers: Vomiting type: unspecified Vomiting Intractability: non-intractable Qualified Code(s): R11.2 - Nausea with vomiting, unspecified Condition: Stable Disposition: HOME, SELF-CARE Instructions: Abdominal Pain ([facility]), Antinausea Medication ([facility]), Acute Alcohol Intoxication ([facility]) Additional Instructions: Maintain adequate fluid and food intake [place] diet ([employer] Bananas, rice, apples, toast, etc Zofran as needed Motrin if needed Monitor for any worsening symptoms Make sure you are staying hydrated enough to urinate and have normal BM's Recheck with your PCM in 2-3 days Consider consult with Gastroenterology for ongoing/worsening symptoms Return to the ED with any worsening symptoms and/or development of fever, headache, chest pain, palpitations, syncope, shortness of breath, trouble breathing, abdominal pain, n/v/d, blood in stool/urine, weakness, or other worsening symptoms that are concerning to you. Prescriptions: Loperamide HCl [Imodium 2 mg Capsule] 2 mg PO PRN PRN #21 cap PRN Reason: Ondansetron [Zofran Odt 4 mg Tablet] 1 - 2 tab PO Q4H PRN #15 tab.rapdis PRN Reason: For Nausea/Vomiting Forms: Elevated Blood Pressure, Smoking Cessation Education Referrals: SHALINI SOUTH MD [Primary Care Provider] - Follow up as needed HERI DENT MD [ACTIVE STAFF] - Follow up as needed
[2018-01-17 09:50] LABS: ABSOLUTE BASOPHILS # (AUTO) 0.1 10^3/uL (0.0-0.2); ABSOLUTE LYMPHOCYTES (AUTO) 1.1 10^3/uL (0.5-4.7); ABSOLUTE MONOCYTES (AUTO) 0.3 10^3/uL (0.1-1.4); ABSOLUTE NEUT (AUTO) 5.7 10^3/uL (1.7-8.2); BASOPHILS % (AUTO) 1.3 % (0-2); EOSINOPHILS % (AUTO) 0.3 % (0-6); HEMATOCRIT 41.1 % (37.9-51.0); HEMOGLOBIN 13.5 g/dL (13.5-17.0); LYMPHOCYTES % (AUTO) 15.8 % (13-45); MEAN CORPUSCULAR HEMOGLOBIN 24.8 pg (27.0-33.4); MEAN CORPUSCULAR HGB CONC 32.8 g/dL (32.0-36.0); MEAN CORPUSCULAR VOLUME 76 fl (80-97); MONOCYTES % (AUTO) 3.9 % (3-13); PLATELET COUNT 427 10^3/uL (150-450); RED BLOOD COUNT 5.44 10^6/uL (4.35-5.55); RED CELL DISTRIBUTION WIDTH 22.8 % (11.5-14.0); SEGMENTED NEUTROPHILS % (AUTO) 78.7 % (42-78); TOTAL CELLS COUNTED % (AUTO) 100 %; WHITE BLOOD COUNT 7.3 10^3/uL (4.0-10.5)
[2018-01-17] MEDS ORDERED: PROMETHAZINE HCL INJ 25 MG/1 ML VIAL IM ONE (10:08)
[2018-01-17 10:10] LABS: ALANINE AMINOTRANSFERASE 24 U/L (21-72); ALBUMIN 4.8 g/dL (3.5-5.0); ALCOHOL 247 mg/dL (NONE DETECTED); ALKALINE PHOSPHATASE 89 U/L (38-126); ASPARTATE AMINO TRANSFERASE 32 U/L (17-59); BILIRUBIN,DIRECT 0.2 mg/dL (0.0-0.4); BILIRUBIN,TOTAL 0.5 mg/dL (0.2-1.3); BLOOD UREA NITROGEN 14 mg/dL (7-20); CALCIUM 9.5 mg/dL (8.4-10.2); CHLORIDE 103 mmol/L (98-107); GLUCOSE 140 mg/dL (75-110); POTASSIUM 4.2 mmol/L (3.6-5.0); TOTAL PROTEIN 7.9 g/dL (6.3-8.2)
[2018-01-17 10:14] LABS: CARBON DIOXIDE 23 mmol/L (22-30); SODIUM 146.3 mmol/L (137-145)
[2018-01-17 10:16] LABS: ANION GAP 20 (5-19)
[2018-01-17 10:20] LABS: APPEARANCE,URINE CLEAR; BILIRUBIN,URINE NEGATIVE (NEGATIVE); COLOR,URINE YELLOW; GLUCOSE, URINE NEGATIVE (NEGATIVE); KETONES,URINE NEGATIVE (NEGATIVE); LEUKOCYTE ESTERASE,URINE NEGATIVE (NEGATIVE); NITRITE,URINE NEGATIVE (NEGATIVE); PROTEIN,URINE 30 mg/dL (NEGATIVE); URINE SPECIFIC GRAVITY 1.027
[2018-01-17] MEDS ORDERED: METOCLOPRAMIDE HCL ORAL SOLN 10 MG/10 ML UDCUP PO ONE (10:29)
[2018-01-17] MEDS ORDERED: LIDOCAINE 2% VISCOUS SOLN 20 ML UDCUP PO ONE (10:29)
[2018-01-17] MEDS ORDERED: MAG HYDROX/AL HYDROX/SIMETH SUSP 30 ML UDCUP PO ONE (10:29)
[2018-01-17 12:12] VITALS: BP 142/87
== END 2018-01-17 12:12 | disposition home or self-care (01) ==
LOC: ER 08:53
DX: K29.20 Alcoholic gastritis without bleeding (principal); R10.13 Epigastric pain; R11.2 Nausea with vomiting, unspecified; K21.9 Gastro-esophageal reflux disease without esophagitis; R19.7 Diarrhea, unspecified; F17.200 Nicotine dependence, unspecified, uncomplicated; I10 Essential (primary) hypertension
CPT/HCPCS: 99284; 96372; 96361; 96374; 96375; 36415; 80307; 83690; 85025; 80053; 81001; J3490; J2270; J2550; J2405; J7120

== ENCOUNTER 2018-02-14 11:49 | Emergency (ER) | payer SELFPAY ==
[2018-02-14] MEDS ORDERED: HYDROMORPHONE HCL INJ/PF 2 MG/ML AMPULE IV ONE ×2 (12:21→17:51)
[2018-02-14] MEDS ORDERED: FAMOTIDINE INJ/PF 20 MG/2 ML SDV IV ONE (12:21)
[2018-02-14] MEDS ORDERED: ONDANSETRON HCL INJ/PF 4 MG/2 ML SDV IV ONE ×2 (12:21→19:06)
[2018-02-14] MEDS ORDERED: NORMAL SALINE 1000 ML 1,000 ML IV PRN (12:21)
[2018-02-14] MEDS ORDERED: THIAMINE HCL 100 MG, FOLIC ACID 1 MG in NORMAL SALINE 250 ML IV ONE (12:22)
--- NOTE | 2018-02-14 12:27 | ER Document Report ---
ED General - General Chief Complaint: Chest Pain Stated Complaint: POSSIBLE SEIZURE Time Seen by Provider: 02/14/18 11:52 Mode of Arrival: Medic Information source: Patient, Emergency Med Personnel, [facility] Records Notes: 32-year-old male with a history of alcoholism, alcohol withdrawal seizures, hypertension, alcoholic hepatitis, pancreatitis presents with complaint of epigastric abdominal pain that started 1 day prior to arrival. He describes it as a sharp constant pain that radiates to his right upper quadrant. Patient has had associated nausea and vomiting. He does admit to drinking recently with his last drink this morning. He denies any drug use, upper chest pain, lower abdominal pain, dysuria. Patient is well-known to the department and has been seen multiple times for similar symptoms. TRAVEL OUTSIDE OF THE [place] IN LAST 30 DAYS: No - HPI Onset: Yesterday Onset/Duration: Gradual, Persistent, Worse Quality of pain: Sharp Severity: Moderate Pain Level: 3 Associated symptoms: Diarrhea, Nausea, Vomiting, Other - Abdominal pain. denies : Chest pain, Nonproductive cough, Productive cough, Fever, Headache, Shortness of breath Exacerbated by: Denies Relieved by: Denies Similar symptoms previously: Yes Recently seen / treated by doctor: Yes - Related Data Allergies/Adverse Reactions: No Known Allergies Allergy (Verified 01/19/18 06:47) Past Medical History - General Information source: Patient, [facility] Records - Social History Smoking Status: Current Every Day Smoker Cigarette use (# per day): Yes - 15 Smoking Education Provided: Yes - Smoking cessation counseling was provided for 4 minutes at the bedside Frequency of alcohol use: Heavy Drug Abuse: None Lives with: Family Family History: CAD, COPD - Past Medical History Cardiac Medical History: Reports: Hx Hypertension Denies: Hx Heart Attack Pulmonary Medical History: Denies: Hx Asthma, Hx Tuberculosis Neurological Medical History: Reports: Hx Seizures - 6-7 weeks ago; alcohol withdrawal related. Denies: Hx Cerebrovascular Accident Renal/ Medical History: Denies: Hx Peritoneal Dialysis GI Medical History: Reports: Hx Gastroesophageal Reflux Disease, Hx Hepatitis - alcoholic hepatitis, Hx Pancreatitis - alcoholic. Denies: Hx Hiatal Hernia, Hx Ulcer Psychiatric Medical History: Reports: Hx Depression Infectious Medical History: Reports: Hx Hepatitis - alcoholic hepatitis Past Surgical History: Reports: Hx Genitourinary Surgery - vasectomy, Hx Nose Surgery - bilateral: maxillary antrostomy, sphenoidotomy, ethmoidectomy, Other - Esophageal varices banding. Denies: Hx Open Heart Surgery, Hx Pacemaker - Immunizations Hx Diphtheria, Pertussis, Tetanus Vaccination: Yes Review of Systems - Review of Systems Notes: REVIEW OF SYSTEMS: CONSTITUTIONAL : Denies fever, chills, or sweats. Denies recent illness. Denies weight loss, recent hospitalizations. EENT: Denies visual changes, eye pain. Denies sore throat, oral lesions, difficulty swallowing. CARDIOVASCULAR: Denies chest pain. Denies palpitations. Denies lower extremity edema. RESPIRATORY: Denies cough. Denies shortness of breath, wheezing. GASTROINTESTINAL: Denies abdominal distention. Denies diarrhea. Denies blood in vomitus, stools, or per rectum. Denies black, tarry stools. Denies constipation. GENITOURINARY: Denies difficulty urinating, painful urination, frequency, blood in urine, testicular pain or penile discharge. MUSCULOSKELETAL: Denies back or neck pain or stiffness. Denies joint pain or swelling. SKIN: Denies rash, lesions or sores. HEMATOLOGIC : Denies easy bruising or bleeding. LYMPHATIC: Denies swollen glands. NEUROLOGICAL: Denies confusion or altered mental status. Denies loss of consciousness. Denies dizziness or lightheadedness. Denies headache. Denies weakness or paralysis. Denies problems difficulty with ambulation, slurred speech. Denies sensory loss, numbness, or tingling. Denies seizures. PSYCHIATRIC: Denies anxiety or stress. Denies depression, suicidal ideation, or Physical Exam - Vital signs Vitals: Resp Pulse Ox 11 L 98 02/14/18 11:56 02/14/18 11:56 Interpretation: Tachycardic. No: Hypertensive, Febrile - Notes Notes: PHYSICAL EXAMINATION: GENERAL: Well-appearing, well-nourished and in no acute distress. HEAD: Atraumatic, normocephalic. EYES: Pupils equal round and reactive to light, extraocular movements intact, sclera anicteric, conjunctiva are normal. ENT: Nares patent, oropharynx clear without exudates. Moist mucous membranes. NECK: Normal range of motion, supple without lymphadenopathy LUNGS: Breath sounds clear to auscultation bilaterally and equal. No wheezes rales or rhonchi. HEART: Tachycardic, regular rhythm without murmurs ABDOMEN: Tenderness to palpation of the epigastric and right upper quadrant, no guarding, no rebound. No masses appreciated. Musculoskeletal: Normal range of motion, no pitting or edema. No cyanosis. NEUROLOGICAL: Cranial nerves grossly intact. Normal speech, normal gait. Normal sensory, motor exams. AO x3 PSYCH: Normal mood, normal affect. Cooperative. SKIN: Warm, Dry, normal turgor, no rashes or lesions noted. Course - Re-evaluation Re-evalutation: Laboratory 02/14/18 02/14/18 12:01 12:01 WBC 12.8 H RBC 5.14 Hgb 12.5 L Hct 38.4 MCV 75 L D MCH 24.3 L MCHC 32.5 RDW 19.9 H Plt Count 379 Seg Neutrophils % 83.0 H Lymphocytes % 13.5 Monocytes % 3.1 Eosinophils % 0.0 Basophils % 0.4 Absolute Neutrophils 10.6 H Absolute Lymphocytes 1.7 Absolute Monocytes 0.4 Absolute Eosinophils 0.0 Absolute Basophils 0.1 Sodium 137.8 Potassium 4.8 Chloride 89 L Carbon Dioxide 22 Anion Gap 27 H BUN 25 H Creatinine 0.70 Est GFR ( Amer) > 60 Est GFR (Non-Af Amer) > 60 Glucose 127 H Calcium 8.7 Total Bilirubin 0.8 Direct Bilirubin 0.3 Neonat Total Bilirubin Not Reportable Neonat Direct Bilirubin Not Reportable Neonat Indirect Bili Not Reportable AST 51 ALT 14 L Alkaline Phosphatase 81 Total Protein 7.6 Albumin 4.6 Lipase 209.0 Abdomen Ultrasound 02/14/18 12:21 IMPRESSION: NORMAL RIGHT UPPER QUADRANT ULTRASOUND. 02/14/18 19:01 32-year-old male well-known to the emergency department with known with history of alcoholism presents with epigastric abdominal pain, nausea, vomiting. Patient admits that he has been drinking again daily. His last drink was this morning. Vital signs reviewed and stable except for mild tachycardia. Patient does not appear toxic or dehydrated. He is in no acute distress. Previous medical records and nursing notes reviewed. Throughout his ED course he continuously asks for specific pain medications in combination with Ativan and Benadryl. Patient refusing to take anything by mouth. He also reports nonbloody diarrhea. It patient received thiamine, folic acid, 3 L of IV fluids , Dilaudid, Pepcid, Ativan. Patient is alert, awake and without any evidence of alcohol withdrawal. His heart rate remains slightly over 100 but does increase during his episodes of dry heaving do not resolved vomiting. Patient denies any hemoptysis. CBC does show a mild leukocytosis, no anemia. CMP is without electrolyte abnormality. Patient's last hospital admission for pancreatitis was in June 2017. Patient had a lipase over 2000 at that time. Today it is 200. Exam is consistent with gastritis secondary to alcohol abuse. I have seen this patient several times for similar symptoms. Patient presents with epigastric abdominal pain with associated reflux symptoms most consistent with likely gastritis. Patient has epigastric and right upper quadrant abdominal tenderness on exam but without guarding, evidence of surgical abdomen. Right upper quadrant ultrasound does not demonstrate any evidence of acute cholecystitis or cholelithiasis. Lipase is normal. No LFT changes. Based on history and exam, I do not suspect ACS, pulmonary embolus, SBO, mesenteric ischemia, acute pancreatitis, biliary pathology, or an abdominal aortic dissection. Patient has been observed in the emergency department for over 4 hours. I have walked by his room multiple times and have observed him resting comfortably. He makes several trips to another patient's room where there is a friend who is also in the emergency department and hangs out they are until he is to return to his room. He ambulates with a steady gait. He has had no changes in mentation. At this time will discharge with return precautions and follow-up recommendations. Verbal discharge instructions given a the bedside and opportunity for questions given. Medication warnings reviewed. Patient is in agreement with this plan and has verbalized understanding of return precautions and the need for primary care follow-up in the next 24-72 hours. 02/14/18 19:03 02/14/18 19:04 02/14/18 21:00 - Vital Signs Vital signs: Temp Pulse Resp BP Pulse Ox 22 H 110/96 H 98 02/14/18 17:00 02/14/18 16:00 02/14/18 18:00 - Laboratory Result Diagrams: 02/14/18 12:01 02/14/18 12:01 Laboratory results interpreted by me: 02/14/18 02/14/18 12:01 12:01 WBC 12.8 H Hgb 12.5 L MCV 75 L D MCH 24.3 L RDW 19.9 H Seg Neutrophils % 83.0 H Absolute Neutrophils 10.6 H Chloride 89 L Anion Gap 27 H BUN 25 H Glucose 127 H ALT 14 L - Diagnostic Test Radiology reviewed: Image reviewed, Reports reviewed - EKG Interpretation by Me EKG shows normal: Sinus rhythm Rate: Tachycardia Rhythm: NSR When compared to previous EKG there are: No significant change Discharge - Discharge Clinical Impression: Epigastric abdominal pain Nausea & vomiting Qualifiers: Vomiting type: unspecified Vomiting Intractability: non-intractable Qualified Code(s): R11.2 - Nausea with vomiting, unspecified Gastritis Qualifiers: Gastritis type: alcoholic Chronicity: acute Gastritis bleeding: without bleeding Qualified Code(s): K29.20 - Alcoholic gastritis without bleeding Alcohol dependence with acute intoxication, continuous Qualifiers: Complication of substance-induced condition: uncomplicated Qualified Code(s): F10.220 - Alcohol dependence with intoxication, uncomplicated Condition: Good Disposition: HOME, SELF-CARE Instructions: Abdominal Pain ([facility]), Antacid Therapy ([facility]), Chronic Alcoholism ( [facility]), Evaluation of Upper Abdominal Pain ([facility]), Intravenous (IV) Fluids ([facility]), Reflux Disease (GERD) ([facility]), Vomiting ([facility]) Additional Instructions: Your symptoms appear to be most consistent with stomach or upper intestinal irritation. Please begin taking famotidine 40 mg in the morning and 40 mg at night. This medicine can be purchased directly [id number]. You may also take medicine such as Pepto-Bismol or Tums to assist with your pain. Please return to emergency department immediately if you have worsening of your pain, shortness of breath, vomiting, become unable to exert yourself due to pain or difficulty breathing, you pass out, or have any pain that radiates into your arms, jaw, or back. Please also return if you have any additional symptoms that are concerning to you. As we have discussed, the most important thing is lifestyle changes. You need to avoid smoking, sodas, tea, coffee, alcohol, spicy foods, and acidic foods such as citrus fruits, tomato based products, berries, and most fruit juices. Prescriptions: Famotidine [Pepcid 40 mg Tablet] 40 mg PO DAILY #30 tablet Promethazine HCl [Phenergan 25 mg Tablet] 1 - 2 tab PO Q6H PRN #15 tablet PRN Reason: Forms: Elevated Blood Pressure
[2018-02-14 12:36] LABS: ABSOLUTE BASOPHILS # (AUTO) 0.1 10^3/uL (0.0-0.2); ABSOLUTE LYMPHOCYTES (AUTO) 1.7 10^3/uL (0.5-4.7); ABSOLUTE MONOCYTES (AUTO) 0.4 10^3/uL (0.1-1.4); ABSOLUTE NEUT (AUTO) 10.6 10^3/uL (1.7-8.2); BASOPHILS % (AUTO) 0.4 % (0-2); HEMATOCRIT 38.4 % (37.9-51.0); HEMOGLOBIN 12.5 g/dL (13.5-17.0); LYMPHOCYTES % (AUTO) 13.5 % (13-45); MEAN CORPUSCULAR HEMOGLOBIN 24.3 pg (27.0-33.4); MEAN CORPUSCULAR HGB CONC 32.5 g/dL (32.0-36.0); MONOCYTES % (AUTO) 3.1 % (3-13); PLATELET COUNT 379 10^3/uL (150-450); RED BLOOD COUNT 5.14 10^6/uL (4.35-5.55); RED CELL DISTRIBUTION WIDTH 19.9 % (11.5-14.0); TOTAL CELLS COUNTED % (AUTO) 100 %; WHITE BLOOD COUNT 12.8 10^3/uL (4.0-10.5)
[2018-02-14 12:46] LABS: MEAN CORPUSCULAR VOLUME 75 fl (80-97)
[2018-02-14 12:51] LABS: ALANINE AMINOTRANSFERASE 14 U/L (21-72); ALBUMIN 4.6 g/dL (3.5-5.0); ALKALINE PHOSPHATASE 81 U/L (38-126); ASPARTATE AMINO TRANSFERASE 51 U/L (17-59); BILIRUBIN,DIRECT 0.3 mg/dL (0.0-0.4); BILIRUBIN,TOTAL 0.8 mg/dL (0.2-1.3); BLOOD UREA NITROGEN 25 mg/dL (7-20); CALCIUM 8.7 mg/dL (8.4-10.2); CARBON DIOXIDE 22 mmol/L (22-30); CHLORIDE 89 mmol/L (98-107); GLUCOSE 127 mg/dL (75-110); POTASSIUM 4.8 mmol/L (3.6-5.0); TOTAL PROTEIN 7.6 g/dL (6.3-8.2)
[2018-02-14 12:56] LABS: SODIUM 137.8 mmol/L (137-145)
[2018-02-14 13:00] LABS: ANION GAP 27 (5-19)
--- NOTE | 2018-02-14 14:07 | RADIOLOGY REPORT (SQ) ---
EXAM DESCRIPTION: U/S ABDOMEN LIMITED W/O DOP COMPLETED DATE/TIME: 02/14/2018 1:57 pm REASON FOR STUDY: ruq pain COMPARISON: 09/19/2017 TECHNIQUE: Dynamic and static grayscale images acquired of the abdomen and recorded on PACS. Es[place]o bob selected color Doppler and spectral images recorded. LIMITATIONS: None. FINDINGS: PANCREAS: No masses. Visualized pancreatic duct normal caliber. LIVER: No masses. Echotexture normal. LIVER VASCULATURE: Normal directional flow of the main portal vein and hepatic veins. GALLBLADDER: No stones. Normal wall thickness. No pericholecystic fluid. ULTRASOUND-DETECTED VIERA'S SIGN: Negative. INTRAHEPATIC DUCTS AND COMMON DUCT: CBD and intrahepatic ducts normal caliber. No filling defects. INFERIOR VENA CAVA: Normal flow. AORTA: No aneurysm. RIGHT KIDNEY: Normal size. Normal echogenicity. No solid or suspicious masses. No hydronephrosis. No calcifications. PERITONEAL AND RIGHT PLEURAL SPACE: No ascites or effusions. OTHER: No other significant findings. IMPRESSION: NORMAL RIGHT UPPER QUADRANT ULTRASOUND. TECHNICAL DOCUMENTATION: JOB ID: [id number] [employer]- All Rights Reserved Reading location - IP/workstation name: [email or web address]
[2018-02-14] MEDS ORDERED: LIDOCAINE 2% VISCOUS SOLN 20 ML UDCUP PO ONE (14:51)
[2018-02-14] MEDS ORDERED: METOCLOPRAMIDE HCL ORAL SOLN 10 MG/10 ML UDCUP PO ONE (14:51)
[2018-02-14] MEDS ORDERED: MAG HYDROX/AL HYDROX/SIMETH SUSP 30 ML UDCUP PO ONE (14:51)
[2018-02-14] MEDS ORDERED: LORAZEPAM 1 MG TABLET PO ONE (14:51)
--- NOTE | 2018-02-14 17:32 | EKG REPORT ---
SEVERITY:- ABNORMAL ECG - SINUS TACHYCARDIA PROLONGED QT INTERVAL : Confirmed by: Lawson Finley 14-Feb-2018 17:30:40
[2018-02-14] MEDS ORDERED: METOCLOPRAMIDE HCL INJ/PF 10 MG/2 ML SDV IV ONE (17:50)
[2018-02-14] MEDS ORDERED: DIPHENHYDRAMINE HCL 50 MG/ML VIAL IV ONE (17:51)
[2018-02-14] MEDS ORDERED: LORAZEPAM INJ 2 MG/1 ML VIAL IV ONE (19:04)
[2018-02-14] MEDS ORDERED: LORAZEPAM INJ 2 MG/1 ML VIAL IV PRN (19:08)
[2018-02-14 21:41] VITALS: BP 144/77
== END 2018-02-14 20:01 | disposition home or self-care (01) ==
LOC: ER 11:49
DX: K29.20 Alcoholic gastritis without bleeding (principal); F10.220 Alcohol dependence with intoxication, uncomplicated; R11.2 Nausea with vomiting, unspecified; R19.7 Diarrhea, unspecified; R10.13 Epigastric pain; R10.816 Epigastric abdominal tenderness; R10.811 Right upper quadrant abdominal tenderness; R00.0 Tachycardia, unspecified; I10 Essential (primary) hypertension; F17.210 Nicotine dependence, cigarettes, uncomplicated; Z71.6 Tobacco abuse counseling
CPT/HCPCS: 93005; 96376; 99406; 99285; 96361; 96375; 96365; 36415; 83690; 85025; 80053; 76705; 93010; J1200; J3490 ×2; J2765; J1170; J3411; J2405; J7030; J7050; S0028

== ENCOUNTER 2018-02-25 15:08 | Emergency (ER) | payer SELFPAY ==
--- NOTE | 2018-02-25 16:36 | RADIOLOGY REPORT (SQ) ---
EXAM DESCRIPTION: RIBS RIGHT W/PA CHEST COMPLETED DATE/TIME: 02/25/2018 4:28 pm REASON FOR STUDY: Right chest wall pain COMPARISON: None. TECHNIQUE: Frontal view of the chest and additional views of the right ribs acquired. NUMBER OF VIEWS: Three views LIMITATIONS: None. FINDINGS: FRONTAL CXR: No pneumothorax. No pleural effusion. No atelectasis or infiltrates. RIBS: No displaced rib fractures. No lytic or blastic bony lesions. OTHER: No other significant finding. IMPRESSION: NO PNEUMOTHORAX. NO DISPLACED RIB FRACTURES. COMMENT: SITE OF TRAUMA/COMPLAINT MARKED/STAMP COMPLETED: Yes TECHNICAL DOCUMENTATION: JOB ID: [id number] [employer]- All Rights Reserved Reading location - IP/workstation name: [email or web address]
[2018-02-25 16:56] LABS: ABSOLUTE BASOPHILS # (AUTO) 0.1 10^3/uL (0.0-0.2); ABSOLUTE EOSINOPHILS # (AUTO) 0.2 10^3/uL (0.0-0.6); ABSOLUTE MONOCYTES (AUTO) 0.9 10^3/uL (0.1-1.4); ABSOLUTE NEUT (AUTO) 3.8 10^3/uL (1.7-8.2); EOSINOPHILS % (AUTO) 3.1 % (0-6); HEMOGLOBIN 10.4 g/dL (13.5-17.0); TOTAL CELLS COUNTED % (AUTO) 100 %
[2018-02-25 17:00] LABS: ABSOLUTE LYMPHOCYTES (AUTO) 2.4 10^3/uL (0.5-4.7); BASOPHILS % (AUTO) 1.5 % (0-2); HEMATOCRIT 32.6 % (37.9-51.0); LYMPHOCYTES % (AUTO) 32.5 % (13-45); MEAN CORPUSCULAR HEMOGLOBIN 24.5 pg (27.0-33.4); MEAN CORPUSCULAR HGB CONC 31.8 g/dL (32.0-36.0); MEAN CORPUSCULAR VOLUME 77 fl (80-97); PLATELET COUNT 399 10^3/uL (150-450); RED BLOOD COUNT 4.23 10^6/uL (4.35-5.55); RED CELL DISTRIBUTION WIDTH 21.1 % (11.5-14.0); SEGMENTED NEUTROPHILS % (AUTO) 50.9 % (42-78); WHITE BLOOD COUNT 7.4 10^3/uL (4.0-10.5)
--- NOTE | 2018-02-25 18:05 | ER Document Report ---
ED General - General Chief Complaint: GI Bleeding Stated Complaint: RIGHT SIDE CHEST PAIN Time Seen by Provider: 02/25/18 15:58 Mode of Arrival: Ambulatory Information source: Patient TRAVEL OUTSIDE OF THE [place] IN LAST 30 DAYS: No - HPI Patient complains to provider of: rib pain Onset: Other - 32-year-old alcoholic who is 8 days out of detox presents for evaluation at the behest of an outside physician after having a positive Hemoccult test earlier in the day. He notes that he was previously working with a log splitter that kicked back and hit him in the right side he has been suffering pain in that side of his chest and abdomen since. He denies any recent alcohol use has been abstinent over the last 8 days without any episodes of hematemesis or dark stools. He does note a history of previous upper GI bleeds in the past generally with prominent hematemesis as a result of esophageal varices as well as ulcers. He has not been any blood thinning medications and has been taking his Protonix daily. - Related Data Allergies/Adverse Reactions: No Known Allergies Allergy (Verified 02/25/18 15:10) Home Medications: clonidine. protonix. zofran Past Medical History - General Information source: Patient, Parent - Social History Smoking Status: Current Every Day Smoker Chew tobacco use (# tins/day): No Frequency of alcohol use: last drink 02/15 Drug Abuse: None Family History: CAD, COPD Patient has suicidal ideation: No Patient has homicidal ideation: No - Past Medical History Cardiac Medical History: Reports: Hx Hypertension Denies: Hx Heart Attack Pulmonary Medical History: Denies: Hx Asthma, Hx Tuberculosis Neurological Medical History: Reports: Hx Seizures - 6-7 weeks ago; alcohol withdrawal related. Denies: Hx Cerebrovascular Accident Renal/ Medical History: Denies: Hx Peritoneal Dialysis GI Medical History: Reports: Hx Gastroesophageal Reflux Disease, Hx Hepatitis - alcoholic hepatitis, Hx Pancreatitis - alcoholic. Denies: Hx Hiatal Hernia, Hx Ulcer Psychiatric Medical History: Reports: Hx Depression Infectious Medical History: Reports: Hx Hepatitis - alcoholic hepatitis Past Surgical History: Reports: Hx Genitourinary Surgery - vasectomy, Hx Nose Surgery - bilateral: maxillary antrostomy, sphenoidotomy, ethmoidectomy, Other - Esophageal varices banding. Denies: Hx Open Heart Surgery, Hx Pacemaker - Immunizations Hx Diphtheria, Pertussis, Tetanus Vaccination: Yes Review of Systems - Review of Systems -: Yes All other systems reviewed and negative Physical Exam - Vital signs Vitals: Temp Pulse Resp BP Pulse Ox 98.9 F 97 16 128/77 H 100 02/25/18 15:39 02/25/18 15:39 02/25/18 15:39 02/25/18 15:39 02/25/18 15:39 - General General appearance: Appears well, Alert - HEENT Head: Normocephalic, Atraumatic Eyes: Normal Pupils: PERRL - Respiratory Respiratory status: No respiratory distress Chest status: Tender - Tenderness along the inferior costal margin on the right , negative Domingo sign, Breath sounds: Normal Chest palpation: Normal - Cardiovascular Rhythm: Regular Heart sounds: Normal auscultation Murmur: No - Abdominal Inspection: Normal Distension: No distension Bowel sounds: Normal Tenderness: Nontender Organomegaly: No organomegaly - Back Back: Normal, Nontender - Extremities General upper extremity: Normal inspection, Nontender, Normal color, Normal ROM , Normal temperature General lower extremity: Normal inspection, Nontender, Normal color, Normal ROM , Normal temperature, Normal weight bearing. No: Maia's sign - Neurological Neuro grossly intact: Yes Cognition: Normal Orientation: AAOx4 [place] Coma Scale Eye Opening: Spontaneous Leva Coma Scale Verbal: Oriented [place] Coma Scale Motor: Obeys Commands Elva Coma Scale Total: 15 Speech: Normal Motor strength normal: LUE, RUE, LLE, RLE Sensory: Normal - Psychological Associated symptoms: Normal affect, Normal mood Course - Re-evaluation Re-evalutation: 02/26/18 03:54 Well-appearing 32-year-old male presents for evaluation of a positive Hemoccult test in the outpatient setting. Has a history of previous GI bleeds in the past generally with hematemesis. His hemoglobin hematocrit ordered through triage are stable actually improved from his previous. His Hemoccult test was likely positive as a result of his iron supplementation use. He has not had any hematemesis or other episodes like that recently. He was hit on the right side with a log splitter prior to his presentation today likely that is the cause of his chest pain. Given that his hemoglobin hematocrit are improved from previous, he is abstinent from alcohol known any blood thinners at this time hemodynamically stable and well-appearing able to tolerate p.o. believe that he is likely safe for discharge home with analgesia for his right chest pain. He will be discharged with return precautions and expectant management because I do not play think he is suffering a GI bleed at this time. - Vital Signs Vital signs: Temp Pulse Resp BP Pulse Ox 99.1 F 79 18 129/82 H 100 02/25/18 19:53 02/25/18 19:53 02/25/18 19:53 02/25/18 19:53 02/25/18 15:39 - Laboratory Result Diagrams: 02/25/18 16:41 Laboratory results interpreted by me: 02/25/18 16:41 RBC 4.23 L Hgb 10.4 L Hct 32.6 L MCV 77 L MCH 24.5 L MCHC 31.8 L RDW 21.1 H Discharge - Discharge Clinical Impression: Right-sided chest pain, Rib pain Condition: Good Disposition: HOME, SELF-CARE Instructions: Chest Wall Pain ([facility]), Oral Narcotic Medication ([facility]), Prilosec ( Acid Pump Inhibitor) ([facility]) Additional Instructions: Your seen today in the emergency department for abdominal pain. He had evaluation including blood work. Your blood count is stable. Your markers are overall stable. I think that your pain is related to the injury to your chest. Return in case you begin to have any worsening lightheadedness, nausea, begin to vomit blood or have blood in your stools. Schedule an appointment with your primary physician in the coming week for reevaluation. Prescriptions: Lidocaine HCl [Xylocaine 5% Ointment 35.44 gm] 35.44 applic TP DAILY 7 Days tube Oxycodone HCl 5 mg PO TID PRN 3 Days #12 capsule PRN Reason: Referrals: [facility] [Primary Care Provider] - Follow up as needed
[2018-02-25] MEDS ORDERED: LIDOCAINE 5% (700 MG) TRANSDERMAL ADH..PATCH TP ONE (19:23)
[2018-02-25 19:54] VITALS: BP 129/82
== END 2018-02-25 19:54 | disposition home or self-care (01) ==
LOC: ER 15:08
DX: R07.9 Chest pain, unspecified (principal); R07.81 Pleurodynia; W22.8XXA Striking against or struck by other objects, initial encounter; F17.200 Nicotine dependence, unspecified, uncomplicated; I10 Essential (primary) hypertension
CPT/HCPCS: 36415; 85025; 99284

== ENCOUNTER → 2018-02-25 | Outpatient (CLI) | payer OTHER ==
[2018-02-25 10:04] LABS: ABSOLUTE BASOPHILS # (AUTO) 0.1 10^3/uL (0.0-0.2); ABSOLUTE EOSINOPHILS # (AUTO) 0.2 10^3/uL (0.0-0.6); ABSOLUTE LYMPHOCYTES (AUTO) 1.8 10^3/uL (0.5-4.7); ABSOLUTE MONOCYTES (AUTO) 0.8 10^3/uL (0.1-1.4); ABSOLUTE NEUT (AUTO) 1.9 10^3/uL (1.7-8.2); BASOPHILS % (AUTO) 1.3 % (0-2); EOSINOPHILS % (AUTO) 4.2 % (0-6); HEMATOCRIT 32.4 % (37.9-51.0); HEMOGLOBIN 10.4 g/dL (13.5-17.0); LYMPHOCYTES % (AUTO) 37.5 % (13-45); MEAN CORPUSCULAR HGB CONC 32.2 g/dL (32.0-36.0); MEAN CORPUSCULAR VOLUME 78 fl (80-97); MONOCYTES % (AUTO) 16.8 % (3-13); PLATELET COUNT 406 10^3/uL (150-450); RED BLOOD COUNT 4.18 10^6/uL (4.35-5.55); RED CELL DISTRIBUTION WIDTH 21.3 % (11.5-14.0); SEGMENTED NEUTROPHILS % (AUTO) 40.2 % (42-78); TOTAL CELLS COUNTED % (AUTO) 100 %; WHITE BLOOD COUNT 4.8 10^3/uL (4.0-10.5)
[2018-02-25 10:32] LABS: ALANINE AMINOTRANSFERASE 62 U/L (21-72); ALBUMIN 4.1 g/dL (3.5-5.0); ALKALINE PHOSPHATASE 66 U/L (38-126); AMYLASE 120 U/L (30-110); ANION GAP 14 (5-19); ASPARTATE AMINO TRANSFERASE 32 U/L (17-59); BILIRUBIN,DIRECT 0.1 mg/dL (0.0-0.4); BILIRUBIN,TOTAL 0.1 mg/dL (0.2-1.3); BLOOD UREA NITROGEN 13 mg/dL (7-20); CALCIUM 9.8 mg/dL (8.4-10.2); CARBON DIOXIDE 27 mmol/L (22-30); CHLORIDE 101 mmol/L (98-107); CHOLESTEROL 141.33 mg/dL (0-200); GLUCOSE 101 mg/dL (75-110); LIPASE 432.8 U/L (23-300); SODIUM 141.9 mmol/L (137-145); TOTAL PROTEIN 6.7 g/dL (6.3-8.2); TRIGLYCERIDES 160 mg/dL (<150)
[2018-02-25 10:44] LABS: DIRECT LDL 42 mg/dL (<100)
== END ==
LOC: CCC 08:53
DX: K86.1 Other chronic pancreatitis (principal)
CPT/HCPCS: 36415; 80053; 80061; 82150; 83036; 83690; 85025

== ENCOUNTER → 2018-03-05 | Outpatient (CLI) | payer OTHER ==
[2018-03-05 09:05] LABS: ABSOLUTE BASOPHILS # (AUTO) 0.1 10^3/uL (0.0-0.2); ABSOLUTE EOSINOPHILS # (AUTO) 0.2 10^3/uL (0.0-0.6); ABSOLUTE LYMPHOCYTES (AUTO) 1.7 10^3/uL (0.5-4.7); ABSOLUTE MONOCYTES (AUTO) 0.4 10^3/uL (0.1-1.4); ABSOLUTE NEUT (AUTO) 3.7 10^3/uL (1.7-8.2); BASOPHILS % (AUTO) 1.6 % (0-2); EOSINOPHILS % (AUTO) 2.5 % (0-6); HEMATOCRIT 35.7 % (37.9-51.0); HEMOGLOBIN 11.5 g/dL (13.5-17.0); LYMPHOCYTES % (AUTO) 28.4 % (13-45); MEAN CORPUSCULAR HEMOGLOBIN 25.1 pg (27.0-33.4); MEAN CORPUSCULAR HGB CONC 32.2 g/dL (32.0-36.0); MEAN CORPUSCULAR VOLUME 78 fl (80-97); MONOCYTES % (AUTO) 6.5 % (3-13); PLATELET COUNT 644 10^3/uL (150-450); RED BLOOD COUNT 4.58 10^6/uL (4.35-5.55); RED CELL DISTRIBUTION WIDTH 22.4 % (11.5-14.0); TOTAL CELLS COUNTED % (AUTO) 100 %; WHITE BLOOD COUNT 6.1 10^3/uL (4.0-10.5)
== END ==
LOC: CCC 08:19
DX: D50.9 Iron deficiency anemia, unspecified (principal)
CPT/HCPCS: 36415; 85025

== ENCOUNTER 2018-03-11 15:03 | Emergency (ER) | payer SELFPAY ==
[2018-03-11] MEDS ORDERED: ONDANSETRON HCL INJ/PF 4 MG/2 ML SDV IV ONE (15:06)
[2018-03-11] MEDS ORDERED: KETOROLAC TROMETHAMINE INJ/PF 30 MG/1 ML SDV IV ONE ×2 (15:06→20:50)
--- NOTE | 2018-03-11 15:08 | ER Document Report ---
ED Medical Screen (RME) - General Chief Complaint: Abdominal Injury Stated Complaint: ABDOMINAL PAIN Time Seen by Provider: 03/11/18 15:05 Mode of Arrival: Ambulatory Information source: Patient Notes: PT PRESENTS TO THE ED WITH C/O ABD PAIN, , HX OF PANCREATITIS, DENIES ETOH USE. REPORTS SEVERE ABD PAIN, N/V/D. SENT OVER BY DR BETTENCOURT. I have greeted and performed a rapid initial assessment of this patient. A comprehensive ED assessment and evaluation of the patient, analysis of test results and completion of the medical decision making process will be conducted by additional ED providers. TRAVEL OUTSIDE OF THE [place] IN LAST 30 DAYS: No - Related Data Allergies/Adverse Reactions: No Known Allergies Allergy (Verified 03/11/18 15:07) Past Medical History - Past Medical History Cardiac Medical History: Reports: Hx Hypertension Denies: Hx Coronary Artery Disease, Hx Heart Attack Pulmonary Medical History: Denies: Hx Asthma, Hx Bronchitis, Hx COPD, Hx Pneumonia, Hx Tuberculosis Neurological Medical History: Reports: Hx Seizures - ALCOHOL RELATED. Denies: Hx Cerebrovascular Accident Renal/ Medical History: Denies: Hx Peritoneal Dialysis GI Medical History: Reports: Hx Gastroesophageal Reflux Disease, Hx Hepatitis - alcoholic hepatitis, Hx Pancreatitis - alcoholic. Denies: Hx Hiatal Hernia, Hx Ulcer Musculoskeltal Medical History: Denies Hx Arthritis Psychiatric Medical History: Reports: Hx Depression Infectious Medical History: Reports: Hx Hepatitis - alcoholic hepatitis Past Surgical History: Reports: Hx Genitourinary Surgery - vasectomy, Hx Nose Surgery - bilateral: maxillary antrostomy, sphenoidotomy, ethmoidectomy, Other - Esophageal varices banding. Denies: Hx Open Heart Surgery, Hx Pacemaker - Immunizations Hx Diphtheria, Pertussis, Tetanus Vaccination: Yes History of Influenza Vaccine for 12/2016 - 05/2017 Season: Refused Physical Exam - Vital signs Vitals: Temp Pulse Resp BP Pulse Ox 98.4 F 96 16 138/91 H 98 03/11/18 15:03/11/18 15:03/11/18 15:03/11/18 15:03/11/18 15:09 Course - Vital Signs Vital signs: Temp Pulse Resp BP Pulse Ox 98.4 F 96 16 138/91 H 98 03/11/18 15:09 03/11/18 15:09 03/11/18 15:09 03/11/18 15:09 03/11/18 15:09 Doctor's Discharge - Discharge Referrals: [facility] [Primary Care Provider] - Follow up as needed
[2018-03-11 17:29] LABS: APPEARANCE,URINE CLEAR; BILIRUBIN,URINE NEGATIVE (NEGATIVE); COLOR,URINE STRAW; GLUCOSE, URINE NEGATIVE (NEGATIVE); KETONES,URINE NEGATIVE (NEGATIVE); LEUKOCYTE ESTERASE,URINE NEGATIVE (NEGATIVE); NITRITE,URINE NEGATIVE (NEGATIVE); PROTEIN,URINE NEGATIVE (NEGATIVE); URINE SPECIFIC GRAVITY 1.009; UROBILINOGEN,URINE NEGATIVE mg/dL (<2.0)
[2018-03-11 17:35] LABS: ABSOLUTE BASOPHILS # (AUTO) 0.1 10^3/uL (0.0-0.2); ABSOLUTE EOSINOPHILS # (AUTO) 0.3 10^3/uL (0.0-0.6); ABSOLUTE LYMPHOCYTES (AUTO) 2.3 10^3/uL (0.5-4.7); ABSOLUTE MONOCYTES (AUTO) 0.7 10^3/uL (0.1-1.4); ABSOLUTE NEUT (AUTO) 5.7 10^3/uL (1.7-8.2); BASOPHILS % (AUTO) 1.2 % (0-2); EOSINOPHILS % (AUTO) 2.9 % (0-6); HEMATOCRIT 38.9 % (37.9-51.0); HEMOGLOBIN 12.5 g/dL (13.5-17.0); LYMPHOCYTES % (AUTO) 25.8 % (13-45); MEAN CORPUSCULAR HEMOGLOBIN 25.1 pg (27.0-33.4); MEAN CORPUSCULAR VOLUME 78 fl (80-97); MONOCYTES % (AUTO) 7.4 % (3-13); PLATELET COUNT 454 10^3/uL (150-450); RED BLOOD COUNT 4.96 10^6/uL (4.35-5.55); RED CELL DISTRIBUTION WIDTH 22.8 % (11.5-14.0); SEGMENTED NEUTROPHILS % (AUTO) 62.7 % (42-78); TOTAL CELLS COUNTED % (AUTO) 100 %
[2018-03-11 17:46] LABS: URINE AMPHETAMINES SCREEN NEGATIVE; URINE BARBITURATES SCREEN NEGATIVE; URINE BENZODIAZEPINES SCREEN NEGATIVE; URINE COCAINE SCREEN NEGATIVE; URINE MARIJUANA (THC) SCREEN NEGATIVE; URINE METHADONE SCREEN NEGATIVE; URINE PHENCYCLIDINE SCREEN NEGATIVE
--- NOTE | 2018-03-11 18:42 | PDOC CONSULTATION ---
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 if he would need to have gallbladder checked with ultrasound rule out for pancreatitis may need CT scan patient may nee to undergo inpatient colonoscopy but I will not be available until Thursday 03/15 Past Medical History Cardiac Medical History: Reports: Hypertension Denies: Coronary Artery Disease, Myocardial Infarction Pulmonary Medical History: Denies: Asthma, Bronchitis, Chronic Obstructive Pulmonary Disease (COPD), Pneumonia, Tuberculosis Neurological Medical History: Reports: Seizures - ALCOHOL RELATED GI Medical History: Reports: Gastroesophageal Reflux Disease - esophageal varacies, Hepatitis - alcoholic hepatitis Denies: Hiatal Hernia Musculoskeltal Medical History: Denies: Arthritis Psychiatric Medical History: Reports: Depression Hematology: Denies: Anemia, Sickle Cell Disease Past Surgical History Past Surgical History: Reports: Other - Esophageal varices banding Denies: Pacemaker Social History Smoking Status: Current Every Day Smoker Frequency of Alcohol Use: Heavy - 1/5 vodka daily Hx Recreational Drug Use: No Drugs: None Hx Prescription Drug Abuse: No Family History Family History: CAD, COPD Parental Family History Reviewed: Yes Children Family History Reviewed: Unknown Sibling(s) Family History Reviewed.: Unknown Medication/Allergy Home Medications: Promethazine HCl [Phenergan 25 mg Tablet] 1 - 2 tab PO Q6H PRN #15 tablet Acetaminophen [Tylenol Extra Strength 500 mg Tablet] 1 tab PO ASDIR PRN Clonidine HCl [Catapres] 0.1 mg PO QPM 03/10/18 Cyanocobalamin (Vitamin B-12) [Vitamin B12] 2,500 mcg PO DAILY 03/10/18 Dexlansoprazole [Dexilant] 30 mg PO DAILY 03/10/18 Ferrous Sulfate [Iron] 325 mg PO DAILY 03/10/18 Hydroxyzine Pamoate [Vistaril 50 mg Capsule] 50 mg PO BID PRN 03/10/18 Multivitamin with Iron [One Daily Multivitamin] 1 each PO DAILY 03/10/18 Pantoprazole Sodium [Protonix] 40 mg PO DAILY 03/10/18 Ranitidine HCl 150 mg PO DAILY 03/10/18 Trazodone HCl 100 mg PO QHS PRN 03/10/18 Allergies/Adverse Reactions: No Known Allergies Allergy (Verified 03/11/18 15:07) Review of Systems Constitutional: ABSENT: fever(s), headache(s), night sweats, weakness Eyes: ABSENT: visual disturbances Ears: ABSENT: hearing changes Nose, Mouth, and Throat: ABSENT: mouth pain, sore throat Cardiovascular: ABSENT: edema, orthropnea, palpitations Respiratory: ABSENT: dyspnea, hemoptysis Gastrointestinal: PRESENT: melena, nausea, vomiting. ABSENT: dysphagia Genitourinary: ABSENT: dysuria, hematuria Musculoskeletal: ABSENT: deformity, joint swelling Neurological: ABSENT: syncope, tingling, vertigo Endocrine: ABSENT: polydipsia, polyphagia, polyuria Hematologic/Lymphatic: ABSENT: easy bruising Physical Exam Vital Signs: Temp Pulse Resp BP Pulse Ox 98.4 F 96 16 138/91 H 98 03/11/18 15:09 03/11/18 15:09 03/11/18 15:09 03/11/18 15:09 03/11/18 15:09 Intake & Output 03/10/18 03/11/18 03/12/18 06:59 06:59 06:59 Weight 81.1 kg General appearance: PRESENT: mild distress, well-developed, well-nourished Head exam: PRESENT: atraumatic, normocephalic Eye exam: PRESENT: EOMI, PERRLA. ABSENT: nystagmus, periorbital swelling, scleral icterus Mouth exam: PRESENT: moist, neck supple Throat exam: ABSENT: tonsillar exudate, tonsillogmegaly Respiratory exam: PRESENT: unlabored. ABSENT: tachypnea, wheezes Cardiovascular exam: PRESENT: RRR, +S1, +S2 GI/Abdominal exam: PRESENT: soft. ABSENT: ascites, rebound, rigid, tenderness Extremities exam: ABSENT: joint swelling, pedal edema Neurological exam: PRESENT: oriented to time, oriented to situation, CN II-XII grossly intact Focused psych exam: PRESENT: restlessness Skin exam: PRESENT: normal color. ABSENT: mottled, pallor, urticaria, vesicles Results Laboratory Results: 03/11/18 17:00 03/11/18 17:00 03/11/18 03/11/18 03/11/18 17:00 17:00 17:00 WBC 9.0 RBC 4.96 Hgb 12.5 L Hct 38.9 MCV 78 L MCH 25.1 L MCHC 32.0 RDW 22.8 H Plt Count 454 H Seg Neutrophils % 62.7 Lymphocytes % 25.8 Monocytes % 7.4 Eosinophils % 2.9 Basophils % 1.2 Absolute Neutrophils 5.7 Absolute Lymphocytes 2.3 Absolute Monocytes 0.7 Absolute Eosinophils 0.3 Absolute Basophils 0.1 Sodium Cancelled Potassium Cancelled Chloride Cancelled Carbon Dioxide Cancelled Anion Gap Cancelled BUN Cancelled Creatinine Cancelled Est GFR ( Amer) Cancelled Est GFR (Non-Af Amer) Cancelled Glucose Cancelled Calcium Cancelled Total Bilirubin Cancelled AST Cancelled ALT Cancelled Alkaline Phosphatase Cancelled Total Protein Cancelled Albumin Cancelled Lipase Cancelled Urine Color STRAW Urine Appearance CLEAR Urine pH 6.0 Ur Specific [place] 1.009 Urine Protein NEGATIVE Urine Glucose (UA) NEGATIVE Urine Ketones NEGATIVE Urine Blood NEGATIVE Urine Nitrite NEGATIVE Ur Leukocyte Esterase NEGATIVE Urine WBC (Auto) 0 Urine RBC (Auto) 0 Assessment & Plan - Diagnosis (1) Abdominal pain Plan: Recent EGD negative, no ulcers, no bleeding I did not visualize any varices he has been abstinent , would make sure his symptoms are not due to DT's would check an ETOH level as well get labs to check his LFT's and lipase may need CT scan if high and abnormal, this should be done with contrast if possible pending renal function patient will need to be on antiemetics and a PPI for symptomatic control would check ultrasound as well as possible HIDA scan for biliary dyskinesia he does have anemia which is felt to be due previous chronic alchohol use it he should need a colonoscopy, it can be arranged to have it done on Thursday with Propofol sedation - Time Time Spent: 50 to 70 Minutes
[2018-03-11] MEDS ORDERED: PROMETHAZINE HCL INJ 25 MG/1 ML VIAL IV ONE (19:58)
[2018-03-11 20:39] LABS: ALANINE AMINOTRANSFERASE 17 U/L (21-72); ALBUMIN 4.8 g/dL (3.5-5.0); ALKALINE PHOSPHATASE 78 U/L (38-126); ANION GAP 16 (5-19); ASPARTATE AMINO TRANSFERASE 17 U/L (17-59); BILIRUBIN,DIRECT 0.3 mg/dL (0.0-0.4); BILIRUBIN,TOTAL 0.4 mg/dL (0.2-1.3); BLOOD UREA NITROGEN 10 mg/dL (7-20); CALCIUM 10.1 mg/dL (8.4-10.2); CARBON DIOXIDE 23 mmol/L (22-30); CHLORIDE 103 mmol/L (98-107); GLUCOSE 98 mg/dL (75-110); LIPASE 207.3 U/L (23-300); POTASSIUM 4.4 mmol/L (3.6-5.0); SODIUM 141.8 mmol/L (137-145); TOTAL PROTEIN 7.6 g/dL (6.3-8.2)
[2018-03-11 20:43] LABS: ALCOHOL < 10 mg/dL (NONE DETECTED)
[2018-03-11] MEDS ORDERED: SUCRALFATE SUSP 1 GM/10 ML UDCUP PO ONE (20:55)
[2018-03-11] MEDS ORDERED: FAMOTIDINE INJ/PF 20 MG/2 ML SDV IV ONE (20:55)
[2018-03-11] MEDS ORDERED: HYDROMORPHONE HCL INJ/PF 2 MG/ML AMPULE IV ONE (22:24)
--- NOTE | 2018-03-11 22:49 | ER Document Report ---
ED GI/ - General Chief Complaint: Abdominal Pain Stated Complaint: ABDOMINAL PAIN Time Seen by Provider: 03/11/18 15:05 Mode of Arrival: Ambulatory Notes: Patient is a 32-year-old male presenting to the emergency department complaining of generalized epigastric abdominal pain. Patient states he has an extensive history of GI bleeds, pancreatitis, varices and duodenal ulcers. Patient states he has vomited twice a day and is denying any blood in his emesis. Patient states he has also had diarrhea 3 times today and is also denying any melena stools, bright red stools, obvious blood. Patient states he sees senior systems programmer Dr. Vallecillo. Patient states he had an EGD that was 3 months ago and is scheduled for colonoscopy on Thursday. Patient states he called his senior systems programmer office who told him with increased nausea, vomiting, epigastric pain he should present to the emergency room. Patient denies any fever. PMH: GI bleed, pancreatitis, esophageal varices, ulcers, hypertension Medications: Promethazine Acetaminophen Clonidine HCl Cyanocobalamin Dexlansoprazole Ferrous Sulfate Hydroxyzine Pamoate Multivitamin with Iron Pantoprazole Sodium Ranitidine HCl Trazodone HCl Allergies: None Patient states his last alcoholic beverage was on 02/16/2008 TRAVEL OUTSIDE OF THE [place] IN LAST 30 DAYS: No - Related Data Allergies/Adverse Reactions: No Known Allergies Allergy (Verified 03/11/18 15:07) Past Medical History - General Information source: Patient - Social History Smoking Status: Current Every Day Smoker Frequency of alcohol use: None Drug Abuse: None Family History: CAD, COPD Patient has suicidal ideation: No Patient has homicidal ideation: No - Past Medical History Cardiac Medical History: Reports: Hx Hypertension Denies: Hx Coronary Artery Disease, Hx Heart Attack Pulmonary Medical History: Denies: Hx Asthma, Hx Bronchitis, Hx COPD, Hx Pneumonia, Hx Tuberculosis Neurological Medical History: Reports: Hx Seizures - ALCOHOL RELATED. Denies: Hx Cerebrovascular Accident Renal/ Medical History: Denies: Hx Peritoneal Dialysis GI Medical History: Reports: Hx Gastroesophageal Reflux Disease - esophageal varacies, Hx Hepatitis - alcoholic hepatitis, Hx Pancreatitis - alcoholic, Hx Ulcer - upper gastric. Denies: Hx Hiatal Hernia Musculoskeletal Medical History: Denies Hx Arthritis Psychiatric Medical History: Reports: Hx Depression Infectious Medical History: Reports: Hx Hepatitis - alcoholic hepatitis Past Surgical History: Reports: Hx Genitourinary Surgery - vasectomy, Hx Nose Surgery - bilateral: maxillary antrostomy, sphenoidotomy, ethmoidectomy, Other - Esophageal varices banding. Denies: Hx Open Heart Surgery, Hx Pacemaker - Immunizations Hx Diphtheria, Pertussis, Tetanus Vaccination: Yes Review of Systems - Review of Systems Constitutional: denies: Fever EENT: No symptoms reported Cardiovascular: denies: Chest pain Respiratory: No symptoms reported Gastrointestinal: See HPI Genitourinary: No symptoms reported Male Genitourinary: No symptoms reported Musculoskeletal: No symptoms reported Skin: No symptoms reported Hematologic/Lymphatic: See HPI Neurological/Psychological: No symptoms reported Physical Exam - Vital signs Vitals: Temp Pulse Resp BP Pulse Ox 98.4 F 96 16 138/91 H 98 03/11/18 15:09 03/11/18 15:09 03/11/18 15:09 03/11/18 15:09 03/11/18 15:09 - Notes Notes: GENERAL: Alert, interacts well. No acute distress. HEAD: Normocephalic, atraumatic. EYES: Pupils equal, round, and reactive to light. Extraocular movements intact. ENT: Oral mucosa moist, tongue midline. NECK: Full range of motion. Supple. Trachea midline. LUNGS: Clear to auscultation bilaterally, no wheezes, rales, or rhonchi. No respiratory distress. HEART: Regular rate and rhythm. No murmur ABDOMEN: Soft, Non-distended. Bowel sounds present in all 4 quadrants. Positive Domingo sign, generalized epigastric abdominal pain. No McBurney's point tenderness. EXTREMITIES: Moves all 4 extremities spontaneously. No edema, normal radial and dorsalis pedis pulses bilaterally. No cyanosis. BACK: no cervical, thoracic, lumbar midline tenderness. No saddle anesthesia, normal distal neurovascular exam. No CVA tenderness bilaterally NEUROLOGICAL: Alert and oriented x3. Normal speech. cranial nerves II through XII grossly intact PSYCH: Normal affect, normal mood. SKIN: Warm, dry, normal turgor. No rashes or lesions noted. Course - Re-evaluation Re-evalutation: 03/11/18 22:51 In reviewing patient's past charts it was seen that Dr. 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 Patient's hemoglobin is 12.5 MCV 78 which is consistent with a microcytic anemia. Patient is already taking iron and vitamin B12. 03/12/18 00:02 Patient states overall he feels better after treatments in the emergency room. Discussed ultrasound results of right upper quadrant. No signs of cholelithiasis, cholecystitis. Discussed need for follow-up with Gastroenterology and continued appointments for his colonoscopy. Patient states he has plenty of Zofran and Phenergan at home for his nausea and vomiting. Close return precautions discussed. Patient is afebrile, non-tachycardic upon discharge. - Vital Signs Vital signs: Temp Pulse Resp BP Pulse Ox 98.4 F 96 16 138/91 H 98 03/11/18 15:09 03/11/18 15:09 03/11/18 15:09 03/11/18 15:09 03/11/18 15:09 - Laboratory Result Diagrams: 03/11/18 17:00 03/11/18 19:40 Laboratory results interpreted by me: 03/11/18 03/11/18 17:00 19:40 Hgb 12.5 L MCV 78 L MCH 25.1 L RDW 22.8 H Plt Count 454 H ALT 17 L Discharge - Discharge Clinical Impression: Epigastric pain Gastritis Qualifiers: Gastritis type: unspecified gastritis Chronicity: chronic Gastritis bleeding: without bleeding Qualified Code(s): K29.50 - Unspecified chronic gastritis without bleeding Condition: Stable Disposition: HOME, SELF-CARE Instructions: Evaluation of Upper Abdominal Pain ([facility]) Additional Instructions: As we discussed your pancreatic enzymes came back normal. Your ultrasound also showed no signs of gallbladder disease. You should continue taking antinausea medication at home and also Tylenol should you have any pain. You need to make sure you keep your appointments with the senior systems programmer for your colonoscopy. Please follow-up with them or return to the emergency room for any worsening symptoms Referrals: [facility] [Primary Care Provider] - Follow up as needed
--- NOTE | 2018-03-11 22:51 | RADIOLOGY REPORT (SQ) ---
EXAM DESCRIPTION: US ABDOMEN LIMITED COMPLETED DATE/TME: 03/11/2018 20:50 CLINICAL HISTORY: 32 years, Male, ruq pain COMPARISON: 02/14/2018 ultrasound TECHNIQUE: Limited right upper quadrant ultrasound LIMITATIONS: None. FINDINGS: The liver is homogenous in echotexture without focal lesion. No gallstones or gallbladder wall thickening. CBD measures 5 mm. Visualized portions of the pancreas are unremarkable. The visualized right kidney is unremarkable. There is no ascites. Visualized abdominal aorta is unremarkable. IMPRESSION: Unremarkable exam copyright 2010 [employer]- All Rights Reserved
[2018-03-12 00:12] VITALS: BP 125/88
== END 2018-03-12 00:12 | disposition home or self-care (01) ==
LOC: ER 15:03
DX: K29.50 Unspecified chronic gastritis without bleeding (principal); K26.9 Duodenal ulcer, unspecified as acute or chronic, without hemorrhage or perforation; K21.9 Gastro-esophageal reflux disease without esophagitis; Z87.19 Personal history of other diseases of the digestive system; R10.13 Epigastric pain; R19.7 Diarrhea, unspecified; F17.200 Nicotine dependence, unspecified, uncomplicated; I10 Essential (primary) hypertension; Z79.899 Other long term (current) drug therapy; R11.2 Nausea with vomiting, unspecified
CPT/HCPCS: 96376; 99284; 96374; 96375; 36415; 80307 ×2; 83690; 85025; 80053; 81001; 76705; J1885; J1170; J2550; J2405; S0028

== ENCOUNTER 2018-03-19 17:40 | Emergency (ER) | payer SELFPAY ==
--- NOTE | 2018-03-19 17:53 | ER Document Report ---
ED Medical Screen (RME) - General Chief Complaint: ETOH Abuse Stated Complaint: ETOH Time Seen by Provider: 03/19/18 17:52 Notes: 32-year-old chronic alcoholic is brought to the emergency room by his brother at the request of their mother. They are requesting that he be placed in a long- term detox facility. He has been in and out of multiple detox programs. At this time he states he feels bad and has some discomfort in his upper abdomen. He does have a history of alcoholic pancreatitis. I have greeted and performed a rapid initial assessment of this patient. A comprehensive ED assessment and evaluation of the patient, analysis of test results and completion of the medical decision making process will be conducted by additional ED providers. TRAVEL OUTSIDE OF THE [place] IN LAST 30 DAYS: No - Related Data Allergies/Adverse Reactions: No Known Allergies Allergy (Verified 03/11/18 15:07) Past Medical History - Past Medical History Cardiac Medical History: Reports: Hx Hypertension Denies: Hx Coronary Artery Disease, Hx Heart Attack Pulmonary Medical History: Denies: Hx Asthma, Hx Bronchitis, Hx COPD, Hx Pneumonia, Hx Tuberculosis Neurological Medical History: Reports: Hx Seizures - ALCOHOL RELATED. Denies: Hx Cerebrovascular Accident Renal/ Medical History: Denies: Hx Peritoneal Dialysis GI Medical History: Reports: Hx Gastroesophageal Reflux Disease - esophageal varacies, Hx Hepatitis - alcoholic hepatitis, Hx Pancreatitis - alcoholic, Hx Ulcer - upper gastric. Denies: Hx Hiatal Hernia Musculoskeltal Medical History: Denies Hx Arthritis Psychiatric Medical History: Reports: Hx Depression Infectious Medical History: Reports: Hx Hepatitis - alcoholic hepatitis Past Surgical History: Reports: Hx Genitourinary Surgery - vasectomy, Hx Nose Surgery - bilateral: maxillary antrostomy, sphenoidotomy, ethmoidectomy, Other - Esophageal varices banding. Denies: Hx Open Heart Surgery, Hx Pacemaker - Immunizations Hx Diphtheria, Pertussis, Tetanus Vaccination: Yes History of Influenza Vaccine for 12/2016 - 05/2017 Season: Refused Physical Exam - Vital signs Vitals: Temp Pulse Resp BP Pulse Ox 98.3 F 133 H 20 146/106 H 95 03/19/18 17:47 03/19/18 17:47 03/19/18 17:47 03/19/18 17:47 03/19/18 17:47 Course - Vital Signs Vital signs: Temp Pulse Resp BP Pulse Ox 98.3 F 133 H 20 146/106 H 95 03/19/18 17:47 03/19/18 17:47 03/19/18 17:47 03/19/18 17:47 03/19/18 17:47 Doctor's Discharge - Discharge Referrals: [facility] [Primary Care Provider] - Follow up as needed
[2018-03-19] MEDS ORDERED: NORMAL SALINE 1000 ML 1,000 ML IV ONE (17:55)
[2018-03-19] MEDS ORDERED: THIAMINE HCL 100 MG in NORMAL SALINE 50 ML IV ONE (17:55)
[2018-03-19 18:26] LABS: ABSOLUTE BASOPHILS # (AUTO) 0.1 10^3/uL (0.0-0.2); ABSOLUTE LYMPHOCYTES (AUTO) 2.7 10^3/uL (0.5-4.7); ABSOLUTE MONOCYTES (AUTO) 1.3 10^3/uL (0.1-1.4); ABSOLUTE NEUT (AUTO) 10.8 10^3/uL (1.7-8.2); BASOPHILS % (AUTO) 0.6 % (0-2); EOSINOPHILS % (AUTO) 0.2 % (0-6); HEMATOCRIT 41.8 % (37.9-51.0); HEMOGLOBIN 13.4 g/dL (13.5-17.0); LYMPHOCYTES % (AUTO) 18.3 % (13-45); MEAN CORPUSCULAR HEMOGLOBIN 24.2 pg (27.0-33.4); MEAN CORPUSCULAR HGB CONC 31.9 g/dL (32.0-36.0); MEAN CORPUSCULAR VOLUME 76 fl (80-97); MONOCYTES % (AUTO) 8.6 % (3-13); PLATELET COUNT 228 10^3/uL (150-450); RED BLOOD COUNT 5.51 10^6/uL (4.35-5.55); RED CELL DISTRIBUTION WIDTH 21.9 % (11.5-14.0); SEGMENTED NEUTROPHILS % (AUTO) 72.3 % (42-78); TOTAL CELLS COUNTED % (AUTO) 100 %; WHITE BLOOD COUNT 14.9 10^3/uL (4.0-10.5)
[2018-03-19] MEDS ORDERED: THIAMINE HCL INJ 200 MG/2 ML VIAL ONE (19:02)
[2018-03-19 19:23] LABS: ALANINE AMINOTRANSFERASE 37 U/L (21-72); ALBUMIN 4.3 g/dL (3.5-5.0); ALKALINE PHOSPHATASE 109 U/L (38-126); ANION GAP 19 (5-19); ASPARTATE AMINO TRANSFERASE 53 U/L (17-59); BILIRUBIN,DIRECT 0.2 mg/dL (0.0-0.4); BILIRUBIN,TOTAL 0.4 mg/dL (0.2-1.3); BLOOD UREA NITROGEN 15 mg/dL (7-20); CALCIUM 8.1 mg/dL (8.4-10.2); CARBON DIOXIDE 24 mmol/L (22-30); CHLORIDE 97 mmol/L (98-107); GLUCOSE 114 mg/dL (75-110); POTASSIUM 3.7 mmol/L (3.6-5.0); SODIUM 140.4 mmol/L (137-145); TOTAL PROTEIN 6.7 g/dL (6.3-8.2)
[2018-03-19] MEDS ORDERED: ONDANSETRON 4 MG TAB.RAPDIS PO ONE (19:28)
[2018-03-19 19:34] LABS: ALCOHOL 385 mg/dL (NONE DETECTED)
[2018-03-19] MEDS ORDERED: RINGERS SOLUTION,LACTATED 1,000 ML IV ONE ×2 (19:44→21:13)
--- NOTE | 2018-03-19 19:51 | ER Document Report ---
ED General - General Chief Complaint: ETOH Abuse Stated Complaint: ETOH Time Seen by Provider: 03/19/18 17:52 Notes: Patient is a 32-year-old male with a past medical history of alcohol abuse, pancreatitis, alcoholic gastritis who presents with his brother due to concerns of ongoing alcohol abuse. He is here because his family is requesting alcohol detox on his behalf although it the patient is quite clear at the time of my initial assessment but he does not personally wish to come off of alcohol and has no desire to be here in the emergency department. He does note that he has had several days of mild aching, epigastric abdominal discomfort. He states that it is worsened by drinking alcohol or eating. He has not tried any to impr ove the pain. If this feels similar to when he had pancreatitis or alcoholic gastritis in the past. Denies any melena or hematochezia. TRAVEL OUTSIDE OF THE [place] IN LAST 30 DAYS: No - Related Data Allergies/Adverse Reactions: No Known Allergies Allergy (Verified 03/11/18 15:07) Past Medical History - General Information source: Patient - Social History Smoking Status: Current Every Day Smoker Chew tobacco use (# tins/day): No Frequency of alcohol use: Heavy Drug Abuse: None Lives with: Parents Family History: CAD, COPD Patient has suicidal ideation: No Patient has homicidal ideation: No - Past Medical History Cardiac Medical History: Reports: Hx Hypertension Denies: Hx Coronary Artery Disease, Hx Heart Attack Pulmonary Medical History: Denies: Hx Asthma, Hx Bronchitis, Hx COPD, Hx Pneumonia, Hx Tuberculosis Neurological Medical History: Reports: Hx Seizures - ALCOHOL RELATED. Denies: Hx Cerebrovascular Accident Renal/ Medical History: Denies: Hx Peritoneal Dialysis GI Medical History: Reports: Hx Gastroesophageal Reflux Disease - esophageal varacies, Hx Hepatitis - alcoholic hepatitis, Hx Pancreatitis - alcoholic, Hx Ulcer - upper gastric. Denies: Hx Hiatal Hernia Musculoskeletal Medical History: Denies Hx Arthritis Psychiatric Medical History: Reports: Hx Depression Infectious Medical History: Reports: Hx Hepatitis - alcoholic hepatitis Past Surgical History: Reports: Hx Genitourinary Surgery - vasectomy, Hx Nose Surgery - bilateral: maxillary antrostomy, sphenoidotomy, ethmoidectomy, Other - Esophageal varices banding. Denies: Hx Open Heart Surgery, Hx Pacemaker - Immunizations Hx Diphtheria, Pertussis, Tetanus Vaccination: Yes Review of Systems - Review of Systems Notes: Constitutional: Negative for fever. HENT: Negative for sore throat. Eyes: Negative for visual changes. Cardiovascular: Negative for chest pain. Respiratory: Negative for shortness of breath. Gastrointestinal: Positive for abdominal pain and nausea Genitourinary: Negative for dysuria. Musculoskeletal: Negative for back pain. Skin: Negative for rash. Neurological: Negative for headaches, weakness or numbness. 10 point ROS negative except as marked above and in HPI. Physical Exam - Vital signs Vitals: Temp Pulse Resp BP Pulse Ox 98.3 F 133 H 20 146/106 H 95 03/19/18 17:47 03/19/18 17:47 03/19/18 17:47 03/19/18 17:47 03/19/18 17:47 Interpretation: Tachycardic Notes: PHYSICAL EXAMINATION: GENERAL: Intoxicated but in no acute distress HEAD: Atraumatic, normocephalic. EYES: Pupils equal round and reactive to light, extraocular movements intact, sclera anicteric, conjunctiva are normal. ENT: nares patent, oropharynx clear without exudates. Moist mucous membranes. NECK: Normal range of motion, supple without lymphadenopathy LUNGS: Breath sounds clear to auscultation bilaterally and equal. No wheezes rales or rhonchi. HEART: Regular tachycardia without murmurs ABDOMEN: Soft, minimal tenderness in the epigastrium but no other areas of localized tenderness, normoactive bowel sounds. No guarding, no rebound. No masses appreciated. EXTREMITIES: Normal range of motion, no pitting or edema. No cyanosis. NEUROLOGICAL: No focal neurological deficits. Moves all extremities spontaneously and on command. PSYCH: Acutely intoxicated SKIN: Warm, Dry, normal turgor, no rashes or lesions noted. Course - Re-evaluation Re-evalutation: 03/19/18 19:47 P patient presents acutely intoxicated as well as complaining of upper abdominal discomfort. He does have a history of both pink otitis and alcoholic gastritis. Lipase is normal, suspect an exacerbation of his underlying alcohol gastritis from heavy alcohol use. Admits to heavy alcohol use today. No evidence of trauma on exam beyond an old bruise over the right forehead which does not appear to be acute within the past 24-48 hours. Initially in triage there was apparently report that the patient was seeking detox. I have cleaned the patient that I do find this report questionable given that his alcohol is over 300 at the time of my assessment and the patient immediately notes that he does not want detox at all, has no intention of quitting alcohol today or anytime in the future. He states that his brother and mother insisted that he come to the emergency department today to get help but again emphasizes that he does not wish to go to detox. Review of 2 previous hospitalizations within the past 12 months does reveal that the patient did have medical detox during his hospitalization and under both circumstances declined transfer to a rehabilitation facility stating he did not want to become sober. The patient is actually requesting to leave the emergency department on my initial assessment. His physical examination is otherwise benign without any focal abdominal tenderness. He is notably tachycardic however and does appear severely dehydrated. I have advised the patient that I would strongly recommend that he remain in the emergency department and continued to receive fluid resuscitation and allow us to ensure that he is at least able to walk prior to discharge. The patient does seem very hesitant to go with this plan however he does not currently have a ride or way to get out of the emergency department otherwise so we will continue to manage him medically until he is able to safely exit the facility independently and with a safe way home. I have also provided the patient a list of resources for detox. 03/19/18 20:25 A lactate was sent in triage for very unclear reasons to me. It has however it returned elevated at 6.8. Review of previous lactate labs show that the patient consistently has elevated lactate often as high as 10 in the context of alcohol intoxication. This is likely due to impaired metabolization of lactate due to liver impairment from alcohol abuse. However given the patient's complaint of abdominal pain, ongoing tachycardia, and this incidental lab finding will proceed with a CT of the abdomen pelvis to ensure that there is not any more concerning etiologies such as a perforation or intra-abdominal abscess to explain the patient's presentation. 03/19/18 21:14 Lactate is downtrending. Will not continue to reassess as again previous review demonstrates that the patient consistently does this during hospitalizations for acute alcohol intoxication. Awaiting CT results. 03/19/18 21:32 CT scan of the abdomen pelvis is unremarkable. Patient's heart rate is improved to 110. He is cleared for discharge home by his request. His mother is here to take him home. - Vital Signs Vital signs: Temp Pulse Resp BP Pulse Ox 98.6 F 111 H 17 134/82 H 96 03/19/18 22:12 03/19/18 22:12 03/19/18 22:01 03/19/18 22:01 03/19/18 22:01 - Laboratory Result Diagrams: 03/19/18 18:10 03/19/18 18:50 Laboratory results interpreted by me: 03/19/18 03/19/18 03/19/18 18:10 18:50 18:50 WBC 14.9 H Hgb 13.4 L MCV 76 L MCH 24.2 L MCHC 31.9 L RDW 21.9 H Absolute Neutrophils 10.8 H Chloride 97 L Glucose 114 H Lactic Acid 6.1 H Calcium 8.1 L Serum Alcohol 385 H* 03/19/18 20:40 WBC Hgb MCV MCH MCHC RDW Absolute Neutrophils Chloride Glucose Lactic Acid 5.6 H Calcium Serum Alcohol - Diagnostic Test Radiology reviewed: Reports reviewed Discharge - Discharge Clinical Impression: Epigastric pain, Alcohol abuse, Alcoholism, Dehydration Gastritis Qualifiers: Gastritis type: alcoholic Chronicity: chronic Gastritis bleeding: presence of bleeding unspecified Qualified Code(s): K29.20 - Alcoholic gastritis without bleeding Condition: Stable Disposition: HOME, SELF-CARE Additional Instructions: You were seen in the emergency department today for being drunk. Being seen in the emergency department after drinking alcohol is a serious indicator that you have a problem with alcohol. You should seek help with the attached resources for your problem drinking. Please return to the emergency room immediately if you experience any concerning symptoms including high fevers, severe headache, chest pain, difficulty breathing, abdominal pain, slurred speech, numbness or weakness in your arms or legs, or any other symptom that concerns you. Your symptoms appear to be most consistent with stomach or upper intestinal irritation. You need to stop drinking if you want this pain to go away. Please begin taking famotidine 40 mg in the morning and 40 mg at night. This medicine can be purchased directly [id number]. You may also take medicine such as Pepto-Bismol or Tums to assist with your pain. Please return to emergency department immediately if you have worsening of your pain, shortness of breath, vomiting, become unable to exert yourself due to pain or difficulty breathing, you pass out, or have any pain that radiates into your arms, jaw, or back. Please also return if you have any additional symptoms that are concerning to you. Prescriptions: RX: Famotidine 40 mg PO BID #60 tablet Referrals: [facility] [Primary Care Provider] - Follow up in 3-5 days
--- NOTE | 2018-03-19 21:23 | RADIOLOGY REPORT (SQ) ---
EXAM DESCRIPTION: CT ABDOMEN PELVIS WITH IV CONTRAST COMPLETED DATE/TME: 03/19/2018 20:26 CLINICAL HISTORY: 32 years, Male, ab pain, tachy with lactate elevation COMPARISON: CT abdomen pelvis 08/22/2017 TECHNIQUE: Axial images of the abdomen and pelvis were performed utilizing intravenous contrast, with sagittal and coronal reformatted images. Images stored on PACS. All CT scanners at this facility use dose modulation, iterative reconstruction, and/or weight based dosing when appropriate to reduce radiation dose to as low as reasonably achievable (ALARA). [facility]: Dose Right [facility]: CareDose [facility]: Dose Right [facility]: Teradose 4D [facility]: [employer] LIMITATIONS: None. FINDINGS: No evidence of bowel obstruction. No evidence of bowel ischemia. The appendix appears normal. No evidence of abscess. There is no significant radiographic abnormality of the liver, spleen, pancreas, adrenal glands or kidneys. No mass or adenopathy. No free air or free fluid. IMPRESSION: No acute finding. TECHNICAL DOCUMENTATION: Quality ID # [id number]: Final reports with documentation of one or more dose reduction techniques (e.g., Automated exposure control, adjustment of the mA and/or kV according to patient size, use of iterative reconstruction technique) copyright 2011 [employer]- All Rights Reserved
[2018-03-19 22:09] VITALS: BP 134/82
--- NOTE | 2018-03-20 06:42 | EKG REPORT ---
SEVERITY:- ABNORMAL ECG - SINUS TACHYCARDIA BORDERLINE PROLONGED QT INTERVAL NONSPECIFIC ST-T CHANGES- INFERIOR LEADS : Confirmed by: Blake Faulkner MD 20-Mar-2018 06:42:15
== END 2018-03-19 22:14 | disposition home or self-care (01) ==
LOC: ER 17:40
DX: F10.920 Alcohol use, unspecified with intoxication, uncomplicated (principal); R10.13 Epigastric pain; E86.0 Dehydration; K29.20 Alcoholic gastritis without bleeding; R00.0 Tachycardia, unspecified; F17.200 Nicotine dependence, unspecified, uncomplicated; I10 Essential (primary) hypertension
CPT/HCPCS: 93005; 36415; 80307; 83605 ×2; 83690; 83735; 85025; 80053; 74177; 93010; J3411; J7030; J7120; 96361; 96365; 99284

== ENCOUNTER 2018-03-20 22:16 | Inpatient (IN) | payer SELFPAY ==
[2018-03-20] MEDS ORDERED: NORMAL SALINE 1000 ML 1,000 ML IV ONE (22:37)
--- NOTE | 2018-03-20 23:06 | RADIOLOGY REPORT (SQ) ---
EXAM DESCRIPTION: AP view of the chest CLINICAL HISTORY:32 years Male, sob Comparison: February 25, 2018 FINDINGS: No focal lung consolidation. No pleural effusion. No pneumothorax. Cardiac and mediastinal silhouette is unremarkable. No acute osseous abnormality. Soft tissues are unremarkable. IMPRESSION: No acute findings. No focal lung consolidation.
[2018-03-20 23:28] LABS: ABSOLUTE BASOPHILS # (AUTO) 0.1 10^3/uL (0.0-0.2); ABSOLUTE LYMPHOCYTES (AUTO) 1.5 10^3/uL (0.5-4.7); ABSOLUTE MONOCYTES (AUTO) 0.6 10^3/uL (0.1-1.4); ABSOLUTE NEUT (AUTO) 16.4 10^3/uL (1.7-8.2); BASOPHILS % (AUTO) 0.6 % (0-2); HEMATOCRIT 35.1 % (37.9-51.0); MEAN CORPUSCULAR HEMOGLOBIN 24.8 pg (27.0-33.4); MEAN CORPUSCULAR HGB CONC 32.3 g/dL (32.0-36.0); MEAN CORPUSCULAR VOLUME 77 fl (80-97); MONOCYTES % (AUTO) 3.1 % (3-13); PLATELET COUNT 173 10^3/uL (150-450); RED BLOOD COUNT 4.56 10^6/uL (4.35-5.55); RED CELL DISTRIBUTION WIDTH 21.5 % (11.5-14.0); SEGMENTED NEUTROPHILS % (AUTO) 88.3 % (42-78); TOTAL CELLS COUNTED % (AUTO) 100 %; WHITE BLOOD COUNT 18.5 10^3/uL (4.0-10.5)
[2018-03-20 23:48] LABS: HEMOGLOBIN 11.3 g/dL (13.5-17.0)
[2018-03-20 23:51] LABS: ANISOCYTOSIS 3+; POLYCHROMASIA 2+
[2018-03-20 23:52] LABS: ALANINE AMINOTRANSFERASE 38 U/L (21-72); ALBUMIN 4.2 g/dL (3.5-5.0); ALKALINE PHOSPHATASE 91 U/L (38-126); ANION GAP 19 (5-19); ASPARTATE AMINO TRANSFERASE 85 U/L (17-59); BILIRUBIN,DIRECT 0.3 mg/dL (0.0-0.4); BILIRUBIN,TOTAL 0.3 mg/dL (0.2-1.3); BLOOD UREA NITROGEN 20 mg/dL (7-20); CALCIUM 8.4 mg/dL (8.4-10.2); CARBON DIOXIDE 30 mmol/L (22-30); CHLORIDE 93 mmol/L (98-107); GLUCOSE 143 mg/dL (75-110); LIPASE 116.2 U/L (23-300); OVALOCYTES 1+; PLATELET COMMENT ADEQUATE; POIKILOCYTOSIS 1+; POTASSIUM 3.6 mmol/L (3.6-5.0); SODIUM 141.9 mmol/L (137-145); TOTAL PROTEIN 6.6 g/dL (6.3-8.2)
[2018-03-20] MEDS ORDERED: PANTOPRAZOLE SODIUM 40 MG VIAL IV ONE (23:54)
[2018-03-20] MEDS ORDERED: PANTOPRAZOLE SODIUM 40 MG VIAL IV PRN (23:54)
[2018-03-20] MEDS ORDERED: ONDANSETRON HCL INJ/PF 4 MG/2 ML SDV IV ONE (23:55)
--- NOTE | 2018-03-20 23:58 | ER Document Report ---
ED General - General Chief Complaint: Vomiting Stated Complaint: VOMITING BLOOD Time Seen by Provider: 03/20/18 22:35 Notes: Patient is a 32-year-old male with a past medical history of chronic alcoholism, alcoholic finger test, alcoholic gastritis, history of upper GI bleed from alcohol gastritis as well as a remote history of variceal bleeding who presents with ongoing epigastric abdominal pain and vomiting coffee-ground emesis. The history is somewhat limited as the patient is intoxicated. The patient does admit that he has been continuing to drink despite being instructed to discontinue alcohol yesterday. He has likewise not been taking famotidine or Carafate that was prescribed yesterday. He describes the pain his upper abdomen as being a dull, aching, constant pain. States consumption of alcohol or food worsens the pain. He has not tried any to improve the pain. States this feels the same as when he has had alcoholic gastritis in the past. Denies any fever or constitutional symptoms. No syncope. TRAVEL OUTSIDE OF THE [place] IN LAST 30 DAYS: No - Related Data Allergies/Adverse Reactions: No Known Allergies Allergy (Verified 03/21/18 01:13) Past Medical History - General Information source: Patient - Social History Smoking Status: Current Every Day Smoker Frequency of alcohol use: Heavy Drug Abuse: None Lives with: Family Family History: CAD, COPD Patient has suicidal ideation: No Patient has homicidal ideation: No - Past Medical History Cardiac Medical History: Reports: Hx Hypertension Denies: Hx Coronary Artery Disease, Hx Heart Attack Pulmonary Medical History: Denies: Hx Asthma, Hx Bronchitis, Hx COPD, Hx Pneumonia, Hx Tuberculosis Neurological Medical History: Reports: Hx Seizures - ALCOHOL RELATED. Denies: Hx Cerebrovascular Accident Renal/ Medical History: Denies: Hx Peritoneal Dialysis GI Medical History: Reports: Hx Gastroesophageal Reflux Disease - esophageal varacies, Hx Hepatitis - alcoholic hepatitis, Hx Pancreatitis - alcoholic, Hx Ulcer - upper gastric. Denies: Hx Hiatal Hernia Musculoskeletal Medical History: Denies Hx Arthritis Psychiatric Medical History: Reports: Hx Depression Infectious Medical History: Reports: Hx Hepatitis - alcoholic hepatitis Past Surgical History: Reports: Hx Genitourinary Surgery - vasectomy, Hx Nose Surgery - bilateral: maxillary antrostomy, sphenoidotomy, ethmoidectomy, Other - Esophageal varices banding. Denies: Hx Open Heart Surgery, Hx Pacemaker - Immunizations Hx Diphtheria, Pertussis, Tetanus Vaccination: Yes Review of Systems - Review of Systems Notes: Constitutional: Negative for fever. HENT: Negative for sore throat. Eyes: Negative for visual changes. Cardiovascular: Negative for chest pain. Respiratory: Negative for shortness of breath. Gastrointestinal: Positive for abdominal pain and vomiting Genitourinary: Negative for dysuria. Musculoskeletal: Negative for back pain. Skin: Negative for rash. Neurological: Negative for headaches, weakness or numbness. 10 point ROS negative except as marked above and in HPI. Physical Exam - Vital signs Vitals: Temp Pulse Resp BP Pulse Ox 98.9 F 123 H 20 129/73 H 98 03/20/18 22:21 12 22:21 03/20/18 22:21 03/20/18 22:21 03/20/18 22:21 Interpretation: Tachycardic Notes: PHYSICAL EXAMINATION: GENERAL: Appears mildly ill but in no acute distress HEAD: Atraumatic, normocephalic. EYES: Pupils equal round and reactive to light, extraocular movements intact, sclera anicteric, conjunctiva are normal. ENT: nares patent, oropharynx clear without exudates. Moderately dry mucous membranes with black staining along the tongue and mouth NECK: Normal range of motion, supple without lymphadenopathy LUNGS: Breath sounds clear to auscultation bilaterally and equal. No wheezes rales or rhonchi. HEART: Regular tachycardia without murmurs ABDOMEN: Soft, mild epigastric abdominal tenderness to palpation but no other localized areas of tenderness rebound or guarding. EXTREMITIES: Normal range of motion, no pitting or edema. No cyanosis. NEUROLOGICAL: No focal neurological deficits. Moves all extremities spontaneously and on command. PSYCH: Mildly intoxicated SKIN: Warm, Dry, normal turgor, no rashes or lesions noted. Course - Re-evaluation Re-evalutation: 03/20/18 23:40 Patient presents today with hematemesis that started several hours ago. I did see this patient yesterday, diagnosed with alcoholic gastritis. Patient has continued to drink at home throughout the day today. Is acutely intoxicated at time of presentation. He states that he began vomiting dark vomitus a pproximately 4-5 hours ago and has had several episodes since that time. No bright red vomitus. Here in the emergency department the patient did have one episode of vomiting with what appears to be coffee-ground emesis although no evidence of bright red blood. The patient is noted to be moderately tachycardic, heart rate 125 which is increased from time of discharge yesterday but is approximately 110. Blood pressure within normal limits at 04/25/1976. Patient was difficult IV access, a left external jugular IV access was established by me. The patient has additional labs pending at this time. Protonix infusion and bolus have been provided. Patient is also receiving nausea and analgesia medications. IV fluid resuscitation has begun. Type and screen has been sent. Will discuss with the surgeon for consideration of endoscopy as well as hospitalization. The patient is in guarded condition and will continue be reassessed at regular intervals. 03/21/18 00:17 On reassessment patient continues to appear unchanged, no further episodes of coffee-ground emesis. We are working to establish a second point of IV access. I have discussed with Dr. Fabian who states he is available for endoscopy should the need arise. Will discuss with the hospitalist for admission and continue to reassess the patient at regular intervals. 03/21/18 00:20 Patient has been accepted by Dr. Johnson to the [facility]. 03/21/18 0045 Patient is remained hemodynamically within acceptable limits, tachycardia has mildly improved. No hypotension. - Vital Signs Vital signs: Temp Pulse Resp BP Pulse Ox 98.9 F 123 H 18 109/58 L 95 03/20/18 22:21 03/20/18 22:21 03/21/18 01:00 03/21/18 01:00 03/21/18 01:00 - Laboratory Result Diagrams: 03/20/18 23:17 03/20/18 23:17 Laboratory results interpreted by me: 03/20/18 03/20/18 23:17 23:17 WBC 18.5 H Hgb 11.3 L D Hct 35.1 L MCV 77 L MCH 24.8 L RDW 21.5 H Seg Neutrophils % 88.3 H Lymphocytes % 8.0 L Absolute Neutrophils 16.4 H Chloride 93 L Glucose 143 H AST 85 H Serum Alcohol 365 H* - Diagnostic Test Radiology reviewed: Image reviewed, Reports reviewed Radiology results interpreted by me: 03/21/18 00:21 Chest x-ray: No acute infiltrate or pneumothorax Critical Care Note - Critical Care Note Total time excluding time spent on procedures (mins): 36 Comments: Critical care time spent obtaining history from patient or surrogate, discussions with consultants, development of treatment plan with patient or surrogate, evaluation of patient's response to treatment, examination of patient, ordering and performing treatments and interventions, ordering and review of laboratory studies, re-evaluation of patient's condition, ordering and review of radiographic studies and review of old charts Discharge - Discharge Clinical Impression: Upper GI bleed Alcohol intoxication Qualifiers: Complication of substance-induced condition: uncomplicated Qualified Code(s): F10.920 - Alcohol use, unspecified with intoxication, uncomplicated Alcoholic gastritis Qualifiers: Chronicity: acute Gastritis bleeding: with bleeding Qualified Code(s): K29.21 - Alcoholic gastritis with bleeding Condition: Fair Disposition: ADMITTED INPATIENT Admitting Provider: Hospitalist Unit Admitted: [facility]
[2018-03-21 00:06] LABS: ALCOHOL 365 mg/dL (NONE DETECTED)
[2018-03-21] MEDS: MORPHINE SULFATE 10 MG/ML INJ IV PRN ×4 (00:15→21:51)
[2018-03-21] MEDS ORDERED: SUCRALFATE SUSP 1 GM/10 ML UDCUP PO ONE (00:21)
[2018-03-21] MEDS ORDERED: THIAMINE HCL 100 MG, FOLIC ACID 1 MG in NORMAL SALINE 250 ML IV ONE (00:30)
[2018-03-21] MEDS ORDERED: FOLIC ACID INJ 5 MG/1 ML 10 ML VIAL IV PRN (00:31)
[2018-03-21] MEDS ORDERED: THIAMINE HCL INJ 200 MG/2 ML VIAL INJ PRN (00:31)
[2018-03-21] MEDS: LORAZEPAM INJ 2 MG/1 ML VIAL IV PRN (00:44)
[2018-03-21] MEDS: NORMAL SALINE 1000 ML 1,000 ML IV PRN ×4 (00:54→18:23)
[2018-03-21 04:19] LABS: URINE AMPHETAMINES SCREEN NEGATIVE; URINE BARBITURATES SCREEN NEGATIVE; URINE BENZODIAZEPINES SCREEN NEGATIVE; URINE COCAINE SCREEN NEGATIVE; URINE MARIJUANA (THC) SCREEN NEGATIVE; URINE METHADONE SCREEN NEGATIVE; URINE PHENCYCLIDINE SCREEN NEGATIVE
[2018-03-21 05:41] LABS: ABSOLUTE RETICS # 0.031 10^6/uL (0.028-0.122); RETICULOCYTE COUNT (AUTO) 0.67 % (0.66-2.85)
[2018-03-21 06:21] LABS: IRON(TIBC) 159.7 ug/dL (49-181)
--- NOTE | 2018-03-21 06:37 | PDOC H&P ---
History of Present Illness Admission Date/PCP: 03/21/18 00:29 SHALINI SOUTH MD Patient complains of: Vomiting blood History of Present Illness: JAIME NUNEZ is a 32 year old male with a past medical history of chronic alcoholism, alcohol withdrawal seizure, alcoholic gastritis, upper GI bleed and a remote history of variceal bleeding but recent EGD negative for varices. Patient was seen in the emergency room 24 hours prior with epigastric pain and coffee-ground emesis. He was discharged with a proton pump inhibitor and avoidance of alcohol. He returns with abdominal pain, acute alcohol intoxication, episode of coffee-ground emesis and reduction of hemoglobin from 13-11. He started on IV Protonix, thiamine, folate, Ativan and referred to the hospitalist for admission. Patient is intoxicated and a poor historian. Past Medical History Cardiac Medical History: Reports: Hypertension Denies: Coronary Artery Disease, Myocardial Infarction Pulmonary Medical History: Denies: Asthma, Bronchitis, Chronic Obstructive Pulmonary Disease (COPD), Pneumonia, Tuberculosis Neurological Medical History: Reports: Seizures - ALCOHOL RELATED GI Medical History: Reports: Gastroesophageal Reflux Disease - esophageal varacies, Hepatitis - alcoholic hepatitis Denies: Hiatal Hernia Musculoskeltal Medical History: Denies: Arthritis Psychiatric Medical History: Reports: Depression Hematology: Denies: Anemia, Sickle Cell Disease Past Surgical History Past Surgical History: Reports: Other - Esophageal varices banding Denies: Pacemaker Social History Information Source: Patient, COUNT INCLUDES THE [facility] Records Lives with: Family Smoking Status: Current Every Day Smoker Frequency of Alcohol Use: Heavy Hx Recreational Drug Use: No Drugs: None Hx Prescription Drug Abuse: No - Advance Directive Resuscitation Status: Full Code Family History Family History: CAD, COPD Parental Family History Reviewed: Yes Children Family History Reviewed: Yes Sibling(s) Family History Reviewed.: Yes Medication/Allergy Home Medications: Promethazine HCl [Phenergan 25 mg Tablet] 1 - 2 tab PO Q6H PRN #15 tablet 02/14/18 Acetaminophen [Tylenol Extra Strength 500 mg Tablet] 1 tab PO ASDIR PRN 03/10/18 Clonidine HCl [Catapres] 0.1 mg PO QPM 03/10/18 Cyanocobalamin (Vitamin B-12) [Vitamin B12] 2,500 mcg PO DAILY 03/10/18 Dexlansoprazole [Dexilant] 30 mg PO DAILY 03/10/18 Ferrous Sulfate [Iron] 325 mg PO DAILY 03/10/18 Hydroxyzine Pamoate [Vistaril 50 mg Capsule] 50 mg PO BID PRN 03/10/18 Multivitamin with Iron [One Daily Multivitamin] 1 each PO DAILY 03/10/18 Pantoprazole Sodium [Protonix] 40 mg PO DAILY 03/10/18 Ranitidine HCl 150 mg PO DAILY 03/10/18 Trazodone HCl 100 mg PO QHS PRN 03/10/18 Famotidine 40 mg PO BID #60 tablet 03/19/18 Allergies/Adverse Reactions: No Known Allergies Allergy (Verified 03/21/18 01:13) Review of Systems ROS unobtainable: Due to mental status Physical Exam Vital Signs: Temp Pulse Resp BP Pulse Ox 99.7 F 78 20 110/59 L 95 03/21/18 02:15 03/21/18 02:48 03/21/18 02:15 03/21/18 02:15 03/21/18 02:15 Intake & Output 03/19/18 03/20/18 03/21/18 11:59 11:59 11:59 Intake Total 3251.2 Output Total 500 Balance 2751.2 Weight 78.3 kg General appearance: PRESENT: cooperative, mild distress. ABSENT: obese, severe distress Head exam: PRESENT: other - Right periorbital ecchymosis without edema Eye exam: PRESENT: conjunctiva pink, EOMI, PERRLA. ABSENT: scleral icterus Ear exam: PRESENT: normal external ear exam Mouth exam: PRESENT: moist, tongue midline Neck exam: ABSENT: carotid bruit, JVD, lymphadenopathy, thyromegaly Respiratory exam: PRESENT: clear to auscultation hannah. ABSENT: rales, rhonchi, wheezes Cardiovascular exam: PRESENT: RRR. ABSENT: diastolic murmur, rubs, systolic murmur Pulses: PRESENT: normal dorsalis pedis pul Vascular exam: PRESENT: normal capillary refill GI/Abdominal exam: PRESENT: hyperactive bowel sounds, soft, tenderness. ABSENT: ascites, diminished bowel sounds, distended, rigid Rectal exam: PRESENT: deferred Extremities exam: PRESENT: full ROM, other - Abrasions to the knuckles of the right hand. ABSENT: calf tenderness, clubbing, pedal edema Neurological exam: PRESENT: alert, altered, awake, oriented to person, oriented to place, oriented to situation, CN II-XII grossly intact. ABSENT: motor sensory deficit Psychiatric exam: PRESENT: appropriate affect, normal mood. ABSENT: homicidal ideation, suicidal ideation Skin exam: PRESENT: abrasion - Knuckles of the right hand, without exudate, dry, intact, warm. ABSENT: cyanosis, rash Results Laboratory Results: 03/20/18 23:17 03/20/18 23:17 03/20/18 03/20/18 03/20/18 23:17 23:17 23:17 WBC 18.5 H RBC 4.56 Hgb 11.3 L D Hct 35.1 L MCV 77 L MCH 24.8 L MCHC 32.3 RDW 21.5 H Plt Count 173 Seg Neutrophils % 88.3 H Lymphocytes % 8.0 L Monocytes % 3.1 Eosinophils % 0.0 Basophils % 0.6 Absolute Neutrophils 16.4 H Absolute Lymphocytes 1.5 Absolute Monocytes 0.6 Absolute Eosinophils 0.0 Absolute Basophils 0.1 Retic Count (auto) 0.67 Absolute Retic 0.031 Sodium 141.9 Potassium 3.6 Chloride 93 L Carbon Dioxide 30 Anion Gap 19 BUN 20 Creatinine 0.58 Est GFR ( Amer) > 60 Est GFR (Non-Af Amer) > 60 Glucose 143 H Calcium 8.4 Total Bilirubin 0.3 AST 85 H ALT 38 Alkaline Phosphatase 91 Total Protein 6.6 Albumin 4.2 Lipase 116.2 Blood Type Antibody Screen 03/21/18 00:01 WBC RBC Hgb Hct MCV MCH MCHC RDW Plt Count Seg Neutrophils % Lymphocytes % Monocytes % Eosinophils % Basophils % Absolute Neutrophils Absolute Lymphocytes Absolute Monocytes Absolute Eosinophils Absolute Basophils Retic Count (auto) Absolute Retic Sodium Potassium Chloride Carbon Dioxide Anion Gap BUN Creatinine Est GFR ( Amer) Est GFR (Non-Af Amer) Glucose Calcium Total Bilirubin AST ALT Alkaline Phosphatase Total Protein Albumin Lipase Blood Type O POSITIVE Antibody Screen NEGATIVE Impressions: Chest X-Ray 03/20/18 22:36 IMPRESSION: No acute findings. No focal lung consolidation. Assessment & Plan - Diagnosis (1) Upper GI hemorrhage Is this a current diagnosis for this admission?: Yes Plan: Coffee-ground emesis not bright red blood, consistent with history of alcoholic gastritis, n.p.o., proton pump inhibitor, symptomatic management. Follow-up CBC (2) Alcoholic gastritis Qualifiers: Chronicity: acute Gastritis bleeding: with bleeding Qualified Code(s): K29.21 - Alcoholic gastritis with bleeding Is this a current diagnosis for this admission?: Yes Plan: Alcohol avoidance, proton pump inhibitor, education (3) Alcohol intoxication Qualifiers: Complication of substance-induced condition: uncomplicated Qualified Code(s): F10.920 - Alcohol use, unspecified with intoxication, uncomplicated Is this a current diagnosis for this admission?: Yes Plan: Supportive care, anticipate severe alcohol withdrawal, thiamine and folate initiated. (4) Alcohol withdrawal Qualifiers: Complication of substance-induced condition: uncomplicated Qualified Code(s): F10.230 - Alcohol dependence with withdrawal, uncomplicated Is this a current diagnosis for this admission?: Yes Plan: History of alcohol withdrawal seizure, thiamine and folate with Ativan scheduled and as needed. - Time Time Spent: 50 to 70 Minutes - Inpatient Certification Medical Necessity: Need Close Monitoring Due to Risk of Patient Decompensation
[2018-03-21] MEDS ORDERED: LORAZEPAM 1 MG TABLET PO ONE (06:45)
[2018-03-21 07:06] LABS: HEMATOCRIT 24.9 % (37.9-51.0); MEAN CORPUSCULAR HEMOGLOBIN 24.7 pg (27.0-33.4); MEAN CORPUSCULAR HGB CONC 32.2 g/dL (32.0-36.0); MEAN CORPUSCULAR VOLUME 77 fl (80-97); RED BLOOD COUNT 3.25 10^6/uL (4.35-5.55); WHITE BLOOD COUNT 12.2 10^3/uL (4.0-10.5)
[2018-03-21 07:26] LABS: PLATELET COUNT 98 10^3/uL (150-450)
[2018-03-21 07:27] LABS: FOLATE 6.31 ng/mL (>2.76)
[2018-03-21] MEDS ORDERED: PROMETHAZINE HCL INJ 25 MG/1 ML VIAL ONE (07:38)
[2018-03-21] MEDS: PROMETHAZINE HCL INJ 25 MG/1 ML VIAL IV PRN ×4 (07:48→21:54)
[2018-03-21] MEDS ORDERED: NORMAL SALINE 250 ML IV PRN ×2 (08:16)
--- NOTE | 2018-03-21 08:16 | PDOC CONSULTATION ---
Consultation Consult Date: 03/21/18 Consult reason:: Upper GI bleeding History of Present Illness Admission Date/PCP: 03/21/18 00:29 SHALINI SOUTH MD Patient complains of: Coffee ground emesis History of Present Illness: JAIME NUNEZ is a 32 year old male with coffee ground emesis. He is an a lcoholic, and underwent EGD in December by Dr. Vallecillo. He found alcoholic gastritis without localized ulcer or variceal bleeding. He reports vomiting that started yesterday. It was black in color. He vomited several times yesterday and once this morning. He reports weakness, fatigue, and malaise. He denies CP, SOB, MENG, F/C, blurry vision, sore throat. He continues to drink a fifth of liquor every day. Past Medical History Cardiac Medical History: Reports: Hypertension Denies: Coronary Artery Disease, Myocardial Infarction Pulmonary Medical History: Denies: Asthma, Bronchitis, Chronic Obstructive Pulmonary Disease (COPD), Pneumonia, Tuberculosis Neurological Medical History: Reports: Seizures - ALCOHOL RELATED GI Medical History: Reports: Gastroesophageal Reflux Disease - esophageal varacies, Hepatitis - alcoholic hepatitis, Other - Alcoholic gastritis Denies: Hiatal Hernia Musculoskeltal Medical History: Denies: Arthritis Psychiatric Medical History: Reports: Alcohol Dependency, Depression Hematology: Denies: Anemia, Sickle Cell Disease Past Surgical History Past Surgical History: Reports: Other - Esophageal varices banding Denies: Pacemaker Social History Lives with: Family Smoking Status: Current Every Day Smoker Frequency of Alcohol Use: Heavy Hx Recreational Drug Use: No Drugs: None Hx Prescription Drug Abuse: No - Advance Directive Resuscitation Status: Full Code Family History Family History: CAD, COPD Parental Family History Reviewed: Yes Children Family History Reviewed: Yes Sibling(s) Family History Reviewed.: Yes Medication/Allergy Home Medications: Promethazine HCl [Phenergan 25 mg Tablet] 1 - 2 tab PO Q6H PRN #15 tablet 02/14/18 Acetaminophen [Tylenol Extra Strength 500 mg Tablet] 1 tab PO ASDIR PRN 03/10/18 Clonidine HCl [Catapres] 0.1 mg PO QPM 03/10/18 Cyanocobalamin (Vitamin B-12) [Vitamin B12] 2,500 mcg PO DAILY 03/10/18 Dexlansoprazole [Dexilant] 30 mg PO DAILY 03/10/18 Ferrous Sulfate [Iron] 325 mg PO DAILY 03/10/18 Hydroxyzine Pamoate [Vistaril 50 mg Capsule] 50 mg PO BID PRN 03/10/18 Multivitamin with Iron [One Daily Multivitamin] 1 each PO DAILY 03/10/18 Pantoprazole Sodium [Protonix] 40 mg PO DAILY 03/10/18 Ranitidine HCl 150 mg PO DAILY 03/10/18 Trazodone HCl 100 mg PO QHS PRN 03/10/18 Famotidine 40 mg PO BID #60 tablet 03/19/18 Allergies/Adverse Reactions: No Known Allergies Allergy (Verified 03/21/18 01:13) Review of Systems Constitutional: PRESENT: fatigue. ABSENT: anorexia, chills, fever(s), headache(s) Eyes: ABSENT: visual disturbances Ears: ABSENT: hearing changes Cardiovascular: ABSENT: chest pain, palpitations Respiratory: ABSENT: cough, dyspnea Gastrointestinal: PRESENT: coffee ground emesis, nausea, vomiting. ABSENT: abdominal pain Genitourinary: ABSENT: dysuria Musculoskeletal: ABSENT: back pain Integumentary: PRESENT: diaphoresis. ABSENT: rash Neurological: PRESENT: dizziness, weakness Psychiatric: ABSENT: anxiety, depression Endocrine: ABSENT: cold intolerance, heat intolerance Hematologic/Lymphatic: ABSENT: easy bleeding, easy bruising Physical Exam Vital Signs: Temp Pulse Resp BP Pulse Ox 99.7 F 78 20 110/59 L 95 03/21/18 02:15 03/21/18 02:48 03/21/18 02:15 03/21/18 02:15 03/21/18 02:15 Intake & Output 03/20/18 03/21/18 03/22/18 06:59 06:59 06:59 Intake Total 3251.2 Output Total 500 Balance 2751.2 Weight 78.3 kg General appearance: PRESENT: mild distress Head exam: PRESENT: normocephalic, other - periorbital ecchymoses Eye exam: PRESENT: EOMI, PERRLA Mouth exam: PRESENT: moist, neck supple Neck exam: ABSENT: meningismus, tenderness, thyromegaly, tracheal deviation Respiratory exam: PRESENT: clear to auscultation hannah, unlabored. ABSENT: chest wall tenderness, rhonchi, wheezes Cardiovascular exam: PRESENT: tachycardia Pulses: PRESENT: normal radial pulses Vascular exam: PRESENT: pallor GI/Abdominal exam: PRESENT: soft. ABSENT: distended, tenderness Rectal exam: PRESENT: deferred Extremities exam: ABSENT: clubbing Musculoskeletal exam: ABSENT: deformity Neurological exam: PRESENT: alert, awake, oriented to person, oriented to place, oriented to time, oriented to situation, CN II-XII grossly intact Psychiatric exam: PRESENT: agitated. ABSENT: anxious, depressed Focused psych exam: ABSENT: delusional Skin exam: ABSENT: cyanosis, erythema, jaundice Results Laboratory Results: 03/21/18 06:54 03/20/18 23:17 03/20/18 03/20/18 03/20/18 23:17 23:17 23:17 WBC 18.5 H RBC 4.56 Hgb 11.3 L D Hct 35.1 L MCV 77 L MCH 24.8 L MCHC 32.3 RDW 21.5 H Plt Count 173 Seg Neutrophils % 88.3 H Lymphocytes % 8.0 L Monocytes % 3.1 Eosinophils % 0.0 Basophils % 0.6 Absolute Neutrophils 16.4 H Absolute Lymphocytes 1.5 Absolute Monocytes 0.6 Absolute Eosinophils 0.0 Absolute Basophils 0.1 Retic Count (auto) 0.67 Absolute Retic 0.031 Sodium 141.9 Potassium 3.6 Chloride 93 L Carbon Dioxide 30 Anion Gap 19 BUN 20 Creatinine 0.58 Est GFR ( Amer) > 60 Est GFR (Non-Af Amer) > 60 Glucose 143 H Calcium 8.4 Iron TIBC % Saturation Ferritin Total Bilirubin 0.3 AST 85 H ALT 38 Alkaline Phosphatase 91 Total Protein 6.6 Albumin 4.2 Lipase 116.2 Vitamin B12 Folate Blood Type Antibody Screen 03/20/18 03/21/18 03/21/18 23:17 00:01 06:54 WBC 12.2 H RBC 3.25 L Hgb 8.0 L D Hct 24.9 L MCV 77 L MCH 24.7 L MCHC 32.2 RDW 22.0 H Plt Count 98 L Seg Neutrophils % Lymphocytes % Monocytes % Eosinophils % Basophils % Absolute Neutrophils Absolute Lymphocytes Absolute Monocytes Absolute Eosinophils Absolute Basophils Retic Count (auto) Absolute Retic Sodium Potassium Chloride Carbon Dioxide Anion Gap BUN Creatinine Est GFR ( Amer) Est GFR (Non-Af Amer) Glucose Calcium Iron 159.7 TIBC 358 % Saturation 45 Ferritin 89.90 Total Bilirubin AST ALT Alkaline Phosphatase Total Protein Albumin Lipase Vitamin B12 476.0 Folate 6.31 Blood Type O POSITIVE Antibody Screen NEGATIVE Impressions: Chest X-Ray 03/20/18 22:36 IMPRESSION: No acute findings. No focal lung consolidation. Assessment & Plan - Diagnosis (1) Upper GI hemorrhage Is this a current diagnosis for this admission?: Yes - Plan Summary Plan Summary: 32 y/o alcoholic with coffee ground emesis. He is tachycardic this morning and continues to vomit blood. I will transfuse him today and plan for EGD. If variceal bleeding or jaycee-cabello tear is found, he will require transfer to a higher level of care. Continue PPI. Keep NPO.
--- NOTE | 2018-03-21 09:47 | RADIOLOGY REPORT (SQ) ---
EXAM DESCRIPTION: CHEST SINGLE VIEW COMPLETED DATE/TIME: 03/21/2018 9:37 am REASON FOR STUDY: PA upright, check for pneumoperitoneum COMPARISON: 03/20/2018 EXAM PARAMETERS: NUMBER OF VIEWS: One view. TECHNIQUE: Single frontal radiographic view of the chest acquired. RADIATION DOSE: NA LIMITATIONS: None. FINDINGS: LUNGS AND PLEURA: No opacities, masses or pneumothorax. No pleural effusion. MEDIASTINUM AND HILAR STRUCTURES: No masses. Contour normal. HEART AND VASCULAR STRUCTURES: Heart normal in size. Normal vasculature. BONES: No acute findings. HARDWARE: None in the chest. OTHER: No other significant finding. IMPRESSION: NO ACUTE RADIOGRAPHIC FINDING IN THE CHEST. TECHNICAL DOCUMENTATION: JOB ID: [id number] NCR- All Rights Reserved Reading location - IP/workstation name: [email or web address]
[2018-03-21] MEDS ORDERED: DIPHENHYDRAMINE HCL 50 MG/ML VIAL ONE (11:12)
[2018-03-21] MEDS ORDERED: NALOXONE HCL INJ/PF 0.4 MG/1 ML SDV ONE (11:12)
[2018-03-21] MEDS ORDERED: EPINEPHRINE INJ 1 MG/10 ML DISP.SYRIN ONE (11:12)
[2018-03-21] MEDS ORDERED: FLUMAZENIL INJ 0.5 MG/5 ML VIAL ONE (11:12)
[2018-03-21] MEDS ORDERED: ONDANSETRON HCL INJ/PF 4 MG/2 ML SDV ONE (11:12)
[2018-03-21] MEDS ORDERED: GLUCAGON,HUMAN RECOMB 1 MG INJ ONE (11:12)
[2018-03-21] MEDS: MIDAZOLAM 2 MG/2 ML INJ ONE ×3 (12:32→12:38)
[2018-03-21] MEDS: FENTANYL CITRATE INJ/PF 100 MCG/2 ML AMPUL ONE ×2 (12:34→12:40)
--- NOTE | 2018-03-21 13:10 | Operative Report ---
Nonrecallable Operative Report DATE OF SURGERY: 03/21/18 PREOPERATIVE DIAGNOSIS: Upper GI bleeding POSTOPERATIVE DIAGNOSIS: 1. No active upper GI bleeding. 2. Evidence of bleeding stigmata within the esophagus. 3. Severe gastritis. 4. Severe duodenitis with shallow duodenal ulcers present. 5. Severe reflux esophagitis. OPERATION: EGD with biopsy SURGEON: KATHY JOSHUA ANESTHESIA: Moderate Sedation - 6 mg of Versed, 100 mcg of fentanyl TISSUE REMOVED OR ALTERED: Antrum biopsy COMPLICATIONS: None apparent. ESTIMATED BLOOD LOSS: Minimal PROCEDURE: Drains/implants: None. Procedure in detail: After informed consent was obtained, the patient was brought to the endoscopy suite and laid in the left lateral decubitus position. After adequate anesthesia was attained the endoscope was passed down the oropharynx, and into the esophagus. In the midportion of the esophagus there was an old clot which appeared to be the source of the patient's previous upper GI bleeding. There was no active bleeding at the time of the EGD. There were no obvious esophageal varices present. The scope was passed into the stomach. Severe gastritis was present throughout the stomach. The patient had shallow gastric ulcerations and petechiae throughout. The scope was pushed into the duodenum. The second portion of the duodenum appeared normal, but the first portion had severe duodenitis with shallow duodenal ulcers. No active bleeding or old blood was seen in the duodenum. No active bleeding or old blood was seen in the stomach. An antral biopsy was taken to rule out H. pylori infection. A retroflexion maneuver was performed in the stomach. A small hiatal hernia was identified. The scope was pulled up into the distal esophagus where severe reflux esophagitis was identified. Biopsy was not taken in the esophagus at this time due to the patient's recent upper GI bleeding. The scope was then pulled out the oropharynx and removed from the patient. At this time the procedure was concluded. All sponge, instrument, and needle counts were correct x2. Condition: Fair.
[2018-03-21] MEDS ORDERED: ACETAMINOPHEN 325 MG TABLET ONE (15:46)
[2018-03-21] MEDS ORDERED: ACETAMINOPHEN 325 MG TABLET PO PRN (16:11)
[2018-03-21 20:58] LABS: HEMATOCRIT 29.6 % (37.9-51.0); HEMOGLOBIN 9.7 g/dL (13.5-17.0); MEAN CORPUSCULAR HEMOGLOBIN 25.5 pg (27.0-33.4); MEAN CORPUSCULAR HGB CONC 32.9 g/dL (32.0-36.0); MEAN CORPUSCULAR VOLUME 77 fl (80-97); RED BLOOD COUNT 3.83 10^6/uL (4.35-5.55); RED CELL DISTRIBUTION WIDTH 20.3 % (11.5-14.0); WHITE BLOOD COUNT 11.7 10^3/uL (4.0-10.5)
[2018-03-21 21:18] LABS: PLATELET COUNT 77 10^3/uL (150-450)
[2018-03-21] MEDS: THIAMINE HCL 100 MG, FOLIC ACID 1 MG in NORMAL SALINE 250 ML IV SCH (21:42)
[2018-03-21] MEDS: NORMAL SALINE 100 ML with PANTOPRAZOLE SODIUM 80 MG IV PRN ×2 (21:50)
[2018-03-22] MEDS: MORPHINE SULFATE 10 MG/ML INJ IV PRN ×5 (00:40→20:06)
[2018-03-22] MEDS: LORAZEPAM INJ 2 MG/1 ML VIAL IV PRN ×3 (00:42→11:38)
[2018-03-22] MEDS: NORMAL SALINE 1000 ML 1,000 ML IV PRN ×3 (03:40→20:11)
[2018-03-22] MEDS: PROMETHAZINE HCL INJ 25 MG/1 ML VIAL IV PRN ×4 (05:30→20:08)
[2018-03-22] MEDS: NORMAL SALINE 100 ML with PANTOPRAZOLE SODIUM 80 MG IV PRN ×4 (08:04→17:42)
[2018-03-22 08:16] LABS: ANION GAP 9 (5-19); BLOOD UREA NITROGEN 22 mg/dL (7-20); CALCIUM 8.2 mg/dL (8.4-10.2); CARBON DIOXIDE 22 mmol/L (22-30); CHLORIDE 110 mmol/L (98-107); GLUCOSE 119 mg/dL (75-110); POTASSIUM 4.2 mmol/L (3.6-5.0); SODIUM 140.6 mmol/L (137-145)
[2018-03-22 09:17] LABS: ABSOLUTE BASOPHILS # (AUTO) 0.1 10^3/uL (0.0-0.2); ABSOLUTE EOSINOPHILS # (AUTO) 0.2 10^3/uL (0.0-0.6); ABSOLUTE LYMPHOCYTES (AUTO) 1.3 10^3/uL (0.5-4.7); ABSOLUTE MONOCYTES (AUTO) 0.5 10^3/uL (0.1-1.4); ABSOLUTE NEUT (AUTO) 6.3 10^3/uL (1.7-8.2); BASOPHILS % (AUTO) 0.8 % (0-2); EOSINOPHILS % (AUTO) 2.7 % (0-6); HEMATOCRIT 29.6 % (37.9-51.0); HEMOGLOBIN 9.7 g/dL (13.5-17.0); LYMPHOCYTES % (AUTO) 15.4 % (13-45); MEAN CORPUSCULAR HEMOGLOBIN 25.1 pg (27.0-33.4); MEAN CORPUSCULAR HGB CONC 32.6 g/dL (32.0-36.0); MEAN CORPUSCULAR VOLUME 77 fl (80-97); MONOCYTES % (AUTO) 5.6 % (3-13); RED BLOOD COUNT 3.85 10^6/uL (4.35-5.55); RED CELL DISTRIBUTION WIDTH 20.2 % (11.5-14.0); SEGMENTED NEUTROPHILS % (AUTO) 75.5 % (42-78); TOTAL CELLS COUNTED % (AUTO) 100 %; WHITE BLOOD COUNT 8.3 10^3/uL (4.0-10.5)
[2018-03-22 09:38] LABS: PLATELET COUNT 73 10^3/uL (150-450)
[2018-03-22 09:40] LABS: ANISOCYTOSIS 3+; PLATELET COMMENT DECREASED; PLATELET LARGE PRESENT; TOXIC GRANULATION SLIGHT
--- NOTE | 2018-03-22 14:26 | PDOC PROGRESS REPORT ---
Subjective Progress Note for:: 03/22/18 Subjective:: This is a 32 year old male with a past medical history of chronic alcoholism, history of alcohol withdrawal seizure, alcoholic gastritis, history of variceal bleeding, history of upper GI bleed, histroy of alcoholic hepatitis and history of erosive esophagitis who presented with coffee-ground emesis and alcohol intoxication. Patient underwent EGD yesterday which showed evidence of bleeding stigmata within the esophagus but no active bleeding, severe gastritis, severe duodenitis with shallow duodenal ulcers present. and severe reflux esophagitis. No obvious esophageal varices. No recurrence of hematemesis so far. Patient did require Ativan overnight. He still complains of burning chest and epigastric pain. No melena or hematochezia. He says he continues to have nausea but this has improved with phenergan. No retching or vomiting. Reason For Visit: ALCOHOLIC GASTRITIS,INTOXICATION AND BLEED Physical Exam Vital Signs: Temp Pulse Resp BP Pulse Ox 99.0 F 90 18 153/97 H 100 03/22/18 11:33 03/22/18 11:33 03/22/18 11:33 03/22/18 11:33 03/22/18 11:33 Intake & Output 03/21/18 03/22/18 03/23/18 06:59 06:59 06:59 Intake Total 3251.2 3251.2 1085 Output Total 500 4450 1600 Balance 2751.2 -1198.8 -515 Weight 179 lb 14.355 oz 179 lb 14.355 oz General appearance: PRESENT: no acute distress, well-developed, well-nourished Head exam: PRESENT: atraumatic, normocephalic Eye exam: PRESENT: conjunctiva pink, EOMI, PERRLA. ABSENT: scleral icterus Ear exam: PRESENT: normal external ear exam Mouth exam: PRESENT: moist, tongue midline Neck exam: ABSENT: carotid bruit, JVD, lymphadenopathy, thyromegaly Respiratory exam: PRESENT: clear to auscultation hannah. ABSENT: rales, rhonchi, wheezes Cardiovascular exam: PRESENT: RRR. ABSENT: diastolic murmur, rubs, systolic murmur Pulses: PRESENT: normal dorsalis pedis pul GI/Abdominal exam: PRESENT: normal bowel sounds, soft, tenderness - mild epigastric direct tenderness, no rebound. ABSENT: distended, guarding, mass, organolmegaly, rebound Rectal exam: PRESENT: deferred Neurological exam: PRESENT: alert, awake, oriented to person, oriented to place, oriented to time, oriented to situation, CN II-XII grossly intact. ABSENT: motor sensory deficit Results Laboratory Results: 03/22/18 09:00 03/22/18 06:52 03/21/18 03/21/18 03/22/18 00:01 20:25 06:52 WBC 11.7 H Cancelled RBC 3.83 L Cancelled Hgb 9.7 L Cancelled Hct 29.6 L Cancelled MCV 77 L Cancelled MCH 25.5 L Cancelled MCHC 32.9 Cancelled RDW 20.3 H Cancelled Plt Count 77 L Cancelled Seg Neutrophils % Cancelled Lymphocytes % Cancelled Monocytes % Cancelled Eosinophils % Cancelled Basophils % Cancelled Absolute Neutrophils Cancelled Absolute Lymphocytes Cancelled Absolute Monocytes Cancelled Absolute Eosinophils Cancelled Absolute Basophils Cancelled Sodium Potassium Chloride Carbon Dioxide Anion Gap BUN Creatinine Est GFR ( Amer) Est GFR (Non-Af Amer) Glucose Calcium Magnesium Blood Type O POSITIVE Antibody Screen NEGATIVE 03/22/18 03/22/18 06:52 09:00 WBC 8.3 RBC 3.85 L Hgb 9.7 L Hct 29.6 L MCV 77 L MCH 25.1 L MCHC 32.6 RDW 20.2 H Plt Count 73 L Seg Neutrophils % 75.5 Lymphocytes % 15.4 Monocytes % 5.6 Eosinophils % 2.7 Basophils % 0.8 Absolute Neutrophils 6.3 Absolute Lymphocytes 1.3 Absolute Monocytes 0.5 Absolute Eosinophils 0.2 Absolute Basophils 0.1 Sodium 140.6 Potassium 4.2 Chloride 110 H Carbon Dioxide 22 Anion Gap 9 BUN 22 H Creatinine 0.94 Est GFR ( Amer) > 60 Est GFR (Non-Af Amer) > 60 Glucose 119 H Calcium 8.2 L Magnesium 2.2 Blood Type Antibody Screen Impressions: Chest X-Ray 03/21/18 09:14 IMPRESSION: NO ACUTE RADIOGRAPHIC FINDING IN THE CHEST. Assessment & Plan - Diagnosis (1) Upper GI hemorrhage Is this a current diagnosis for this admission?: Yes Plan: Patient underwent EGD yesterday which showed evidence of bleeding stigmata within the esophagus but no active bleeding, severe gastritis, severe duodenitis with shallow duodenal ulcers present. and severe reflux esophagitis. No obvious esophageal varices. She also had an EGD in December 2017 which showed erosive esophagitis, gastritis and duodenitis. Hemoglobin stable. Continue Protonix. Will add sucralfate. (2) Alcohol abuse Is this a current diagnosis for this admission?: Yes Plan: Patient came in with elevated alcohol leevl (385) yesterday. Continue banana bag. Continue Ativan prn. Counseled in length again about alcohol cessation and his significantly increased risk of developing varices and variceal bleed in the future. (3) Acute blood loss anemia Is this a current diagnosis for this admission?: Yes Plan: Secondary to GI bleed. He received 2 u of pRBC yesterday. Hemoglobin has been stable overnight. - Time Time Spent with patient: 25-34 minutes
[2018-03-22] MEDS: SUCRALFATE 1 GM TABLET PO SCH ×2 (16:18→22:13)
[2018-03-22] MEDS: THIAMINE HCL 100 MG, FOLIC ACID 1 MG in NORMAL SALINE 250 ML IV SCH (22:13)
--- NOTE | 2018-03-22 23:24 | EKG REPORT ---
SEVERITY:- BORDERLINE ECG - SINUS TACHYCARDIA PROBABLE LEFT ATRIAL ABNORMALITY BORDERLINE T WAVE ABNORMALITIES : Confirmed by: Lawson Finley 22-Mar-2018 23:23:23
[2018-03-23] MEDS: MORPHINE SULFATE 10 MG/ML INJ IV PRN ×5 (01:56→22:34)
[2018-03-23] MEDS: LORAZEPAM INJ 2 MG/1 ML VIAL IV PRN ×4 (01:58→21:21)
[2018-03-23] MEDS: NORMAL SALINE 1000 ML 1,000 ML IV PRN (05:03)
[2018-03-23] MEDS: PROMETHAZINE HCL INJ 25 MG/1 ML VIAL IV PRN (06:27)
[2018-03-23] MEDS: SUCRALFATE 1 GM TABLET PO SCH ×4 (09:07→21:04)
[2018-03-23] MEDS ORDERED: NORMAL SALINE 1000 ML 1,000 ML IV PRN (09:36)
[2018-03-23] MEDS: PANTOPRAZOLE SODIUM 40 MG VIAL IV SCH ×2 (09:54→21:04)
--- NOTE | 2018-03-23 09:55 | PDOC PROGRESS REPORT ---
Subjective Progress Note for:: 03/23/18 Subjective:: 03/23/2018-32 year old male with a past medical history of chronic alcoholism, history of alcohol withdrawal seizure, alcoholic gastritis, history of variceal bleeding, history of upper GI bleed, histroy of alcoholic hepatitis and history of erosive esophagitis who presented with coffee-ground emesis and alcohol intoxication. Had EGD on 03/21/2018-no esophageal varices were found positive was findings are duodenitis and esophagitis and a small duodenal ulcers. Biopsy for H. pylori was taken. No active bleeding was noted. No acute events in the last 24 hours. Patient is complaining of anxiety nausea and pain. He is getting Ativan 2 mg IV every 2 as needed morphine 4 mg IV every 4 as needed. Is also getting Phenergan for nausea. Reason For Visit: ALCOHOLIC GASTRITIS,INTOXICATION AND BLEED Physical Exam Vital Signs: Temp Pulse Resp BP Pulse Ox 98.4 F 72 18 142/96 H 100 03/23/18 07:39 03/23/18 07:39 03/23/18 07:39 03/23/18 07:39 03/23/18 07:39 Intake & Output 03/22/18 03/23/18 03/24/18 06:59 06:59 06:59 Intake Total 3251.2 3832.2 Output Total 4450 6015 Balance -1198.8 -2182.8 Weight 81.6 kg 79 kg General appearance: PRESENT: mild distress Head exam: PRESENT: atraumatic Eye exam: PRESENT: PERRLA Mouth exam: PRESENT: moist Neck exam: ABSENT: carotid bruit, JVD, lymphadenopathy, thyromegaly Respiratory exam: PRESENT: clear to auscultation hannah. ABSENT: rales, rhonchi, wheezes Cardiovascular exam: PRESENT: tachycardia GI/Abdominal exam: PRESENT: other - On palpation abdomen is flat soft but complaining of tenderness on gentle palpation. Extremities exam: PRESENT: full ROM. ABSENT: calf tenderness, clubbing, pedal edema Neurological exam: PRESENT: alert, awake, oriented to person, oriented to place, oriented to time, oriented to situation, CN II-XII grossly intact. ABSENT: motor sensory deficit Psychiatric exam: PRESENT: anxious Results Laboratory Results: 03/22/18 09:00 03/22/18 06:52 Impressions: Chest X-Ray 03/21/18 09:14 IMPRESSION: NO ACUTE RADIOGRAPHIC FINDING IN THE CHEST. Assessment & Plan - Diagnosis (1) Upper GI hemorrhage Is this a current diagnosis for this admission?: Yes Plan: 03/22/2018-Patient underwent EGD yesterday which showed evidence of bleeding stigmata within the esophagus but no active bleeding, severe gastritis, severe duodenitis with shallow duodenal ulcers present. and severe reflux esophagitis. No obvious esophageal varices. She also had an EGD in December 2017 which showed erosive esophagitis, gastritis and duodenitis. Hemoglobin stable. Continue Protonix. Will add sucralfate. 03/23/2018-no acute events in the last 24 hours. Latest hemoglobin is 9.7. He received 2 units of PRBC. pt is on IV Protonix drip, I change it to Protonix IV 40 twice a day. Is also on sucralfate before meals and at bedtime. No complaints of hematemesis or black colored stools. (2) Abdominal pain Is this a current diagnosis for this admission?: Yes Plan: 03/23/2018-patient is still complaining of abdominal pain is getting morphine 4 mg IV every 4 as needed. Pain scale is 3-4 x 10 according to the patient. Plan is to continue the current regimen. (3) Alcohol abuse Is this a current diagnosis for this admission?: Yes Plan: 03/23/2018-admission alcohol levels are 385. Patient is on a banana bag. Getting Ativan 2 mg IV every 2 hours as needed. Counseled about cutting down alcohol intake and going to AA classes. (4) Acute blood loss anemia Is this a current diagnosis for this admission?: Yes Plan: 03/23/2018-GI bleed causing acute blood loss anemia. Status post 2 units of PRBC. Hemoglobin is 9.7. Stable. - Time Time Spent with patient: 15-24 minutes Smoking Cessation Education: 3 to 10 minutes Medications reviewed and adjusted accordingly: Yes Anticipated discharge: Home
--- NOTE | 2018-03-23 12:52 | PDOC CONSULTATION ---
Consultation Consult Date: 03/23/18 Attending physician:: LISSETH OLSEN Consult reason:: Thrombocytopenia History of Present Illness Admission Date/PCP: 03/21/18 00:29 SHALINI SOUTH MD Patient complains of: Thrombocytopenia, anemia History of Present Illness: JAIME NUNEZ is a 32 year old male with known history of heavy alcohol use, does binge drinking every few weeks goes 3-4 days of drinking over 1/5th of hard liquor per day, just went on a binge prior to coming in. Presented with weakness and coffee-ground emesis, had a EGD which indicated gastritis but no a ctive areas of bleeding, does have history of variceal bleeding apparently. Upon presentation his hemoglobin was 12-13 and then dropped with hydration down to the 8 range. Thereafter he received 2 units of packed red blood cells as well as EGD. Platelet count upon presentation was 173 but is dropped down to 73 since admission. D-dimer is elevated. He does not appear to be actively bleeding currently. Past Medical History Cardiac Medical History: Reports: Hypertension Denies: Coronary Artery Disease, Myocardial Infarction Pulmonary Medical History: Denies: Asthma, Bronchitis, Chronic Obstructive Pulmonary Disease (COPD), Pneumonia, Tuberculosis Neurological Medical History: Reports: Seizures GI Medical History: Reports: Gastroesophageal Reflux Disease - esophageal [place], Hepatitis - alcoholic hepatitis, Other - Alcoholic gastritis Denies: Hiatal Hernia Musculoskeltal Medical History: Denies: Arthritis Psychiatric Medical History: Reports: Alcohol Dependency, Depression Hematology: Denies: Anemia, Sickle Cell Disease Past Surgical History Past Surgical History: Reports: Other - Esophageal varices banding Denies: Pacemaker Social History Lives with: Family Smoking Status: Current Every Day Smoker Frequency of Alcohol Use: Heavy Hx Recreational Drug Use: No Drugs: None Hx Prescription Drug Abuse: No - Advance Directive Resuscitation Status: Full Code Family History Family History: CAD, COPD Parental Family History Reviewed: Yes Children Family History Reviewed: Yes Sibling(s) Family History Reviewed.: Yes Medication/Allergy Home Medications: Clonidine HCl [Catapres] 0.1 mg PO QPM 03/10/18 Cyanocobalamin (Vitamin B-12) [Vitamin B12] 2,500 mcg PO DAILY 03/10/18 Ferrous Sulfate [Iron] 325 mg PO DAILY 03/10/18 Multivitamin with Iron [One Daily Multivitamin] 1 each PO DAILY 03/10/18 Ranitidine HCl 150 mg PO DAILY 03/10/18 Allergies/Adverse Reactions: No Known Allergies Allergy (Verified 03/21/18 01:13) Review of Systems Constitutional: ABSENT: chills, fever(s), headache(s), weight gain, weight loss Eyes: ABSENT: visual disturbances Ears: ABSENT: hearing changes Cardiovascular: ABSENT: chest pain, dyspnea on exertion, edema, orthropnea, palpitations Respiratory: ABSENT: cough, hemoptysis Gastrointestinal: ABSENT: abdominal pain, constipation, diarrhea, hematemesis, hematochezia, nausea, vomiting Genitourinary: ABSENT: dysuria, hematuria Musculoskeletal: ABSENT: joint swelling Integumentary: ABSENT: rash, wounds Neurological: ABSENT: abnormal gait, abnormal speech, confusion, dizziness, focal weakness, syncope Psychiatric: ABSENT: anxiety, depression, homidical ideation, suicidal ideation Endocrine: ABSENT: cold intolerance, heat intolerance, polydipsia, polyuria Hematologic/Lymphatic: ABSENT: easy bleeding, easy bruising Physical Exam Vital Signs: Temp Pulse Resp BP Pulse Ox 98.4 F 72 18 142/96 H 100 03/23/18 07:39 03/23/18 07:39 03/23/18 07:39 03/23/18 07:39 03/23/18 07:39 Intake & Output 03/22/18 03/23/18 03/24/18 06:59 06:59 06:59 Intake Total 3251.2 3832.2 606 Output Total 4450 6015 Balance -1198.8 -2182.8 606 Weight 81.6 kg 79 kg General appearance: PRESENT: no acute distress, well-developed, well-nourished Head exam: PRESENT: atraumatic, normocephalic Eye exam: PRESENT: conjunctiva pink, EOMI, PERRLA. ABSENT: scleral icterus Ear exam: PRESENT: normal external ear exam Mouth exam: PRESENT: moist, tongue midline Neck exam: ABSENT: carotid bruit, JVD, lymphadenopathy, thyromegaly Respiratory exam: PRESENT: clear to auscultation hannah. ABSENT: rales, rhonchi, wheezes Cardiovascular exam: PRESENT: RRR. ABSENT: diastolic murmur, rubs, systolic murmur Pulses: PRESENT: normal dorsalis pedis pul Vascular exam: PRESENT: normal capillary refill GI/Abdominal exam: PRESENT: normal bowel sounds, soft. ABSENT: distended, guarding, mass, organolmegaly, rebound, tenderness Rectal exam: PRESENT: deferred Extremities exam: PRESENT: full ROM. ABSENT: calf tenderness, clubbing, pedal edema Neurological exam: PRESENT: alert, awake, oriented to person, oriented to place, oriented to time, oriented to situation, CN II-XII grossly intact. ABSENT: motor sensory deficit Psychiatric exam: PRESENT: appropriate affect, normal mood. ABSENT: homicidal ideation, suicidal ideation Skin exam: PRESENT: dry, intact, warm. ABSENT: cyanosis, rash Results Laboratory Results: 03/22/18 09:00 03/22/18 06:52 Impressions: Chest X-Ray 03/21/18 09:14 IMPRESSION: NO ACUTE RADIOGRAPHIC FINDING IN THE CHEST. Assessment & Plan - Diagnosis (1) Thrombocytopenia Is this a current diagnosis for this admission?: Yes Plan: Probably either secondary to DIC, could have also happened because of consumption from recent bleed, also can be resultant from acute alcohol toxicity which is a bone marrow suppressant. He should fully recover over time but once his liver function and other issues seem to resolve this should improve. At this point just watch, do not believe this is anything like HIT or TTP. (2) Acute blood loss anemia Is this a current diagnosis for this admission?: Yes Plan: Secondary to upper GI bleed most likely from some sort of a ulcer related bleed. Will stabilize over time. - Time Time Spent: Greater than 70 Minutes - Inpatient Certification Based on my medical assessment, after consideration of the patient's comorbidities, presenting symptoms, or acuity I expect that the services needed warrant INPATIENT care.: Yes I certify that my determination is in accordance with my understanding of Medicare's requirements for reasonable and necessary INPATIENT services [42 CFR 412.3e].: Yes Medical Necessity: Risk of Complication if Not Cared For in Hospital
[2018-03-23] MEDS: THIAMINE HCL 100 MG, FOLIC ACID 1 MG in NORMAL SALINE 250 ML IV SCH (21:03)
[2018-03-24] MEDS: LORAZEPAM INJ 2 MG/1 ML VIAL IV PRN (00:35)
[2018-03-24] MEDS ORDERED: CLONIDINE HCL 0.1 MG TABLET PO ONE (01:15)
[2018-03-24] MEDS: MORPHINE SULFATE 10 MG/ML INJ IV PRN ×6 (02:46→21:38)
[2018-03-24] MEDS ORDERED: MORPHINE SULFATE 10 MG/ML INJ IV PRN ×2 (04:24)
[2018-03-24 05:26] LABS: ABSOLUTE EOSINOPHILS # (AUTO) 0.5 10^3/uL (0.0-0.6); ABSOLUTE LYMPHOCYTES (AUTO) 1.9 10^3/uL (0.5-4.7); ABSOLUTE MONOCYTES (AUTO) 0.4 10^3/uL (0.1-1.4); ABSOLUTE NEUT (AUTO) 2.9 10^3/uL (1.7-8.2); BASOPHILS % (AUTO) 0.9 % (0-2); EOSINOPHILS % (AUTO) 8.5 % (0-6); HEMATOCRIT 31.4 % (37.9-51.0); HEMOGLOBIN 10.4 g/dL (13.5-17.0); MEAN CORPUSCULAR HEMOGLOBIN 25.9 pg (27.0-33.4); MEAN CORPUSCULAR HGB CONC 33.1 g/dL (32.0-36.0); MEAN CORPUSCULAR VOLUME 78 fl (80-97); MONOCYTES % (AUTO) 7.1 % (3-13); PLATELET COUNT 108 10^3/uL (150-450); RED BLOOD COUNT 4.02 10^6/uL (4.35-5.55); SEGMENTED NEUTROPHILS % (AUTO) 50.5 % (42-78); TOTAL CELLS COUNTED % (AUTO) 100 %; WHITE BLOOD COUNT 5.7 10^3/uL (4.0-10.5)
[2018-03-24 05:45] LABS: ALANINE AMINOTRANSFERASE 28 U/L (21-72); ALBUMIN 3.1 g/dL (3.5-5.0); ALKALINE PHOSPHATASE 68 U/L (38-126); ANION GAP 7 (5-19); ASPARTATE AMINO TRANSFERASE 28 U/L (17-59); BILIRUBIN,DIRECT 0.2 mg/dL (0.0-0.4); BILIRUBIN,TOTAL 0.4 mg/dL (0.2-1.3); BLOOD UREA NITROGEN 7 mg/dL (7-20); CALCIUM 8.4 mg/dL (8.4-10.2); CARBON DIOXIDE 30 mmol/L (22-30); CHLORIDE 100 mmol/L (98-107); GLUCOSE 108 mg/dL (75-110); POTASSIUM 4.1 mmol/L (3.6-5.0); SODIUM 137.3 mmol/L (137-145); TOTAL PROTEIN 5.5 g/dL (6.3-8.2)
[2018-03-24] MEDS ORDERED: DIAZEPAM 5 MG TABLET PO SCH (06:00)
[2018-03-24] MEDS: SUCRALFATE 1 GM TABLET PO SCH ×4 (07:55→21:39)
--- NOTE | 2018-03-24 08:09 | PDOC PROGRESS REPORT ---
Subjective Progress Note for:: 03/24/18 Subjective:: Pt was asking about advancing diet, plt ct better, hb stable at 10 Reason For Visit: ALCOHOLIC GASTRITIS,INTOXICATION AND BLEED Physical Exam Vital Signs: Temp Pulse Resp BP Pulse Ox 98.1 F 85 16 143/89 H 99 03/24/18 03:38 03/24/18 03:38 03/24/18 03:38 03/24/18 03:38 03/24/18 03:38 Intake & Output 03/23/18 03/24/18 03/25/18 06:59 06:59 06:59 Intake Total 3832.2 1801.2 Output Total 6015 4850 Balance -2182.8 -3048.8 Weight 79 kg 78.1 kg General appearance: PRESENT: no acute distress, well-developed, well-nourished Head exam: PRESENT: atraumatic, normocephalic Eye exam: PRESENT: conjunctiva pink, EOMI, PERRLA. ABSENT: scleral icterus Ear exam: PRESENT: normal external ear exam Mouth exam: PRESENT: moist, tongue midline Neck exam: ABSENT: carotid bruit, JVD, lymphadenopathy, thyromegaly Respiratory exam: PRESENT: clear to auscultation hannah. ABSENT: rales, rhonchi, wheezes Cardiovascular exam: PRESENT: RRR. ABSENT: diastolic murmur, rubs, systolic murmur Pulses: PRESENT: normal dorsalis pedis pul Vascular exam: PRESENT: normal capillary refill GI/Abdominal exam: PRESENT: normal bowel sounds, soft. ABSENT: distended, guarding, mass, organolmegaly, rebound, tenderness Rectal exam: PRESENT: deferred Extremities exam: PRESENT: full ROM. ABSENT: calf tenderness, clubbing, pedal edema Neurological exam: PRESENT: alert, awake, oriented to person, oriented to place, oriented to time, oriented to situation, CN II-XII grossly intact. ABSENT: motor sensory deficit Psychiatric exam: PRESENT: appropriate affect, normal mood. ABSENT: homicidal ideation, suicidal ideation Skin exam: PRESENT: dry, intact, warm. ABSENT: cyanosis, rash Results Laboratory Results: 03/24/18 04:31 03/24/18 04:31 03/24/18 03/24/18 04:31 04:31 WBC 5.7 RBC 4.02 L Hgb 10.4 L Hct 31.4 L MCV 78 L MCH 25.9 L MCHC 33.1 RDW 20.0 H Plt Count 108 L Seg Neutrophils % 50.5 Lymphocytes % 33.0 Monocytes % 7.1 Eosinophils % 8.5 H Basophils % 0.9 Absolute Neutrophils 2.9 Absolute Lymphocytes 1.9 Absolute Monocytes 0.4 Absolute Eosinophils 0.5 Absolute Basophils 0.0 Sodium 137.3 Potassium 4.1 Chloride 100 Carbon Dioxide 30 Anion Gap 7 BUN 7 Creatinine 0.56 Est GFR ( Amer) > 60 Est GFR (Non-Af Amer) > 60 Glucose 108 Calcium 8.4 Magnesium 1.6 Total Bilirubin 0.4 AST 28 ALT 28 Alkaline Phosphatase 68 Total Protein 5.5 L Albumin 3.1 L Impressions: Chest X-Ray 03/21/18 09:14 IMPRESSION: NO ACUTE RADIOGRAPHIC FINDING IN THE CHEST. Assessment & Plan - Diagnosis (1) Thrombocytopenia Is this a current diagnosis for this admission?: Yes Plan: Plt ct should cont to improve, will follow (2) Acute blood loss anemia Is this a current diagnosis for this admission?: Yes Plan: Hb stable post GI bleed, cont to monitor
[2018-03-24] MEDS ORDERED: TRAZODONE HCL 50 MG TABLET PO PRN (10:07)
--- NOTE | 2018-03-24 10:08 | PDOC PROGRESS REPORT ---
Subjective Progress Note for:: 03/24/18 Subjective:: 03/23/2018-32 year old male with a past medical history of chronic alcoholism, history of alcohol withdrawal seizure, alcoholic gastritis, history of variceal bleeding, history of upper GI bleed, histroy of alcoholic hepatitis and history of erosive esophagitis who presented with coffee-ground emesis and alcohol intoxication. Had EGD on 03/21/2018-no esophageal varices were found positive was findings are duodenitis and esophagitis and a small duodenal ulcers. Biopsy for H. pylori was taken. No active bleeding was noted. No acute events in the last 24 hours. Patient is complaining of anxiety nausea and pain. He is getting Ativan 2 mg IV every 2 as needed morphine 4 mg IV every 4 as needed. Is also getting Phenergan for nausea. 03/24/2018-patient has history of alcohol abuse admitted for coffee-ground emesis and alcohol intoxication. Status post EGD done found to have erosive esophagitis, duodenitis, small duodenal ulcers. No esophageal varices are seen. Patient is on Ativan 2 mg IV every 2 hours as needed and morphine 2 mg IV every 2 hours as needed along with Phenergan for nausea. We will continue the present management for to prevent delirium tremens. Stop his IV fluids and plan to start him on regular diet. No acute events in the last 24 hours. Reason For Visit: ALCOHOLIC GASTRITIS,INTOXICATION AND BLEED Physical Exam Vital Signs: Temp Pulse Resp BP Pulse Ox 97.5 F 78 18 133/87 H 100 03/24/18 07:46 03/24/18 07:46 03/24/18 07:46 03/24/18 07:46 03/24/18 07:46 Intake & Output 03/23/18 03/24/18 03/25/18 06:59 06:59 06:59 Intake Total 3832.2 1801.2 Output Total 6015 4850 Balance -2182.8 -3048.8 Weight 79 kg 78.1 kg General appearance: PRESENT: no acute distress Head exam: PRESENT: atraumatic Eye exam: PRESENT: PERRLA Mouth exam: PRESENT: dry mucosa Neck exam: ABSENT: carotid bruit, JVD, lymphadenopathy, thyromegaly Respiratory exam: PRESENT: clear to auscultation hannah. ABSENT: rales, rhonchi, wheezes Cardiovascular exam: PRESENT: RRR. ABSENT: diastolic murmur, rubs, systolic murmur GI/Abdominal exam: PRESENT: normal bowel sounds, soft. ABSENT: distended, guarding, mass, organolmegaly, rebound, tenderness Neurological exam: PRESENT: alert, awake, oriented to person, oriented to place, oriented to time, oriented to situation, CN II-XII grossly intact. ABSENT: motor sensory deficit Psychiatric exam: PRESENT: appropriate affect, normal mood. ABSENT: homicidal ideation, suicidal ideation Results Laboratory Results: 03/24/18 04:31 03/24/18 04:31 03/24/18 03/24/18 04:31 04:31 WBC 5.7 RBC 4.02 L Hgb 10.4 L Hct 31.4 L MCV 78 L MCH 25.9 L MCHC 33.1 RDW 20.0 H Plt Count 108 L Seg Neutrophils % 50.5 Lymphocytes % 33.0 Monocytes % 7.1 Eosinophils % 8.5 H Basophils % 0.9 Absolute Neutrophils 2.9 Absolute Lymphocytes 1.9 Absolute Monocytes 0.4 Absolute Eosinophils 0.5 Absolute Basophils 0.0 Sodium 137.3 Potassium 4.1 Chloride 100 Carbon Dioxide 30 Anion Gap 7 BUN 7 Creatinine 0.56 Est GFR ( Amer) > 60 Est GFR (Non-Af Amer) > 60 Glucose 108 Calcium 8.4 Magnesium 1.6 Total Bilirubin 0.4 AST 28 ALT 28 Alkaline Phosphatase 68 Total Protein 5.5 L Albumin 3.1 L Impressions: Chest X-Ray 03/21/18 09:14 IMPRESSION: NO ACUTE RADIOGRAPHIC FINDING IN THE CHEST. Assessment & Plan - Diagnosis (1) Upper GI hemorrhage Is this a current diagnosis for this admission?: Yes Plan: 03/22/2018-Patient underwent EGD yesterday which showed evidence of bleeding stigmata within the esophagus but no active bleeding, severe gastritis, severe duodenitis with shallow duodenal ulcers present. and severe reflux esophagitis. No obvious esophageal varices. She also had an EGD in December 2017 which showed erosive esophagitis, gastritis and duodenitis. Hemoglobin stable. Continue Protonix. Will add sucralfate. 03/23/2018-no acute events in the last 24 hours. Latest hemoglobin is 9.7. He received 2 units of PRBC. pt is on IV Protonix drip, I change it to Protonix IV 40 twice a day. Is also on sucralfate before meals and at bedtime. No complaints of hematemesis or black colored stools. 03/24/2018-the hospital stay he received 2 units of PRBC and his hemoglobin is stable around 10.4. [place] [id number] patient is on IV Protonix 40 mg twice a day and sucralfate before meals and at bedtime. Plan is to continue the present management. EGD did not show any esophageal varices.. (2) Abdominal pain Is this a current diagnosis for this admission?: Yes Plan: 03/23/2018-patient is still complaining of abdominal pain is getting morphine 4 mg IV every 4 as needed. Pain scale is 3-4 x 10 according to the patient. Plan is to continue the current regimen. 03/24/2018 patient is still complaining of abdominal pain much better compared to yesterday according to him. He is on morphine 2 mg IV every 2 as needed. I am going to change it to every 4 as needed. (3) Alcohol abuse Is this a current diagnosis for this admission?: Yes Plan: 03/23/2018-admission alcohol levels are 385. Patient is on a banana bag. Getting Ativan 2 mg IV every 2 hours as needed. Counseled about cutting down al cohol intake and going to AA classes. 03/24/2018-patient is admitted with alcohol intoxication. He is is getting banana bag daily, on Ativan 2 mg IV every 4 hours as needed. No complications during the hospital stay. (4) Acute blood loss anemia Is this a current diagnosis for this admission?: Yes Plan: 03/23/2018-GI bleed causing acute blood loss anemia. Status post 2 units of PRBC. Hemoglobin is 9.7. Stable. 03/24/2018-acute blood loss anemia secondary to upper GI bleed. Status post 2 units of blood transfusion during the hospital stay. Hemoglobin stable at this point. - Time Time Spent with patient: 15-24 minutes Smoking Cessation Education: 3 to 10 minutes Medications reviewed and adjusted accordingly: Yes Anticipated discharge: Home
[2018-03-24] MEDS: PANTOPRAZOLE SODIUM 40 MG VIAL IV SCH ×2 (10:46→21:38)
[2018-03-24] MEDS: DIAZEPAM INJ 10 MG/2 ML DISP.SYRIN IV PRN ×3 (13:18→20:56)
[2018-03-24] MEDS: PROMETHAZINE HCL INJ 25 MG/1 ML VIAL IV PRN ×2 (14:49→20:56)
[2018-03-24] MEDS: PRENATAL VITAMIN W DHA CAPSULE PO SCH (16:33)
[2018-03-24] MEDS: CYANOCOBALAMIN (VITAMIN B-12) 1,000 MCG TABLET PO SCH (16:33)
[2018-03-24] MEDS ORDERED: CLONIDINE HCL 0.1 MG TABLET PO SCH (18:00)
[2018-03-24] MEDS: THIAMINE HCL 100 MG, FOLIC ACID 1 MG in NORMAL SALINE 250 ML IV SCH (21:38)
[2018-03-24] MEDS: CLONIDINE HCL 0.1 MG TABLET PO SCH (21:39)
[2018-03-25] MEDS: PROMETHAZINE HCL INJ 25 MG/1 ML VIAL IV PRN ×3 (03:17→18:45)
[2018-03-25] MEDS: MORPHINE SULFATE 10 MG/ML INJ IV PRN ×5 (03:17→21:43)
[2018-03-25] MEDS: DIAZEPAM INJ 10 MG/2 ML DISP.SYRIN IV PRN (03:45)
[2018-03-25 07:10] LABS: ABSOLUTE BASOPHILS # (AUTO) 0.1 10^3/uL (0.0-0.2); ABSOLUTE EOSINOPHILS # (AUTO) 0.4 10^3/uL (0.0-0.6); ABSOLUTE LYMPHOCYTES (AUTO) 1.7 10^3/uL (0.5-4.7); ABSOLUTE MONOCYTES (AUTO) 0.6 10^3/uL (0.1-1.4); ABSOLUTE NEUT (AUTO) 3.3 10^3/uL (1.7-8.2); BASOPHILS % (AUTO) 1.1 % (0-2); EOSINOPHILS % (AUTO) 7.1 % (0-6); HEMATOCRIT 31.9 % (37.9-51.0); HEMOGLOBIN 10.6 g/dL (13.5-17.0); LYMPHOCYTES % (AUTO) 28.1 % (13-45); MEAN CORPUSCULAR HGB CONC 33.4 g/dL (32.0-36.0); MEAN CORPUSCULAR VOLUME 78 fl (80-97); PLATELET COUNT 144 10^3/uL (150-450); RED BLOOD COUNT 4.09 10^6/uL (4.35-5.55); RED CELL DISTRIBUTION WIDTH 19.9 % (11.5-14.0); SEGMENTED NEUTROPHILS % (AUTO) 53.7 % (42-78); TOTAL CELLS COUNTED % (AUTO) 100 %; WHITE BLOOD COUNT 6.2 10^3/uL (4.0-10.5)
[2018-03-25 07:27] LABS: ALANINE AMINOTRANSFERASE 21 U/L (21-72); ALBUMIN 3.3 g/dL (3.5-5.0); ALKALINE PHOSPHATASE 62 U/L (38-126); ANION GAP 6 (5-19); ASPARTATE AMINO TRANSFERASE 27 U/L (17-59); BILIRUBIN,DIRECT 0.2 mg/dL (0.0-0.4); BILIRUBIN,TOTAL 0.2 mg/dL (0.2-1.3); BLOOD UREA NITROGEN 6 mg/dL (7-20); CALCIUM 8.9 mg/dL (8.4-10.2); CARBON DIOXIDE 30 mmol/L (22-30); CHLORIDE 100 mmol/L (98-107); GLUCOSE 122 mg/dL (75-110); POTASSIUM 3.6 mmol/L (3.6-5.0); SODIUM 135.9 mmol/L (137-145); TOTAL PROTEIN 5.9 g/dL (6.3-8.2)
[2018-03-25] MEDS: SUCRALFATE 1 GM TABLET PO SCH ×4 (08:17→21:46)
--- NOTE | 2018-03-25 09:48 | PDOC PROGRESS REPORT ---
Subjective Progress Note for:: 03/25/18 Subjective:: 03/23/2018-32 year old male with a past medical history of chronic alcoholism, history of alcohol withdrawal seizure, alcoholic gastritis, history of variceal bleeding, history of upper GI bleed, histroy of alcoholic hepatitis and history of erosive esophagitis who presented with coffee-ground emesis and alcohol intoxication. Had EGD on 03/21/2018-no esophageal varices were found positive was findings are duodenitis and esophagitis and a small duodenal ulcers. Biopsy for H. pylori was taken. No active bleeding was noted. No acute events in the last 24 hours. Patient is complaining of anxiety nausea and pain. He is getting Ativan 2 mg IV every 2 as needed morphine 4 mg IV every 4 as needed. Is also getting Phenergan for nausea. 03/24/2018-patient has history of alcohol abuse admitted for coffee-ground emesis and alcohol intoxication. Status post EGD done found to have erosive esophagitis, duodenitis, small duodenal ulcers. No esophageal varices are seen. Patient is on Ativan 2 mg IV every 2 hours as needed and morphine 2 mg IV every 2 hours as needed along with Phenergan for nausea. We will continue the present management for to prevent delirium tremens. Stop his IV fluids and plan to start him on regular diet. No acute events in the last 24 hours. 03/25/2018-no acute events in the last 24 hours. No hematemesis. Patient is continue asked for morphine every 4 hours . Patient is also still complaining of anxiety and pains. Reason For Visit: ALCOHOLIC GASTRITIS,INTOXICATION AND BLEED Physical Exam Vital Signs: Temp Pulse Resp BP Pulse Ox 98.2 F 66 12 127/74 H 100 03/25/18 07:17 03/25/18 07:17 03/25/18 07:17 03/25/18 07:17 03/25/18 07:17 Intake & Output 03/24/18 03/25/18 03/26/18 06:59 06:59 06:59 Intake Total 1801.2 2606.2 Output Total 4850 2075 Balance -3048.8 531.2 Weight 78.1 kg 79.4 kg General appearance: PRESENT: mild distress Head exam: PRESENT: atraumatic Eye exam: PRESENT: PERRLA Mouth exam: PRESENT: moist Neck exam: ABSENT: carotid bruit, JVD, lymphadenopathy, thyromegaly Respiratory exam: PRESENT: clear to auscultation hannah. ABSENT: rales, rhonchi, wheezes Cardiovascular exam: PRESENT: RRR. ABSENT: diastolic murmur, rubs, systolic murmur GI/Abdominal exam: PRESENT: normal bowel sounds, soft. ABSENT: distended, guarding, mass, organolmegaly, rebound, tenderness Neurological exam: PRESENT: alert, awake, oriented to person, oriented to place, oriented to time, oriented to situation, CN II-XII grossly intact. ABSENT: motor sensory deficit Psychiatric exam: PRESENT: anxious Results Laboratory Results: 03/25/18 06:51 03/25/18 06:51 03/25/18 03/25/18 06:51 06:51 WBC 6.2 RBC 4.09 L Hgb 10.6 L Hct 31.9 L MCV 78 L MCH 26.0 L MCHC 33.4 RDW 19.9 H Plt Count 144 L Seg Neutrophils % 53.7 Lymphocytes % 28.1 Monocytes % 10.0 Eosinophils % 7.1 H Basophils % 1.1 Absolute Neutrophils 3.3 Absolute Lymphocytes 1.7 Absolute Monocytes 0.6 Absolute Eosinophils 0.4 Absolute Basophils 0.1 Sodium 135.9 L Potassium 3.6 Chloride 100 Carbon Dioxide 30 Anion Gap 6 BUN 6 L Creatinine 0.56 Est GFR ( Amer) > 60 Est GFR (Non-Af Amer) > 60 Glucose 122 H Calcium 8.9 Total Bilirubin 0.2 AST 27 ALT 21 Alkaline Phosphatase 62 Total Protein 5.9 L Albumin 3.3 L Impressions: Chest X-Ray 03/21/18 09:14 IMPRESSION: NO ACUTE RADIOGRAPHIC FINDING IN THE CHEST. Assessment & Plan - Diagnosis (1) Upper GI hemorrhage Is this a current diagnosis for this admission?: Yes Plan: 03/22/2018-Patient underwent EGD yesterday which showed evidence of bleeding stigmata within the esophagus but no active bleeding, severe gastritis, severe duodenitis with shallow duodenal ulcers present. and severe reflux esophagitis. No obvious esophageal varices. She also had an EGD in December 2017 which showed erosive esophagitis, gastritis and duodenitis. Hemoglobin stable. Continue Protonix. Will add sucralfate. 03/23/2018-no acute events in the last 24 hours. Latest hemoglobin is 9.7. He received 2 units of PRBC. pt is on IV Protonix drip, I change it to Protonix IV 40 twice a day. Is also on sucralfate before meals and at bedtime. No complaints of hematemesis or black colored stools. 03/24/2018-the hospital stay he received 2 units of PRBC and his hemoglobin is stable around 10.4. [place] [id number] patient is on IV Protonix 40 mg twice a day and sucralfate before meals and at bedtime. Plan is to continue the present management. EGD did not show any esophageal varices.. 03/25/2018-patient is admitted with upper GI bleed status post EGD no esophageal varices were found he has erosive esophagitis, duodenitis, small duodenal ulcer s. His hemoglobin is stable around 10.6. Opening of nausea and no more vomiting. I am going to switch IV Protonix to p.o. famotidine. (2) Abdominal pain Is this a current diagnosis for this admission?: Yes Plan: 03/23/2018-patient is still complaining of abdominal pain is getting morphine 4 mg IV every 4 as needed. Pain scale is 3-4 x 10 according to the patient. Plan is to continue the current regimen. 03/24/2018 patient is still complaining of abdominal pain much better compared to yesterday according to him. He is on morphine 2 mg IV every 2 as needed. I am going to change it to every 4 as needed. 03/25/2018-patient is still complaining of abdominal pains according to him pain is getting better. Presently he is on morphine 2 mg IV every 4 hours. I am going to change it to 1 mg morphine IV every 4 hours. (3) Alcohol abuse Is this a current diagnosis for this admission?: Yes Plan: 03/23/2018-admission alcohol levels are 385. Patient is on a banana bag. Getting Ativan 2 mg IV every 2 hours as needed. Counseled about cutting down alcohol intake and going to AA classes. 03/24/2018-patient is admitted with alcohol intoxication. He is is getting banana bag daily, on Ativan 2 mg IV every 4 hours as needed. No complications during the hospital stay. 03/25/2018 patient's admission alcohol level 08[birth year]30[birth year]1984 is getting banana bag on daily basis we are watching him closely for DTs. He is on diazepam IV presently I am going to switch it to 5 mg p.o. every 8 hours. (4) Acute blood loss anemia Is this a current diagnosis for this admission?: Yes Plan: 03/23/2018-GI bleed causing acute blood loss anemia. Status post 2 units of PRBC. Hemoglobin is 9.7. Stable. 03/24/2018-acute blood loss anemia secondary to upper GI bleed. Status post 2 units of blood transfusion during the hospital stay. Hemoglobin stable at this point. 2017 acute blood loss anemia secondary to upper GI bleed. Hemoglobin is stable for the last 48-72 hours. - Time Time Spent with patient: 15-24 minutes Smoking Cessation Education: 3 to 10 minutes Medications reviewed and adjusted accordingly: Yes Anticipated discharge: Home
[2018-03-25] MEDS ORDERED: (PENDING PHARMACY ID) (Cyanocobalamin (Vitamin B-12) [Vitamin B12] 2,500 MCG) PO SCH (10:00)
[2018-03-25] MEDS ORDERED: MULTIVITAMIN WITH IRON PO SCH (10:00)
[2018-03-25] MEDS: FERROUS SULFATE 325 MG TABLET PO SCH (10:29)
[2018-03-25] MEDS: PRENATAL VITAMIN W DHA CAPSULE PO SCH (10:29)
[2018-03-25] MEDS: DIAZEPAM 5 MG TABLET PO PRN ×2 (10:29→21:47)
[2018-03-25] MEDS: FAMOTIDINE 20 MG TABLET PO SCH ×2 (10:30→21:46)
[2018-03-25] MEDS: CYANOCOBALAMIN (VITAMIN B-12) 1,000 MCG TABLET PO SCH (10:30)
--- NOTE | 2018-03-25 18:06 | PDOC PROGRESS REPORT ---
Subjective Progress Note for:: 03/25/18 Subjective:: Patient seen on morning rounds. He is complaining of nausea, sweats, and pain in his abdomen which radiates through to his back. He had a BM last night which was black. He had vomiting this morning. Reason For Visit: ALCOHOLIC GASTRITIS,INTOXICATION AND BLEED Physical Exam Vital Signs: Temp Pulse Resp BP Pulse Ox 98.5 F 88 16 149/86 H 99 03/25/18 16:20 03/25/18 16:20 03/25/18 16:20 03/25/18 16:20 03/25/18 16:20 Intake & Output 03/24/18 03/25/18 03/26/18 06:59 06:59 06:59 Intake Total 1801.2 2606.2 473 Output Total 4850 2075 Balance -3048.8 531.2 473 Weight 78.1 kg 79.4 kg General appearance: PRESENT: well-developed, well-nourished Head exam: PRESENT: normocephalic Respiratory exam: PRESENT: clear to auscultation hannah, unlabored Cardiovascular exam: PRESENT: RRR GI/Abdominal exam: PRESENT: soft, tenderness Neurological exam: PRESENT: alert, awake Psychiatric exam: PRESENT: appropriate affect Skin exam: PRESENT: normal color Results Laboratory Results: 03/25/18 06:51 03/25/18 06:51 03/25/18 03/25/18 06:51 06:51 WBC 6.2 RBC 4.09 L Hgb 10.6 L Hct 31.9 L MCV 78 L MCH 26.0 L MCHC 33.4 RDW 19.9 H Plt Count 144 L Seg Neutrophils % 53.7 Lymphocytes % 28.1 Monocytes % 10.0 Eosinophils % 7.1 H Basophils % 1.1 Absolute Neutrophils 3.3 Absolute Lymphocytes 1.7 Absolute Monocytes 0.6 Absolute Eosinophils 0.4 Absolute Basophils 0.1 Sodium 135.9 L Potassium 3.6 Chloride 100 Carbon Dioxide 30 Anion Gap 6 BUN 6 L Creatinine 0.56 Est GFR ( Amer) > 60 Est GFR (Non-Af Amer) > 60 Glucose 122 H Calcium 8.9 Total Bilirubin 0.2 AST 27 ALT 21 Alkaline Phosphatase 62 Total Protein 5.9 L Albumin 3.3 L Impressions: Chest X-Ray 03/21/18 09:14 IMPRESSION: NO ACUTE RADIOGRAPHIC FINDING IN THE CHEST. Assessment & Plan - Diagnosis (1) Thrombocytopenia Is this a current diagnosis for this admission?: Yes Plan: Continues to improve. Should continue. No evidence of bleeding. I will sign off and follow as outpatient. (2) Epigastric pain Is this a current diagnosis for this admission?: Yes Plan: with nausea and vomiting. His Lipase was normal, but symptoms remain consistent with pancreatitis, or gastritis. Would advance diet very slowly. I would also try to avoid further narcotics if possible, or change to PO to limit IV narcotics. (3) Alcohol abuse Is this a current diagnosis for this admission?: Yes Plan: Will need further counseling and support for this. Watch for DTs. - Plan Summary Plan Summary: Please call if I can be of further help.
[2018-03-25] MEDS: CLONIDINE HCL 0.1 MG TABLET PO SCH (21:47)
[2018-03-25] MEDS: THIAMINE HCL 100 MG, FOLIC ACID 1 MG in NORMAL SALINE 250 ML IV SCH (21:50)
[2018-03-26] MEDS: MORPHINE SULFATE 10 MG/ML INJ IV PRN ×2 (03:55→11:40)
[2018-03-26 04:48] LABS: ABSOLUTE BASOPHILS # (AUTO) 0.1 10^3/uL (0.0-0.2); ABSOLUTE EOSINOPHILS # (AUTO) 0.4 10^3/uL (0.0-0.6); ABSOLUTE LYMPHOCYTES (AUTO) 2.5 10^3/uL (0.5-4.7); ABSOLUTE MONOCYTES (AUTO) 0.7 10^3/uL (0.1-1.4); ABSOLUTE NEUT (AUTO) 2.7 10^3/uL (1.7-8.2); BASOPHILS % (AUTO) 0.8 % (0-2); EOSINOPHILS % (AUTO) 5.6 % (0-6); HEMATOCRIT 30.1 % (37.9-51.0); LYMPHOCYTES % (AUTO) 39.5 % (13-45); MEAN CORPUSCULAR HEMOGLOBIN 25.9 pg (27.0-33.4); MEAN CORPUSCULAR HGB CONC 33.3 g/dL (32.0-36.0); MEAN CORPUSCULAR VOLUME 78 fl (80-97); MONOCYTES % (AUTO) 11.4 % (3-13); PLATELET COUNT 164 10^3/uL (150-450); RED BLOOD COUNT 3.87 10^6/uL (4.35-5.55); RED CELL DISTRIBUTION WIDTH 20.3 % (11.5-14.0); SEGMENTED NEUTROPHILS % (AUTO) 42.7 % (42-78); TOTAL CELLS COUNTED % (AUTO) 100 %; WHITE BLOOD COUNT 6.4 10^3/uL (4.0-10.5)
[2018-03-26 05:08] LABS: ALANINE AMINOTRANSFERASE 24 U/L (21-72); ALKALINE PHOSPHATASE 64 U/L (38-126); ANION GAP 9 (5-19); ASPARTATE AMINO TRANSFERASE 26 U/L (17-59); BILIRUBIN,DIRECT 0.2 mg/dL (0.0-0.4); BILIRUBIN,TOTAL 0.2 mg/dL (0.2-1.3); BLOOD UREA NITROGEN 9 mg/dL (7-20); CALCIUM 8.7 mg/dL (8.4-10.2); CARBON DIOXIDE 27 mmol/L (22-30); CHLORIDE 102 mmol/L (98-107); GLUCOSE 122 mg/dL (75-110); POTASSIUM 3.7 mmol/L (3.6-5.0); SODIUM 138.3 mmol/L (137-145); TOTAL PROTEIN 5.3 g/dL (6.3-8.2)
[2018-03-26] MEDS: SUCRALFATE 1 GM TABLET PO SCH ×2 (08:47→11:41)
[2018-03-26] MEDS: FERROUS SULFATE 325 MG TABLET PO SCH (09:42)
[2018-03-26] MEDS: PRENATAL VITAMIN W DHA CAPSULE PO SCH (09:42)
[2018-03-26] MEDS: MAGNESIUM SULFATE/D5W 1 GM/100 ML RTUPB IV SCH ×2 (09:42→12:31)
[2018-03-26] MEDS: FAMOTIDINE 20 MG TABLET PO SCH (09:43)
[2018-03-26] MEDS: CYANOCOBALAMIN (VITAMIN B-12) 1,000 MCG TABLET PO SCH (09:43)
[2018-03-26] MEDS: PROMETHAZINE HCL INJ 25 MG/1 ML VIAL IV PRN (11:37)
[2018-03-26] MEDS ORDERED: NICOTINE 14 MG/24 HR PATCH.TD24 TD PRN (12:03)
[2018-03-26 15:29] VITALS: BP 163/84
--- NOTE | 2018-03-26 15:32 | PDOC DISCHARGE SUMMARY ---
General - Admit/Disc Date/PCP Admission Date/Primary Care Provider: 03/21/18 00:29 SHALINI SOUTH MD Discharge Date: 03/26/18 - Discharge Diagnosis (1) Upper GI hemorrhage Is this a current diagnosis for this admission?: Yes Summary: 03/22/2018-Patient underwent EGD yesterday which showed evidence of bleeding stigmata within the esophagus but no active bleeding, severe gastritis, severe duodenitis with shallow duodenal ulcers present. and severe reflux esophagitis. No obvious esophageal varices. She also had an EGD in December 2017 which showed erosive esophagitis, gastritis and duodenitis. Hemoglobin stable. Continue Protonix. Will add sucralfate. 03/23/2018-no acute events in the last 24 hours. Latest hemoglobin is 9.7. He received 2 units of PRBC. pt is on IV Protonix drip, I change it to Protonix IV 40 twice a day. Is also on sucralfate before meals and at bedtime. No complaints of hematemesis or black colored stools. 03/24/2018-the hospital stay he received 2 units of PRBC and his hemoglobin is stable around 10.4. [place] [id number] patient is on IV Protonix 40 mg twice a day and sucralfate before meals and at bedtime. Plan is to continue the present management. EGD did not show any esophageal varices.. 03/25/2018-patient is admitted with upper GI bleed status post EGD no esophageal varices were found he has erosive esophagitis, duodenitis, small duodenal ulcers. His hemoglobin is stable around 10.6. Opening of nausea and no more vomiting. I am going to switch IV Protonix to p.o. famotidine. 03/25/2018-this 32-year-old male with history of heavy alcohol use admitted with upper GI bleed status post EGD found to have erosive esophagitis, duodenitis, small duodenal ulcers. No esophageal varices were found. No variceal bleeding is seen. His hemoglobin is stable for the last 48-72 hours. It was treated with Protonix and sucralfate while he was in the hospital. I gave the prescription for sucralfate to take at home. (2) Abdominal pain Is this a current diagnosis for this admission?: Yes Summary: 03/23/2018-patient is still complaining of abdominal pain is getting morphine 4 mg IV every 4 as needed. Pain scale is 3-4 x 10 according to the patient. Plan is to continue the current regimen. 03/24/2018 patient is still complaining of abdominal pain much better compared to yesterday according to him. He is on morphine 2 mg IV every 2 as needed. I am going to change it to every 4 as needed. 03/25/2018-patient is still complaining of abdominal pains according to him pain is getting better. Presently he is on morphine 2 mg IV every 4 hours. I am going to change it to 1 mg morphine IV every 4 hours. 03/26/2018 patient is not complaining of any abdominal pains today. He was initially on morphine 4 mg every 4 hours to be gradually tapered off his morphine. He did not ask for any pain medications today. I gave him prescription for Percocets every 4 as needed for 1 week to take at home. (3) Alcohol abuse Is this a current diagnosis for this admission?: Yes Summary: 03/23/2018-admission alcohol levels are 385. Patient is on a banana bag. Getting Ativan 2 mg IV every 2 hours as needed. Counseled about cutting down alcohol intake and going to AA classes. 03/24/2018-patient is admitted with alcohol intoxication. He is is getting b anana bag daily, on Ativan 2 mg IV every 4 hours as needed. No complications during the hospital stay. 03/25/2018 patient's admission alcohol level 385 is getting banana bag on daily basis we are watching him closely for DTs. He is on diazepam IV presently I am going to switch it to 5 mg p.o. every 8 hours. 03/26/2018-values at the time of admission alcohol level is 385. everyday I spoke to the patient about cutting down the alcohol intake and and attending the AA sessions. Patient's verbalize response and he said he will try his best. (4) Acute blood loss anemia Is this a current diagnosis for this admission?: Yes Summary: 03/23/2018-GI bleed causing acute blood loss anemia. Status post 2 units of PRBC. Hemoglobin is 9.7. Stable. 03/24/2018-acute blood loss anemia secondary to upper GI bleed. Status post 2 units of blood transfusion during the hospital stay. Hemoglobin stable at this point. 2017 acute blood loss anemia secondary to upper GI bleed. Hemoglobin is stable for the last 48-72 hours. 03/26/2018-patient has upper GI bleed leading to acute blood loss anemia. Latest hemoglobin is around 12. Stable. - Additional Information Resuscitation Status: Full Code Discharge Diet: As Tolerated Discharge Activity: Activity As Tolerated Prescriptions: Oxycodone HCl/Acetaminophen [Percocet 10-325 Mg Tablet] 1 each PO Q4HP PRN #30 tablet PRN Reason: Sucralfate [Carafate 1 gm Tablet] 1 gm PO ACHS #50 tablet Home Medications: Clonidine HCl [Catapres] 0.1 mg PO QPM 03/10/18 Cyanocobalamin (Vitamin B-12) [Vitamin B12] 2,500 mcg PO DAILY 03/10/18 Ferrous Sulfate [Iron] 325 mg PO DAILY 03/10/18 Multivitamin with Iron [One Daily Multivitamin] 1 each PO DAILY 03/10/18 Pantoprazole Sodium 40 mg PO DAILY 03/24/18 Promethazine HCl [Phenergan 25 mg Tablet] 25 mg PO Q6 PRN 03/24/18 Trazodone HCl 100 mg PO QPM PRN 03/24/18 Oxycodone HCl/Acetaminophen [Percocet 10-325 Mg Tablet] 1 each PO Q4HP PRN #30 tablet 03/26/18 Sucralfate [Carafate 1 gm Tablet] 1 gm PO ACHS #50 tablet 03/26/18 History of Present Illness History of Present Illness: JAIME NUNEZ is a 32 year old male with a past medical history of chronic alcoholism, alcohol withdrawal seizure, alcoholic gastritis, upper GI bleed and a remote history of variceal bleeding but recent EGD negative for varices. Patient was seen in the emergency room 24 hours prior with epigastric pain and coffee-ground emesis. He was discharged with a proton pump inhibitor and avoidance of alcohol. He returns with abdominal pain, acute alcohol intoxication, episode of coffee-ground emesis and reduction of hemoglobin from 13-11. He started on IV Protonix, thiamine, folate, Ativan and referred to the hospitalist for admission. Patient is intoxicated and a poor historian. Physical Exam Vital Signs: Temp Pulse Resp BP Pulse Ox 98.5 F 74 17 126/77 H 100 03/26/18 11:28 03/26/18 14:00 03/26/18 11:28 03/26/18 11:28 03/26/18 11:28 Intake & Output 03/25/18 03/26/18 03/27/18 06:59 06:59 06:59 Intake Total 2606.2 2052.2 673 Output Total 2075 650 Balance 531.2 1402.2 673 Weight 79.4 kg 79.8 kg General appearance: PRESENT: no acute distress Head exam: PRESENT: atraumatic Eye exam: PRESENT: PERRLA Mouth exam: PRESENT: moist Neck exam: ABSENT: carotid bruit, JVD, lymphadenopathy, thyromegaly Respiratory exam: PRESENT: clear to auscultation hannah. ABSENT: rales, rhonchi, wheezes Cardiovascular exam: PRESENT: RRR. ABSENT: diastolic murmur, rubs, systolic murmur GI/Abdominal exam: PRESENT: normal bowel sounds, soft. ABSENT: distended, guarding, mass, organolmegaly, rebound, tenderness Neurological exam: PRESENT: alert, awake, oriented to person, oriented to place, oriented to time, oriented to situation, CN II-XII grossly intact. ABSENT: motor sensory deficit Psychiatric exam: PRESENT: appropriate affect, normal mood. ABSENT: homicidal ideation, suicidal ideation Results Laboratory Results: 03/26/18 04:40 03/26/18 04:40 03/26/18 03/26/18 04:40 04:40 WBC 6.4 RBC 3.87 L Hgb 10.0 L Hct 30.1 L MCV 78 L MCH 25.9 L MCHC 33.3 RDW 20.3 H Plt Count 164 Seg Neutrophils % 42.7 Lymphocytes % 39.5 Monocytes % 11.4 Eosinophils % 5.6 Basophils % 0.8 Absolute Neutrophils 2.7 Absolute Lymphocytes 2.5 Absolute Monocytes 0.7 Absolute Eosinophils 0.4 Absolute Basophils 0.1 Sodium 138.3 Potassium 3.7 Chloride 102 Carbon Dioxide 27 Anion Gap 9 BUN 9 Creatinine 0.57 Est GFR ( Amer) > 60 Est GFR (Non-Af Amer) > 60 Glucose 122 H Calcium 8.7 Magnesium 1.3 L Total Bilirubin 0.2 AST 26 ALT 24 Alkaline Phosphatase 64 Total Protein 5.3 L Albumin 3.0 L Impressions: Chest X-Ray 03/21/18 09:14 IMPRESSION: NO ACUTE RADIOGRAPHIC FINDING IN THE CHEST. Qualifiers - * PATIENT BEING DISCHARGED WITH ANY OF THE FOLLOWING DIAGNOSIS: No VTE patient discharged on overlapping Therapy?: Yes
== END 2018-03-26 15:55 | disposition home or self-care (01) | DRG 378 ==
LOC: ER 22:16 → EH 03-21 00:29 → 3W 03-21 02:05
PROVIDERS: ADMIT Internal Medicine; ATTEND Internal Medicine
PROC: 30233N1 Transfusion of Nonautologous Red Blood Cells into Peripheral Vein, Percutaneous Approach (ICD-10-PCS; 2018-03-21)
PROC: 0DB68ZX Excision of Stomach, Via Natural or Artificial Opening Endoscopic, Diagnostic (ICD-10-PCS; principal; 2018-03-21 11:30)
DX: K29.21 Alcoholic gastritis with bleeding (principal); F10.230 Alcohol dependence with withdrawal, uncomplicated; D62 Acute posthemorrhagic anemia; D69.6 Thrombocytopenia, unspecified; K70.10 Alcoholic hepatitis without ascites; F17.210 Nicotine dependence, cigarettes, uncomplicated; R00.0 Tachycardia, unspecified; K29.81 Duodenitis with bleeding; K26.4 Chronic or unspecified duodenal ulcer with hemorrhage; I10 Essential (primary) hypertension; F32.9 Major depressive disorder, single episode, unspecified; K21.0 Gastro-esophageal reflux disease with esophagitis; Y90.8 Blood alcohol level of 240 mg/100 ml or more; Z71.41 Alcohol abuse counseling and surveillance of alcoholic; Z91.14 Patient's other noncompliance with medication regimen
CPT/HCPCS: 36415; 36430; 43239; 71045; 80048; 80053; 80307; 82607; 82728; 82746; 83540; 83550; 83690; 83735; 85025; 85027; 85045; 86850; 86900; 86901; 86920; 88305; 88342; 93005; 93010; 96361; 96374; 96375; 99291; J0171; J1200; J1610; J2060; J2250; J2270; J2310; J2405; J2550; J3010; J3360; J3411; J3475; J3490; J7030; J7050; P9016; S0164

== ENCOUNTER 2018-04-22 18:27 | Emergency (ER) | payer SELFPAY ==
[2018-04-22 19:03] VITALS: BP 129/86
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
== END 2018-04-22 19:20 ==
LOC: ER 18:27
DX: F10.129 Alcohol abuse with intoxication, unspecified (principal); F17.200 Nicotine dependence, unspecified, uncomplicated; I10 Essential (primary) hypertension
CPT/HCPCS: 99283

== ENCOUNTER 2018-04-23 18:51 | Emergency (ER) | payer SELFPAY ==
[2018-04-23 18:57] VITALS: BP 133/87
--- NOTE | 2018-04-23 22:35 | ER Document Report ---
Addendum entered and electronically signed by SANCHEZ CONTRERAS PA 04/23/18 23:07: Discharge - Discharge Clinical Impression: Encounter for medical clearance for patient hold Condition: Stable Disposition: HOME, SELF-CARE Additional Instructions: Bring the workup and laboratory records with you for detox. Return for any concerning symptoms or if something is not right. Referrals: SHALINI SOUTH MD [Primary Care Provider] - Follow up as needed Original Note: ED Medical Screen (RME) - General Chief Complaint: Blood Work Stated Complaint: MEDICAL CLEARANCE Time Seen by Provider: 04/23/18 22:34 Primary Care Provider: SHALINI SOUTH MD [Primary Care Provider] - Follow up as needed Notes: Patient is a 32-year-old male with a history of alcohol dependence that comes to the emergency department for chief complaint of wanting clearance labs to be performed so he can go to detox. His mental health worker is here with him with the paperwork. Labs have to be faxed for him to enter into the program. Pat susie states he has not had a drink since this morning, he has had alcohol withdrawal symptoms in the past. He denies any sick symptoms. Denies any other complaints. TRAVEL OUTSIDE OF THE [place] IN LAST 30 DAYS: No - Related Data Allergies/Adverse Reactions: No Known Allergies Allergy (Verified 04/23/18 18:53) Past Medical History - Past Medical History Cardiac Medical History: Reports: Hx Hypertension Denies: Hx Coronary Artery Disease, Hx Heart Attack Pulmonary Medical History: Denies: Hx Asthma, Hx Bronchitis, Hx COPD, Hx Pneumonia, Hx Tuberculosis Neurological Medical History: Reports: Hx Seizures. Denies: Hx Cerebrovascular Accident Renal/ Medical History: Denies: Hx Peritoneal Dialysis GI Medical History: Reports: Hx Gastroesophageal Reflux Disease - esophageal varacies, Hx Hepatitis - alcoholic hepatitis, Hx Pancreatitis - alcoholic, Hx Ulcer - upper gastric. Denies: Hx Hiatal Hernia Musculoskeltal Medical History: Denies Hx Arthritis Psychiatric Medical History: Reports: Hx Depression Infectious Medical History: Reports: Hx Hepatitis - alcoholic hepatitis Past Surgical History: Reports: Hx Genitourinary Surgery - vasectomy, Hx Nose Surgery - bilateral: maxillary antrostomy, sphenoidotomy, ethmoidectomy, Other - Esophageal varices banding. Denies: Hx Open Heart Surgery, Hx Pacemaker - Immunizations Hx Diphtheria, Pertussis, Tetanus Vaccination: Yes History of Influenza Vaccine for 12/2016 - 05/2017 Season: Refused Physical Exam - Vital signs Vitals: Temp Pulse Resp BP Pulse Ox 98.2 F 99 16 133/87 H 97 04/23/18 18:55 04/23/18 18:55 04/23/18 18:55 04/23/18 18:55 04/23/18 18:55 - General General appearance: Appears well In distress: None - Cardiovascular Rhythm: Regular Heart sounds: Normal auscultation, S1 appreciated, S2 appreciated Course - Vital Signs Vital signs: Temp Pulse Resp BP Pulse Ox 98.2 F 99 16 133/87 H 97 04/23/18 18:55 04/23/18 18:55 04/23/18 18:55 04/23/18 18:55 04/23/18 18:55 Doctor's Discharge - Discharge Referrals: SHALINI SOUTH MD [Primary Care Provider] - Follow up as needed
[2018-04-23 23:14] LABS: ABSOLUTE BASOPHILS # (AUTO) 0.1 10^3/uL (0.0-0.2); ABSOLUTE EOSINOPHILS # (AUTO) 0.3 10^3/uL (0.0-0.6); ABSOLUTE LYMPHOCYTES (AUTO) 2.2 10^3/uL (0.5-4.7); ABSOLUTE MONOCYTES (AUTO) 0.5 10^3/uL (0.1-1.4); ABSOLUTE NEUT (AUTO) 3.5 10^3/uL (1.7-8.2); BASOPHILS % (AUTO) 2.1 % (0-2); EOSINOPHILS % (AUTO) 4.5 % (0-6); HEMATOCRIT 43.3 % (37.9-51.0); HEMOGLOBIN 14.3 g/dL (13.5-17.0); LYMPHOCYTES % (AUTO) 33.5 % (13-45); MEAN CORPUSCULAR HEMOGLOBIN 26.4 pg (27.0-33.4); MEAN CORPUSCULAR VOLUME 80 fl (80-97); MONOCYTES % (AUTO) 7.3 % (3-13); PLATELET COUNT 261 10^3/uL (150-450); RED BLOOD COUNT 5.42 10^6/uL (4.35-5.55); RED CELL DISTRIBUTION WIDTH 21.6 % (11.5-14.0); SEGMENTED NEUTROPHILS % (AUTO) 52.6 % (42-78); TOTAL CELLS COUNTED % (AUTO) 100 %; WHITE BLOOD COUNT 6.6 10^3/uL (4.0-10.5)
[2018-04-23 23:40] LABS: APPEARANCE,URINE CLEAR; BILIRUBIN,URINE NEGATIVE (NEGATIVE); COLOR,URINE YELLOW; GLUCOSE, URINE NEGATIVE (NEGATIVE); KETONES,URINE NEGATIVE (NEGATIVE); LEUKOCYTE ESTERASE,URINE NEGATIVE (NEGATIVE); NITRITE,URINE NEGATIVE (NEGATIVE); PROTEIN,URINE 30 mg/dL (NEGATIVE); URINE SPECIFIC GRAVITY 1.032
[2018-04-23 23:43] LABS: ALANINE AMINOTRANSFERASE 46 U/L (21-72); ALBUMIN 4.9 g/dL (3.5-5.0); ALCOHOL 214 mg/dL (NONE DETECTED); ALKALINE PHOSPHATASE 71 U/L (38-126); ANION GAP 9 (5-19); ASPARTATE AMINO TRANSFERASE 69 U/L (17-59); BILIRUBIN,DIRECT 0.1 mg/dL (0.0-0.4); BILIRUBIN,TOTAL 0.4 mg/dL (0.2-1.3); BLOOD UREA NITROGEN 15 mg/dL (7-20); CALCIUM 9.2 mg/dL (8.4-10.2); CARBON DIOXIDE 29 mmol/L (22-30); CHLORIDE 104 mmol/L (98-107); GLUCOSE 111 mg/dL (75-110); POTASSIUM 4.7 mmol/L (3.6-5.0); SODIUM 142.4 mmol/L (137-145); TOTAL PROTEIN 7.3 g/dL (6.3-8.2)
[2018-04-23 23:47] LABS: ACETAMINOPHEN < 10 ug/mL (10-30); SALICYLATE < 1.0 mg/dL (2.0-20.0)
[2018-04-23 23:53] LABS: URINE AMPHETAMINES SCREEN NEGATIVE; URINE BARBITURATES SCREEN NEGATIVE; URINE BENZODIAZEPINES SCREEN NEGATIVE; URINE COCAINE SCREEN NEGATIVE; URINE MARIJUANA (THC) SCREEN NEGATIVE; URINE METHADONE SCREEN NEGATIVE; URINE PHENCYCLIDINE SCREEN NEGATIVE
--- NOTE | 2018-04-24 06:04 | ER Document Report ---
ED General - General Chief Complaint: Other Stated Complaint: MEDICAL CLEARANCE Time Seen by Provider: 04/23/18 22:34 Primary Care Provider: SHALINI SOUTH MD [Primary Care Provider] - Follow up as needed Notes: Patient is a 32-year-old male with a history of alcohol dependence that comes to the emergency department for chief complaint of wanting clearance labs to be performed so he can go to detox. His mental health worker is here with him with the paperwork. Labs have to be faxed for him to enter into the program. Patient states he has not had a drink since this morning, he has had alcohol withdrawal symptoms in the past. He denies any sick symptoms. Denies any other complaints. TRAVEL OUTSIDE OF THE [place] IN LAST 30 DAYS: No - Related Data Allergies/Adverse Reactions: No Known Allergies Allergy (Verified 04/23/18 18:53) Past Medical History - General Information source: Patient, Friend - Social History Smoking Status: Current Every Day Smoker Chew tobacco use (# tins/day): No Frequency of alcohol use: Heavy Drug Abuse: None Lives with: Friend Family History: CAD, COPD Patient has suicidal ideation: No Patient has homicidal ideation: No - Past Medical History Cardiac Medical History: Reports: Hx Hypertension Denies: Hx Coronary Artery Disease, Hx Heart Attack Pulmonary Medical History: Denies: Hx Asthma, Hx Bronchitis, Hx COPD, Hx Pneumonia, Hx Tuberculosis Neurological Medical History: Reports: Hx Seizures. Denies: Hx Cerebrovascular Accident Renal/ Medical History: Denies: Hx Peritoneal Dialysis GI Medical History: Reports: Hx Gastroesophageal Reflux Disease - esophageal varacies, Hx Hepatitis - alcoholic hepatitis, Hx Pancreatitis - alcoholic, Hx Ulcer - upper gastric. Denies: Hx Hiatal Hernia Musculoskeletal Medical History: Denies Hx Arthritis Psychiatric Medical History: Reports: Hx Depression Infectious Medical History: Reports: Hx Hepatitis - alcoholic hepatitis Past Surgical History: Reports: Hx Genitourinary Surgery - vasectomy, Hx Nose Surgery - bilateral: maxillary antrostomy, sphenoidotomy, ethmoidectomy, Other - Esophageal varices banding. Denies: Hx Open Heart Surgery, Hx Pacemaker - Immunizations Hx Diphtheria, Pertussis, Tetanus Vaccination: Yes Review of Systems - Review of Systems Constitutional: No symptoms reported EENT: No symptoms reported Cardiovascular: No symptoms reported Respiratory: No symptoms reported Gastrointestinal: No symptoms reported Genitourinary: No symptoms reported Male Genitourinary: No symptoms reported Musculoskeletal: No symptoms reported Skin: No symptoms reported Hematologic/Lymphatic: No symptoms reported Neurological/Psychological: See HPI Physical Exam - Vital signs Vitals: Temp Pulse Resp BP Pulse Ox 98.2 F 99 16 133/87 H 97 04/23/18 18:55 04/23/18 18:55 04/23/18 18:55 04/23/18 18:55 04/23/18 18:55 - Notes Notes: GENERAL: Alert, interacts well. No acute distress. HEAD: Normocephalic, atraumatic. EYES: Pupils equal, round, and reactive to light. Extraocular movements intact. ENT: Oral mucosa moist, tongue midline. Oropharynx unremarkable. Airway patent. Nares patent, no nasal septal hematoma, TM's intact. NECK: Full range of motion. Supple. Trachea midline. LUNGS: Clear to auscultation bilaterally, no wheezes, rales, or rhonchi. No respiratory distress. HEART: Regular rate and rhythm. No murmur ABDOMEN: Soft, non-tender. Non-distended. Bowel sounds present in all 4 quadrants. GENITOURINARY: Deferred EXTREMITIES: Moves all 4 extremities spontaneously. No edema, normal radial and dorsalis pedis pulses bilaterally. No cyanosis. BACK: no cervical, thoracic, lumbar midline tenderness. No saddle anesthesia, normal distal neurovascular exam. NEUROLOGICAL: Alert and oriented x3. Normal speech. [cranial nerves II through XII grossly intact]. PSYCH: Normal affect, normal mood. SKIN: Warm, dry, normal turgor. No rashes or lesions noted. Course - Re-evaluation Re-evalutation: CBC, chemistry, EKG, urinalysis nonspecific. Alcohol is elevated. Urine drug screen unremarkable. Patient's vital signs unremarkable, he is not vomiting, jittery, or tachycardic. Patient has been provided with the data that I needs per his paperwork to enter detox, he has his mental health counselor with him. Discussed the follow-up, discussed return precautions. They state understanding and agreement. - Vital Signs Vital signs: Temp Pulse Resp BP Pulse Ox 98.2 F 99 16 133/87 H 97 04/23/18 18:55 04/23/18 18:55 04/23/18 18:55 04/23/18 18:55 04/23/18 18:55 - Laboratory Result Diagrams: 04/23/18 22:50 04/23/18 22:50 Laboratory results interpreted by me: 04/23/18 04/23/18 04/23/18 22:50 22:50 22:50 MCH 26.4 L RDW 21.6 H Basophils % 2.1 H Glucose 111 H AST 69 H Urine Protein 30 H Urine Urobilinogen 2.0 H Salicylates < 1.0 L Acetaminophen < 10 L Discharge - Discharge Clinical Impression: Encounter for medical clearance for patient hold Condition: Stable Disposition: HOME, SELF-CARE Additional Instructions: Bring the workup and laboratory records with you for detox. Return for any concerning symptoms or if something is not right. Referrals: SHALINI SOUTH MD [Primary Care Provider] - Follow up as needed
--- NOTE | 2018-04-24 08:58 | EKG REPORT ---
SEVERITY:- BORDERLINE ECG - SINUS RHYTHM BORDERLINE PROLONGED QT INTERVAL : Confirmed by: Zuly Salazar MD 24-Apr-2018 08:58:21
== END 2018-04-23 23:13 | disposition home or self-care (01) ==
LOC: ER 18:51
DX: Z02.2 Encounter for examination for admission to residential institution (principal); I10 Essential (primary) hypertension
CPT/HCPCS: 36415; 80053; 80307; 81001; 85025; 93005; 93010; 99283

== ENCOUNTER 2018-04-28 04:40 | Inpatient (IN) | payer SELFPAY ==
[2018-04-28] MEDS ORDERED: OCTREOTIDE ACETATE INJ/PF 100 MCG/1 ML SDV IV ONE (05:41)
[2018-04-28] MEDS ORDERED: NORMAL SALINE 500 ML with OCTREOTIDE ACETATE 500 MCG IV PRN ×2 (05:41)
[2018-04-28] MEDS ORDERED: PANTOPRAZOLE SODIUM 40 MG VIAL IV PRN (05:43)
[2018-04-28] MEDS ORDERED: CEFTRIAXONE 1 GM/D5W RTU 1 GM/50 ML RTUPB IV ONE (05:43)
[2018-04-28] MEDS ORDERED: PANTOPRAZOLE SODIUM 40 MG VIAL IV ONE (05:43)
[2018-04-28] MEDS ORDERED: NORMAL SALINE 1000 ML 1,000 ML IV ONE (05:47)
[2018-04-28] MEDS ORDERED: ONDANSETRON HCL INJ/PF 4 MG/2 ML SDV IV ONE (05:53)
[2018-04-28 05:54] LABS: ABSOLUTE BASOPHILS # (AUTO) 0.1 10^3/uL (0.0-0.2); ABSOLUTE LYMPHOCYTES (AUTO) 1.4 10^3/uL (0.5-4.7); ABSOLUTE MONOCYTES (AUTO) 0.9 10^3/uL (0.1-1.4); ABSOLUTE NEUT (AUTO) 11.1 10^3/uL (1.7-8.2); BASOPHILS % (AUTO) 0.4 % (0-2); EOSINOPHILS % (AUTO) 0.1 % (0-6); HEMATOCRIT 43.8 % (37.9-51.0); HEMOGLOBIN 14.6 g/dL (13.5-17.0); LYMPHOCYTES % (AUTO) 10.6 % (13-45); MEAN CORPUSCULAR HEMOGLOBIN 26.4 pg (27.0-33.4); MEAN CORPUSCULAR HGB CONC 33.4 g/dL (32.0-36.0); MEAN CORPUSCULAR VOLUME 79 fl (80-97); MONOCYTES % (AUTO) 6.6 % (3-13); PLATELET COUNT 213 10^3/uL (150-450); RED BLOOD COUNT 5.53 10^6/uL (4.35-5.55); RED CELL DISTRIBUTION WIDTH 21.6 % (11.5-14.0); SEGMENTED NEUTROPHILS % (AUTO) 82.3 % (42-78); TOTAL CELLS COUNTED % (AUTO) 100 %; WHITE BLOOD COUNT 13.5 10^3/uL (4.0-10.5)
[2018-04-28 06:01] LABS: INTERNATIONAL RATION (INR) 0.89; PROTHROMBIN TIME 12.5 SEC (11.4-15.4)
[2018-04-28 06:02] LABS: PARTIAL THROMBOPLASTIN TIME 28.7 SEC (23.5-35.8)
--- NOTE | 2018-04-28 06:08 | ER Document Report ---
Addendum entered and electronically signed by SANCHEZ CONTRERAS PA 04/28/18 07:35: Course - Re-evaluation Re-evalutation: 04/28/18 07:25 Spoke with Lovely Kessler, hospitalist, patient will be admitted to the IMCU, he is going to the OR first and he will be admitted to the IMCU afterwards. - Vital Signs Vital signs: Temp Pulse Resp BP Pulse Ox 98.5 F 128 H 13 141/96 H 97 04/28/18 07:02 04/28/18 04:47 04/28/18 07:00 04/28/18 06:01 04/28/18 07:00 - Laboratory Result Diagrams: 04/28/18 05:20 04/28/18 05:20 Laboratory results interpreted by me: 04/28/18 04/28/18 05:20 05:20 WBC 13.5 H MCV 79 L MCH 26.4 L RDW 21.6 H Seg Neutrophils % 82.3 H Lymphocytes % 10.6 L Absolute Neutrophils 11.1 H Chloride 97 L Anion Gap 23 H Glucose 127 H Alkaline Phosphatase 142 H Albumin 5.1 H Original Note: ED General - General Chief Complaint: Vomiting Stated Complaint: VOMITING BLOOD Time Seen by Provider: 04/28/18 05:40 Primary Care Provider: SHALINI SOUTH MD [Primary Care Provider] - Follow up as needed Notes: Patient is a 32 year old male that comes to the Emergency Department for chief complaint of vomiting blood. He states he drank alcohol last night, he believes he had a seizure and fell, woke up on the ground with abrasions to his head and knees, states afterwards he began having upper abdominal pain and vomited pure blood twice. He then came to the Emergency Department. He reports a history of alcohol abuse, gastritis, and varices. Tetanus reported to be up to date. TRAVEL OUTSIDE OF THE [place] IN LAST 30 DAYS: No - Related Data Allergies/Adverse Reactions: No Known Allergies Allergy (Verified 04/23/18 18:53) Past Medical History - General Information source: Patient - Social History Smoking Status: Current Some Day Smoker Frequency of alcohol use: None Drug Abuse: None Lives with: Friend Family History: CAD, COPD - Past Medical History Cardiac Medical History: Reports: Hx Hypertension Denies: Hx Coronary Artery Disease, Hx Heart Attack Pulmonary Medical History: Denies: Hx Asthma, Hx Bronchitis, Hx COPD, Hx Pneumonia, Hx Tuberculosis Neurological Medical History: Reports: Hx Seizures. Denies: Hx Cerebrovascular Accident Renal/ Medical History: Denies: Hx Peritoneal Dialysis GI Medical History: Reports: Hx Gastroesophageal Reflux Disease - esophageal varacies, Hx Hepatitis - alcoholic hepatitis, Hx Pancreatitis - alcoholic, Hx Ulcer - upper gastric. Denies: Hx Hiatal Hernia Musculoskeletal Medical History: Denies Hx Arthritis Psychiatric Medical History: Reports: Hx Depression Infectious Medical History: Reports: Hx Hepatitis - alcoholic hepatitis Past Surgical History: Reports: Hx Genitourinary Surgery - vasectomy, Hx Nose Surgery - bilateral: maxillary antrostomy, sphenoidotomy, ethmoidectomy, Other - Esophageal varices banding. Denies: Hx Open Heart Surgery, Hx Pacemaker - Immunizations Hx Diphtheria, Pertussis, Tetanus Vaccination: Yes Review of Systems - Review of Systems Constitutional: No symptoms reported EENT: No symptoms reported Cardiovascular: See HPI Respiratory: No symptoms reported Gastrointestinal: See HPI Genitourinary: No symptoms reported Male Genitourinary: No symptoms reported Musculoskeletal: See HPI Skin: No symptoms reported Hematologic/Lymphatic: No symptoms reported Neurological/Psychological: See HPI Physical Exam - Vital signs Vitals: Temp Pulse Resp BP 98.3 F 128 H 18 135/102 H 04/28/18 04:47 04/28/18 04:47 04/28/18 04:47 04/28/18 04:47 - Notes Notes: GENERAL:Interactive but slightly pale and slightly sluggish. HEAD: Normocephalic. Ecchymosis noted without any swelling over the left temporal side of the head and at the base of the ear and at the jaw. Small abrasions noted to the forehead with no significant open wounds or bleeding. EYES: Pupils equal, round, and reactive to light. Extraocular movements intact. ENT: There is blood around the mouth and on the upper lip, no epistaxis noted, no deformity of the nose, no septal hematoma, oral pharyngeal exam unremarkable with no current bleeding or other abnormality noted. NECK: Full range of motion. Supple. Trachea midline. LUNGS: Clear to auscultation bilaterally, no wheezes, rales, or rhonchi. No respiratory distress. HEART: Tachycardic, normal rhythm, no murmur. ABDOMEN: Tender in the upper abdomen generally, no severe guarding or distention. GENITOURINARY: Deferred EXTREMITIES: Moves all 4 extremities spontaneously. No edema, normal radial and dorsalis pedis pulses bilaterally. No cyanosis. Abrasions to the bilateral knees and tibias but no significant tenderness noted. No current bleeding noted. BACK: no cervical, thoracic, lumbar midline tenderness. No saddle anesthesia, normal distal neurovascular exam. NEUROLOGICAL: GCS of 15, oriented x3. Normal speech. [cranial nerves II through XII grossly intact]. SKIN: Slightly pale. Dry. Course - Re-evaluation Re-evalutation: On my evaluation patient is slightly pale, he has blood around his mouth, abrasions on his forehead, abrasions on his knees, upper abdominal pain, and he is tachycardic. Patient immediately upgraded from level 3 to level 1, placed in closer room to the nursing station, 2 large IVs peripherally have been placed including one in the right AC that is an 18 by myself with ultrasound. Discussed with Dr. Deal. Called and spoke with Dr. Vallecillo, he states he would like to perform endoscopy on this patient in the emergency department with admission of the patient to the hospitalist. 04/28/18 06:[address] Vallecillo again, based on patient's current labs he believes patient is safe to wait a little bit longer and be taken to the operating room likely take propofol to sedate. This is because he he reviewed his most recent EGD and there is concern that he does indeed have varices. Patient has been reevaluated 3 times at bedside. He is still tachycardic but this is slightly improved, he is still not hypotensive. He is still awake and alert. He has not vomited again, he has been given Zofran, octreotide bolus, Protonix bolus, he is on Protonix drip, octreotide drip is still being prepared, he is being given Rocephin. He still reports pain but nausea has improved. I called and spoke with Dr. Johnson, unfortunately will need to be accepted by daytime hospitalist team because we do not have all of patient's data back yet and we need to confirm the presence of an ICU bed. - Vital Signs Vital signs: Temp Pulse Resp BP Pulse Ox 98.5 F 128 H 13 141/96 H 97 04/28/18 07:02 04/28/18 04:47 04/28/18 07:00 04/28/18 06:01 04/28/18 07:00 - Laboratory Result Diagrams: 04/28/18 05:20 04/28/18 05:20 Laboratory results interpreted by me: 04/28/18 04/28/18 05:20 05:20 WBC 13.5 H MCV 79 L MCH 26.4 L RDW 21.6 H Seg Neutrophils % 82.3 H Lymphocytes % 10.6 L Absolute Neutrophils 11.1 H Chloride 97 L Anion Gap 23 H Glucose 127 H Alkaline Phosphatase 142 H Albumin 5.1 H Critical Care Note - Critical Care Note Total time excluding time spent on procedures (mins): 45 - Upper GI bleed, history of varices, head injury Comments: Please allow 45 minutes of critical care time for evaluation and management of upper GI bleed, history of varices, head injury. Multiple interventions including octreotide bolus and drip, Protonix bolus and drip, Rocephin, IV fluids, multiple re-evaluations. Time spent reviewing records, consulting gastroenterology, discussion with hospitalist, admission to the operating room and hospital. Discharge - Discharge Clinical Impression: Upper GI hemorrhage, Alcohol abuse Vomiting blood Qualifiers: Nausea presence: with nausea Qualified Code(s): K92.0 - Hematemesis Alcohol intoxication Qualifiers: Complication of substance-induced condition: with unspecified complication Qu alified Code(s): F10.929 - Alcohol use, unspecified with intoxication, unspecified Head injury Qualifiers: Encounter type: initial encounter Qualified Code(s): S09.90XA - Unspecified injury of head, initial encounter Condition: Serious Disposition: ADMITTED INPATIENT Admitting Provider: Hospitalist Unit Admitted: IMCU Referrals: SHALINI SOUTH MD [Primary Care Provider] - Follow up as needed
[2018-04-28 06:11] LABS: ALANINE AMINOTRANSFERASE 42 U/L (21-72); ALBUMIN 5.1 g/dL (3.5-5.0); ALCOHOL 291 mg/dL (NONE DETECTED); ALKALINE PHOSPHATASE 142 U/L (38-126); ASPARTATE AMINO TRANSFERASE 53 U/L (17-59); BILIRUBIN,DIRECT 0.3 mg/dL (0.0-0.4); BLOOD UREA NITROGEN 14 mg/dL (7-20); CALCIUM 8.9 mg/dL (8.4-10.2); GLUCOSE 127 mg/dL (75-110); POTASSIUM 4.3 mmol/L (3.6-5.0); TOTAL PROTEIN 7.7 g/dL (6.3-8.2)
[2018-04-28 06:18] LABS: CARBON DIOXIDE 24 mmol/L (22-30); CHLORIDE 97 mmol/L (98-107); SODIUM 143.9 mmol/L (137-145)
[2018-04-28 06:29] LABS: ANION GAP 23 (5-19)
[2018-04-28] MEDS ORDERED: DIPHENHYDRAMINE HCL 50 MG/ML VIAL ONE (06:37)
[2018-04-28] MEDS ORDERED: ONDANSETRON HCL INJ/PF 4 MG/2 ML SDV ONE (06:37)
[2018-04-28] MEDS ORDERED: NALOXONE HCL INJ/PF 0.4 MG/1 ML SDV ONE (06:38)
[2018-04-28] MEDS ORDERED: MIDAZOLAM 2 MG/2 ML INJ ONE ×2 (06:38→08:14)
[2018-04-28] MEDS ORDERED: FENTANYL CITRATE INJ/PF 100 MCG/2 ML AMPUL ONE ×2 (06:38→08:14)
[2018-04-28] MEDS ORDERED: FLUMAZENIL INJ 0.5 MG/5 ML VIAL ONE (06:39)
[2018-04-28] MEDS ORDERED: EPINEPHRINE INJ 1 MG/10 ML DISP.SYRIN ONE (06:39)
[2018-04-28] MEDS ORDERED: GLUCAGON,HUMAN RECOMB 1 MG INJ ONE (06:39)
[2018-04-28 06:58] LABS: LIPASE 193.7 U/L (23-300)
--- NOTE | 2018-04-28 07:00 | RADIOLOGY REPORT (SQ) ---
EXAM DESCRIPTION: CT HEAD WITHOUT IV CONTRAST COMPLETED DATE/TME: 04/28/2018 05:51 CLINICAL HISTORY: 32 years, Male, fall, head injury, ETOH COMPARISON: 08/31/2016 TECHNIQUE: Axial CT images of the brain were obtained without contrast. Sagittal and coronal reformats were performed. [facility] 2290 Images stored on PACS. All CT scanners at this facility use dose modulation, iterative reconstruction, and/or weight based dosing when appropriate to reduce radiation dose to as low as reasonably achievable (ALARA). [facility]: Dose Right [facility]: CareDose [facility]: Dose Right [facility]: Teradose 4D [facility]: Smart Azooo LIMITATIONS: None. FINDINGS: There is mild soft tissue swelling along the left frontal scalp. There is no acute infarct, hemorrhage, mass, edema, hydrocephalus, or extra-axial fluid collection. There is mild mucosal thickening of the nasal sinuses. There are changes of maxillary antrostomies and ethmoidectomies. There are no air-fluid levels within the paranasal sinuses. The mastoid air cells are clear. There is no acute fracture IMPRESSION: No acute intracranial abnormality TECHNICAL DOCUMENTATION: Quality ID # [id number]: Final reports with documentation of one or more dose reduction techniques (e.g., Automated exposure control, adjustment of the mA and/or kV according to patient size, use of iterative reconstruction technique) copyright 2011 [employer]- All Rights Reserved
--- NOTE | 2018-04-28 07:07 | RADIOLOGY REPORT (SQ) ---
EXAM DESCRIPTION: XR CHEST 1 VIEW COMPLETED DATE/TME: 04/28/2018 05:44 CLINICAL HISTORY: 32 years Male, vomiting blood COMPARISON:03/21/2018 NUMBER OF VIEWS/TECHNIQUE: 1/AP FINDINGS: Adequate lung volume, clear parenchyma, normal cardiac silhouette, and intact bony thorax. IMPRESSION: No acute cardiopulmonary findings.
--- NOTE | 2018-04-28 07:14 | RADIOLOGY REPORT (SQ) ---
CLINICAL HISTORY: fall, head injury, ETOH COMPARISON: None. 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 FINDINGS: There is no acute fracture. Alignment is anatomic. Disc spaces are maintained. Vertebral body heights are preserved. Soft tissues are unremarkable. IMPRESSION: No acute fracture or subluxation.
[2018-04-28] MEDS ORDERED: OCTREOTIDE ACETATE INJ/PF 100 MCG/1 ML SDV ONE (07:16)
--- NOTE | 2018-04-28 08:13 | EKG REPORT ---
SEVERITY:- BORDERLINE ECG - SINUS TACHYCARDIA PROBABLE LEFT ATRIAL ABNORMALITY BORDERLINE PROLONGED QT INTERVAL : Confirmed by: Blake Faulkner MD 28-Apr-2018 08:12:29
[2018-04-28] MEDS ORDERED: SUCCINYLCHOLINE CHLORIDE INJ 200 MG/10 ML VIAL ONE (08:17)
--- NOTE | 2018-04-28 09:19 | Operative Report ---
Operative Report DATE OF SURGERY: 04/28/18 Operative Report: The risks benefits and alternatives of the procedure explained to the patient in detail and informed consent is obtained.A GIF Olympus video scope was inserted into the patient's mouth and hypopharynx, the esophagus is identified intubated and insufflated, the scope was then advanced through the esophagus stomach and duodenum ,retroflexion maneuver is done ,the esophagus stomach and first and second portions of the duodenum examined. PREOPERATIVE DIAGNOSIS: Hematemesis, GI bleeding POSTOPERATIVE DIAGNOSIS: Esophageal ulcer. No bleeding esophageal varices. Hiatal hernia. Ann-Garay tear that is not actively bleeding. Nodular gastritis status post biopsy rule out Helicobacter pylori. Multiple small duodenal clean-based ulcers without any evidence of bleeding OPERATION: EGD with biopsy SURGEON: HERI DENT ANESTHESIA: GA TISSUE REMOVED OR ALTERED: As noted above COMPLICATIONS: None. ESTIMATED BLOOD LOSS: None. INTRAOPERATIVE FINDINGS: As noted above. PROCEDURE: Patient tolerated the procedure well. No immediate postprocedure complications are noted. Patient sent back to recovery in good condition. He is being admitted to the hospitalist. He likely will be going into DTs and needs to be managed with respect to that There was no acute GI bleeding noted. He can continue on Sandostatin for 48 hours and then that can be discontinued He needs to continue his Protonix drip until he can take oral medication at which point a PPI orally will be more appropriate His hemoglobin is stable Spoke to Lovely Kessler who is taking care of the patient
[2018-04-28] MEDS ORDERED: ACETAMINOPHEN 1,000 MG/100 ML RTUPB IV ONE (09:49)
[2018-04-28] MEDS ORDERED: METOCLOPRAMIDE HCL INJ/PF 10 MG/2 ML SDV ONE ×2 (09:49→18:19)
[2018-04-28] MEDS ORDERED: GLUCAGON,HUMAN RECOMB 1 MG INJ SUBCUT PRN (09:57)
[2018-04-28] MEDS ORDERED: DEXTROSE 50%-WATER 25 GM/50 ML DISP.SYRIN IV PRN ×2 (09:57)
[2018-04-28] MEDS ORDERED: NORMAL SALINE 1000 ML 1,000 ML IV PRN (09:57)
[2018-04-28] MEDS ORDERED: DEXTROSE 40% GEL 15 GM TUBE PO PRN ×2 (09:57)
[2018-04-28] MEDS ORDERED: ACETAMINOPHEN 650 MG SUPP.RECT PR PRN (09:57)
[2018-04-28] MEDS ORDERED: IPRATROPIUM/ALBUTEROL 0.5-2.5 MG/3 ML AMPUL NEB PRN (09:57)
[2018-04-28] MEDS: HYDROMORPHONE HCL INJ/PF 2 MG/ML AMPULE ONE ×3 (10:00→16:25)
[2018-04-28] MEDS ORDERED: ONDANSETRON HCL INJ/PF 4 MG/2 ML SDV IV PRN (10:03)
[2018-04-28] MEDS ORDERED: LORAZEPAM INJ 2 MG/1 ML VIAL IV PRN (10:05)
[2018-04-28] MEDS ORDERED: FENTANYL CITRATE INJ/PF 100 MCG/2 ML AMPUL IV PRN ×3 (10:05)
[2018-04-28] MEDS ORDERED: DIPHENHYDRAMINE HCL 50 MG/ML VIAL IV PRN (10:05)
[2018-04-28] MEDS ORDERED: MEPERIDINE HCL/PF INJ 25 MG/1 ML DISP.SYRIN IV PRN (10:05)
[2018-04-28] MEDS ORDERED: NICOTINE 14 MG/24 HR PATCH.TD24 TD SCH (11:00)
[2018-04-28] MEDS ORDERED: DEXMEDETOMIDINE INJ 80 MCG/20 ML VIAL IV ONE (11:55)
[2018-04-28] MEDS ORDERED: LORAZEPAM INJ 2 MG/1 ML VIAL IV SCH (12:00)
[2018-04-28 12:45] LABS: HEMATOCRIT 37.8 % (37.9-51.0); MEAN CORPUSCULAR HEMOGLOBIN 26.7 pg (27.0-33.4); MEAN CORPUSCULAR HGB CONC 33.1 g/dL (32.0-36.0); MEAN CORPUSCULAR VOLUME 81 fl (80-97); PLATELET COUNT 182 10^3/uL (150-450); RED BLOOD COUNT 4.69 10^6/uL (4.35-5.55); RED CELL DISTRIBUTION WIDTH 21.4 % (11.5-14.0)
[2018-04-28] MEDS ORDERED: LORAZEPAM INJ 2 MG/1 ML VIAL ONE ×4 (12:58→19:45)
[2018-04-28 14:42] LABS: HEMOGLOBIN 12.5 g/dL (13.5-17.0)
[2018-04-28] MEDS ORDERED: PROMETHAZINE HCL INJ 25 MG/1 ML VIAL ONE (15:24)
[2018-04-28] MEDS ORDERED: HYDROMORPHONE HCL INJ/PF 2 MG/ML AMPULE ONE (16:24)
--- NOTE | 2018-04-28 17:48 | PDOC H&P ---
History of Present Illness Admission Date/PCP: 04/28/18 07:32 SHALINI SOUTH MD Patient complains of: Alcohol withdrawal, hematemesis History of Present Illness: JAIME NUNEZ is a 32 year old male with a past medical history of chronic alcoholism, alcohol withdrawal seizures, alcoholic gastritis, multiple upper GI bleeds with remote history of variceal bleeding, hypertension, and depression who presented to the emergency department with a complaint of alcohol withdrawal related seizure followed by episodes of emesis and epigastric discomfort. Patient reports that his last alcohol intake was approximately 48 hours ago. Evaluation in the emergency department revealed leukocytosis (WBCs 13.5), normal hemoglobin and hematocrit, platelet count 213, Normal coags, alcohol related anion gap acidosis (23), and serum EtOH 291. Chest x-ray, head CT, C-spine CT were benign. EKG demonstrated sinus tachycardia. Gastroenterology was consulted and fortunately Dr. Presley was able to take the patient to the OR suite today for EGD. Dr. Presley called me following the procedure to report a distal esophageal ulcer, no bleeding varices, hiatal hernia, Ann-Garay tear that is not actively bleeding, gastritis, and multiple small duodenal ulcers. The patient was seen while still in the PACU at 9:30 this morning and again this afternoon when his mother was present. Each time he was found to be alert, oriented x4, slightly tachycardic (110-120s) with acceptable blood pressures (140/80); reporting nausea and epigastric pain. The patient is admitted to the hospitalist service for management of the above complaints and findings. Past Medical History Cardiac Medical History: Reports: Hypertension Denies: Coronary Artery Disease, Myocardial Infarction Pulmonary Medical History: Denies: Asthma, Chronic Obstructive Pulmonary Disease (COPD) EENT Medical History: Reports: None Neurological Medical History: Reports: Seizures Endocrine Medical History: Reports: None Renal/ Medical History: Reports: None Malignancy Medical History: Reports: None GI Medical History: Reports: Gastroesophageal Reflux Disease - esophageal varacies, Hepatitis - alcoholic hepatitis, Hiatal Hernia, Peptic Ulcer Disease Musculoskeltal Medical History: Denies: Arthritis Psychiatric Medical History: Reports: Alcohol Dependency, Depression, Tobacco Dependency Traumatic Medical History: Reports: None Hematology: Denies: Anemia, Sickle Cell Disease Infectious Medical History: Reports: None Past Surgical History Past Surgical History: Reports: Other - Esophageal varices banding Denies: Pacemaker Social History Information Source: Patient Lives with: Parents Smoking Status: Current Every Day Smoker Cigarettes Packs Per Day: 0.5 Frequency of Alcohol Use: Heavy Last Alcohol Use: 04/26/18 Hx Recreational Drug Use: No Drugs: None Hx Prescription Drug Abuse: No - Advance Directive Resuscitation Status: Full Code Surrogate healthcare decision maker:: The patient's mother. Family History Family History: CAD, COPD Parental Family History Reviewed: Yes Children Family History Reviewed: Yes Sibling(s) Family History Reviewed.: Yes Medication/Allergy Home Medications: Clonidine HCl [Catapres 0.1 mg Tablet] 0.1 mg PO DAILY 04/28/18 Hydroxyzine HCl [Atarax 50 mg Tablet] 50 mg PO BIDP PRN 04/28/18 Ranitidine HCl [Zantac 150 mg Tablet] 150 mg PO BID 04/28/18 Trazodone HCl [Desyrel] 100 mg PO HSP PRN 04/28/18 Allergies/Adverse Reactions: No Known Allergies Allergy (Verified 04/23/18 18:53) Review of Systems Constitutional: ABSENT: chills, fever(s), headache(s), weight gain, weight loss Eyes: ABSENT: visual disturbances Ears: ABSENT: hearing changes Nose, Mouth, and Throat: PRESENT: headache(s) Cardiovascular: ABSENT: chest pain, dyspnea on exertion, edema, orthropnea, palpitations Respiratory: ABSENT: cough, hemoptysis Gastrointestinal: PRESENT: abdominal pain, coffee ground emesis, hematemesis, nausea, vomiting. ABSENT: constipation, diarrhea, hematochezia Genitourinary: ABSENT: dysuria, hematuria Musculoskeletal: ABSENT: joint swelling Integumentary: ABSENT: rash, wounds Neurological: PRESENT: convulsions, tremor(s). ABSENT: abnormal gait, abnormal speech, confusion, dizziness, focal weakness, syncope Psychiatric: ABSENT: anxiety, depression, homidical ideation, suicidal ideation Endocrine: ABSENT: cold intolerance, heat intolerance, polydipsia, polyuria Hematologic/Lymphatic: ABSENT: easy bleeding, easy bruising Physical Exam Vital Signs: Temp Pulse Resp BP Pulse Ox 98.9 F 113 H 16 152/85 H 95 04/28/18 16:45 04/28/18 16:45 04/28/18 16:45 04/28/18 16:45 04/28/18 16:45 Intake & Output 04/27/18 04/28/18 04/29/18 06:59 06:59 06:59 Intake Total 3150 Output Total 0 Balance 3150 Weight 81.6 kg General appearance: PRESENT: cooperative, mild distress, well-developed, well- nourished Head exam: PRESENT: normocephalic, other - Ecchymosis to left temporal side of head, left cheek, left jaw. Multiple small abrasions to left forehead, shallow lacerated lower lip. Eye exam: PRESENT: conjunctiva pink, EOMI, PERRLA. ABSENT: scleral icterus Ear exam: PRESENT: normal external ear exam Mouth exam: PRESENT: moist, tongue midline Neck exam: ABSENT: carotid bruit, JVD, lymphadenopathy, thyromegaly Respiratory exam: PRESENT: clear to auscultation hannah, symmetrical, unlabored. ABSENT: rales, rhonchi, wheezes Cardiovascular exam: PRESENT: RRR, +S1, +S2, tachycardia. ABSENT: diastolic murmur, rubs, systolic murmur Pulses: PRESENT: normal dorsalis pedis pul Vascular exam: PRESENT: normal capillary refill GI/Abdominal exam: PRESENT: normal bowel sounds, soft, tenderness - Right upper quadrant, epigastric. ABSENT: distended, guarding, mass, organolmegaly, rebound Rectal exam: PRESENT: deferred Extremities exam: PRESENT: full ROM. ABSENT: calf tenderness, clubbing, pedal edema Neurological exam: PRESENT: alert, awake, oriented to person, oriented to place, oriented to time, oriented to situation, CN II-XII grossly intact. ABSENT: motor sensory deficit Psychiatric exam: PRESENT: anxious, appropriate affect, normal mood. ABSENT: homicidal ideation, suicidal ideation Skin exam: PRESENT: dry, intact, warm. ABSENT: cyanosis, rash Results Laboratory Results: 04/28/18 12:30 04/28/18 05:20 04/28/18 04/28/18 04/28/18 05:20 05:20 05:20 WBC 13.5 H RBC 5.53 Hgb 14.6 Hct 43.8 MCV 79 L MCH 26.4 L MCHC 33.4 RDW 21.6 H Plt Count 213 Seg Neutrophils % 82.3 H Lymphocytes % 10.6 L Monocytes % 6.6 Eosinophils % 0.1 Basophils % 0.4 Absolute Neutrophils 11.1 H Absolute Lymphocytes 1.4 Absolute Monocytes 0.9 Absolute Eosinophils 0.0 Absolute Basophils 0.1 Sodium 143.9 Potassium 4.3 Chloride 97 L Carbon Dioxide 24 Anion Gap 23 H BUN 14 Creatinine 0.92 Est GFR ( Amer) > 60 Est GFR (Non-Af Amer) > 60 Glucose 127 H Calcium 8.9 Total Bilirubin 1.0 AST 53 ALT 42 Alkaline Phosphatase 142 H Total Protein 7.7 Albumin 5.1 H Lipase 193.7 Blood Type O POSITIVE Antibody Screen NEGATIVE 04/28/18 12:30 WBC 11.0 H RBC 4.69 Hgb 12.5 L D Hct 37.8 L MCV 81 MCH 26.7 L MCHC 33.1 RDW 21.4 H Plt Count 182 Seg Neutrophils % Lymphocytes % Monocytes % Eosinophils % Basophils % Absolute Neutrophils Absolute Lymphocytes Absolute Monocytes Absolute Eosinophils Absolute Basophils Sodium Potassium Chloride Carbon Dioxide Anion Gap BUN Creatinine Est GFR ( Amer) Est GFR (Non-Af Amer) Glucose Calcium Total Bilirubin AST ALT Alkaline Phosphatase Total Protein Albumin Lipase Blood Type Antibody Screen Impressions: Chest X-Ray 04/28/18 05:44 IMPRESSION: No acute cardiopulmonary findings. Cervical Spine CT 04/28/18 05:51 IMPRESSION: No acute fracture or subluxation. Head CT 04/28/18 05:51 IMPRESSION: No acute intracranial abnormality TECHNICAL DOCUMENTATION: Quality ID # [id number]: Final reports with documentation of one or more dose reduction techniques (e.g., Automated exposure control, adjustment of the mA and/or kV according to patient size, use of iterative reconstruction technique) copyright 2011 [employer]- All Rights Reserved Assessment & Plan - Diagnosis (1) Alcohol withdrawal seizure Qualifiers: Complication of substance-induced condition: uncomplicated Qualified Code(s): F10.230 - Alcohol dependence with withdrawal, uncomplicated Is this a current diagnosis for this admission?: Yes Plan: The patient is admitted shortly after having alcohol withdrawal related seizure at home; history of the same has been witnessed while in our facility during previous admissions. Head CT and C-spine CT are benign. He is admitted to [facility] on continuous cardiac telemetry. Seizure, aspiration, fall precautions in place. Scheduled and as needed IV Ativan. Scheduled and as needed antiemetics. IV labetalol for blood pressure control. (2) Alcohol intoxication Qualifiers: Complication of substance-induced condition: with unspecified complication Qualified Code(s): F10.929 - Alcohol use, unspecified with intoxication, unspeci fied Is this a current diagnosis for this admission?: Yes Plan: Serum EtOH 291 on presentation. Chemistry and LFTs are unremarkable. Patient with long-standing history of alcohol abuse, well-known to our service. IV banana bag daily. Maintenance IV fluids. Schedule and as needed Ativan for management of withdrawal symptoms. Mental health services are consulted for evaluation of underlying mental health disorder; request medication recommendations. Discharge planning is consulted; patient would benefit from inpatient detox/rehabilitation. (3) Upper GI hemorrhage Is this a current diagnosis for this admission?: Yes Plan: EGD by Dr. Presley today; found to have a distal esophageal ulcer, nonperforated/bleeding Ann-Garay tear, gastritis, and multiple nonbleeding duodenal ulcers. Continue octreotide and Protonix drips. Maintain n.p.o. status with the exception of judicious ice chips. Scheduled IV Reglan, scheduled IV Protonix. As needed Zofran. Serial CBCs. Will advance diet slowly once nausea has resolved. (4) Tobacco dependency Is this a current diagnosis for this admission?: Yes Plan: Smoking cessation is encouraged. Nicotine replacement therapies are provided. - Time Time Spent: 50 to 70 Minutes
[2018-04-28 18:40] LABS: HEMATOCRIT 35.6 % (37.9-51.0); HEMOGLOBIN 11.7 g/dL (13.5-17.0); MEAN CORPUSCULAR HEMOGLOBIN 26.4 pg (27.0-33.4); MEAN CORPUSCULAR HGB CONC 32.9 g/dL (32.0-36.0); MEAN CORPUSCULAR VOLUME 80 fl (80-97); PLATELET COUNT 145 10^3/uL (150-450); RED BLOOD COUNT 4.44 10^6/uL (4.35-5.55); WHITE BLOOD COUNT 11.2 10^3/uL (4.0-10.5)
[2018-04-28] MEDS: HYDROMORPHONE HCL INJ/PF 2 MG/ML AMPULE IV PRN (19:59)
[2018-04-28] MEDS ORDERED: LORAZEPAM INJ 2 MG/1 ML VIAL IV ONE (20:00)
[2018-04-28] MEDS: NORMAL SALINE 1000 ML 1,000 ML with POTASSIUM CHLORIDE 20 MEQ, MAGNESIUM SULFATE 8 MEQ,... IV SCH ×5 (20:02)
[2018-04-28] MEDS: NORMAL SALINE 500 ML with OCTREOTIDE ACETATE 500 MCG IV PRN ×2 (20:08)
[2018-04-28] MEDS: LORAZEPAM INJ 2 MG/1 ML VIAL IV SCH ×3 (20:42→23:03)
[2018-04-28] MEDS: NICOTINE 14 MG/24 HR PATCH.TD24 TD SCH (20:44)
[2018-04-28] MEDS: METOCLOPRAMIDE HCL INJ/PF 10 MG/2 ML SDV IV SCH (21:10)
[2018-04-28] MEDS ORDERED: LIDOCAINE 1% INJ-PF (10 MG/ML) 30 ML SDV ONE (21:41)
[2018-04-28] MEDS: NORMAL SALINE 100 ML with PANTOPRAZOLE SODIUM 80 MG IV PRN ×2 (22:03)
[2018-04-28] MEDS: NORMAL SALINE 1000 ML 1,000 ML IV PRN (22:07)
[2018-04-28] MEDS ORDERED: NORMAL SALINE INJ/PF 0.9% 10 ML SDV IV ONE (22:30)
--- NOTE | 2018-04-28 23:01 | RADIOLOGY REPORT (SQ) ---
EXAM DESCRIPTION: XR CHEST 1 VIEW COMPLETED DATE/TME: 04/28/2018 00:00 CLINICAL HISTORY: 32 years Male, TLC placement COMPARISON: None. NUMBER OF VIEWS/TECHNIQUE: 1/AP FINDINGS: Adequate lung volume, clear parenchyma, normal cardiac silhouette, and intact bony thorax. Adequate appearing right subclavian central line. IMPRESSION: No acute cardiopulmonary findings.
[2018-04-28] MEDS: PROMETHAZINE HCL INJ 25 MG/1 ML VIAL IV SCH (23:03)
[2018-04-28] MEDS ORDERED: HALOPERIDOL LACTATE INJ 5 MG/1 ML VIAL IV ONE (23:40)
--- NOTE | 2018-04-29 00:22 | OPERATIVE REPORT E ---
Operative Report NAME: JAIME NUNEZ : 1985 AGE: 32Y DATE OF SURGERY: 04/28/2018 ROOM: 330 PREOPERATIVE DIAGNOSIS: POOR PERIPHERAL VEINS FOR IV ACCESS AND NEED A-LINE FOR IV MEDICATIONS AND FLUIDS. POSTOPERATIVE DIAGNOSIS: POOR PERIPHERAL VEINS FOR IV ACCESS AND NEED A-LINE FOR IV MEDICATIONS AND FLUIDS. OPERATION: Placement of right subclavian vein triple-lumen catheter. SURGEON: AVINASH ENGLISH M.D. ANESTHESIA: Local. INDICATION: This is a 32-year-old male who needed IV access. The nurses tried several times to place peripheral line, but unable to do so. The patient needed IV medications and fluids. DESCRIPTION OF PROCEDURE: The patient was placed in Trendelenburg position and the right chest prepped and draped in the usual sterile fashion. Local anesthesia infiltrated the right infraclavicular area and the right subclavian vein punctured and guidewire passed through the needle towards the area of the superior vena cava. The insertion site was then dilated and a triple-lumen catheter inserted through the guidewire to a distance of about 18 cm. All the ports aspirated blood easily and instilled saline easily. The catheter was then anchored to the skin with 3-0 Silk. Biopatch placed at the insertion site and a transparent sterile dressing placed over the Biopatch and insertion site. The patient tolerated the procedure well. A chest x-ray will be obtained for placement to rule out any pneumothorax. DICTATING PHYSICIAN: AVINASH ENGLISH M.D. [id number] PHY#: [id number] ID: [id number] JOB#: [id number] ACCT: [id number] cc:AVINASH ENGLISH M.D. >
[2018-04-29] MEDS: LORAZEPAM INJ 2 MG/1 ML VIAL IV SCH ×10 (01:00→22:35)
[2018-04-29] MEDS: HYDROMORPHONE HCL INJ/PF 2 MG/ML AMPULE IV PRN ×5 (02:15→22:31)
[2018-04-29 04:11] LABS: HEMATOCRIT 34.6 % (37.9-51.0); HEMOGLOBIN 11.6 g/dL (13.5-17.0); MEAN CORPUSCULAR HEMOGLOBIN 26.9 pg (27.0-33.4); MEAN CORPUSCULAR HGB CONC 33.5 g/dL (32.0-36.0); MEAN CORPUSCULAR VOLUME 80 fl (80-97); PLATELET COUNT 112 10^3/uL (150-450); RED BLOOD COUNT 4.32 10^6/uL (4.35-5.55); RED CELL DISTRIBUTION WIDTH 20.4 % (11.5-14.0); WHITE BLOOD COUNT 9.5 10^3/uL (4.0-10.5)
[2018-04-29 04:42] LABS: ALANINE AMINOTRANSFERASE 28 U/L (21-72); ALBUMIN 3.5 g/dL (3.5-5.0); ALKALINE PHOSPHATASE 98 U/L (38-126); ANION GAP 11 (5-19); ASPARTATE AMINO TRANSFERASE 45 U/L (17-59); BILIRUBIN,DIRECT 0.3 mg/dL (0.0-0.4); BILIRUBIN,TOTAL 1.1 mg/dL (0.2-1.3); BLOOD UREA NITROGEN 10 mg/dL (7-20); CALCIUM 7.9 mg/dL (8.4-10.2); CARBON DIOXIDE 29 mmol/L (22-30); CHLORIDE 98 mmol/L (98-107); GLUCOSE 95 mg/dL (75-110); POTASSIUM 4.3 mmol/L (3.6-5.0); SODIUM 137.9 mmol/L (137-145); TOTAL PROTEIN 5.7 g/dL (6.3-8.2)
[2018-04-29] MEDS: LABETALOL HCL INJ 20 MG/4 ML DISP.SYRIN IV PRN (04:43)
[2018-04-29 04:58] LABS: LIPASE 3053.5 U/L (23-300)
[2018-04-29] MEDS: NORMAL SALINE INJ/PF 0.9% 10 ML SDV IV SCH ×3 (05:04→22:35)
[2018-04-29] MEDS: PROMETHAZINE HCL INJ 25 MG/1 ML VIAL IV SCH ×3 (05:12→18:53)
[2018-04-29] MEDS: NORMAL SALINE 1000 ML 1,000 ML IV PRN (05:29)
[2018-04-29] MEDS: METOCLOPRAMIDE HCL INJ/PF 10 MG/2 ML SDV IV SCH ×6 (07:10→22:34)
[2018-04-29] MEDS: NORMAL SALINE 100 ML with PANTOPRAZOLE SODIUM 80 MG IV PRN ×4 (07:14→17:07)
[2018-04-29] MEDS: INSULIN LISPRO 100 UNIT/ML 3 ML VIAL SUBCUT SCH ×2 (08:46→12:49)
[2018-04-29] MEDS: ONDANSETRON HCL INJ/PF 4 MG/2 ML SDV IV PRN ×2 (10:25→20:17)
[2018-04-29] MEDS: NICOTINE 14 MG/24 HR PATCH.TD24 TD SCH (11:25)
--- NOTE | 2018-04-29 13:46 | RADIOLOGY REPORT (SQ) ---
EXAM DESCRIPTION: CHEST SINGLE VIEW COMPLETED DATE/TIME: 04/29/2018 1:36 pm REASON FOR STUDY: confirm placement of central line COMPARISON: 04/28/2018 EXAM PARAMETERS: NUMBER OF VIEWS: One view. TECHNIQUE: Single frontal radiographic view of the chest acquired. RADIATION DOSE: NA LIMITATIONS: None. FINDINGS: LUNGS AND PLEURA: No opacities, masses or pneumothorax. No pleural effusion. MEDIASTINUM AND HILAR STRUCTURES: No masses. Contour normal. HEART AND VASCULAR STRUCTURES: Heart normal in size. Normal vasculature. BONES: No acute findings. HARDWARE: Right subclavian catheter has its tip in the superior vena cava. OTHER: No other significant finding. IMPRESSION: Right subclavian catheter as described. No acute findings. TECHNICAL DOCUMENTATION: JOB ID: [id number] [employer]- All Rights Reserved Reading location - IP/workstation name: [email or web address]
[2018-04-29] MEDS: HALOPERIDOL LACTATE INJ 5 MG/1 ML VIAL IV PRN (15:41)
[2018-04-29] MEDS ORDERED: PROMETHAZINE HCL INJ 25 MG/1 ML VIAL ONE (16:01)
--- NOTE | 2018-04-29 17:06 | PDOC PROGRESS REPORT ---
Subjective Progress Note for:: 04/29/18 Subjective:: The patient is a 32 year old male with a past medical history of chronic alcoholism, alcohol withdrawal seizures, alcoholic gastritis, multiple upper GI bleeds with remote history of variceal bleeding, hypertension, and depression who was admitted 04/28/18 for GI bleed and EtOH withdrawal seizure. Patient was seen on afternoon rounds. He was A&Ox4. He is maintaining oxygen saturations on room air. He was noted to be mildly tachycardic, tachypneic, diaphoretic, with slight hand tremor. He reports epigastric pain and nausea, though does request to eat. He is informed that his lipase is elevated; to which he responds "guess that means I can eat today." He has no other questions or concerns at this time. No concerns per nursing. Reason For Visit: UPPER GI BLEED, ETOH WITHDRAWAL Physical Exam Vital Signs: Temp Pulse Resp BP Pulse Ox 98.6 F 101 H 16 143/98 H 96 04/29/18 15:47 04/29/18 15:47 04/29/18 15:47 04/29/18 15:47 04/29/18 15:47 Intake & Output 04/28/18 04/29/18 04/30/18 06:59 06:59 06:59 Intake Total 5140 92 Output Total 150 Balance 4990 92 Weight 81.6 kg 86.2 kg General appearance: PRESENT: disheveled, mild distress, well-developed, well- nourished Head exam: PRESENT: normocephalic, other - Ecchymosis to left temporal side of head, left cheek, left jaw. Multiple small abrasions to left forehead, shallow lacerated lower lip. Eye exam: PRESENT: conjunctiva pink, EOMI, PERRLA. ABSENT: scleral icterus Ear exam: PRESENT: normal external ear exam Mouth exam: PRESENT: moist, tongue midline Neck exam: ABSENT: carotid bruit, JVD, lymphadenopathy, thyromegaly Respiratory exam: PRESENT: clear to auscultation hannah, symmetrical, unlabored. ABSENT: rales, rhonchi, wheezes Cardiovascular exam: PRESENT: RRR, +S1, +S2. ABSENT: diastolic murmur, rubs, systolic murmur Pulses: PRESENT: normal dorsalis pedis pul Vascular exam: PRESENT: normal capillary refill GI/Abdominal exam: PRESENT: distended, normal bowel sounds, soft, tenderness - RUQ and epigastric pain. ABSENT: guarding, mass, organolmegaly, rebound Rectal exam: PRESENT: deferred Extremities exam: PRESENT: full ROM. ABSENT: calf tenderness, clubbing, pedal edema Neurological exam: PRESENT: alert, awake, oriented to person, oriented to place, oriented to time, oriented to situation, CN II-XII grossly intact. ABSENT: motor sensory deficit Psychiatric exam: PRESENT: anxious, appropriate affect. ABSENT: homicidal ideation, suicidal ideation Skin exam: PRESENT: dry, intact, warm. ABSENT: cyanosis, rash Results Laboratory Results: 04/29/18 03:50 04/29/18 03:50 04/28/18 04/29/18 04/29/18 18:30 03:50 03:50 WBC 11.2 H 9.5 RBC 4.44 4.32 L Hgb 11.7 L 11.6 L Hct 35.6 L 34.6 L MCV 80 80 MCH 26.4 L 26.9 L MCHC 32.9 33.5 RDW 21.0 H 20.4 H Plt Count 145 L 112 L Sodium 137.9 Potassium 4.3 Chloride 98 Carbon Dioxide 29 Anion Gap 11 BUN 10 Creatinine 0.78 Est GFR ( Amer) > 60 Est GFR (Non-Af Amer) > 60 Glucose 95 Calcium 7.9 L Magnesium 1.9 Total Bilirubin 1.1 AST 45 ALT 28 Alkaline Phosphatase 98 Total Protein 5.7 L Albumin 3.5 Lipase 3053.5 H Impressions: Cervical Spine CT 04/28/18 05:51 IMPRESSION: No acute fracture or subluxation. Head CT 04/28/18 05:51 IMPRESSION: No acute intracranial abnormality TECHNICAL DOCUMENTATION: Quality ID # [id number]: Final reports with documentation of one or more dose reduction techniques (e.g., Automated exposure control, adjustment of the mA and/or kV according to patient size, use of iterative reconstruction technique) copyright 2011 [employer]- All Rights Reserved Chest X-Ray 04/29/18 00:00 IMPRESSION: Right subclavian catheter as described. No acute findings. Assessment & Plan - Diagnosis (1) Alcohol withdrawal seizure Qualifiers: Complication of substance-induced condition: uncomplicated Qualified Code(s): F10.230 - Alcohol dependence with withdrawal, uncomplicated Is this a current diagnosis for this admission?: Yes Plan: No further seizures. The patient is admitted shortly after having alcohol withdrawal related seizure at home; history of the same has been witnessed while in our facility during previous admissions. Head CT and C-spine CT are benign. He is admitted to [facility] on continuous cardiac telemetry. Seizure, aspiration, fall precautions in place. Scheduled and as needed IV Ativan. Scheduled and as needed antiemetics. IV labetalol for blood pressure control. (2) Alcohol intoxication Qualifiers: Complication of substance-induced condition: with unspecified complication Qualified Code(s): F10.929 - Alcohol use, unspecified with intoxication, unspecified Is this a current diagnosis for this admission?: Yes Plan: Serum EtOH 291 on presentation. Chemistry and LFTs are unremarkable. Patient with long-standing history of alcohol abuse, well-known to our service. IV banana bag daily. Maintenance IV fluids. Schedule and as needed Ativan for management of withdrawal symptoms. Mental health services are consulted for evaluation of underlying mental health disorder; request medication recommendations. Discharge planning is consulted; patient would benefit from inpatient detox/rehabilitation. (3) Upper GI hemorrhage Is this a current diagnosis for this admission?: Yes Plan: EGD by Dr. Presley yesterday; found to have a distal esophageal ulcer, nonperforated/bleeding Ann-Garay tear, gastritis, and multiple nonbleeding duodenal ulcers. Continue octreotide and Protonix drips. Maintain n.p.o. status with the exception of judicious ice chips. Scheduled IV Reglan, scheduled IV phenergan. As needed Zofran. Daily CBCs. Will advance diet slowly/cautiously once nausea and pancreatitis has resolved. (4) Tobacco dependency Is this a current diagnosis for this admission?: Yes Plan: Smoking cessation is encouraged. Nicotine replacement therapies are provided. (5) Pancreatitis Qualifiers: Chronicity: acute Pancreatitis type: alcohol induced Acute pancreatitis complication: unspecified Qualified Code(s): K85.20 - Alcohol induced acute pancreatitis without necrosis or infection Is this a current diagnosis for this admission?: Yes Plan: Maintain n.p.o. status. IV fluids. Antiemetics and analgesics as needed. - Time Time Spent with patient: Less than 15 minutes Medications reviewed and adjusted accordingly: Yes Anticipated discharge: Home
[2018-04-29] MEDS: NORMAL SALINE 500 ML with OCTREOTIDE ACETATE 500 MCG IV PRN ×2 (17:09)
[2018-04-29] MEDS: NORMAL SALINE 1000 ML 1,000 ML with POTASSIUM CHLORIDE 20 MEQ, MAGNESIUM SULFATE 8 MEQ,... IV SCH ×5 (17:11)
[2018-04-30] MEDS: INSULIN LISPRO 100 UNIT/ML 3 ML VIAL SUBCUT SCH ×6 (00:33→21:26)
[2018-04-30] MEDS: HYDROMORPHONE HCL INJ/PF 2 MG/ML AMPULE IV PRN ×8 (00:43→23:46)
[2018-04-30] MEDS: PROMETHAZINE HCL INJ 25 MG/1 ML VIAL IV SCH ×5 (00:44→23:47)
[2018-04-30] MEDS: LORAZEPAM INJ 2 MG/1 ML VIAL IV SCH ×11 (00:44→23:47)
[2018-04-30] MEDS: NORMAL SALINE 1000 ML 1,000 ML IV PRN ×2 (01:43→10:33)
[2018-04-30] MEDS: ONDANSETRON HCL INJ/PF 4 MG/2 ML SDV IV PRN ×2 (02:39→14:35)
[2018-04-30] MEDS: NORMAL SALINE 100 ML with PANTOPRAZOLE SODIUM 80 MG IV PRN ×6 (02:40→21:33)
[2018-04-30 04:47] LABS: HEMATOCRIT 34.2 % (37.9-51.0); HEMOGLOBIN 11.3 g/dL (13.5-17.0); MEAN CORPUSCULAR HEMOGLOBIN 26.8 pg (27.0-33.4); MEAN CORPUSCULAR VOLUME 81 fl (80-97); PLATELET COUNT 111 10^3/uL (150-450); RED BLOOD COUNT 4.21 10^6/uL (4.35-5.55); RED CELL DISTRIBUTION WIDTH 19.7 % (11.5-14.0); WHITE BLOOD COUNT 7.1 10^3/uL (4.0-10.5)
[2018-04-30 05:10] LABS: ANION GAP 6 (5-19); BLOOD UREA NITROGEN 6 mg/dL (7-20); CALCIUM 8.1 mg/dL (8.4-10.2); CARBON DIOXIDE 29 mmol/L (22-30); CHLORIDE 101 mmol/L (98-107); GLUCOSE 83 mg/dL (75-110); LIPASE 1511.7 U/L (23-300); POTASSIUM 4.2 mmol/L (3.6-5.0)
[2018-04-30] MEDS: METOCLOPRAMIDE HCL INJ/PF 10 MG/2 ML SDV IV SCH ×4 (10:42→21:27)
[2018-04-30] MEDS: NICOTINE 14 MG/24 HR PATCH.TD24 TD SCH (10:45)
[2018-04-30] MEDS: NORMAL SALINE INJ/PF 0.9% 10 ML SDV IV SCH ×3 (12:44→21:29)
[2018-04-30] MEDS ORDERED: LORAZEPAM INJ 2 MG/1 ML VIAL IV PRN (15:07)
[2018-04-30] MEDS: NORMAL SALINE 500 ML with OCTREOTIDE ACETATE 500 MCG IV PRN ×2 (15:10)
--- NOTE | 2018-04-30 15:26 | PDOC PROGRESS REPORT ---
Subjective Progress Note for:: 04/30/18 Subjective:: The patient is a 32 year old male with a past medical history of chronic alcoholism, alcohol withdrawal seizures, alcoholic gastritis, multiple upper GI bleeds with remote history of variceal bleeding, hypertension, and depression who was admitted 04/28/18 for GI bleed and EtOH withdrawal seizure. Patient was seen on afternoon rounds. He was A&Ox4. He is maintaining oxygen saturations on room air. He was noted to be mildly tachycardic with slight hand tremor. He reports continued epigastric pain and nausea, though does request to eat again today. He also reports that he has been in a lot of pain and requests increased pain medication; nursing at bedside and confirms patient has been sleeping comfortably and some doses were held secondary to RR 8-10. He has no other questions or concerns at this time. No concerns per nursing. Reason For Visit: UPPER GI BLEED, ETOH WITHDRAWAL Physical Exam Vital Signs: Temp Pulse Resp BP Pulse Ox 99.1 F 97 18 136/97 H 97 04/30/18 11:46 04/30/18 11:46 04/30/18 11:46 04/30/18 11:46 04/30/18 11:46 Intake & Output 04/29/18 04/30/18 05/01/18 06:59 06:59 06:59 Intake Total 5140 1889 1093 Output Total 150 1750 800 Balance 4990 139 293 Weight 86.2 kg 82.3 kg General appearance: PRESENT: no acute distress, disheveled, well-developed, well-nourished Head exam: PRESENT: normocephalic, other - Multiple small abrasions to left forehead, shallow lacerated lower lip. Eye exam: PRESENT: conjunctiva pink, EOMI, PERRLA. ABSENT: scleral icterus Ear exam: PRESENT: normal external ear exam Mouth exam: PRESENT: moist, tongue midline Neck exam: ABSENT: carotid bruit, JVD, lymphadenopathy, thyromegaly Respiratory exam: PRESENT: clear to auscultation hannah, symmetrical, unlabored. ABSENT: rales, rhonchi, wheezes Cardiovascular exam: PRESENT: RRR, +S1, +S2. ABSENT: diastolic murmur, rubs, systolic murmur Pulses: PRESENT: normal dorsalis pedis pul Vascular exam: PRESENT: normal capillary refill GI/Abdominal exam: PRESENT: normal bowel sounds, soft, tenderness. ABSENT: distended, guarding, mass, organolmegaly, rebound Rectal exam: PRESENT: deferred Extremities exam: PRESENT: full ROM. ABSENT: calf tenderness, clubbing, pedal edema Neurological exam: PRESENT: alert, awake, oriented to person, oriented to place, oriented to time, oriented to situation, CN II-XII grossly intact. ABSENT: motor sensory deficit Psychiatric exam: PRESENT: anxious, appropriate affect, normal mood. ABSENT: homicidal ideation, suicidal ideation Skin exam: PRESENT: dry, intact, warm. ABSENT: cyanosis, rash Results Laboratory Results: 04/30/18 04:25 04/30/18 04:25 04/30/18 04/30/18 04:25 04:25 WBC 7.1 RBC 4.21 L Hgb 11.3 L Hct 34.2 L MCV 81 MCH 26.8 L MCHC 33.0 RDW 19.7 H Plt Count 111 L Sodium 136.0 L Potassium 4.2 Chloride 101 Carbon Dioxide 29 Anion Gap 6 BUN 6 L Creatinine 0.67 Est GFR ( Amer) > 60 Est GFR (Non-Af Amer) > 60 Glucose 83 Calcium 8.1 L Lipase 1511.7 H Impressions: Cervical Spine CT 04/28/18 05:51 IMPRESSION: No acute fracture or subluxation. Head CT 04/28/18 05:51 IMPRESSION: No acute intracranial abnormality TECHNICAL DOCUMENTATION: Quality ID # [id number]: Final reports with documentation of one or more dose reduction techniques (e.g., Automated exposure control, adjustment of the mA and/or kV according to patient size, use of iterative reconstruction technique) copyright 2011 [employer]- All Rights Reserved Chest X-Ray 04/29/18 00:00 IMPRESSION: Right subclavian catheter as described. No acute findings. Assessment & Plan - Diagnosis (1) Alcohol withdrawal seizure Qualifiers: Complication of substance-induced condition: uncomplicated Qualified Code(s): F10.230 - Alcohol dependence with withdrawal, uncomplicated Is this a current diagnosis for this admission?: Yes Plan: No further seizures. The patient is admitted shortly after having alcohol withdrawal related seizure at home; history of the same has been witnessed while in our facility during previous admissions. Head CT and C-spine CT are benign. He is admitted to [facility] on continuous cardiac telemetry. Seizure, aspiration, fall precautions in place. Scheduled and as needed IV Ativan. Scheduled and as needed antiemetics. IV labetalol for blood pressure control. (2) Alcohol intoxication Qualifiers: Complication of substance-induced condition: with unspecified complication Qualified Code(s): F10.929 - Alcohol use, unspecified with intoxication, unspecified Is this a current diagnosis for this admission?: Yes Plan: Serum EtOH 291 on presentation. Chemistry and LFTs are unremarkable. Patient with long-standing history of alcohol abuse, well-known to our service. IV banana bag daily. Maintenance IV fluids. Schedule and as needed Ativan for management of withdrawal symptoms; begin weaning Ativan today. Mental health services are consulted for evaluation of underlying mental health disorder; request medication recommendations. Discharge planning is consulted; patient would benefit from inpatient detox/rehabilitation. (3) Upper GI hemorrhage Is this a current diagnosis for this admission?: Yes Plan: EGD by Dr. Vallecillo; found to have a distal esophageal ulcer, nonperforated/bleeding Ann-Garay tear, gastritis, and multiple nonbleeding duodenal ulcers. Hemoglobin is stable. Continue octreotide and Protonix drips. Maintain n.p.o. status with the exception of judicious ice chips. Scheduled IV Reglan, scheduled IV phenergan. As needed Zofran. Daily CBCs. Will advance diet slowly/cautiously once nausea and pancreatitis has resolved. (4) Tobacco dependency Is this a current diagnosis for this admission?: Yes Plan: Smoking cessation is encouraged. Nicotine replacement therapies are provided. (5) Pancreatitis Qualifiers: Chronicity: acute Pancreatitis type: alcohol induced Acute pancreatitis complication: unspecified Qualified Code(s): K85.20 - Alcohol induced acute pancreatitis without necrosis or infection Is this a current diagnosis for this admission?: Yes Plan: Lipase 3k--> 1500 WBCs normal, though slight elevation in temperature today (9 9.1). Will monitor closely and consider need for abdominal imaging or antibiotics. Maintain n.p.o. status. IV fluids. Antiemetics and analgesics as needed. - Time Time Spent with patient: 15-24 minutes Medications reviewed and adjusted accordingly: Yes
[2018-04-30] MEDS: HALOPERIDOL LACTATE INJ 5 MG/1 ML VIAL IV PRN (16:30)
[2018-04-30] MEDS: NORMAL SALINE 1000 ML 1,000 ML with POTASSIUM CHLORIDE 20 MEQ, MAGNESIUM SULFATE 8 MEQ,... IV SCH ×5 (18:39)
[2018-05-01] MEDS: HYDROMORPHONE HCL INJ/PF 2 MG/ML AMPULE IV PRN ×5 (02:44→21:54)
[2018-05-01] MEDS: LORAZEPAM INJ 2 MG/1 ML VIAL IV SCH ×6 (02:44→21:55)
[2018-05-01] MEDS: NORMAL SALINE 1000 ML 1,000 ML IV PRN ×2 (02:48→14:19)
[2018-05-01] MEDS: HALOPERIDOL LACTATE INJ 5 MG/1 ML VIAL IV PRN ×2 (03:40→12:28)
[2018-05-01] MEDS: LABETALOL HCL INJ 20 MG/4 ML DISP.SYRIN IV PRN (03:51)
[2018-05-01] MEDS: NORMAL SALINE INJ/PF 0.9% 10 ML SDV IV SCH ×3 (05:01→21:56)
[2018-05-01] MEDS: PROMETHAZINE HCL INJ 25 MG/1 ML VIAL IV SCH ×3 (06:09→18:24)
[2018-05-01 06:25] LABS: HEMATOCRIT 33.3 % (37.9-51.0); MEAN CORPUSCULAR HEMOGLOBIN 26.8 pg (27.0-33.4); MEAN CORPUSCULAR HGB CONC 32.9 g/dL (32.0-36.0); MEAN CORPUSCULAR VOLUME 81 fl (80-97); PLATELET COUNT 123 10^3/uL (150-450); RED BLOOD COUNT 4.09 10^6/uL (4.35-5.55); RED CELL DISTRIBUTION WIDTH 19.4 % (11.5-14.0); WHITE BLOOD COUNT 6.3 10^3/uL (4.0-10.5)
[2018-05-01 06:37] LABS: ANION GAP 10 (5-19); BLOOD UREA NITROGEN 8 mg/dL (7-20); CALCIUM 8.4 mg/dL (8.4-10.2); CARBON DIOXIDE 29 mmol/L (22-30); CHLORIDE 97 mmol/L (98-107); GLUCOSE 78 mg/dL (75-110); LIPASE 1229.9 U/L (23-300); SODIUM 136.4 mmol/L (137-145)
[2018-05-01] MEDS: NORMAL SALINE 100 ML with PANTOPRAZOLE SODIUM 80 MG IV PRN ×4 (06:59→17:25)
[2018-05-01] MEDS: METOCLOPRAMIDE HCL INJ/PF 10 MG/2 ML SDV IV SCH ×4 (09:07→21:55)
[2018-05-01] MEDS: NICOTINE 14 MG/24 HR PATCH.TD24 TD SCH (09:08)
[2018-05-01] MEDS: INSULIN LISPRO 100 UNIT/ML 3 ML VIAL SUBCUT SCH ×3 (09:17→17:16)
[2018-05-01] MEDS: NORMAL SALINE 500 ML with OCTREOTIDE ACETATE 500 MCG IV PRN ×2 (10:51)
--- NOTE | 2018-05-01 13:22 | PDOC PROGRESS REPORT ---
Subjective Progress Note for:: 05/01/18 Subjective:: The patient is a 32 year old male with a past medical history of chronic alcoholism, alcohol withdrawal seizures, alcoholic gastritis, multiple upper GI bleeds with remote history of variceal bleeding, hypertension, and depression who was admitted 04/28/18 for GI bleed and EtOH withdrawal seizure. Patient was seen on morning rounds. He was A&Ox4. He is maintaining oxygen saturations on room air. He reports continued epigastric pain and nausea, though again requests to eat. He was allowed ice chips and sips of water this morning which she reports caused an increase in his abdominal pain and nausea. He is advises that this is a clear indication that he is not ready to begin eating. He has no other questions or concerns at this time. No concerns per nursing. Reason For Visit: UPPER GI BLEED, ETOH WITHDRAWAL Physical Exam Vital Signs: Temp Pulse Resp BP Pulse Ox 98.5 F 82 16 139/92 H 97 05/01/18 11:33 05/01/18 11:33 05/01/18 11:33 05/01/18 11:33 05/01/18 11:33 Intake & Output 04/30/18 05/01/18 05/02/18 06:59 06:59 06:59 Intake Total 2912 3810 892 Output Total 1750 3875 1200 Balance 1162 -65 -308 Weight 82.3 kg 81.3 kg General appearance: PRESENT: no acute distress, disheveled, well-developed, well-nourished Head exam: PRESENT: normocephalic, other - Multiple small abrasions to left forehead, shallow lacerated lower lip. Eye exam: PRESENT: conjunctiva pink, EOMI, PERRLA. ABSENT: scleral icterus Ear exam: PRESENT: normal external ear exam Mouth exam: PRESENT: moist, tongue midline Neck exam: ABSENT: carotid bruit, JVD, lymphadenopathy, thyromegaly Respiratory exam: PRESENT: clear to auscultation hannah, symmetrical, unlabored. A BSENT: rales, rhonchi, wheezes Cardiovascular exam: PRESENT: RRR, +S1, +S2. ABSENT: diastolic murmur, rubs, systolic murmur Pulses: PRESENT: normal dorsalis pedis pul Vascular exam: PRESENT: normal capillary refill GI/Abdominal exam: PRESENT: normal bowel sounds, soft. ABSENT: distended, guarding, mass, organolmegaly, rebound, tenderness Rectal exam: PRESENT: deferred Extremities exam: PRESENT: full ROM. ABSENT: calf tenderness, clubbing, pedal edema Neurological exam: PRESENT: alert, awake, oriented to person, oriented to place, oriented to time, oriented to situation, CN II-XII grossly intact, other - Slight hand tremor. ABSENT: motor sensory deficit Psychiatric exam: PRESENT: agitated, appropriate affect, normal mood. ABSENT: homicidal ideation, suicidal ideation Skin exam: PRESENT: dry, intact, warm. ABSENT: cyanosis, rash Results Laboratory Results: 05/01/18 05:15 05/01/18 05:15 05/01/18 05/01/18 05:15 05:15 WBC 6.3 RBC 4.09 L Hgb 11.0 L Hct 33.3 L MCV 81 MCH 26.8 L MCHC 32.9 RDW 19.4 H Plt Count 123 L Sodium 136.4 L Potassium 4.0 Chloride 97 L Carbon Dioxide 29 Anion Gap 10 BUN 8 Creatinine 0.67 Est GFR ( Amer) > 60 Est GFR (Non-Af Amer) > 60 Glucose 78 Calcium 8.4 Lipase 1229.9 H Impressions: Cervical Spine CT 04/28/18 05:51 IMPRESSION: No acute fracture or subluxation. Head CT 04/28/18 05:51 IMPRESSION: No acute intracranial abnormality TECHNICAL DOCUMENTATION: Quality ID # 436: Final reports with documentation of one or more dose reduction techniques (e.g., Automated exposure control, adjustment of the mA and/or kV according to patient size, use of iterative reconstruction technique) copyright 2011 [employer]- All Rights Reserved Chest X-Ray 04/29/18 00:00 IMPRESSION: Right subclavian catheter as described. No acute findings. Assessment & Plan - Diagnosis (1) Alcohol withdrawal seizure Qualifiers: Complication of substance-induced condition: uncomplicated Qualified Code(s): F10.230 - Alcohol dependence with withdrawal, uncomplicated Is this a current diagnosis for this admission?: Yes Plan: No further seizures. The patient is admitted shortly after having alcohol withdrawal related seizure at home; history of the same has been witnessed while in our facility during pre vious admissions. Head CT and C-spine CT are benign. He is admitted to [facility] on continuous cardiac telemetry. Seizure, aspiration, fall precautions in place. Scheduled and as needed IV Ativan; have reduced frequency of scheduled Ativan. Scheduled and as needed antiemetics. IV labetalol for blood pressure control. (2) Alcohol intoxication Qualifiers: Complication of substance-induced condition: with unspecified complication Qualified Code(s): F10.929 - Alcohol use, unspecified with intoxication, unspecified Is this a current diagnosis for this admission?: Yes Plan: Serum EtOH 291 on presentation. Chemistry and LFTs are unremarkable. Patient with long-standing history of alcohol abuse, well-known to our service. IV banana bag daily. Maintenance IV fluids. Schedule and as needed Ativan for management of withdrawal symptoms; continue weaning Ativan today. Mental health services are consulted for evaluation of underlying mental health disorder; request medication recommendations. Discharge planning is consulted; patient would benefit from inpatient detox/rehabilitation. (3) Upper GI hemorrhage Is this a current diagnosis for this admission?: Yes Plan: EGD by Dr. Vallecillo; found to have a distal esophageal ulcer, nonperforated/bleeding Ann-Garay tear, gastritis, and multiple nonbleeding duodenal ulcers. Hemoglobin is stable. Continue octreotide and Protonix drips. Octreotide will end this evening. Maintain n.p.o. status with the exception of sips of water and ice chips. Scheduled IV Reglan, scheduled IV phenergan. As needed Zofran. Daily CBCs. Will advance diet slowly/cautiously once nausea and pancreatitis has resolved. (4) Tobacco dependency Is this a current diagnosis for this admission?: Yes Plan: Smoking cessation is encouraged. Nicotine replacement therapies are provided. (5) Pancreatitis Qualifiers: Chronicity: acute Pancreatitis type: alcohol induced Acute pancreatitis complication: unspecified Qualified Code(s): K85.20 - Alcohol induced acute pancreatitis without necrosis or infection Is this a current diagnosis for this admission?: Yes Plan: Lipase 3k--> 1500--> 1229 WBCs normal, though slight elevation in temperature yesterday (99.1). Will monitor closely and consider need for abdominal imaging or antibiotics. Maintain n.p.o. status with exception of ice chips and sips of water. IV fluids. Antiemetics and analgesics as needed. - Time Time Spent with patient: Less than 15 minutes Medications reviewed and adjusted accordingly: Yes Anticipated discharge: Home
--- NOTE | 2018-05-01 16:25 | PSYCHOLOGICAL NOTE ---
Psych Note - Psych Note Date seen by psych provider: 04/30/18 Time seen by psych provider: 14:00 Psych Note: Reason for Consult: Substance abuse The patient is a 32 year old male with a past medical history of chronic alcoholism, alcohol withdrawal seizures, alcoholic gastritis, multiple upper GI bleeds with remote history of variceal bleeding, hypertension, and depression who was admitted 04/28/18 for GI bleed and EtOH withdrawal seizure. Patient reports he came to [facility] because he had a seizure. He states that he has been drinking a lot and knows that he needs to seek treatment. He patient is willing to receive information on subsidies treatment such as residential programs. Patient is unsure what route he would like to go however thought may be [facility]. Clinician explained [facility] currently only has detox programs and once patient is discharged from the hospital he will R be completed detox so the next step would be residential, intense outpatient or outpatient. Patient is alert and orientated to person, place, time and circumstance. Mood is euthymic with congruent affect. Patient denies suicidal and homicidal ideation. Delusions are absent behaviors congruent with intact reality based presentation i.e. organized linear thought process. Eye contact was well- maintained. Conversational speech is within normal rate, tone and prosody. Intellectual abilities appear to be within the average range. Attention and concentration are good. Insight, judgment, impulse control are dorsally poor due to alcohol use disorder. No medication recommendations at this time Alcohol use disorder; severe Impression/Plan: Patient is cleared from acute psychiatric services. Patient does not meet IVC criteria per [place] GS 122C. Patient has a long history of alcohol use disorder and historically has refused assistance on sobriety. P atient today reports he is willing to take information on residential treatment options. Patient is encouraged to follow through with a long-term residential treatment as patient's significant alcohol use disorder will necessitate more than just a 30-day program. Dr. Mcduffie was consulted on the care and management of this patient; attending physicians in agreement with recommendations and disposition.
[2018-05-01] MEDS: NORMAL SALINE 1000 ML 1,000 ML with POTASSIUM CHLORIDE 20 MEQ, MAGNESIUM SULFATE 8 MEQ,... IV SCH ×5 (17:24)
[2018-05-02] MEDS: INSULIN LISPRO 100 UNIT/ML 3 ML VIAL SUBCUT SCH ×5 (00:38→23:54)
[2018-05-02] MEDS: PROMETHAZINE HCL INJ 25 MG/1 ML VIAL IV SCH ×3 (00:39→11:39)
[2018-05-02] MEDS: HYDROMORPHONE HCL INJ/PF 2 MG/ML AMPULE IV PRN ×3 (02:01→11:39)
[2018-05-02] MEDS: LORAZEPAM INJ 2 MG/1 ML VIAL IV SCH ×5 (02:01→23:55)
[2018-05-02] MEDS: NORMAL SALINE 1000 ML 1,000 ML IV PRN ×3 (03:42→13:25)
[2018-05-02] MEDS: HALOPERIDOL LACTATE INJ 5 MG/1 ML VIAL IV PRN ×2 (03:46→11:39)
[2018-05-02] MEDS: ONDANSETRON HCL INJ/PF 4 MG/2 ML SDV IV PRN (04:37)
[2018-05-02] MEDS: NORMAL SALINE INJ/PF 0.9% 10 ML SDV IV SCH ×3 (06:03→21:08)
[2018-05-02] MEDS: NICOTINE 14 MG/24 HR PATCH.TD24 TD SCH (09:26)
[2018-05-02] MEDS: METOCLOPRAMIDE HCL INJ/PF 10 MG/2 ML SDV IV SCH ×2 (09:27→11:30)
[2018-05-02] MEDS: LORAZEPAM INJ 2 MG/1 ML VIAL IV PRN ×3 (11:30→20:47)
--- NOTE | 2018-05-02 13:14 | PDOC PROGRESS REPORT ---
Subjective Progress Note for:: 05/02/18 Subjective:: The patient is a 32 year old male with a past medical history of chronic alcoholism, alcohol withdrawal seizures, alcoholic gastritis, multiple upper GI bleeds with remote history of variceal bleeding, hypertension, and depression who was admitted 04/28/18 for GI bleed and EtOH withdrawal seizure. Patient was seen on morning rounds. He was A&Ox4. He is maintaining oxygen saturations on room air. He reports continued epigastric pain and nausea, though improved today and asks to be allowed jello or a popcicle. He was allowed ice chips and sips of water this morning which he states he tolerated well. Otherwise, he reports he is feeling much better. He denies fever, chills, headache, dizziness, chest pain, palpitations, dyspnea, cough, vomiting and diarrhea. He has no other questions or concerns at this time. Nursing reports that the patient is not sleeping; frequently requesting medications, but otherwise no concerns. Reason For Visit: UPPER GI BLEED, ETOH WITHDRAWAL Physical Exam Vital Signs: Temp Pulse Resp BP Pulse Ox 98.1 F 91 16 146/98 H 98 05/02/18 11:18 05/02/18 11:18 05/02/18 11:18 05/02/18 11:18 05/02/18 11:18 Intake & Output 05/01/18 05/02/18 05/03/18 06:59 06:59 06:59 Intake Total 3810 3713 977 Output Total 3875 2300 Balance -65 1413 977 Weight 81.3 kg 77.9 kg General appearance: PRESENT: no acute distress, well-developed, well-nourished Head exam: PRESENT: normocephalic, other - Healing abrasions to left forehead and lip Eye exam: PRESENT: conjunctiva pink, EOMI, PERRLA. ABSENT: scleral icterus Ear exam: PRESENT: normal external ear exam Mouth exam: PRESENT: moist, tongue midline Neck exam: ABSENT: carotid bruit, JVD, lymphadenopathy, thyromegaly Respiratory exam: PRESENT: clear to auscultation hannah, symmetrical, unlabored. ABSENT: rales, rhonchi, wheezes Cardiovascular exam: PRESENT: RRR, +S1, +S2. ABSENT: diastolic murmur, rubs, systolic murmur Pulses: PRESENT: normal dorsalis pedis pul Vascular exam: PRESENT: normal capillary refill GI/Abdominal exam: PRESENT: distended - Bloated; patient confirms passing gas, normal bowel sounds, soft. ABSENT: guarding, mass, organolmegaly, rebound, tenderness Rectal exam: PRESENT: deferred Extremities exam: PRESENT: full ROM. ABSENT: calf tenderness, clubbing, pedal edema Neurological exam: PRESENT: alert, awake, oriented to person, oriented to place, oriented to time, oriented to situation, CN II-XII grossly intact. ABSENT: motor sensory deficit Psychiatric exam: PRESENT: appropriate affect, normal mood. ABSENT: homicidal ideation, suicidal ideation Skin exam: PRESENT: dry, intact, warm. ABSENT: cyanosis, rash Results Laboratory Results: 05/01/18 05:15 05/01/18 05:15 Impressions: Cervical Spine CT 04/28/18 05:51 IMPRESSION: No acute fracture or subluxation. Head CT 04/28/18 05:51 IMPRESSION: No acute intracranial abnormality TECHNICAL DOCUMENTATION: Quality ID # [id number]: Final reports with documentation of one or more dose reduction techniques (e.g., Automated exposure control, adjustment of the mA and/or kV according to patient size, use of iterative reconstruction technique) copyright 2011 [employer]- All Rights Reserved Chest X-Ray 04/29/18 00:00 IMPRESSION: Right subclavian catheter as described. No acute findings. Assessment & Plan - Diagnosis (1) Alcohol withdrawal seizure Qualifiers: Complication of substance-induced condition: uncomplicated Qualified Code(s): F10.230 - Alcohol dependence with withdrawal, uncomplicated Is this a current diagnosis for this admission?: Yes Plan: No seizures this admission. The patient is admitted shortly after having alcohol withdrawal related seizure at home; history of the same has been witnessed while in our facility during previous admissions. Head CT and C-spine CT are benign. He is admitted to [facility] on continuous cardiac telemetry. Seizure, aspiration, fall precautions in place. Scheduled and as needed IV Ativan; have begun weaning scheduled Ativan. Scheduled and as needed antiemetics. IV labetalol for blood pressure control. (2) Alcohol intoxication Qualifiers: Complication of substance-induced condition: with unspecified complication Qualified Code(s): F10.929 - Alcohol use, unspecified with intoxication, unspecified Is this a current diagnosis for this admission?: Yes Plan: Serum EtOH 291 on presentation. Chemistry and LFTs are unremarkable. Patient with long-standing history of alcohol abuse, well-known to our service. IV banana bag daily. Maintenance IV fluids. Schedule and as needed Ativan for management of withdrawal symptoms; continue weaning Ativan today. Mental health services are consulted for evaluation of underlying mental health disorder; request medication recommendations. Discharge planning is consulted; patient would benefit from inpatient detox/rehabilitation. (3) Upper GI hemorrhage Is this a current diagnosis for this admission?: Yes Plan: EGD by Dr. Vallecillo; found to have a distal esophageal ulcer, nonperforated/bleeding Ann-Garay tear, gastritis, and multiple nonbleeding duodenal ulcers. Hemoglobin is stable. Continue Protonix IV push once daily; patient was on octreotide drip and Proton ix drip x72 hours. Will trial clear liquid diet today. As needed Zofran and Phenergan Daily CBCs. (4) Tobacco dependency Is this a current diagnosis for this admission?: Yes Plan: Smoking cessation is encouraged. Nicotine replacement therapies are provided. (5) Pancreatitis Qualifiers: Chronicity: acute Pancreatitis type: alcohol induced Acute pancreatitis complication: unspecified Qualified Code(s): K85.20 - Alcohol induced acute pancreatitis without necrosis or infection Is this a current diagnosis for this admission?: Yes Plan: Lipase 3k--> 1500--> 1229 WBCs normal, remains afebrile. Will monitor closely and consider need for abdominal imaging or antibiotics. Will trial clear liquids today. Advance slowly as tolerated. If patient tolerates p.o.; IV Dilaudid will be discontinued with as needed oxycodone available for pain. Antiemetics as needed. IV fluids. - Time Time Spent with patient: Less than 15 minutes Medications reviewed and adjusted accordingly: Yes Anticipated discharge: Home Within: within 72 hours
[2018-05-02 13:29] LABS: ANION GAP 14 (5-19); BLOOD UREA NITROGEN 6 mg/dL (7-20); CALCIUM 8.8 mg/dL (8.4-10.2); CARBON DIOXIDE 27 mmol/L (22-30); CHLORIDE 96 mmol/L (98-107); GLUCOSE 90 mg/dL (75-110); POTASSIUM 4.1 mmol/L (3.6-5.0); SODIUM 136.6 mmol/L (137-145)
[2018-05-02 13:33] LABS: HEMATOCRIT 34.3 % (37.9-51.0); HEMOGLOBIN 11.2 g/dL (13.5-17.0); MEAN CORPUSCULAR HGB CONC 32.8 g/dL (32.0-36.0); MEAN CORPUSCULAR VOLUME 82 fl (80-97); PLATELET COUNT 144 10^3/uL (150-450); RED BLOOD COUNT 4.17 10^6/uL (4.35-5.55); RED CELL DISTRIBUTION WIDTH 19.3 % (11.5-14.0); WHITE BLOOD COUNT 7.2 10^3/uL (4.0-10.5)
[2018-05-02] MEDS: NORMAL SALINE 1000 ML 1,000 ML with POTASSIUM CHLORIDE 20 MEQ, MAGNESIUM SULFATE 8 MEQ,... IV SCH ×5 (17:11)
[2018-05-03] MEDS: NORMAL SALINE 1000 ML 1,000 ML IV PRN ×2 (02:00→16:11)
[2018-05-03] MEDS: LORAZEPAM INJ 2 MG/1 ML VIAL IV PRN ×2 (02:32→13:49)
[2018-05-03] MEDS: LORAZEPAM INJ 2 MG/1 ML VIAL IV SCH (06:29)
[2018-05-03] MEDS: NORMAL SALINE INJ/PF 0.9% 10 ML SDV IV SCH ×3 (06:29→22:55)
[2018-05-03] MEDS: PROMETHAZINE HCL INJ 25 MG/1 ML VIAL IV PRN ×3 (07:28→20:23)
[2018-05-03] MEDS: HYDROMORPHONE HCL INJ/PF 2 MG/ML AMPULE IV PRN (07:32)
[2018-05-03] MEDS ORDERED: OXYCODONE HCL IR 5 MG TABLET PO PRN (08:25)
[2018-05-03] MEDS: INSULIN LISPRO 100 UNIT/ML 3 ML VIAL SUBCUT SCH ×3 (09:01→17:05)
[2018-05-03] MEDS: PANTOPRAZOLE SODIUM 40 MG VIAL IV SCH (09:08)
[2018-05-03] MEDS: NICOTINE 14 MG/24 HR PATCH.TD24 TD SCH (09:08)
[2018-05-03] MEDS: OXYCODONE HCL IR 5 MG TABLET PO PRN ×3 (10:49→22:54)
--- NOTE | 2018-05-03 11:08 | PDOC PROGRESS REPORT ---
Subjective Progress Note for:: 05/03/18 Subjective:: The patient is a 32 year old male with a past medical history of chronic alcoholism, alcohol withdrawal seizures, alcoholic gastritis, multiple upper GI bleeds with remote history of variceal bleeding, hypertension, and depression who was admitted 04/28/18 for GI bleed and EtOH withdrawal seizure. Patient was seen on morning rounds. He was A&Ox4. He is maintaining oxygen saturations on room air. He reports continued epigastric pain and nausea, though not worse after resuming clear liquid diet. He asked to continue the clear liquid diet and is actually hopeful that he can advance today. Overall, he is feeling much better; he is encouraged to begin discussions with his mother, discharge planning, and mental health teams about making arrangements for rehabi litation. He denies fever, chills, headache, dizziness, chest pain, palpitations, dyspnea, cough, vomiting and diarrhea. He has no other questions or concerns at this time. Nursing reports that the patient appears more comfortable despite continued request for pain medication. He also continues to have periods of impulsive activity; was incontinent this morning. Reason For Visit: UPPER GI BLEED, ETOH WITHDRAWAL Physical Exam Vital Signs: Temp Pulse Resp BP Pulse Ox 98.1 F 107 H 16 141/99 H 97 05/03/18 07:17 05/03/18 07:17 05/03/18 07:17 05/03/18 07:17 05/03/18 07:17 Intake & Output 05/02/18 05/03/18 05/04/18 06:59 06:59 06:59 Intake Total 3713 4345 Output Total 2300 Balance 1413 4345 Weight 77.9 kg 78.8 kg General appearance: PRESENT: no acute distress, disheveled, well-developed, well-nourished Head exam: PRESENT: atraumatic, normocephalic Eye exam: PRESENT: conjunctiva pink, EOMI, PERRLA. ABSENT: scleral icterus Ear exam: PRESENT: normal external ear exam Mouth exam: PRESENT: moist, tongue midline Neck exam: ABSENT: carotid bruit, JVD, lymphadenopathy, thyromegaly Respiratory exam: PRESENT: clear to auscultation hannah, symmetrical, unlabored. ABSENT: rales, rhonchi, wheezes Cardiovascular exam: PRESENT: RRR, +S1, +S2. ABSENT: diastolic murmur, rubs, systolic murmur Pulses: PRESENT: normal dorsalis pedis pul Vascular exam: PRESENT: normal capillary refill GI/Abdominal exam: PRESENT: normal bowel sounds, soft, tenderness - Epigastric. ABSENT: distended, guarding, mass, organolmegaly, rebound Rectal exam: PRESENT: deferred Extremities exam: PRESENT: full ROM. ABSENT: calf tenderness, clubbing, pedal edema Neurological exam: PRESENT: alert, awake, oriented to person, oriented to place, oriented to time, oriented to situation, CN II-XII grossly intact. ABSENT: motor sensory deficit Psychiatric exam: PRESENT: appropriate affect, normal mood. ABSENT: homicidal ideation, suicidal ideation Skin exam: PRESENT: dry, intact, warm. ABSENT: cyanosis, rash Results Laboratory Results: 05/02/18 06:00 05/02/18 06:00 05/02/18 05/02/18 05/02/18 06:00 06:00 06:00 WBC 7.2 RBC 4.17 L Hgb 11.2 L Hct 34.3 L MCV 82 MCH 27.0 MCHC 32.8 RDW 19.3 H Plt Count 144 L Sodium 136.6 L Potassium 4.1 Chloride 96 L Carbon Dioxide 27 Anion Gap 14 BUN 6 L Creatinine 0.59 Est GFR ( Amer) > 60 Est GFR (Non-Af Amer) > 60 Glucose 90 Calcium 8.8 Lipase 1266.8 H Impressions: Cervical Spine CT 04/28/18 05:51 IMPRESSION: No acute fracture or subluxation. Head CT 04/28/18 05:51 IMPRESSION: No acute intracranial abnormality TECHNICAL DOCUMENTATION: Quality ID # [id number]: Final reports with documentation of one or more dose reduction techniques (e.g., Automated exposure control, adjustment of the mA and/or kV according to patient size, use of iterative reconstruction technique) copyright 2010 [employer]- All Rights Reserved Chest X-Ray 04/29/18 00:00 IMPRESSION: Right subclavian catheter as described. No acute findings. Assessment & Plan - Diagnosis (1) Alcohol withdrawal seizure Qualifiers: Complication of substance-induced condition: uncomplicated Qualified Code(s): F10.230 - Alcohol dependence with withdrawal, uncomplicated Is this a current diagnosis for this admission?: Yes Plan: No seizures this admission. The patient is admitted shortly after having alcohol withdrawal related seizure at home; history of the same has been witnessed while in our facility during previous admissions. Head CT and C-spine CT are benign. He is admitted to [facility] on continuous cardiac telemetry. Seizure, aspiration, fall precautions in place. Scheduled p.o Valium with as needed IV Ativan; continue weaning total benzodiazepine use. As needed antiemetics. IV labetalol for blood pressure control. (2) Alcohol intoxication Qualifiers: Complication of substance-induced condition: with unspecified complication Qualified Code(s): F10.929 - Alcohol use, unspecified with intoxication, unspecified Is this a current diagnosis for this admission?: Yes Plan: Serum EtOH 291 on presentation. Chemistry and LFTs are unremarkable. Patient with long-standing history of alcohol abuse, well-known to our service. Supplemental vitamin, thiamine, and folic acid supplementation. Maintenance IV fluids. Management of alcohol withdrawal as above. Mental health services are consulted for evaluation of underlying mental health disorder; request medication recommendations. Discharge planning is consulted; patient would benefit from inpatient detox/rehabilitation. (3) Upper GI hemorrhage Is this a current diagnosis for this admission?: Yes Plan: EGD by Dr. Vallecillo; found to have a distal esophageal ulcer, nonperforated/bleeding Ann-Garay tear, gastritis, and multiple nonbleeding duodenal ulcers. Hemoglobin is stable. Continue Protonix IV push once daily; patient was on octreotide drip and Prot jenna drip x72 hours. Clear liquid diet; advance as tolerated. As needed Zofran and Phenergan Daily CBCs. (4) Tobacco dependency Is this a current diagnosis for this admission?: Yes Plan: Smoking cessation is encouraged. Nicotine replacement therapies are provided. (5) Pancreatitis Qualifiers: Chronicity: acute Pancreatitis type: alcohol induced Acute pancreatitis complication: unspecified Qualified Code(s): K85.20 - Alcohol induced acute pancreatitis without necrosis or infection Is this a current diagnosis for this admission?: Yes Plan: Lipase 3k--> 1500--> 1229 WBCs normal, remains afebrile. Will monitor closely and consider need for abd ominal imaging or antibiotics. Clear liquid diet; advance as tolerated. Oxycodone as needed for pain. Antiemetics as needed. IV fluids. (6) Alcohol dependence Qualifiers: Substance use status: in withdrawal Complication of substance-induced condition: with unspecified complication Qualified Code(s): F10.239 - Alcohol dependence with withdrawal, unspecified Is this a current diagnosis for this admission?: Yes Plan: Daily multivitamin, thiamine, folic acid supplementation. Mental health and discharge planners are consulted. - Time Time Spent with patient: 15-24 minutes Medications reviewed and adjusted accordingly: Yes Anticipated discharge: Home Within: within 72 hours
[2018-05-03] MEDS: DIAZEPAM 5 MG TABLET PO SCH ×3 (11:39→23:00)
[2018-05-03] MEDS: ONDANSETRON HCL INJ/PF 4 MG/2 ML SDV IV PRN (18:58)
[2018-05-04] MEDS: OXYCODONE HCL IR 5 MG TABLET PO PRN (03:45)
[2018-05-04] MEDS: ONDANSETRON HCL INJ/PF 4 MG/2 ML SDV IV PRN (03:45)
[2018-05-04 03:56] LABS: HEMATOCRIT 31.9 % (37.9-51.0); HEMOGLOBIN 10.6 g/dL (13.5-17.0); MEAN CORPUSCULAR HEMOGLOBIN 27.2 pg (27.0-33.4); MEAN CORPUSCULAR HGB CONC 33.3 g/dL (32.0-36.0); MEAN CORPUSCULAR VOLUME 82 fl (80-97); PLATELET COUNT 181 10^3/uL (150-450); RED CELL DISTRIBUTION WIDTH 19.6 % (11.5-14.0); WHITE BLOOD COUNT 5.1 10^3/uL (4.0-10.5)
[2018-05-04 04:16] LABS: ALANINE AMINOTRANSFERASE 21 U/L (21-72); ALBUMIN 3.2 g/dL (3.5-5.0); ALKALINE PHOSPHATASE 64 U/L (38-126); ANION GAP 9 (5-19); ASPARTATE AMINO TRANSFERASE 29 U/L (17-59); BILIRUBIN,DIRECT 0.2 mg/dL (0.0-0.4); BILIRUBIN,TOTAL 0.3 mg/dL (0.2-1.3); BLOOD UREA NITROGEN 8 mg/dL (7-20); CALCIUM 8.8 mg/dL (8.4-10.2); CARBON DIOXIDE 26 mmol/L (22-30); CHLORIDE 105 mmol/L (98-107); GLUCOSE 104 mg/dL (75-110); LIPASE 1062.9 U/L (23-300); POTASSIUM 4.2 mmol/L (3.6-5.0); SODIUM 140.3 mmol/L (137-145); TOTAL PROTEIN 5.5 g/dL (6.3-8.2)
[2018-05-04] MEDS: DIAZEPAM 5 MG TABLET PO SCH ×4 (06:13→23:01)
[2018-05-04] MEDS: NORMAL SALINE 1000 ML 1,000 ML IV PRN ×2 (06:13→19:11)
[2018-05-04] MEDS: NORMAL SALINE INJ/PF 0.9% 10 ML SDV IV SCH ×3 (06:14→22:56)
[2018-05-04] MEDS: INSULIN LISPRO 100 UNIT/ML 3 ML VIAL SUBCUT SCH ×5 (06:15→21:52)
[2018-05-04] MEDS: PROMETHAZINE HCL INJ 25 MG/1 ML VIAL IV PRN ×2 (08:20→13:38)
[2018-05-04] MEDS: PANTOPRAZOLE SODIUM 40 MG VIAL IV SCH (09:10)
[2018-05-04] MEDS: NICOTINE 14 MG/24 HR PATCH.TD24 TD SCH (09:11)
[2018-05-04] MEDS: THIAMINE HCL 100 MG TABLET PO SCH (09:11)
[2018-05-04] MEDS: FOLIC ACID 1 MG TABLET PO SCH (09:11)
[2018-05-04] MEDS: MULTIVITAMIN TABLET PO SCH (09:11)
[2018-05-04] MEDS ORDERED: OXYCODONE HCL SR 10 MG TABLET PO PRN (09:17)
[2018-05-04] MEDS ORDERED: TRAMADOL HCL 50 MG TABLET PO PRN (09:34)
[2018-05-04] MEDS: LIPASE/PROTEASE/AMYLASE 1 CAP CAPSULE.DR PO SCH ×2 (11:10→17:16)
[2018-05-04] MEDS: OXYCODONE HCL SR 10 MG TABLET PO SCH ×2 (11:10→22:56)
[2018-05-04] MEDS: LORAZEPAM INJ 2 MG/1 ML VIAL IV PRN ×2 (11:49→17:16)
[2018-05-04] MEDS ORDERED: KETOROLAC TROMETHAMINE INJ/PF 30 MG/1 ML SDV IV ONE (15:00)
--- NOTE | 2018-05-04 17:14 | PDOC PROGRESS REPORT ---
Subjective Progress Note for:: 05/04/18 Subjective:: The patient is a 32 year old male with a past medical history of chronic alcoholism, alcohol withdrawal seizures, alcoholic gastritis, multiple upper GI bleeds with remote history of variceal bleeding, hypertension, and depression who was admitted 04/28/18 for GI bleed and EtOH withdrawal seizure. Patient was seen this morning on rounds, he is resting comfortably in bed. He complains of epigastric pain, nausea and bloating. Per nursing staff, the patient had his first solid food meal tray last night for dinner. Immediately following dinner, the patient vomited. He has not had breakfast yet today. Abdomen is soft, nondistended, but tender to palpation in the epigastric region. Normal bowel sounds. No other significant assessment findings. If patient continues to experience postprandial abdominal pain and vomiting, will switch back to clear liquid diet. Reason For Visit: UPPER GI BLEED, ETOH WITHDRAWAL Physical Exam Vital Signs: Temp Pulse Resp BP Pulse Ox 98.3 F 85 16 120/81 100 05/04/18 07:39 05/04/18 07:39 05/04/18 07:39 05/04/18 07:39 05/04/18 07:39 Intake & Output 05/03/18 05/04/18 05/05/18 06:59 06:59 06:59 Intake Total 4345 3675 Balance 4345 3675 Weight 78.8 kg 80.4 kg General appearance: PRESENT: no acute distress, well-developed, well-nourished Eye exam: PRESENT: conjunctiva pink, PERRLA Mouth exam: PRESENT: moist, tongue midline Respiratory exam: PRESENT: symmetrical, unlabored Cardiovascular exam: PRESENT: RRR Vascular exam: PRESENT: normal capillary refill GI/Abdominal exam: PRESENT: soft, tenderness - (+) epigastric tenderness. ABSENT: distended Rectal exam: PRESENT: deferred Extremities exam: PRESENT: full ROM Musculoskeletal exam: PRESENT: ambulatory, full ROM, normal inspection Neurological exam: PRESENT: alert, awake, oriented to person, oriented to place, oriented to time, oriented to situation Psychiatric exam: PRESENT: appropriate affect Skin exam: PRESENT: dry, intact, normal color, other - MULTIPLE FACIAL ABRASIONS 2/2 RECENT FALL Results Laboratory Results: 05/04/18 03:40 05/04/18 03:40 05/04/18 05/04/18 03:40 03:40 WBC 5.1 RBC 3.90 L Hgb 10.6 L Hct 31.9 L MCV 82 MCH 27.2 MCHC 33.3 RDW 19.6 H Plt Count 181 Sodium 140.3 Potassium 4.2 Chloride 105 Carbon Dioxide 26 Anion Gap 9 BUN 8 Creatinine 0.62 Est GFR ( Amer) > 60 Est GFR (Non-Af Amer) > 60 Glucose 104 Calcium 8.8 Magnesium 1.7 Total Bilirubin 0.3 AST 29 ALT 21 Alkaline Phosphatase 64 Total Protein 5.5 L Albumin 3.2 L Lipase 1062.9 H Impressions: Cervical Spine CT 04/28/18 05:51 IMPRESSION: No acute fracture or subluxation. Head CT 04/28/18 05:51 IMPRESSION: No acute intracranial abnormality TECHNICAL DOCUMENTATION: Quality ID # 436: Final reports with documentation of one or more dose reduction techniques (e.g., Automated exposure control, adjustment of the mA and/or kV according to patient size, use of iterative reconstruction technique) copyright 2011 [employer]- All Rights Reserved Chest X-Ray 04/29/18 00:00 IMPRESSION: Right subclavian catheter as described. No acute findings. Status: Imported from PACS Assessment & Plan - Diagnosis (1) Alcohol withdrawal seizure Qualifiers: Complication of substance-induced condition: uncomplicated Qualified Code(s): F10.230 - Alcohol dependence with withdrawal, uncomplicated Is this a current diagnosis for this admission?: Yes Plan: No seizures this admission. The patient is admitted shortly after having alcohol withdrawal related seizure at home; history of the same has been witnessed while in our facility during previous admissions. Head CT and C-spine CT are benign. He is admitted to [facility] on continuous cardiac telemetry. Seizure, aspiration, fall precautions in place. Scheduled p.o Valium with as needed IV Ativan; continue weaning total benzodiazepine use. As needed antiemetics. IV labetalol for blood pressure control. (2) Alcohol abuse Is this a current diagnosis for this admission?: Yes Plan: Daily multivitamin, thiamine, folic acid supplementation. Mental health and discharge planners are consulted. (3) Alcohol intoxication Qualifiers: Complication of substance-induced condition: with unspecified complication Qualified Code(s): F10.929 - Alcohol use, unspecified with intoxication, unspecified Is this a current diagnosis for this admission?: Yes Plan: Serum EtOH 291 on presentation. Chemistry and LFTs are unremarkable. Patient with long-standing history of alcohol abuse, well-known to our service. Supplemental vitamin, thiamine, and folic acid supplementation. Maintenance IV fluids. Management of alcohol withdrawal as above. Mental health services are consulted for evaluation of underlying mental health disorder; NO medication recommendations. Discharge planning is consulted; patient would benefit from inpatient detox/rehabilitation (4) Upper GI hemorrhage Is this a current diagnosis for this admission?: Yes Plan: EGD by Dr. Vallecillo; found to have a distal esophageal ulcer, nonperforated/bleeding Ann-Garay tear, gastritis, and multiple nonbleeding duodenal ulcers. Hemoglobin is stable. Continue Protonix IV push once daily; patient was on octreotide drip and Protonix drip x72 hours. Regular diet as tolerated As needed Zofran and Phenergan Daily CBCs. (5) Pancreatitis Qualifiers: Chronicity: acute Pancreatitis type: alcohol induced Acute pancreatitis complication: unspecified Qualified Code(s): K85.20 - Alcohol induced acute pancreatitis without necrosis or infection Is this a current diagnosis for this admission?: Yes Plan: Lipase 3k--> 1500--> 1229-->1022 WBCs normal, remains afebrile. Will monitor closely and consider need for abdominal imaging or antibiotics. Regular diet Oxy-Sr 10mg q12h for pain control with PRN Tramadol as needed Antiemetics as needed. IV fluids. - Time Time Spent with patient: 15-24 minutes Medications reviewed and adjusted accordingly: Yes Anticipated discharge: Home, Other - INPATIENT SUBSTANCE ABUSE REHAB Within: within 48 hours - Inpatient Certification Based on my medical assessment, after consideration of the patient's comorbidities, presenting symptoms, or acuity I expect that the services needed warrant INPATIENT care.: Yes I certify that my determination is in accordance with my understanding of Medicare's requirements for reasonable and necessary INPATIENT services [42 CFR 412.3e].: Yes Medical Necessity: Risk of Complication if Not Cared For in Hospital - Plan Summary Plan Summary: INITIATE PANCREAZE. CONTINUE IVF. CHECK CBC AND LIPASE IN AM
[2018-05-04] MEDS: MORPHINE SULFATE 10 MG/ML INJ IV PRN (20:50)
[2018-05-05] MEDS: MORPHINE SULFATE 10 MG/ML INJ IV PRN ×4 (03:22→18:13)
[2018-05-05 03:31] LABS: ABSOLUTE EOSINOPHILS # (AUTO) 0.4 10^3/uL (0.0-0.6); ABSOLUTE LYMPHOCYTES (AUTO) 2.1 10^3/uL (0.5-4.7); ABSOLUTE MONOCYTES (AUTO) 0.7 10^3/uL (0.1-1.4); ABSOLUTE NEUT (AUTO) 2.3 10^3/uL (1.7-8.2); BASOPHILS % (AUTO) 0.7 % (0-2); EOSINOPHILS % (AUTO) 7.8 % (0-6); HEMATOCRIT 31.9 % (37.9-51.0); HEMOGLOBIN 10.4 g/dL (13.5-17.0); LYMPHOCYTES % (AUTO) 37.6 % (13-45); MEAN CORPUSCULAR HEMOGLOBIN 26.9 pg (27.0-33.4); MEAN CORPUSCULAR HGB CONC 32.6 g/dL (32.0-36.0); MEAN CORPUSCULAR VOLUME 82 fl (80-97); MONOCYTES % (AUTO) 12.8 % (3-13); PLATELET COUNT 220 10^3/uL (150-450); RED BLOOD COUNT 3.88 10^6/uL (4.35-5.55); RED CELL DISTRIBUTION WIDTH 19.8 % (11.5-14.0); SEGMENTED NEUTROPHILS % (AUTO) 41.1 % (42-78); TOTAL CELLS COUNTED % (AUTO) 100 %; WHITE BLOOD COUNT 5.5 10^3/uL (4.0-10.5)
[2018-05-05 05:43] LABS: ANION GAP 6 (5-19); BLOOD UREA NITROGEN 8 mg/dL (7-20); CALCIUM 8.5 mg/dL (8.4-10.2); CARBON DIOXIDE 29 mmol/L (22-30); CHLORIDE 104 mmol/L (98-107); GLUCOSE 141 mg/dL (75-110); LIPASE 818.5 U/L (23-300); PHOSPHORUS 4.6 mg/dL (2.5-4.5); POTASSIUM 3.9 mmol/L (3.6-5.0); SODIUM 138.6 mmol/L (137-145)
[2018-05-05] MEDS: DIAZEPAM 5 MG TABLET PO SCH ×4 (05:44→23:36)
[2018-05-05] MEDS: NORMAL SALINE INJ/PF 0.9% 10 ML SDV IV SCH ×3 (05:45→23:35)
[2018-05-05] MEDS: INSULIN LISPRO 100 UNIT/ML 3 ML VIAL SUBCUT SCH ×4 (08:24→23:34)
[2018-05-05] MEDS: ONDANSETRON HCL INJ/PF 4 MG/2 ML SDV IV PRN (08:25)
[2018-05-05] MEDS: LIPASE/PROTEASE/AMYLASE 1 CAP CAPSULE.DR PO SCH ×3 (08:26→18:11)
[2018-05-05] MEDS: NORMAL SALINE 1000 ML 1,000 ML IV PRN ×2 (08:30→23:38)
[2018-05-05] MEDS: FOLIC ACID 1 MG TABLET PO SCH (09:28)
[2018-05-05] MEDS: NICOTINE 14 MG/24 HR PATCH.TD24 TD SCH (09:28)
[2018-05-05] MEDS: PANTOPRAZOLE SODIUM 40 MG VIAL IV SCH (09:28)
[2018-05-05] MEDS: MULTIVITAMIN TABLET PO SCH (09:28)
[2018-05-05] MEDS: THIAMINE HCL 100 MG TABLET PO SCH (12:10)
[2018-05-05] MEDS: OXYCODONE HCL SR 10 MG TABLET PO SCH ×2 (12:11→23:36)
[2018-05-05] MEDS: MAGNESIUM SULFATE/D5W 1 GM/100 ML RTUPB IV SCH ×2 (14:00→15:22)
[2018-05-05] MEDS ORDERED: MAGNESIUM HYDROXIDE SUSP 30 ML UDCUP PO PRN (14:05)
[2018-05-05] MEDS: SENNOSIDES/DOCUSATE 8.6-50 MG 1 EACH TABLET PO SCH (18:13)
[2018-05-05] MEDS: PROMETHAZINE HCL INJ 25 MG/1 ML VIAL IV PRN (18:15)
[2018-05-05] MEDS ORDERED: LORAZEPAM INJ 2 MG/1 ML VIAL IV PRN (21:50)
--- NOTE | 2018-05-05 21:53 | PDOC PROGRESS REPORT ---
Subjective Progress Note for:: 05/05/18 Subjective:: The patient is a 32 year old male with a past medical history of chronic alcoholism, alcohol withdrawal seizures, alcoholic gastritis, multiple upper GI bleeds with remote history of variceal bleeding, hypertension, and depression who was admitted 04/28/18 for GI bleed and EtOH withdrawal seizure. Patient was seen this morning on rounds, he is resting comfortably in bed. He still complains of epigastric pain, nausea and bloating but is able to tolerate his clear liquid diet. Abdomen is soft, nondistended, but tender to palpation in the epigastric region. Normal bowel sounds. No other significant assessment findings. The patient was started on IV morphine PRN by paratransit operator, this seems to alleviate his pain better than oral medication. It was made very clear to the patient that he would not be receiving narcotic prescriptions once he is discharged home. Advanced diet back to regular today, will monitor for worsening pain and/or vomiting. Plan for d/c home withing 48 hours. Reason For Visit: UPPER GI BLEED, ETOH WITHDRAWAL Physical Exam Vital Signs: Temp Pulse Resp BP Pulse Ox 98.3 F 67 18 124/73 97 05/05/18 15:01 05/05/18 15:01 05/05/18 15:01 05/05/18 15:01 05/05/18 15:01 Intake & Output 05/04/18 05/05/18 05/06/18 06:59 06:59 06:59 Intake Total 3675 2038 1199 Balance 3675 2038 1199 Weight 80.4 kg 84.1 kg General appearance: PRESENT: no acute distress, well-developed, well-nourished Head exam: PRESENT: atraumatic, normocephalic Eye exam: PRESENT: conjunctiva pink, EOMI, PERRLA. ABSENT: scleral icterus Ear exam: PRESENT: normal external ear exam Mouth exam: PRESENT: moist, tongue midline Neck exam: ABSENT: carotid bruit, JVD, lymphadenopathy, thyromegaly Respiratory exam: PRESENT: clear to auscultation hannah. ABSENT: rales, rhonchi, wheezes Cardiovascular exam: PRESENT: RRR. ABSENT: diastolic murmur, rubs, systolic murmur Pulses: PRESENT: normal dorsalis pedis pul Vascular exam: PRESENT: normal capillary refill GI/Abdominal exam: PRESENT: normal bowel sounds, soft, tenderness - epigastric area. ABSENT: distended, guarding, mass, organolmegaly, rebound Rectal exam: PRESENT: deferred Extremities exam: PRESENT: full ROM. ABSENT: calf tenderness, clubbing, pedal edema Neurological exam: PRESENT: alert, awake, oriented to person, oriented to place, oriented to time, oriented to situation, CN II-XII grossly intact. ABSENT: motor sensory deficit Psychiatric exam: PRESENT: appropriate affect, normal mood. ABSENT: homicidal ideation, suicidal ideation Skin exam: PRESENT: dry, intact, warm. ABSENT: cyanosis, rash Results Laboratory Results: 05/05/18 03:20 05/05/18 03:20 05/05/18 05/05/18 03:20 03:20 WBC 5.5 RBC 3.88 L Hgb 10.4 L Hct 31.9 L MCV 82 MCH 26.9 L MCHC 32.6 RDW 19.8 H Plt Count 220 Seg Neutrophils % 41.1 L Lymphocytes % 37.6 Monocytes % 12.8 Eosinophils % 7.8 H Basophils % 0.7 Absolute Neutrophils 2.3 Absolute Lymphocytes 2.1 Absolute Monocytes 0.7 Absolute Eosinophils 0.4 Absolute Basophils 0.0 Sodium 138.6 Potassium 3.9 Chloride 104 Carbon Dioxide 29 Anion Gap 6 BUN 8 Creatinine 0.58 Est GFR ( Amer) > 60 Est GFR (Non-Af Amer) > 60 Glucose 141 H Calcium 8.5 Phosphorus 4.6 H Magnesium 1.3 L Lipase 818.5 H Impressions: Cervical Spine CT 04/28/18 05:51 IMPRESSION: No acute fracture or subluxation. Head CT 04/28/18 05:51 IMPRESSION: No acute intracranial abnormality TECHNICAL DOCUMENTATION: Quality ID # [id number]: Final reports with documentation of one or more dose reduction techniques (e.g., Automated exposure control, adjustment of the mA and/or kV according to patient size, use of iterative reconstruction technique) copyright 2011 [employer]- All Rights Reserved Chest X-Ray 04/29/18 00:00 IMPRESSION: Right subclavian catheter as described. No acute findings. Status: Imported from PACS Assessment & Plan - Diagnosis (1) Alcohol withdrawal seizure Qualifiers: Complication of substance-induced condition: uncomplicated Qualified Code(s): F10.230 - Alcohol dependence with withdrawal, uncomplicated Is this a current diagnosis for this admission?: Yes Plan: No seizures this admission. The patient is admitted shortly after having alcohol withdrawal related seizure at home; history of the same has been witnessed while in our facility during previous admissions. Head CT and C-spine CT are benign. He is admitted to [facility] on continuous cardiac telemetry. Seizure, aspiration, fall precautions in place. Scheduled p.o Valium with as needed IV Ativan; continue weaning total benzodiazepine use. As needed antiemetics. IV labetalol for blood pressure control. (2) Alcohol abuse Is this a current diagnosis for this admission?: Yes Plan: Daily multivitamin, thiamine, folic acid supplementation. Mental health and discharge planners are consulted. (3) Alcohol intoxication Qualifiers: Complication of substance-induced condition: with unspecified complication Qualified Code(s): F10.929 - Alcohol use, unspecified with intoxication, unspecified Is this a current diagnosis for this admission?: Yes Plan: Serum EtOH 291 on presentation. Chemistry and LFTs are unremarkable. Patient with long-standing history of alcohol abuse, well-known to our service. Supplemental vitamin, thiamine, and folic acid supplementation. Maintenance IV fluids. Management of alcohol withdrawal as above. Mental health services are consulted for evaluation of underlying mental health disorder; NO medication recommendations. Discharge planning is consulted; patient would benefit from inpatient detox/rehabilitation (4) Upper GI hemorrhage Is this a current diagnosis for this admission?: Yes Plan: EGD by Dr. Vallecillo; found to have a distal esophageal ulcer, nonperforated/bleeding Ann-Garay tear, gastritis, and multiple nonbleeding duodenal ulcers. Hemoglobin is stable. Continue Protonix IV push once daily; patient was on octreotide drip and Protonix drip x72 hours. Regular diet as tolerated As needed Zofran and Phenergan Daily CBCs. (5) Pancreatitis Qualifiers: Chronicity: acute Pancreatitis type: alcohol induced Acute pancreatitis complication: unspecified Qualified Code(s): K85.20 - Alcohol induced acute pancreatitis without necrosis or infection Is this a current diagnosis for this admission?: Yes Plan: Lipase 3k--> 1500--> 1229-->1022 WBCs normal, remains afebrile. Will monitor closely and consider need for abdominal imaging or antibiotics. Regular diet Oxy-Sr 10mg q12h for pain control with PRN Tramadol as needed Antiemetics as needed. IV fluids. - Time Time Spent with patient: 15-24 minutes Medications reviewed and adjusted accordingly: Yes Anticipated discharge: Home Within: within 48 hours - Inpatient Certification Based on my medical assessment, after consideration of the patient's comorbidities, presenting symptoms, or acuity I expect that the services needed warrant INPATIENT care.: Yes I certify that my determination is in accordance with my understanding of Medicare's requirements for reasonable and necessary INPATIENT services [42 CFR 412.3e].: Yes Medical Necessity: Need For Continuous Telemetry Monitoring
[2018-05-06] MEDS: DIAZEPAM 5 MG TABLET PO SCH ×2 (06:28→12:59)
[2018-05-06] MEDS: NORMAL SALINE INJ/PF 0.9% 10 ML SDV IV SCH ×2 (06:29→13:04)
[2018-05-06] MEDS: MORPHINE SULFATE 10 MG/ML INJ IV PRN ×2 (06:34→13:01)
[2018-05-06 07:31] LABS: HEMATOCRIT 32.6 % (37.9-51.0); HEMOGLOBIN 10.8 g/dL (13.5-17.0); MEAN CORPUSCULAR HEMOGLOBIN 27.3 pg (27.0-33.4); MEAN CORPUSCULAR HGB CONC 33.2 g/dL (32.0-36.0); MEAN CORPUSCULAR VOLUME 82 fl (80-97); PLATELET COUNT 287 10^3/uL (150-450); RED BLOOD COUNT 3.96 10^6/uL (4.35-5.55); RED CELL DISTRIBUTION WIDTH 19.9 % (11.5-14.0); WHITE BLOOD COUNT 5.6 10^3/uL (4.0-10.5)
[2018-05-06 07:44] LABS: ANION GAP 9 (5-19); BLOOD UREA NITROGEN 7 mg/dL (7-20); CALCIUM 8.5 mg/dL (8.4-10.2); CARBON DIOXIDE 28 mmol/L (22-30); CHLORIDE 103 mmol/L (98-107); GLUCOSE 105 mg/dL (75-110); LIPASE 600.4 U/L (23-300); PHOSPHORUS 3.4 mg/dL (2.5-4.5); POTASSIUM 4.1 mmol/L (3.6-5.0); SODIUM 140.1 mmol/L (137-145)
[2018-05-06] MEDS: INSULIN LISPRO 100 UNIT/ML 3 ML VIAL SUBCUT SCH ×2 (08:58→11:53)
[2018-05-06] MEDS: SENNOSIDES/DOCUSATE 8.6-50 MG 1 EACH TABLET PO SCH (09:07)
[2018-05-06] MEDS: PROMETHAZINE HCL INJ 25 MG/1 ML VIAL IV PRN (09:07)
[2018-05-06] MEDS: NICOTINE 14 MG/24 HR PATCH.TD24 TD SCH (09:08)
[2018-05-06] MEDS: MULTIVITAMIN TABLET PO SCH (09:08)
[2018-05-06] MEDS: FOLIC ACID 1 MG TABLET PO SCH (09:08)
[2018-05-06] MEDS: OXYCODONE HCL SR 10 MG TABLET PO SCH (09:08)
[2018-05-06] MEDS: LIPASE/PROTEASE/AMYLASE 1 CAP CAPSULE.DR PO SCH ×2 (09:08→12:59)
[2018-05-06] MEDS: THIAMINE HCL 100 MG TABLET PO SCH (09:09)
[2018-05-06 15:16] VITALS: BP 160/95
--- NOTE | 2018-05-14 07:35 | PDOC DISCHARGE SUMMARY ---
General - Admit/Disc Date/PCP Admission Date/Primary Care Provider: 04/28/18 07:32 SHALINI SOUTH MD Discharge Date: 05/06/18 - Discharge Diagnosis (1) Alcohol withdrawal seizure Is this a current diagnosis for this admission?: Yes (2) Alcohol abuse Is this a current diagnosis for this admission?: Yes (3) Alcohol intoxication Is this a current diagnosis for this admission?: Yes (4) Upper GI hemorrhage Is this a current diagnosis for this admission?: Yes (5) Pancreatitis Is this a current diagnosis for this admission?: Yes - Additional Information Resuscitation Status: Full Code Discharge Diet: As Tolerated Discharge Activity: Activity As Tolerated Prescriptions: Ondansetron [Zofran Odt 4 mg Tablet] 1 - 2 tab PO Q4HP PRN #10 tab.rapdis PRN Reason: Home Medications: Clonidine HCl [Catapres 0.1 mg Tablet] 0.1 mg PO DAILY 04/28/18 Hydroxyzine HCl [Atarax 50 mg Tablet] 50 mg PO BIDP PRN 04/28/18 Ranitidine HCl [Zantac 150 mg Tablet] 150 mg PO BID 04/28/18 Trazodone HCl [Desyrel] 100 mg PO HSP PRN 04/28/18 Ondansetron [Zofran Odt 4 mg Tablet] 1 - 2 tab PO Q4HP PRN #10 tab.rapdis 05/06/18 History of Present Illness History of Present Illness: JAIME NUNEZ is a 32 year old male with a past medical history of chronic alcoholism, alcohol withdrawal seizures, alcoholic gastritis, multiple upper GI bleeds with remote history of variceal bleeding, hypertension, and depression who presented to the emergency department with a complaint of alcohol withdrawal related seizure followed by episodes of emesis and epigastric discomfort. P atient reports that his last alcohol intake was approximately 48 hours ago. Evaluation in the emergency department revealed leukocytosis (WBCs 13.5), normal hemoglobin and hematocrit, platelet count 213, Normal coags, alcohol related anion gap acidosis (23), and serum EtOH 291. Chest x-ray, head CT, C-spine CT were benign. EKG demonstrated sinus tachycardia. Gastroenterology was consulted and fortunately Dr. Presley was able to take the patient to the OR suite today for EGD. Dr. Presley called me following the procedure to report a distal esophageal ulcer, no bleeding varices, hiatal hernia, Ann-Garay tear that is not actively bleeding, gastritis, and multiple small duodenal ulcers. The patient was seen while still in the PACU at 9:30 this morning and again this afternoon when his mother was present. Each time he was found to be alert, oriented x4, slightly tachycardic (110-120s) with acceptable blood pressures (140/80); reporting nausea and epigastric pain. The patient is admitted to the hospitalist service for management of the above complaints and findings. Hospital Course Hospital Course: The patient is a 32 year old male with a past medical history of chronic alcoholism, alcohol withdrawal seizures, alcoholic gastritis, multiple upper GI bleeds with remote history of variceal bleeding, hypertension, and depression who was admitted 04/28/18 for GI bleed and EtOH withdrawal seizure. Head CT and C-spine CT were done upon arrival, results were benign. Additionally, his lipase upon admission was > [address]. Dr. Vallecillo performed an EGD, the results were indicative of a distal esophageal ulcer, nonperforated/bleeding Ann-Garay tear, gastritis, and multiple nonbleeding duodenal ulcers. The patient was treated with PO Valium and PRN IV Ativan for his ETOH related seizures. Additionally, he received a daily PPI for his GI bleeding. His Hgb remained stable while hospitalized, he did not require a transfusion. The patient did not have any further seizure activity. Once he was able to tolerate solid food, he was discharged home into the care of his mother. Physical Exam Vital Signs: Temp Pulse Resp BP Pulse Ox 98.8 F 83 16 160/95 H 99 05/06/18 15:15 05/06/18 15:15 05/06/18 15:15 05/06/18 15:15 05/06/18 15:15 Results Laboratory Results: 05/06/18 06:40 05/06/18 06:40 Impressions: Cervical Spine CT 04/28/18 05:51 IMPRESSION: No acute fracture or subluxation. Head CT 04/28/18 05:51 IMPRESSION: No acute intracranial abnormality TECHNICAL DOCUMENTATION: Quality ID # 436: Final reports with documentation of one or more dose reduction techniques (e.g., Automated exposure control, adjustment of the mA and/or kV according to patient size, use of iterative reconstruction technique) copyright 2011 [employer]- All Rights Reserved Chest X-Ray 04/29/18 00:00 IMPRESSION: Right subclavian catheter as described. No acute findings. Status: Imported from [facility] Qualifiers - * PATIENT BEING DISCHARGED WITH ANY OF THE FOLLOWING DIAGNOSIS: No
== END 2018-05-06 15:49 | disposition home or self-care (01) | DRG 896 ==
LOC: ER 04:40 → EH 07:32 → 3S 18:46
PROVIDERS: ADMIT Internal Medicine; ATTEND Internal Medicine
PROC: 02HV33Z Insertion of Infusion Device into Superior Vena Cava, Percutaneous Approach (ICD-10-PCS; 2018-04-28)
PROC: HZ2ZZZZ Detoxification Services for Substance Abuse Treatment (ICD-10-PCS; 2018-04-28)
PROC: 0DD68ZX Extraction of Stomach, Via Natural or Artificial Opening Endoscopic, Diagnostic (ICD-10-PCS; principal; 2018-04-28 07:15)
DX: F10.230 Alcohol dependence with withdrawal, uncomplicated (principal); K22.11 Ulcer of esophagus with bleeding; K26.4 Chronic or unspecified duodenal ulcer with hemorrhage; K22.6 Gastro-esophageal laceration-hemorrhage syndrome; K29.21 Alcoholic gastritis with bleeding; K85.20 Alcohol induced acute pancreatitis without necrosis or infection; E87.2 Acidosis; R56.9 Unspecified convulsions; K70.10 Alcoholic hepatitis without ascites; F10.229 Alcohol dependence with intoxication, unspecified; I10 Essential (primary) hypertension; F32.9 Major depressive disorder, single episode, unspecified; Y90.8 Blood alcohol level of 240 mg/100 ml or more; K44.9 Diaphragmatic hernia without obstruction or gangrene; F17.210 Nicotine dependence, cigarettes, uncomplicated; S00.81XA Abrasion of other part of head, initial encounter; S01.511A Laceration without foreign body of lip, initial encounter
CPT/HCPCS: 36415; 43235; 70450; 71045; 72125; 731; 80048; 80053; 80307; 82962; 83690; 83735; 84100; 85025; 85027; 85610; 85730; 86850; 86900; 86901; 88305; 88342; 93005; 93010; 96361; 96365; 96368; 96375; 96376; 99291; C1751; J0131; J0171; J0330; J0696; J1170; J1200; J1610; J1630; J1642; J1885; J2060; J2250; J2270; J2310; J2354; J2405; J2550; J2704; J2765; J3010; J3411; J3475; J3480; J3490; J7030; J7040; S0164

== ENCOUNTER → 2018-06-09 | Outpatient (CLI) | payer OTHER ==
[2018-06-09 10:05] LABS: ABSOLUTE EOSINOPHILS # (AUTO) 0.4 10^3/uL (0.0-0.6); ABSOLUTE LYMPHOCYTES (AUTO) 1.9 10^3/uL (0.5-4.7); ABSOLUTE MONOCYTES (AUTO) 0.4 10^3/uL (0.1-1.4); BASOPHILS % (AUTO) 0.6 % (0-2); EOSINOPHILS % (AUTO) 5.5 % (0-6); HEMATOCRIT 45.8 % (37.9-51.0); HEMOGLOBIN 15.5 g/dL (13.5-17.0); LYMPHOCYTES % (AUTO) 28.2 % (13-45); MEAN CORPUSCULAR HEMOGLOBIN 27.9 pg (27.0-33.4); MEAN CORPUSCULAR HGB CONC 33.9 g/dL (32.0-36.0); MEAN CORPUSCULAR VOLUME 82 fl (80-97); MONOCYTES % (AUTO) 5.9 % (3-13); PLATELET COUNT 244 10^3/uL (150-450); RED BLOOD COUNT 5.56 10^6/uL (4.35-5.55); RED CELL DISTRIBUTION WIDTH 17.1 % (11.5-14.0); SEGMENTED NEUTROPHILS % (AUTO) 59.8 % (42-78); TOTAL CELLS COUNTED % (AUTO) 100 %; WHITE BLOOD COUNT 6.8 10^3/uL (4.0-10.5)
[2018-06-09 10:30] LABS: ALANINE AMINOTRANSFERASE 26 U/L (21-72); ALBUMIN 4.8 g/dL (3.5-5.0); ALKALINE PHOSPHATASE 74 U/L (38-126); ANION GAP 11 (5-19); ASPARTATE AMINO TRANSFERASE 24 U/L (17-59); BILIRUBIN,DIRECT 0.2 mg/dL (0.0-0.4); BILIRUBIN,TOTAL 0.3 mg/dL (0.2-1.3); BLOOD UREA NITROGEN 17 mg/dL (7-20); CALCIUM 9.6 mg/dL (8.4-10.2); CARBON DIOXIDE 28 mmol/L (22-30); CHLORIDE 98 mmol/L (98-107); GLUCOSE 97 mg/dL (75-110); POTASSIUM 4.6 mmol/L (3.6-5.0); SODIUM 136.9 mmol/L (137-145)
== END ==
LOC: CCC 09:36
DX: D64.9 Anemia, unspecified (principal); F10.10 Alcohol abuse, uncomplicated
CPT/HCPCS: 36415; 80053; 85025

== ENCOUNTER 2018-07-01 14:21 | Emergency (ER) | payer MEDICAID, OTHER ==
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
[2018-07-01] MEDS ORDERED: DEXTROSE 5%-1/2 NORMAL SALINE 1,000 ML IV ONE (14:50)
[2018-07-01] MEDS ORDERED: PANTOPRAZOLE SODIUM 40 MG VIAL IV PRN (15:29)
[2018-07-01] MEDS ORDERED: PANTOPRAZOLE SODIUM 40 MG VIAL IV ONE (15:29)
[2018-07-01 16:32] LABS: ABSOLUTE LYMPHOCYTES (AUTO) 1.6 10^3/uL (0.5-4.7); ABSOLUTE MONOCYTES (AUTO) 0.7 10^3/uL (0.1-1.4); ABSOLUTE NEUT (AUTO) 13.4 10^3/uL (1.7-8.2); BASOPHILS % (AUTO) 0.2 % (0-2); HEMATOCRIT 29.1 % (37.9-51.0); HEMOGLOBIN 10.2 g/dL (13.5-17.0); LYMPHOCYTES % (AUTO) 10.4 % (13-45); MEAN CORPUSCULAR VOLUME 80 fl (80-97); MONOCYTES % (AUTO) 4.5 % (3-13); PLATELET COUNT 150 10^3/uL (150-450); RED BLOOD COUNT 3.65 10^6/uL (4.35-5.55); RED CELL DISTRIBUTION WIDTH 15.5 % (11.5-14.0); SEGMENTED NEUTROPHILS % (AUTO) 84.9 % (42-78); TOTAL CELLS COUNTED % (AUTO) 100 %; WHITE BLOOD COUNT 15.8 10^3/uL (4.0-10.5)
[2018-07-01 16:39] LABS: PROTHROMBIN TIME 13.7 SEC (11.4-15.4)
[2018-07-01] MEDS ORDERED: LORAZEPAM INJ 2 MG/1 ML VIAL IV ONE ×3 (16:49→21:29)
[2018-07-01] MEDS ORDERED: ONDANSETRON HCL INJ/PF 4 MG/2 ML SDV IV ONE ×2 (16:49→18:54)
[2018-07-01 17:01] LABS: BLOOD UREA NITROGEN 28 mg/dL (7-20); GLUCOSE 168 mg/dL (75-110); LIPASE 333.7 U/L (23-300)
[2018-07-01 17:06] LABS: CARBON DIOXIDE 23 mmol/L (22-30); CHLORIDE 83 mmol/L (98-107); SODIUM 125.9 mmol/L (137-145)
[2018-07-01 17:15] LABS: CREATINE KINASE 2934 U/L (55-170)
[2018-07-01 17:17] LABS: CALCIUM 6.8 mg/dL (8.4-10.2)
[2018-07-01] MEDS ORDERED: CALCIUM GLUCONATE 1000 MG/10 ML INJ IV ONE (17:18)
[2018-07-01 17:28] LABS: ANION GAP 20 (5-19)
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
[2018-07-01] MEDS: POTASSI CL 20 MEQ/50 ML RIDER 20 MEQ/50 ML RTUPB IV SCH ×2 (18:47→20:50)
[2018-07-01 19:50] VITALS: BP 121/73
[2018-07-01] MEDS ORDERED: NORMAL SALINE 1000 ML 1,000 ML IV ONE (21:28)
== END 2018-07-01 22:14 | disposition short-term general hospital (02) ==
LOC: ER 14:21
DX: K92.2 Gastrointestinal hemorrhage, unspecified (principal); R53.1 Weakness; R00.0 Tachycardia, unspecified; R42 Dizziness and giddiness; F17.200 Nicotine dependence, unspecified, uncomplicated; I10 Essential (primary) hypertension
CPT/HCPCS: 96376; 99291; 96375; 96365; 96366; 96368; 86900; 86901; 36415; 86850; 82550; 83605; 83690; 85025; 85610; 80048; 70450; J0610; J2060; S0164; J2405; J3480